=== PATIENT | female | born 1940 | race Caucasian/White ===

== ENCOUNTER 2020-04-11 12:52 | Outpatient (RCR) | payer MEDICARE, SELFPAY | END 2020-04-11 23:59 | LOC: IMMUN 12:52 | PROVIDERS: PCP Family Medicine; Visit Provider Family Medicine | DX: Z23 Encounter for immunization (principal) | CPT/HCPCS: 0011A; 0012A; 91301 ==

== ENCOUNTER 2023-08-12 18:07 | Emergency (ER) | payer MEDICARE, SELFPAY ==
[2023-08-12 18:08] VITALS: BP 128/97; PULSE 95; RESP 18; TEMP 36.1; O2SAT 94; BMI 31.5
--- NOTE | 2023-08-12 18:37 | US_ITS ---
INDICATION: rt leg pain EXAMINATION: US Venous Duplex LE Unilat / Limited TECHNIQUE: Garber scale, pulse wave, and color flow Doppler imaging was performed of the lower extremity venous system. The right greater saphenous, common femoral, femoral, and popliteal veins were interrogated. COMPARISON: None. FINDINGS: There is normal compression, augmentation, and signal throughout the visualized deep lower extremity veins. No mass or fluid collection. US/Venous Duplex Imag/Limited/Uni IMPRESSION: No sonographic evidence of deep venous thrombosis. Electronically Signed: Haroon Martins MD at 21:19 EDT ,
--- NOTE | 2023-08-12 18:42 | EDS_ITS ---
HPI <IRIS Mittal - Last Filed: 08/12/23 19:23> History of Present Illness Chief Complaint: Edema Narrative Narrative: Patient is 83-year-old female with history of osteoarthritis, who presents to the emergency department with concern for right lower leg swelling. Patient is currently receiving treatment from her PCP for shingles to her right buttock, going down her right leg. Patient she is also having worsening pain to the right knee secondary to not getting her knee injections, she states she is formed weeks overdue. She denies any history of blood clots in the legs or lungs, denies any car rides greater than 4 hours, [place] any recent surgeries. PFSH <IRIS Mittal - Last Filed: 08/12/23 19:23> [facility] Home Medications ?Medication ?Instructions ?Recorded ?Last Taken ?Type gabapentin 300 mg capsule 300 mg PO TID 08/12/23 Unknown History ketoconazole 2 % shampoo 1 applic topical .COMPLEX 08/12/23 Unknown History prednisone 10 mg tablet See Taper PO 08/12/23 Unknown History sertraline 25 mg tablet 25 mg PO DAILY 08/12/23 Unknown History valacyclovir 1 gram tablet 1,000 mg PO TID 08/12/23 Unknown History Allergy/AdvReac Type Severity Reaction Status Date / Time No Known Allergies Allergy Verified 08/12/23 18:08 Social History Smoking Status: Never smoker ROS <IRIS Mittal - Last Filed: 08/12/23 19:23> ROS ED ROS Narrative Constitutional: Negative for fever, chills, weight loss, weakness Eyes: Negative for vision loss, vision change, double vision ENT: Negative for any sore throat, ear pain, congestion Cardiovascular: Negative for any chest pain, tightness, palpitations Respiratory: Negative for any cough, sputum production, hemoptysis, dyspnea, dyspnea on exertion, orthopnea Gastrointestinal: Negative for any abdominal pain, nausea, vomiting, diarrhea, constipation, blood in stool, blood in vomit : Negative for any urinary frequency, dysuria, retention, blood in urine Muscle skeletal: Negative for any neck pain, back pain. Positive right leg pain, right leg swelling Neurological: Negative for any headache, syncope, dizziness Skin: Negative for any rashes, itching, abrasions, lacerations Psychiatric: Negative for any depression, anxiety, stress, suicidal ideation, homicidal ideation Hematologic: Negative for any excessive bruising, easy bleeding EXAM <IRIS Mittal - Last Filed: 08/12/23 19:23> Physical Exam Narrative Exam Narrative: Vital signs reviewed. HEET: Head normocephalic atraumatic, TMs clear bilaterally. Posterior pharynx is clear, moist mucous membranes. Nares clear bilaterally. Neck: Supple with no lymphadenopathy or tenderness. No signs of meningismus. Cardiac: Regular rate and rhythm no murmurs gallops or rubs, equal peripheral pulses bilaterally. Respiratory: Lungs clear to auscultation bilaterally. No chest tenderness. Abdomen: Soft, nontender, nondistended. No abdominal bruit or pulsatile masses. No hepatosplenomegaly Extremities: Patient does have some swelling to bilateral feet, bilateral ankles, this is minimal, slight more pronounced on the right. Patient does have some rash to the anterior right lower leg, this is consistent with a shingles that is up in her right buttock. +2 pedal pulse.. Active full range of motion of all extremities. Neuro: Cranial nerves II through XII intact, no focal neurological deficits. Skin: Clean dry and intact with no rash, purpura, petechiae, vesicles or pustules. Backs/flank: No CVA tenderness, no midline spinal tenderness, no deformity. Psych: Normal mood and affect. No SI, HI or acute psychosis. Const Vital Signs: 08/12/23 18:07 08/12/23 18:08 Temperature 97 F L Temperature Source Temporal Pulse Rate 95 Respiratory Rate 18 Respiratory Effort Normal Respiratory Pattern Normal Blood Pressure 128/97 H Blood Pressure Mean 107 Pulse Ox 94 Oxygen Delivery Method Room Air Positive well nourished and well developed General Appearance ED: well developed <Dr. Alin Villarreal, DO - Last Filed: 08/12/23 20:33> Physical Exam Const Vital Signs: 08/12/23 18:07 08/12/23 18:08 Temperature 97 F L Temperature Source Temporal Pulse Rate 95 Respiratory Rate 18 Respiratory Effort Normal Respiratory Pattern Normal Blood Pressure 128/97 H Blood Pressure Mean 107 Pulse Ox 94 Oxygen Delivery Method Room Air MDM <IRIS Mittal - Last Filed: 08/12/23 19:23> MDM Treatment and Re-Evaluation :: Differential diagnosis includes however is not limited to: DVT, dependent edema, cellulitis Patient appears to be in no obvious respiratory distress, patient's vital signs are stable. Patient presents to the emergency department with concerns of right lower leg swelling concerning for blood clot. She was at urgent care who was told to come here. I do not believe the patient does have a blood clot however the patient received a venous duplex. Venous duplex was negative. At this time, patient be discharged home, instructed to ice and elevate her legs. She will continue taking the valacyclovir, prednisone. All questions were answered, she instructed return for any worsening symptoms. <Dr. Alin Villarreal, DO - Last Filed: 08/12/23 20:33> [facility] Narrative Medical decision making narrative: I have personally performed a face to face assessment of the patient and have reviewed the HARSH Note. I performed a substantive portion of the visit including all aspects of the following. My salomon findings include: History: Patient presents with right lower leg pain and swelling that became worse today. Patient states she has shingles going down her right lower leg. Patient is being treated for that. Patient states that she noted some increased pain and swelling today. Patient denies any fevers or chills. Patient denies any trauma or injury. Exam: Vital signs are stable. Patient is afebrile. Patient is in no acute distress. There is tenderness and mild edema over the right lower leg. There is an erythematous patchy rash over the right L4 dermatome. There are no vesicles or pustules noted. Pedal pulses are equal bilaterally. Sensation was intact to light touch bilaterally in the lower extremities. Strength is 5/5 bilaterally in the lower extremities. There is full range of motion of the right knee and ankle. Medical Decision Making: Differential diagnosis includes DVT and varicella- zoster. Venous duplex of the right lower extremity will be obtained to assess for DVT. Venous Doppler was obtained. There is no evidence of DVT. Patient was advised of her findings. Patient was instructed to ice and elevate her right leg. Patient was instructed to continue her antiviral medication as prescribed. Patient was instructed to return if worse in any way. Patient understood and was agreeable with the plan. All questions were answered. Discharge Plan Triage Chief Complaint: Edema ED Midlevel Provider: Shayne Spangler ED Provider: Alin Villarreal Dx/Rx/DC Orders Clinical Impression: Leg edema, Shingles Instructions: ED Peripheral Edema, Bilateral, ED Shingles (Herpes Zoster) Prescriptions: No Action prednisone 10 mg tablet See Taper PO Taper: Prednisone Taper 60 mg WITH BREAKFAST for 3 Days 50 mg WITH BREAKFAST for 3 Days 40 mg WITH BREAKFAST for 3 Days 30 mg WITH BREAKFAST for 3 Days 20 mg WITH BREAKFAST for 3 Days 10 mg WITH BREAKFAST for 3 Days ketoconazole 2 % shampoo 1 applic topical .COMPLEX Rx Instructions: 1 applic topically 2-3 times a week; gabapentin 300 mg capsule 300 mg PO TID valacyclovir 1 gram tablet 1,000 mg PO TID sertraline 25 mg tablet 25 mg PO DAILY Primary Care Provider: John Godinez Referrals: John Godinez MD [Primary Care Provider] - Activity Restrictions/Additional Instructions: Please take your medications as prescribed Print Language: Bengali Disposition Disposition: Home, Self Care
[2023-08-12 20:04] VITALS: BP 121/74; PULSE 84; RESP 16; TEMP 36.1; O2SAT 99
== END 2023-08-12 20:06 | disposition home or self-care (01) ==
PROVIDERS: Emergency Provider Emergency Medicine; PCP Family Medicine; Visit Provider Emergency Medicine
DX: R60.0 Localized edema (principal); B02.9 Zoster without complications
CPT/HCPCS: 93971; 99283

== ENCOUNTER 2025-02-16 10:31 | Emergency (ER) | payer MEDICARE, SELFPAY ==
[2025-02-16 10:35] VITALS: BP 160/86; PULSE 83; RESP 18; TEMP 35.7; O2SAT 96; BMI 31.5
--- NOTE | 2025-02-16 11:03 | RAD_ITS ---
PROCEDURE: HIP, UNI W/ PELVIS 2-3 VIEWS 02/16/2025 REASON FOR EXAM: PAIN TECHNIQUE: Procedure Code: RADHP Modality: DX Procedure: HIP, UNI W/ PELVIS 2-3 VIEWS Laterality: Left COMPARISON: None FINDINGS: Bones: No acute fracture. Joints: Normal alignment. Mild degenerative changes. Soft tissues: Soft tissues are unremarkable. Other: No radiopaque foreign body. RAD/HIP, UNI W/ Pelvis 2-3 Views IMPRESSION: No acute fracture is identified. If there is high clinical concern for the lef t hip fracture, further evaluation may be obtained with CT. Reading Location: [facility]
--- OUTSIDE RECORDS SUMMARY | 2025-02-16 11:24 | XMS RPT_ITS | CCD ---
Author Organization [facility] CliniSyut Care Team Providers Care Profile Saw Operator Name Role Phone John Hicks MD Primary Care Provider John Hicks Primary Care Unavailable Alin Villarreal Attending Unavailable John Hicks MD Primary Care Provider Haagen LICENSED PHYSICAL THERAPY ASSISTANT.Shanna ROSARIO Unavailable Suppan 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, Kaitlin A Unavailable Suppan 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, Kaitlin A Unavailable SUPPAN, KAITLIN A Referring Unavailable FABIOLA, JOHN Carr Primary Care Unavailable MARLYS JERNIGAN Attending Unavailable FABIOLA, JOHN Carr Primary Care Unavailable SUPPDAVIE, KAITLIN A Referring Unavailable FABIOLA, JOHN Carr Primary Care Unavailable FABIOLA, JOHN Bruno Primary Care Unavailable SUPPAN, KAITLIN A Referring Unavailable SUPPAN, KAITLIN A Referring Unavailable FABIOLA, JOHN J Primary Care Unavailable FABIOLA, JOHN J Primary Care Unavailable SUPPDAVIE, KAITLIN A Attending Unavailable FABIOLA, JOHN J Primary Care Unavailable SHANNA MUKHERJEE Attending Unavailable VIKRAMTOSATNAM, MARLYS Referring Unavailable MARLYS JERNIGAN Attending Unavailable FABIOLA, JOHN J Primary Care Unavailable SUPPDAVIE, KAITLIN A Referring Unavailable FABIOLA, JOHN J Primary Care Unavailable CHRISTIAN STANFORD Attending Unavailable FABIOLA, JOHN J Primary Care Unavailable SUPPAN, KAITLIN A Referring Unavailable CHRISTIAN STANFORD Attending Unavailable FABIOLA, JOHN J Primary Care Unavailable SUPPAN, KAITLIN A Referring Unavailable FABIOLA, JOHN J Primary Care Unavailable SUPPAN, KAITLIN A Referring Unavailable CHRISTIAN STANFORD Attending Unavailable FABIOLA, JOHN J Primary Care Unavailable FABIOLA, JOHN J Primary Care Unavailable SUPPDAVIE, KAITLIN A Referring Unavailable FABIOLA, JOHN J Primary Care Unavailable SUPPAN, KAITLIN A Referring Unavailable FABIOLA, JOHN J Primary Care Unavailable CHRISTIAN STANFORD Attending Unavailable KAITLIN VICTOR A Referring Unavailable FABIOLAJOHN Primary Care Unavailable KAITLIN VICTOR A Referring Unavailable FABIOLA, JOHN Carr Primary Care Unavailable KAITLIN VICTOR A Attending Unavailable KAITLIN VICTOR A Referring Unavailable JOHN HICKS Primary Care Unavailable FABIOLAJOHN Primary Care Unavailable KAITLIN VICTOR A Referring Unavailable FABIOLAJOHN Primary Care Unavailable KAITLIN VICTOR A Attending Unavailable MARLYS JERNIGAN Referring Unavailable MARLYS JERNIGAN Attending Unavailable JOHN HICKS Primary Care Unavailable Unavailable Unavailable Unavailable Allergies Allergy Classification Reported Allergen(s) Allergy Type Date of Onset Reaction(s) Facility Lidocaine (5 sources) Lidocaine Drug Allergy Intolerance [facility] medroxyPROGESTERone (5 sources) medroxyPROGESTERone Drug Allergy [facility] NSAIDs (10 sources) Diclofenac Drug Allergy Other: See Comments [facility] Work Phone: Opioid Agonists (5 sources) Codeine Drug Allergy [facility] (20 sources) Codeine; Translations: [CODEINE] Drug Allergy [facility] (20 sources) Diclofenac; Translations: [DICLOFENAC] Drug Allergy Other: See Comments [facility] Work Phone: (20 sources) Etodolac; Translations: [ETODOLAC] Drug Allergy Other: See Comments [facility] (20 sources) Lidocaine; Translations: [LIDOCAINE] Drug Allergy Intolerance [facility] Work Phone: (20 sources) medroxyPROGESTERone; Translations: [MEDROXYPROGESTERONE] Drug Allergy 002 [facility] (20 sources) predisone [Other] Propensity to adverse reactions Other: See Comments [facility] Medications Current Medications Medication Drug Class(es) Dates Sig (Normalized) Sig (Original) acetaminophen 325 mg oral tablet (20 sources) take 2 tablets by mouth every six hours as needed acetaminophen (TYLENOL) 325 mg tablet Take 650 mg by mouth every 6 hours as needed. Active Comment on above: Take 650 mg by mouth every 6 hours as needed. Calcium Carbonate (20 sources) calcium carbonat e (TUMS 500 ORAL) Indications: Somatic dysfunction of spine, lumbar , Subjective change in urination Take by mouth as needed. Active calcium carbonat e (TUMS 500 ORAL) Indications: Somatic dysfunction of spine, lumbar , Subjective change in urination Take by mouth as needed. 0 Active Comment on above: Take by mouth as nee ded. Carboxymethylcellulose (20 sources) take 1 drop(s) into the eye(s) every eight hours as needed CARBOXYMETHYLCELLULOSE SODIUM (REFRESH TEARS OPHTHALMIC) Use 1 Drop in eyes three times daily as needed. Active take 1 drop(s) into the eye(s) every eight hours as needed CARBOXYMETHYLCELLULOSE SODIUM (REFRESH T EARS OPHTHALMIC) Use 1 Drop in eyes three times daily as needed. 0 Active Comment on above: Use 1 Drop in eyes t hree times daily as needed. Collagen (20 sources) COLLAGEN MISC Ac tive COLLAGEN MISC fexofenadine hydrochloride 180 mg oral tablet (20 sources) Histamine-1 Receptor Antagonist take 1 tablet by mouth once daily fexofenadine (MELBA) 180 mg tablet Take 180 mg by mouth once daily. Active Comment on above: Take 180 mg by mouth once daily. gabapentin 100 mg oral capsule (20 sources) Anti-epileptic Agent Start: 08-22-19 End: 11-20-19 24 take 1 capsule by mouth once daily at bedtime gabapentin (NEURONTIN) 100 mg capsule Take 1 capsule by mouth daily at bedtime for 90 days. (Take with the 300 mg capsule at bedtime for total bedtime dose of 400 mg). 30 capsule 2 08/22/2023 10/08/2023 Discontinued (Other) Start: 08-11-2023 End: 11-09-2023 take 1 capsule by mouth three times daily gabapentin (NEURONTIN) 300 mg capsule Indications: Herpes zoster with complication Take 1 capsule by mouth three times a day for 90 days. 90 capsule 2 08/11/2023 10/08/2023 Discontinued (Other) Glucosamine HCl, Bulk, powd (20 sources) Glucosamine HCl, Bulk, powd Active Glucosamine HCl, Bulk, powd ketoconazole 20 mg/ml medicated shampoo (20 sources) Azole Antifungal ketoconazole (N IZORAL) 2 % shampoo Apply 1 application to affected area once daily as needed. Active Comment on above: Apply 1 application to affected area once daily as needed. nirmatrelvir tablet 150 mg and ritonavir tablet 100 mg in a dose pack (PAXLOVID) (3 sources) Start: 06-22-2022 End: 06-27-2022 nirmatrelvir tablet 150 mg and ritonavir tablet 100 mg in a dose pack (PAXLOVID) Indications: Suspected COVID-19 virus infection Administer ONE pink nirmatrelvir 150 mg tablet and ONE white ritonavir 100 mg tablet for a total of two tablets twice daily. 20 tablet 0 06/22/2022 06/27/2022 Active Start: 06-22-2022 End: 06-22-2022 nirmatrelvir tablet 150 mg a nd ritonavir tablet 100 mg in a dose pack (PAXLOVID) Indications: Suspected COVID-19 virus infection Administer ONE pink nirmatrelvir 150 mg tablet and ONE white ritonavir 100 mg tablet for a total of two tablets twice daily. 20 tablet 0 06/22/2022 06/22/2022 Discontinued Comment on above: Administer ONE pink nirmatrelvir 150 mg tablet and ONE white ritonavir 100 mg tablet for a total of two tablets twice daily. permethrin 50 mg/ml topical cream (1 source) Pyrethroid Start: 2 End: 2 permethrin (ELIMITE) 5 % cream Indications: Scabies Apply 1 application to affected area one time only for 1 dose. massage into skin from neck to feet, leave on 8-12hrs, wash off; Info: repeat 2wks if live mites persist. Itching may persist after effective treatment. 120 g 0 06/29/2021 06/29/2021 Active Comment on above: Apply 1 application to affected area one time only for 1 dose. massage into skin from neck to feet, leave on 8-12hrs, wash off; Info: repeat 2wks if live mites persist. Itching may persist after effective treatment. polyethylene glycol 3350 15324 mg powder for oral solution (20 sources) Osmotic Laxative Start: 4 polyethylene glycol 3350 (MIRALAX) 17 gram/dose powder As needed for constipation 09/11/2013 Active Comment on above: As needed for consti pation sertraline 25 mg oral tablet (20 sources) Serotonin Reuptake Inhibitor Start: End: take 1 tablet by mouth once daily sertraline (ZOLOFT) 25 mg tablet Take 1 tablet by mouth once daily. 30 tablet 5 08/24/2024 Active Start: 02-04-2021 End: 07-06-2023 take 0.5 tablet by mouth once daily sertraline (ZOLOFT) 25 mg tablet Indications: Recurrent depression (HCC) Take 0.5 tablets by mouth once daily. 45 tablet 3 02/02/2022 07/06/2023 Discontinued Comment on above: Take 0.5 tablets by mouth once daily. Take 1 tablet by candace th once daily. Simethicone (20 sources) SIMETHICONE (GAS -X ORAL) Take 1 tablet by mouth as needed. Active SIMETHICONE (GAS -X ORAL) Take 1 tablet by mouth as needed. 0 Active Comment on above: Take 1 tablet by candace th as needed. triamcinolone acetonide 1 mg/ml topical cream (3 sources) Corticosteroid Start: 06-16-2021 End: 07-29-2021 triamcinolone acetonide (KENALOG) 0.1 % cream Indications: Scabies Apply to affected area twice daily. Apply a thin layer of cream to affected areas of the body twice daily for 2 weeks. Stop for one full week, then apply for flares. 60 g 1 06/29/2021 07/29/2021 Active Comment on above: Apply to affected ar ea twice daily. Apply a thin layer of cream to affected areas of the body twice daily for 2 weeks. Stop for one full week, then apply for flares. Completed/Discontinued Medications Medication Drug Class(es) Dates Sig (Normalized) Sig (Original) aspirin 81 mg delayed release oral tablet (20 sources) Platelet Aggregation Inhibitor, Nonsteroidal Anti-inflammatory Drug End: 03-03-2023 take 1 tablet by mouth once daily aspirin, enteric coated (ASPIRIN, ENTERIC COATED) 81 mg EC tablet Take 81 mg by mouth once daily. 0 03/03/2023 Discontinued Comment on above: Take 81 mg by mouth once daily. benzonatate 100 mg oral capsule (1 source) Non-narcotic Antitussive Start: 03-26-2021 End: 04-30-2021 take 1 capsule by mouth every eight hours as needed benzonatate (TESSALON PERLES) 100 mg capsule Take 1 capsule by mouth three times daily as needed for cough. 20 capsule 0 03/26/2021 04/30/2021 Discontinued (Course of therapy completed) Comment on above: Take 1 capsule by [facility] three times daily as needed for cough. betamethasone 3 mg/ml / betamethasone acetate 3 mg/ml injectable suspension (2 sources) Corticosteroid Start: 01-02-2024 End: 01-02-2024 betamethasone acetate-betamethas one sodium phosphate 6 mg injection (CELESTONE) Start: 01-02-2024 End: 01-02-2024 6 mg, Injection - FOR ORTHO USE ONLY, ONCE, 1 dose, Starting on Tue01/02/24 at 1219, Until Tue01/02/24 at 1219 30 ml bupivacaine hydrochloride 5 mg/ml injection (4 sources) Amide Local Anesthetic Start: 01-10-2023 End: 01-10-2023 BUPivacaine (PF) 0.5 % (5 mg/mL) 5 mL injection Start: 11-30-2021 End: 11-30-2021 bupivacaine (PF) 0.5 % (5 mg /mL) 5 mL injection Start: 11-30-2021 End: 11-30-2021 bupivacaine (PF) 0.5 % (5 mg /mL) 5 mL injection chlorhexidine gluconate 1.2 mg/ml mouthwash (20 sources) Start: 02-02-2021 End: 10-02-2024 Chlorhexidine Gluconate (PERIDEX) 0.12 % solution two times a day. 02/02/2021 10/02/2024 Discontinued (Course of therapy completed) Comment on above: twice daily. COMPOUNDED PRESCRIPTION (20 sources) End: 10-02-2024 COMPOUNDED PRESCRIPTION Gum Rincinol as needed 10/02/2024 Discontinued (Course of therapy completed) COMPOUNDED PRESC RIPTION Gum Rincinol as needed Active COMPOUNDED PRESC RIPTION Gum Rincinol as needed 0 Active Comment on above: Gum Rincinol as need ed dexamethasone 0.001 mg/mg / neomycin 0.0035 mg/mg / polymyxin b 10 unt/mg ophthalmic ointment (20 sources) Aminoglycoside Antibacterial, Polymyxin-class Antibacterial, Corticosteroid Start: 05-03-2022 End: 10-02-2024 NEOMYCIN 3.5 MG/G-POLYMYXIN B 10,000 UNIT/G-DEXAMETH 0.1 % EYE OINT 05/03/2022 10/02/2024 Discontinued (Course of therapy completed) Start: 05-03-2022 NEOMYCIN 3.5 M G/G-POLYMYXIN B 10,000 UNIT/G-DEXAMETH 0.1 % EYE OINT APPLY INTO RIGHT EYE TWICE DAILY 0 05/03/2022 Active Comment on above: APPLY INTO RIGHT EYE TWICE DAILY ergocalciferol, vitamin D2, (VITAMIN D2 ORAL) (20 sources) End: 10-02-2024 ergocalciferol, vitamin D2, (VITAMIN D2 ORAL) Take by mouth. 10/02/2024 Discontinued (Course of therapy completed) ergocalciferol, vitamin D2, (VITAMIN D2 ORAL) Take by mouth. Active ergocalciferol, vitamin D2, (VITAMIN D2 ORAL) Take by mouth. 0 Active Comment on above: Take by mouth. 3 ml sodium hyaluronate 20 mg/ml prefilled syringe (16 sources) Start: 10-01-2024 End: 10-01-2024 hyaluronate sodium, stabilized syrg 3 mL (DUROLANE) Start: 10-01-2024 End: 10-01-2024 3 mL, Injection - FOR ORTHO USE ONLY, ONCE, 1 dose, Starting on Tue10/01/24 at 0801, Until Tue10/01/24 at 0801 Start: 04-02-2024 End: 04-02-2024 hyaluronate sodium, stabiliz ed syrg 6 mL (DUROLANE) Start: 04-02-2024 End: 04-02-2024 6 mL, Injection - FOR ORTHO USE ONLY, ONCE, 1 dose, Starting on Tue04/02/24 at 0848, Until Tue04/02/24 at 0848 Start: 09-05-2023 End: 09-05-2023 hyaluronate sodium, stabiliz ed syrg 6 mL (DUROLANE) Start: 01-10-2023 End: 01-10-2023 hyaluronate sodium, stabiliz ed syrg 6 mL (DUROLANE) Start: 11-30-2021 End: 11-30-2021 hyaluronate sod, cross-linke d 30 mg injection (GEL-ONE) Start: 11-30-2021 End: 11-30-2021 hyaluronate sod, cross-linke d 30 mg injection (GEL-ONE) 2 ml hylan g-f 20 8 mg/ml prefilled syringe (2 sources) Start: 11-30-2021 End: 11-30-2021 hylan G-F 20 2 mL injection (SYNVISC) Start: 11-30-2021 End: 11-30-2021 hylan G-F 20 2 mL injection (SYNVISC) 10 ml lidocaine hydrochloride 10 mg/ml injection (2 sources) Antiarrhythmic, Amide Local Anesthetic Start: 01-02-2024 End: 01-02-2024 lidocaine (PF) 10 mg/mL (1 %) 5 mL injection (XYLOCAINE) Start: 01-02-2024 End: 01-02-2024 5 mL, Injection - FOR ORTHO USE ONLY, ONCE, 1 dose, Starting on Tue01/02/24 at 1219, Until Tue01/02/24 at 1219 loratadine 10 mg oral tablet (20 sources) Start: 09-11-2014 End: 03-02-2023 take 1 tablet by mouth once daily as needed loratadine (ALLERGY RELIEF, LORATADINE,) 10 mg tablet Take 1 tablet by mouth once daily as needed (hives). 0 09/11/2014 03/02/2023 Discontinued Comment on above: Take 1 tablet by candace th once daily as needed (hives). predniSONE 10 mg oral tablet (6 sources) Start: 08-09-2023 End: 08-18-2023 predniSONE (DELTASONE) 10 mg tablet Indications: Chronic pain of right knee Take 4 tabs daily for 3 days, then 2 tabs daily for 3 days, then 1 tab daily for 3 days with food. 21 tablet 0 08/09/2023 08/18/2023 valACYclovir 1000 mg oral tablet (4 sources) Herpesvirus Nucleoside Analog DNA Polymerase Inhibitor, Herpes Simplex Virus Nucleoside Analog DNA Polymerase Inhibitor, Herpes Zoster Virus Nucleoside Analog DNA Polymerase Inhibitor Start: 08-11-2023 End: 08-18-2023 take 1 tablet by mouth three times daily valACYclovir (VALTREX) 1 gram tablet Indications: Herpes zoster with complication Take 1 tablet by mouth three times a day for 7 days. 21 tablet 0 08/11/2023 08/18/2023 vit C/E/Zn/coppr/lutein /zeaxan (PRESERVISION AREDS-2 ORAL) (20 sources) End: 10-02-2024 vit C/E/Zn/coppr/lutei n/zeaxan (PRESERVISION AREDS-2 ORAL) Take by mouth. 10/02/2024 Discontinued (Course of therapy completed) vit C/E/Zn/coppr /lutein/zeaxan (PRESERVISION AREDS-2 ORAL) Take by mouth. Active vit C/E/Zn/coppr /lutein/zeaxan (PRESERVISION AREDS-2 ORAL) Take by mouth. 0 Active Comment on above: Take by mouth. Problems Active Problems Problem Classification Problem Date Documented Da te Episodic/Chronic Adjustment disorders (2 sources) Grief finding; Translations: [Adjustment disorder with depressed mood] Onset: 10-02-2024 10-02-2024 Chronic Allergic reactions (20 sources) Urticaria; Translations: [Urticaria, unspecified] Onset: 04-28-2011 Resolved: 10-26-2016 09-11-2014 Episodic Anxiety disorders (20 sources) Generalized anxiety disorder; Translations: [Generalized anxiety disorder] Onset: 04-26-2017 04-26-2017 Chronic Chronic kidney disease (20 sources) Chronic kidney disease stage 3; Translations: [CKD (chronic kidney disease) stage 3, GFR 30-59 ml/min] Onset: 12-06-2017 12-06-2017 Chronic Conduction disorders (2 sources) Left bundle branch block; Translations: [Left bundle-branch block, unspecified] Onset: 10-02-2024 10-02-2024 Chronic Coronary atherosclerosis and other heart disease (1 source) Unstable angina; Translations: [Unstable angina pectoris (HCC)] Onset: 12-10-2024 Chronic Immunizations and screening for infectious disease (1 source) Suspected disease caused by 2019-nCoV; Translations: [Suspected COVID-19 virus infection] Episodic Menopausal disorders (20 sources) Menopausal symptom; Translations: [Menopausal and female climacteric states] Onset: 11-04-2001 07-15-2003 Chronic Mood disorders (20 sources) Recurrent depression; Translations: [Major depressive disorder, recurrent, unspecified] Onset: 11-04-2001 Resolved: 12-07-2018 04-26-2017 Chronic Open wounds of extremities (1 source) Laceration of right lower leg; Translations: [Laceration without foreign body, right lower leg, initial encounter] 10-18-2023 Episodic Osteoarthritis (20 sources) Degenerative joint disease involving multiple joints; Translations: [Polyosteoarthritis, unspecified] Onset: 11-04-2001 07-15-2003 Chronic Other connective tissue disease (1 source) Pain in lower limb; Translations: [Pain in right leg] 08-12-2023 Episodic Other diseases of kidney and ureters (1 source) Renal impairment; Translations: [Disorder of kidney and ureter, unspecified] Episodic Other ear and sense organ disorders (1 source) Impacted cerumen in left ear; Translations: [Impacted cerumen, left ear] 07-06-2023 Episodic Other infections; including parasitic (2 sources) Infestation by Sarcoptes scabiei rohan hominis; Translations: [Scabies] Episodic Other nervous system disorders (1 source) Other chronic pain; Translations: [Chronic bilateral low back pain without sciatica] Onset: 08-28-2024 Chronic Other upper respiratory infections (1 source) Sore throat symptom; Translations: [Acute pharyngitis, unspecified] 01-10-2024 Episodic Residual codes; unclassified (2 sources) Postmenopausal state; Translations: [Asymptomatic menopausal state] 03-03-2023 Episodic Residual codes; unclassified (3 sources) Edema of lower extremity; Translations: [Localized edema] 09-03-2023 Episodic Residual codes; unclassified (1 source) Procedure not done; Translations: [Procedure and treatment not carried out, unspecified reason] 11-08-2023 Episodic Superficial injury; contusion (3 sources) Contusion of wrist; Translations: [Contusion of right wrist, initial encounter] Episodic Unclassified (1 source) Chronic bilateral low back pain without sciatica; Translations: [Chronic bilateral low back pain without sciatica] Onset: 08-28-2024 Viral infection (5 sources) Herpes zoster; Translations: [Zoster with other complications] 08-11-2023 Episodic Past or Other Problems Problem Classification Problem Date Documented Da te Episodic/Chronic Inflammation; infection of eye (except that caused by tuberculosis or sexually transmitteddisease) (20 sources) Fuchs' heterochromic cyclitis, right eye; Translations: [Fuchs' heterochromic cyclitis] Onset: 08-14-2021 Episodic Neoplasms of unspecified nature or uncertain behavior (20 sources) Neoplasm of uncertain behavior of skin; Translations: [Neoplasm of uncertain behavior of skin] Onset: 04-28-2011 Resolved: 09-13-2011 09-13-2011 Episodic Nonspecific chest pain (3 sources) Chest discomfort; Translations: [Other chest pain] Onset: 02-21-2024 02-08-2024 Episodic Other and unspecified benign neoplasm (20 sources) History of polyp of colon; Translations: [Personal history of colonic polyps] Onset: 11-04-2001 07-15-2003 Episodic Other bone disease and musculoskeletal deformities (20 sources) Osteopenia; Translations: [Other specified disorders of bone density and structure, unspecified site] Onset: 11-04-2001 10-23-2015 Episodic Other circulatory disease (20 sources) Telangiectasia disorder; Translations: [Nevus, non-neoplastic] Onset: 04-28-2011 Resolved: 10-26-2016 10-26-2016 Episodic Other nervous system disorders (2 sources) Other symptoms and signs involving cognitive functions and awareness; Translations: [Other signs and symptoms involving cognition] Onset: 02-21-2024 02-21-2024 Episodic Other non-epithelial cancer of skin (20 sources) History of malignant neoplasm of skin; Translations: [Personal history of other malignant neoplasm of skin] Onset: 04-28-2011 03-16-2021 Episodic Other non-traumatic joint disorders (20 sources) Shoulder pain; Translations: [Pain in right shoulder] Onset: 05-19-2012 05-19-2012 Episodic Other non-traumatic joint disorders (20 sources) Pain in right shoulder; Translations: [Pain in joint, shoulder region] Onset: 05-19-2012 05-19-2012 Episodic Other non-traumatic joint disorders (20 sources) Pain in right knee; Translations: [Pain in joint, lower leg] Onset: 07-16-2014 Resolved: 10-26-2016 10-26-2016 Episodic Other screening for suspected conditions (not mental disorders or infectious disease) (20 sources) Patient encounter status; Translations: [Encounter for screening for lipoid disorders] Onset: 07-05-2011 Resolved: 10-23-2015 Episodic Other skin disorders (20 sources) Keloid scar; Translations: [Hypertrophic scar] Onset: 04-28-2011 09-13-2011 Episodic Other skin disorders (20 sources) Solar lentigo; Translations: [Other melanin hyperpigmentation] Onset: 04-28-2011 Resolved: 10-26-2016 10-26-2016 Episodic Otitis media and related conditions (2 sources) Finding of fluid behind tympanic membrane; Translations: [Unspecified nonsuppurative otitis media, bilateral] Onset: 02-08-2024 02-08-2024 Episodic Residual codes; unclassified (2 sources) Localized edema; Translations: [Localized edema] Onset: 08-19-2023 Episodic Spondylosis; intervertebral disc disorders; other back problems (20 sources) Chronic low back pain; Translations: [Chronic bilateral low back pain without sciatica] Onset: 08-28-2024 08-28-2024 Episodic Results Test Name Value Interpretation Reference Range Facility [id number] 12-13-2024 [id number] HNO ID: [id number] Author: CHRISTIAN STANFORD PT Service: ? Author Type: Physical Therapist Type: [id number] Filed: 12/13/2024 10:05 Note Text: [facility] Physical Therapy Plan of Care Certification Patient Name: Arianne Aleman : 1940 [facility] #: [id number] Date: 12/11/2024 To: Kaitlin Victor A* From Therapist: Christian Stanford PT RE: Patient Certification/ Recertification Your review, approval and electronic signature are required in order to comply with Payor: [facility] [employer] Calendar / Plan: [facility] MEDICARE ADVANTAGE HMO / Product Type: HMO / regulations. The identified Physical Therapy PLAN OF CARE for the patient is as follows: M54.50, G89.29 Chronic bilateral low back pain without sciatica (primary encounter diagnosis) PLAN OF CARE UPDATE: Assessment: Arianne Aleman demonstrates moderate improvement in rising from a chair, standing, and walking. The patient has progressed toward goals. Patient continues to present with impairments in ADL's, overall function, and strength that interfere with rising from a chair, standing, walking . Current prognosis is Good due to: current objective clinical presentation, good overall health status, positive past response to therapy, within-session changes, good support system/ coping skills . The patient will benefit from continued skilled therapy services to meet the updated goals for this plan of care as noted below. Goals updated on 12/11/2024. Goals for Episode of Care: established 08/28/24 Independent in home exercises. Met Patient will decrease pain rating by 2 points to meet minimal clinical important difference for numeric pain rating scale. Partially met Restore pain-free lumbar ROM to WNL to allow for improved tolerance for standing and walking. Improved Stand / Walk for ADLs and self care without pain/symptoms. Improved Maintain proper sitting posture throughout session. Improved Patient will increase strength of trunk and BLE to 4 to 4+/5 to allow for improve gait mechanics/gait pattern and improve ability to complete ADLs. Improved Time Frame for Goals and Treatment : 02/12/25 Planned Interventions, Frequency, and Duration: 1x/week, 8 weeks Total Number of Visits Planned: 8 Patient to be seen for Manual therapy (51386), Therapeutic exercise (10778), Neuromuscular re-education (84039), Therapeutic activities (58625), Self-group home management (21337), Gait Training (62964), Patient/Family/Caregiver Education, Body Mechanics Training PLAN FOR NEXT VISIT: Continue with BLE and core strengthening per tolerance For further details regarding this patient refer to the Physical Therapy electronically documented visit dated 12/11/2024. Provider Attestation I have reviewed the treatment plan for Arianne Aleman CCArmida# [id number] for the period of 12/11/24 -- 02/10/25, established on 12/11/2024. Signature certifies the need for therapy services. Normal [facility] CNTHERAPYon 12-11-2024 CNTHERAPY OT/PT/Speech Visit ( PTWS) -- ARIANNE ALEMAN ([id number]) 1940 F TXT Date Time Provider Department 12/11/24 5:15 PM CHRISTIAN STANFORD PTWS Date Time Provider Department Center 12/11/2024 5:15 PM [id number], SEAN PTWS Ovi Ortega Reason for Visit: PT Progress Note [1596] Primary Visit Diagnosis:Chronic bilateral low back pain without sciatica [M54.50, G89.29] Allergies As of Date: 12/11/2024 Noted Allergy Reaction LIDOCAINE 11/03/2015 5 - Intolerance Comments: Severe itching, burning. Pt. has had Marcaine without problem for oral surgery per Dr. Rodriguez's office. (Unsure true Lidocaine allergy) CODEINE 11/09/2001 DICLOFENAC 02/06/2013 14 - Other: See Comments Comments: mouth ulcerations ETODOLAC 07/09/2014 14 - Other: See Comments Comments: Mouth ulcers MEDROXYPROGESTERONE 11/09/2001 Date Reviewed: 12/10/2024 Reviewed by: Nivia Geller, RT(R) - Partially Assessed Prescriptions as of 12/13/2024 - sertraline (ZOLOFT) 25 mg tablet Take 1 tablet by mouth once daily. - Glucosamine HCl, Bulk, powd - fexofenadine (MELBA) 180 mg tablet Take 180 mg by mouth once daily. - calcium carbonate (TUMS 500 ORAL) Take by mouth as needed. - COLLAGEN MISC - acetaminophen (TYLENOL) 325 mg tablet Take 650 mg by mouth every 6 hours as needed. - SIMETHICONE (GAS-X ORAL) Take 1 tablet by mouth as needed. - CARBOXYMETHYLCELLULOSE SODIUM (REFRESH TEARS OPHTHALMIC) Use 1 Drop in eyes three times daily as needed. - ketoconazole (NIZORAL) 2 % shampoo Apply 1 application to affected area once daily as needed. - polyethylene glycol 3350 (MIRALAX) 17 gram/dose powder As needed for constipation Meds Comments as of 03/18/2014: Lehr Tender: Therapy (PT/OT/Speech/Resp) ID: [id number] 12/11/2024 5:44 PM Author: CHRISTIAN STANFORD Signed by CHRISTIAN STANFORD PT on 12/11/2024 at 5:44 PM Document text: Program_ID:[id number] Access Code: [email or web address] URL: [email or web address] Date: 12-11-2024 Prepared By: Christian Stanford Program Notes Exercises - Supine Lower Trunk Rotation - 1 x daily - 7 x weekly - 3 sets - 10 reps - Hooklying Single Knee to Chest - 1 x daily - 7 x weekly - 3 sets - 3 reps - Hooklying Single Knee to Chest - 1 x daily - 7 x weekly - 3 sets - 3 reps - Supine Straight Leg Raises - 1 x daily - 7 x weekly - 3 sets - 10 reps - Supine Straight Leg Raises - 1 x daily - 7 x weekly - 3 sets - 10 reps - Clamshell - 1 x daily - 7 x weekly - 3 sets - 10 reps - Clamshell - 1 x daily - 7 x weekly - 3 sets - 10 reps - Sidelying Hip Abduction - 1 x daily - 7 x weekly - 3 sets - 10 reps - Sidelying Hip Abduction - 1 x daily - 7 x weekly - 3 sets - 10 reps - Seated Long Arc Quad - 1 x daily - 7 x weekly - 2 sets - 10 reps - Seated Transversus Abdominis Bracing - 2-3 x daily - 7 x weekly - 2 sets - 10 reps - Seated March - 1 x daily - 7 x weekly - 2 sets - 10 reps Normal [facility] THERAPY NTon 12-11-2024 THERAPY NT HNO ID: [id number] Author: CHRISTIAN STANFORD PT Service: ? Author Type: Physical Therapist Type: Therapy (PT/OT/Speech/Resp) Filed: 12/11/2024 17:44 Note Text: Program_ID:[id number] Access Code: [email or web address] URL: [email or web address] Date: 12-11-2024 Prepared By: Christian Stanford Program Notes Exercises - Supine Lower Trunk Rotation - 1 x daily - 7 x weekly - 3 sets - 10 reps - Hooklying Single Knee to Chest - 1 x daily - 7 x weekly - 3 sets - 3 reps - Hooklying Single Knee to Chest - 1 x daily - 7 x weekly - 3 sets - 3 reps - Supine Straight Leg Raises - 1 x daily - 7 x weekly - 3 sets - 10 reps - Supine Straight Leg Raises - 1 x daily - 7 x weekly - 3 sets - 10 reps - Clamshell - 1 x daily - 7 x weekly - 3 sets - 10 reps - Clamshell - 1 x daily - 7 x weekly - 3 sets - 10 reps - Sidelying Hip Abduction - 1 x daily - 7 x weekly - 3 sets - 10 reps - Sidelying Hip Abduction - 1 x daily - 7 x weekly - 3 sets - 10 reps - Seated Long Arc Quad - 1 x daily - 7 x weekly - 2 sets - 10 reps - Seated Transversus Abdominis Bracing - 2-3 x daily - 7 x weekly - 2 sets - 10 reps - Seated March - 1 x daily - 7 x weekly - 2 sets - 10 reps [facility]ARDWS[facility] -- ARIANNE ALEMAN ([id number]) 1940 F TXT Date Time Provider Department 12/10/24 9:15 AM NURSE CARD WSTR CARDWS During your visit today, we recorded the following information about you: Referring Provider: KAITLIN VICTOR [[id number]] Allergies As of Date: 12/10/2024 Noted Allergy Reaction LIDOCAINE 11/03/2015 5 - Intolerance Comments: Severe itching, burning. Pt. has had Marcaine without problem for oral surgery per Dr. Rodriguez's office. (Unsure true Lidocaine allergy) CODEINE 11/09/2001 DICLOFENAC 02/06/2013 14 - Other: See Comments Comments: mouth ulcerations ETODOLAC 07/09/2014 14 - Other: See Comments Comments: Mouth ulcers MEDROXYPROGESTERONE 11/09/2001 Date Reviewed: 10/02/2024 Reviewed by: Kaelyn Villatoro MA - Fully Assessed Visit Diagnosis: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] Order(s):[] regadenoson 0.4 mg injection (LEXISCAN)Disp: Rfl: Prescriptions as of 12/10/2024 - sertraline (ZOLOFT) 25 mg tablet Take 1 tablet by mouth once daily. - Glucosamine HCl, Bulk, powd - fexofenadine (MELBA) 180 mg tablet Take 180 mg by mouth once daily. - calcium carbonate (TUMS 500 ORAL) Take by mouth as needed. - COLLAGEN MISC - acetaminophen (TYLENOL) 325 mg tablet Take 650 mg by mouth every 6 hours as needed. - SIMETHICONE (GAS-X ORAL) Take 1 tablet by mouth as needed. - CARBOXYMETHYLCELLULOSE SODIUM (REFRESH TEARS OPHTHALMIC) Use 1 Drop in eyes three times daily as needed. - ketoconazole (NIZORAL) 2 % shampoo Apply 1 application to affected area once daily as needed. - polyethylene glycol 3350 (MIRALAX) 17 gram/dose powder As needed for constipation Meds Comments as of 03/18/2014: Problem List As Of Date 12/10/2024 Noted Resolved Chronic depression [F32.A] 11/04/2001 12/07/2018 Symptomatic menopausal or female climacteric st*11/04/2001 GENERAL OSTEOARTHROSIS [M15.9] 11/04/2001 Personal history of colonic polyps [Z86.0100] 11/04/2001 Osteopenia [M85.80] 11/04/2001 Neoplasm of Uncertain Behavior (NUB) of skin: L*04/28/2011 09/13/2011 Personal history of other malignant neoplasm of*04/28/2011 Actinic skin damage [L57.8] 04/28/2011 10/26/2016 Hypertrophic//Keloid scar: L upper lip [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] 04/28/2011 Telangiectasia [I78.1] 04/28/2011 10/26/2016 Solar Lentigines [L81.4] 04/28/2011 10/26/2016 Special screening for malignant neoplasms, colo*07/05/2011 10/23/2015 Bilateral shoulder pain [M25.511, M25.512] 05/19/2012 Arthritis of knee, degenerative [M17.9] 03/18/2014 Right knee pain [M25.561] 07/16/2014 10/26/2016 Hives [L50.9] Recurrent depression (HCC) [F33.9] 04/26/2017 JOSE ELIAS (generalized anxiety disorder) [F41.1] 04/26/2017 CKD (chronic kidney disease) stage 3, GFR 30-59*12/06/2017 Fuchs' heterochromic iridocyclitis, 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 Basal cell carcinoma (BCC) of skin of right upp*02/02/2022 Chronic bilateral low back pain without sciatic*08/28/2024 Prescriptions ordered this encounter Disp Refills Start End REGADENOSON 0.4 MG/5 ML INTRAVENOUS * 12/10/2024 12/10/2024 Route: IV Encounter Status:Closed by TITA CASTELLANO on 12/10/24 Normal [facility] CARDIAC PERF STRESS/PHARM on 12-10-2024 HI CARDIAC PERF STRESS/PHARM * * *Final Report* * * DATE OF EXAM: Dec 10 2024 11:10AM [address] CARDIAC PERF STRESS/PHARM / PROCEDURE REASON: Unstable angina pectoris (HCC) * * * * Physician Interpretation * * * * PATIENT: Name: MRS. ARIANNE ALEMAN Age: 84 years Gender: F CONCLUSIONS: 1. SPECT Perfusion Study: Normal. 2. There is no scintigraphic evidence for inducible ischemia. 3. No evidence of scarred myocardium. 4. Left ventricle is normal in size. The left ventricle systolic function is hyperdynamic. 5. This is a low risk scan. Gated Stress FBP LVEF % 75 Prior Study Comparison No prior nuclear cardiology exam available for comparison. Nuclear Med Report:1-Day Gated SPECT Myocardial Perfusion with Regadenoson Stress: Myocardial perfusion imaging was performed at rest 30 minutes following the IV injection of the radiotracer. The patient received 0.4 mg of regadenoson, via rapid IV push, immediately followed by radiotracer IV. Gated post stress tomographic imaging was performed 30 to 60 minutes later. See administered radiotracer and doses below. [facility] Date of service: 12/10/2024 8:24:49 AM Ordering Physician: KAITLIN VICTOR. Requesting Physician: KAITLIN VICTOR Indication: CP - ECG uninterpretable OR unable to exercise Interpreting physician: Katherine Weston MD Height: 162.56 cm BSA: 1.93 m? Weight: 82.56 kg BMI: 31.2 kg/m? Exam Type: Rest Stress Radiopharm: Tc-99m Tetrofosmin Tc-99m Tetrofosmin Dosage(mCi): 13.7 35.3 Stress Agent: Regadenoson 0.4mg Supply provided from [facility] Resting Blood Press: 122/68 mmHg Image Quality The overall study imaging quality was deemed to be good. FINDINGS: Left Ventricle Wall Motion: Stress IR:3D - All segments are normal. Rest IR:3D - Gated Stress FBP - Reversibility - Stress IR:3D Stress IR:3D Gated Stress FBP LVEF: 75 % ED Volume: 107 ml ES Volume: 27 ml TID: 0.83 Perfusion Findings Stress IR:3D - Summed Score=0 All segments demonstrate normal perfusion. Rest IR:3D - Summed Score=0 All segments demonstrate normal perfusion. Stress IR:3D Rest IR:3D Summed Score=0 Summed Score=0 LEFT VENTRICLE The left ventricle is normal in size. Left ventricular systolic function is hyperdynamic. Right Ventricle The right ventricle is unseen or not interrogated. Stress Test Findings: There is no scintigraphic evidence for inducible ischemia. There is no evidence of scarring. * * * Final * * * Stress ECG Report: [facility] Date of service: 12/10/2024 8:24:49 AM Ordering physician: KAITLIN VICTOR bioinformatics specialist: Tita Castellano RN Interpreting physician: Gianfranco Garcia MD Patient name: MRS. ARIANNE ALEMAN Age: 84 years Gender: F Height: 162.56 cm BSA: 1.93 m? Weight: 82.56 kg BMI: 31.2 kg/m? Indication: Chest pressure / Chest tightness and Encounter for screening for cardiovascular disorders Stress ECG Conclusion: Conclusion: Nondiagnostic due to LBBB Prior exam comparison: Nondiagnostic at present Stress ECG Summary: The patient's resting heart rate was 62 bpm and blood pressure was 122/68 mmHg. The test was terminated due to end of protocol. The maximum heart rate was 75 bpm, which is 56% of the predicted heart rate for age. Peak blood pressure was 148/76 mmHg. The double product achieved was 26744. Resting ECG: Normal Sinus Rhythm and Complete LBBB Symptoms at rest: No symptoms Pharamcologic Protocol: Regadenoson Stress Exercise Table: +-----+--+---+---+ Stage HR SYS ARMAAN +-----+--+---+---+ 1 75 +-----+--+---+---+ 2 81 138 80 +-----+--+---+---+ 3 79 +-----+--+---+---+ 4 75 148 76 +-----+--+---+---+ +-----+--+---+---+ HR SYS ARMAAN +-----+--+---+---+ Final 75 148 76 +-----+--+---+---+ +------+ + Stage Arrhythmias +------+ + 1 Regadenoson Injection and Isotope Injection +------+ + Recovery Table: +------+--+---+---+ Stage HR SYS ARMAAN +------+--+---+---+ 1 74 +------+--+---+---+ 2 75 138 72 +------+--+---+---+ 3 70 +------+--+---+---+ 4 70 134 68 +------+--+---+---+ Stress Observations: Resting HR: 62 bpm Peak HR: 75 bpm (56% MPHR) Resting BP: 122 / 68 mmHg Peak BP: 148 / 76 mmHg Rate Pressure Product (RPP): 85449 Stress Exercise Observations: Reason for test termination: end of protocol ST segment and T wave changes: Nondiagnostic due to LBBB Arrhythmias: No arrhythmias Metabolic Exercise Data Variable: Observed value [Expected Range] HGI: 0.5 [>1.06 bpm/mmHg] E (more content not included)... Normal [facility] 12-03-2024 CNPN Telephone (4CQ) -- ARIANNE ALEMAN ([id number]) 1940 F TXT Date Time Provider Department 12/03/24 JOHN HICKS 4CQ During your visit today, we recorded the following information about you: Flory Porras 12/03/2024 12:26 PM Signed Patient stopped in and wanted Shelby Victor to know that her last periodontal check is today for the upper work that was done. Things are going well and she is feeling fine. She had never had any issues with her heart until she had this periodontal work done. She wants to know if she should make an appt to see Shelby Victor about this or if she should go ahead with the scheduled stress test? She seemed very anxious about this upcoming procedure. Please call [phone] if you need to reach out to her. Thank you! Kaitlin Victor APRN.MULTIPLE KNIFE EDGE TRIMMER OPERATOR 12/03/2024 4:16 PM Signed Please schedule the stress test. Jonathan Mcleod LPN 12/05/2024 9:13 AM Signed The stress test is scheduled. Patient was notified to go ahead with test. Allergies As of Date: 12/03/2024 Noted Allergy Reaction LIDOCAINE 11/03/2015 5 - Intolerance Comments: Severe itching, burning. Pt. has had Marcaine without problem for oral surgery per Dr. Rodriguez's office. (Unsure true Lidocaine allergy) CODEINE 11/09/2001 DICLOFENAC 02/06/2013 14 - Other: See Comments Comments: mouth ulcerations ETODOLAC 07/09/2014 14 - Other: See Comments Comments: Mouth ulcers MEDROXYPROGESTERONE 11/09/2001 Date Reviewed: 10/02/2024 Reviewed by: Kaelyn Villatoro MA - Fully Assessed Reason for Visit: Patient Update [1234] Patient Question [3507] Prescriptions as of 12/05/2024 - sertraline (ZOLOFT) 25 mg tablet Take 1 tablet by mouth once daily. - Glucosamine HCl, Bulk, powd - fexofenadine (MELBA) 180 mg tablet Take 180 mg by mouth once daily. - calcium carbonate (TUMS 500 ORAL) Take by mouth as needed. - COLLAGEN MISC - acetaminophen (TYLENOL) 325 mg tablet Take 650 mg by mouth every 6 hours as needed. - SIMETHICONE (GAS-X ORAL) Take 1 tablet by mouth as needed. - CARBOXYMETHYLCELLULOSE SODIUM (REFRESH TEARS OPHTHALMIC) Use 1 Drop in eyes three times daily as needed. - ketoconazole (NIZORAL) 2 % shampoo Apply 1 application to affected area once daily as needed. - polyethylene glycol 3350 (MIRALAX) 17 gram/dose powder As needed for constipation Meds Comments as of 03/18/2014: Problem List As Of Date 12/03/2024 Noted Resolved Chronic depression [F32.A] 11/04/2001 12/07/2018 Symptomatic menopausal or female climacteric st*11/04/2001 GENERAL OSTEOARTHROSIS [M15.9] 11/04/2001 Personal history of colonic polyps [Z86.0100] 11/04/2001 Osteopenia [M85.80] 11/04/2001 Neoplasm of Uncertain Behavior (NUB) of skin: L*04/28/2011 09/13/2011 Personal history of other malignant neoplasm of*04/28/2011 Actinic skin damage [L57.8] 04/28/2011 10/26/2016 Hypertrophic//Keloid scar: L upper lip [L91.0] 04/28/2011 Telangiectasia [I78.1] 04/28/2011 10/26/2016 Solar Lentigines [L81.4] 04/28/2011 10/26/2016 Special screening for malignant neoplasms, colo*07/05/2011 10/23/2015 Bilateral shoulder pain [M25.511, M25.512] 05/19/2012 Arthritis of knee, degenerative [M17.9] 03/18/2014 Right knee pain [M25.561] 07/16/2014 10/26/2016 Hives [L50.9] Recurrent depression (HCC) [F33.9] 04/26/2017 JOSEE LIAS (generalized anxiety disorder) [F41.1] 04/26/2017 CKD (chronic kidney disease) stage 3, GFR 30-59*12/06/2017 Fuchs' heterochromic iridocyclitis, 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 Basal cell carcinoma (BCC) of skin of right upp*02/02/2022 Chronic bilateral low back pain without sciatic*08/28/2024 Encounter Status:Closed by JONATHAN MCLEOD on 12/05/24 [facility] ARIANNE ALEMAN ([id number]) 1940 F TXT Date Time Provider Department 10/31/24 KAITLIN VICTOR [facility] During your visit today, we recorded the following information about you: Gemma Fontanez LPN 10/31/2024 9:41 AM Signed Patient calling she had Hat Liner appt with Dr Trav Hoyos yesterday, laser surgery on upper gums. He is not doing her lower mouth until June 2025. He told her the procedure could put a strain on her heart. She said she had no problems with the procedure yesterday. Allergies As of Date: 10/31/2024 Noted Allergy Reaction LIDOCAINE 11/03/2015 5 - Intolerance Comments: Severe itching, burning. Pt. has had Marcaine without problem for oral surgery per Dr. Rodriguez's office. (Unsure true Lidocaine allergy) CODEINE 11/09/2001 DICLOFENAC 02/06/2013 14 - Other: See Comments Comments: mouth ulcerations ETODOLAC 07/09/2014 14 - Other: See Comments Comments: Mouth ulcers MEDROXYPROGESTERONE 11/09/2001 Date Reviewed: 10/02/2024 Reviewed by: Kaelyn Villatoro MA - Fully Assessed Reason for Visit: Patient Update [1234] Prescriptions as of 11/30/2024 - sertraline (ZOLOFT) 25 mg tablet Take 1 tablet by mouth once daily. - Glucosamine HCl, Bulk, powd - fexofenadine (MELBA) 180 mg tablet Take 180 mg by mouth once daily. - calcium carbonate (TUMS 500 ORAL) Take by mouth as needed. - COLLAGEN MISC - acetaminophen (TYLENOL) 325 mg tablet Take 650 mg by mouth every 6 hours as needed. - SIMETHICONE (GAS-X ORAL) Take 1 tablet by mouth as needed. - CARBOXYMETHYLCELLULOSE SODIUM (REFRESH TEARS OPHTHALMIC) Use 1 Drop in eyes three times daily as needed. - ketoconazole (NIZORAL) 2 % shampoo Apply 1 application to affected area once daily as needed. - polyethylene glycol 3350 (MIRALAX) 17 gram/dose powder As needed for constipation Meds Comments as of 03/18/2014: Problem List As Of Date 10/31/2024 Noted Resolved Chronic depression [F32.A] 11/04/2001 12/07/2018 Symptomatic menopausal or female climacteric st*11/04/2001 GENERAL OSTEOARTHROSIS [M15.9] 11/04/2001 Personal history of colonic polyps [Z86.0100] 11/04/2001 Osteopenia [M85.80] 11/04/2001 Neoplasm of Uncertain Behavior (NUB) of skin: L*04/28/2011 09/13/2011 Personal history of other malignant neoplasm of*04/28/2011 Actinic skin damage [L57.8] 04/28/2011 10/26/2016 Hypertrophic//Keloid scar: L upper lip [L91.0] 04/28/2011 Telangiectasia [I78.1] 04/28/2011 10/26/2016 Solar Lentigines [L81.4] 04/28/2011 10/26/2016 Special screening for malignant neoplasms, colo*07/05/2011 10/23/2015 Bilateral shoulder pain [M25.511, M25.512] 05/19/2012 Arthritis of knee, degenerative [M17.9] 03/18/2014 Right knee pain [M25.561] 07/16/2014 10/26/2016 Hives [L50.9] Recurrent depression (HCC) [F33.9] 04/26/2017 JOSE ELIAS (generalized anxiety disorder) [F41.1] 04/26/2017 CKD (chronic kidney disease) stage 3, GFR 30-59*12/06/2017 Fuchs' heterochromic iridocyclitis, 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 Basal cell carcinoma (BCC) of skin of right upp*02/02/2022 Chronic bilateral low back pain without sciatic*08/28/2024 Encounter Status:Closed by GEMMA FONTANEZ on 11/30/24 [facility] CNTHERAPYon 10-23-2024 CNTHERAPY OT/PT/Speech Visit ( PTWS) -- ARIANNE ALEMAN ([id number]) 1940 F TXT Date Time Provider Department 10/23/24 8:00 AM SANAZ CASTANON Date Time Provider Department Center 10/23/2024 8:00 AM [id number] CASTANON Reason for Visit: Physical Therapy [503] Primary Visit Diagnosis:Chronic bilateral low back pain without sciatica [M54.50, G89.29] Allergies As of Date: 10/23/2024 Noted Allergy Reaction LIDOCAINE 11/03/2015 5 - Intolerance Comments: Severe itching, burning. Pt. has had Marcaine without problem for oral surgery per Dr. Rodriguez's office. (Unsure true Lidocaine allergy) CODEINE 11/09/2001 DICLOFENAC 02/06/2013 14 - Other: See Comments Comments: mouth ulcerations ETODOLAC 07/09/2014 14 - Other: See Comments Comments: Mouth ulcers MEDROXYPROGESTERONE 11/09/2001 Date Reviewed: 10/02/2024 Reviewed by: Kaelyn Villatoro MA - Fully Assessed Prescriptions as of 10/23/2024 - sertraline (ZOLOFT) 25 mg tablet Take 1 tablet by mouth once daily. - Glucosamine HCl, Bulk, powd - fexofenadine (MELBA) 180 mg tablet Take 180 mg by mouth once daily. - calcium carbonate (TUMS 500 ORAL) Take by mouth as needed. - COLLAGEN MISC - acetaminophen (TYLENOL) 325 mg tablet Take 650 mg by mouth every 6 hours as needed. - SIMETHICONE (GAS-X ORAL) Take 1 tablet by mouth as needed. - CARBOXYMETHYLCELLULOSE SODIUM (REFRESH TEARS OPHTHALMIC) Use 1 Drop in eyes three times daily as needed. - ketoconazole (NIZORAL) 2 % shampoo Apply 1 application to affected area once daily as needed. - polyethylene glycol 3350 (MIRALAX) 17 gram/dose powder As needed for constipation Meds Comments as of 03/18/2014: Normal [facility] CNTHERAPYon 10-16-2024 CNTHERAPY OT/PT/Speech Visit ( PTWS) -- ARIANNE ALEMAN ([id number]) 1940 F TXT Date Time Provider Department 10/16/24 8:45 AM SANAZ CASTANON PTWS Date Time Provider Department Center 10/16/2024 8:45 AM [id number], MARIAH PTWS Ovi Uzma Reason for Visit: Physical Therapy [503] Primary Visit Diagnosis:Chronic bilateral low back pain without sciatica [M54.50, G89.29] Allergies As of Date: 10/16/2024 Noted Allergy Reaction LIDOCAINE 11/03/2015 5 - Intolerance Comments: Severe itching, burning. Pt. has had Marcaine without problem for oral surgery per Dr. Rodriguez's office. (Unsure true Lidocaine allergy) CODEINE 11/09/2001 DICLOFENAC 02/06/2013 14 - Other: See Comments Comments: mouth ulcerations ETODOLAC 07/09/2014 14 - Other: See Comments Comments: Mouth ulcers MEDROXYPROGESTERONE 11/09/2001 Date Reviewed: 10/02/2024 Reviewed by: Kaelyn Villatoro MA - Fully Assessed Prescriptions as of 10/16/2024 - sertraline (ZOLOFT) 25 mg tablet Take 1 tablet by mouth once daily. - Glucosamine HCl, Bulk, powd - fexofenadine (MELBA) 180 mg tablet Take 180 mg by mouth once daily. - calcium carbonate (TUMS 500 ORAL) Take by mouth as needed. - COLLAGEN MISC - acetaminophen (TYLENOL) 325 mg tablet Take 650 mg by mouth every 6 hours as needed. - SIMETHICONE (GAS-X ORAL) Take 1 tablet by mouth as needed. - CARBOXYMETHYLCELLULOSE SODIUM (REFRESH TEARS OPHTHALMIC) Use 1 Drop in eyes three times daily as needed. - ketoconazole (NIZORAL) 2 % shampoo Apply 1 application to affected area once daily as needed. - polyethylene glycol 3350 (MIRALAX) 17 gram/dose powder As needed for constipation Meds Comments as of 03/18/2014: Normal [facility] CNTHERAPYon 10-09-2024 CNTHERAPY OT/PT/Speech Visit ( PTWS) -- ARIANNE ALEMAN ([id number]) 1940 F TXT Date Time Provider Department 10/09/24 8:00 AM SANAZ CASTANON PTWS Date Time Provider Department Center 10/09/2024 8:00 AM [id number], MARIAH PTWS [place] Reason for Visit: Physical Therapy [503] Primary Visit Diagnosis:Chronic bilateral low back pain without sciatica [M54.50, G89.29] Allergies As of Date: 10/09/2024 Noted Allergy Reaction LIDOCAINE 11/03/2015 5 - Intolerance Comments: Severe itching, burning. Pt. has had Marcaine without problem for oral surgery per Dr. Rodriguez's office. (Unsure true Lidocaine allergy) CODEINE 11/09/2001 DICLOFENAC 02/06/2013 14 - Other: See Comments Comments: mouth ulcerations ETODOLAC 07/09/2014 14 - Other: See Comments Comments: Mouth ulcers MEDROXYPROGESTERONE 11/09/2001 Date Reviewed: 10/02/2024 Reviewed by: Kaelyn Villatoro MA - Fully Assessed Prescriptions as of 10/09/2024 - sertraline (ZOLOFT) 25 mg tablet Take 1 tablet by mouth once daily. - Glucosamine HCl, Bulk, powd - fexofenadine (MELBA) 180 mg tablet Take 180 mg by mouth once daily. - calcium carbonate (TUMS 500 ORAL) Take by mouth as needed. - COLLAGEN MISC - acetaminophen (TYLENOL) 325 mg tablet Take 650 mg by mouth every 6 hours as needed. - SIMETHICONE (GAS-X ORAL) Take 1 tablet by mouth as needed. - CARBOXYMETHYLCELLULOSE SODIUM (REFRESH TEARS OPHTHALMIC) Use 1 Drop in eyes three times daily as needed. - ketoconazole (NIZORAL) 2 % shampoo Apply 1 application to affected area once daily as needed. - polyethylene glycol 3350 (MIRALAX) 17 gram/dose powder As needed for constipation Meds Comments as of 03/18/2014: Lehr Tender: Therapy (PT/OT/Speech/Resp) ID: [id number] 10/09/2024 8:27 AM Author: SANAZ CASTANON Signed by SANAZ CASTANON PIZZA HUT TEAM MEMBER on 10/09/2024 at 8:27 AM Document text: Program_ID:[id number] Access Code: [email or web address] URL: [email or web address]/ Date: 10-09-2024 Prepared By: Christian Stanford Program Notes Exercises - Supine Lower Trunk Rotation - 1 x daily - 7 x weekly - 3 sets - 10 reps - Standing Hip Abduction with Counter Support - 1 x daily - 7 x weekly - 3 sets - 10 reps - Standing Hip Abduction with Counter Support - 1 x daily - 7 x weekly - 3 sets - 10 reps - Standing Hip Extension with Counter Support - 1 x daily - 7 x weekly - 3 sets - 10 reps - Hooklying Single Knee to Chest - 1 x daily - 7 x weekly - 3 sets - 3 reps - Hooklying Single Knee to Chest - 1 x daily - 7 x weekly - 3 sets - 3 reps - Supine Straight Leg Raises - 1 x daily - 7 x weekly - 3 sets - 10 reps - Supine Straight Leg Raises - 1 x daily - 7 x weekly - 3 sets - 10 reps - Clamshell - 1 x daily - 7 x weekly - 3 sets - 10 reps - Clamshell - 1 x daily - 7 x weekly - 3 sets - 10 reps - Sidelying Hip Abduction - 1 x daily - 7 x weekly - 3 sets - 10 reps - Sidelying Hip Abduction - 1 x daily - 7 x weekly - 3 sets - 10 reps - Supine Transversus Abdominis Bracing - Hands on Ground - 2 x daily - 7 x weekly - 2 sets - 10 reps - Supine March - 1 x daily - 7 x weekly - 3 sets - 10 reps - Seated Long Arc Quad - 1 x daily - 7 x weekly - 2 sets - 10 reps - Seated Transversus Abdominis Bracing - 2-3 x daily - 7 x weekly - 2 sets - 10 reps - Seated March - 1 x daily - 7 x weekly - 2 sets - 10 reps Normal [facility] THERAPY NTon 10-09-2024 THERAPY NT HNO ID: [id number] Author: SANAZ CASTANON PTA Service: ? Author Type: Bridge Welder Type: Therapy (PT/OT/Speech/Resp) Filed: 10/09/2024 08:27 Note Text: Program_ID:[id number] Access Code: [email or web address] URL: [email or web address] [email or web address]/ Date: 10-09-2024 Prepared By: Christian Stanford Program Notes Exercises - Supine Lower Trunk Rotation - 1 x daily - 7 x weekly - 3 sets - 10 reps - Standing Hip Abduction with Counter Support - 1 x daily - 7 x weekly - 3 sets - 10 reps - Standing Hip Abduction with Counter Support - 1 x daily - 7 x weekly - 3 sets - 10 reps - Standing Hip Extension with Counter Support - 1 x daily - 7 x weekly - 3 sets - 10 reps - Hooklying Single Knee to Chest - 1 x daily - 7 x weekly - 3 sets - 3 reps - Hooklying Single Knee to Chest - 1 x daily - 7 x weekly - 3 sets - 3 reps - Supine Straight Leg Raises - 1 x daily - 7 x weekly - 3 sets - 10 reps - Supine Straight Leg Raises - 1 x daily - 7 x weekly - 3 sets - 10 reps - Clamshell - 1 x daily - 7 x weekly - 3 sets - 10 reps - Clamshell - 1 x daily - 7 x weekly - 3 sets - 10 reps - Sidelying Hip Abduction - 1 x daily - 7 x weekly - 3 sets - 10 reps - Sidelying Hip Abduction - 1 x daily - 7 x weekly - 3 sets - 10 reps - Supine Transversus Abdominis Bracing - Hands on Ground - 2 x daily - 7 x weekly - 2 sets - 10 reps - Supine March - 1 x daily - 7 x weekly - 3 sets - 10 reps - Seated Long Arc Quad - 1 x daily - 7 x weekly - 2 sets - 10 reps - Seated Transversus Abdominis Bracing - 2-3 x daily - 7 x weekly - 2 sets - 10 reps - Seated March - 1 x daily - 7 x weekly - 2 sets - 10 reps Normal [facility] CNOVon 10-02-2024 CNOV Office Visit (FAMPWS ) -- ARIANNE ALEMAN ([id number]) 1940 F TXT Date Time Provider Department 10/02/24 4:20 PM [facility] During your visit today, we recorded the following information about you: Pulse Blood pressure Weight 88/minute 138/76 82.6 kg Kaitlin Victor, 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 HISTORY OF PRESENT ILLNESS: Arianne Aleman is a 84 year old female. Patient presents with: Foot Pain (Midfoot): Concerns about right foot giving out. Having peridontals surgery X 4- done just with numbing injections. Orthopedics did octavio. Knee injections. Having stress test. Wondering if she should try to do an exercise stress test. 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 Physical therapy is helping her back and right hip so much. Stress level much improved. Sleeping great. Cleaned and reorganized entire house. Working through grief very well. 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, most often secondary to a remote infection with rubella History of skin cancer SCC R arm; basal cell face, scalp Hives OSTEOPENIA Personal history of colonic polyps lymphoid aggregate removed Piezogenic pedal papule fatty papules around heel: no clinical significance Seasonal allergies Skin cancer melanoma,basal and squamous cell Symptomatic menopausal or female climacteric states was on HRT then off, last DXA 1998 PAST SURGICAL HISTORY Procedure Laterality Date CATARACT SURGERY, COMPLEX and Hx Fuch's dystrophy COLONOSCOPY FLX DX W/COLLJ SPEC WHEN PFRMD 12/1999 Colonoscopy- DIVERTICULOSIS DILATION AND CURETTAGE DXAND/THER NONOBSTETRIC 1989 Dilation AND curettage DILATION AND CURETTAGE DXAND/THER NONOBSTETRIC Dilation AND curettage TAB Down's GI COLON STEPHANIE INTUSSUSCEPTION 1939 LIG/TRNSXJ FLP TUBE ABDL/VAG APPR UNI/BI 1981 PAST SURGICAL HISTORY OF 1958 'polyp' removal PAST SURGICAL HISTORY OF 06/04/11 basal cell carcinoma removed from face PAST SURGICAL HISTORY OF 02/16/11 squamous cell skin CA PAST SURGICAL HISTORY OF 09/2011 basal cell carcinoma removed behind left ear, left buttock, left forearm, PAST SURGICAL HISTORY OF Skin cancer biopsies TONSILLECTOMY AND ADENOIDECTOMY Tonsil/adenoidectomy ALLERGIES Lidocaine, Codeine, Diclofenac, Etodolac, and Medroxyprogesterone MEDICATIONS Current Outpatient Medications Medication Sig sertraline (ZOLOFT) 25 mg tablet Take 1 tablet by mouth once daily. Glucosamine HCl, Bulk, powd fexofenadine (MELBA) 180 mg tablet Take 180 mg by mouth once daily. calcium carbonate (TUMS 500 ORAL) Take by mouth as needed. COLLAGEN MISC acetaminophen (TYLENOL) 325 mg tablet Take 650 mg by mouth every 6 hours as needed. SIMETHICONE (GAS-X ORAL) Take 1 tablet by mouth as needed. CARBOXYMETHYLCELLULOSE SODIUM (REFRESH TEARS OPHTHALMIC) Use 1 Drop in eyes three times daily as needed. ketoconazole (NIZORAL) 2 % shampoo Apply 1 application to affected area once daily as needed. polyethylene glycol 3350 (MIRALAX) 17 gram/dose powder As needed for constipation NEOMYCIN 3.5 MG/G-POLYMYXIN B 10,000 UNIT/G-DEXAMETH 0.1 % EYE OINT Chlorhexidine Gluconate (PERIDEX) 0.12 % solution two times a day. ergocalciferol, vitamin D2, (VITAMIN D2 ORAL) Take by mouth. vit C/E/Zn/coppr/lutein/zeaxan (PRESERVISION AREDS-2 ORAL) Take by mouth. COMPOUNDED PRESCRIPTION Gum Rincinol as needed No current facility-administered medications for this visit. FAMILY HISTORY Problem Relation Age of Onset Hypertension Mother Heart Father Skin Cancer Father melanoma other (alcoholism) Father brother other (depression) Brother Heart Brother stent placement Heart Sister replaced heart valve Skin Cancer Sister melanoma Social History Tobacco Use Smoking status: Never Smokeless tobacco: Never Vaping Use Vaping status: Never Used Substance Use Topics Alcohol use: No Comment: has drank in the past Drug use: No EXAM: BP 138/76 Pulse 88 Wt 82.6 kg (182 lb) SpO2 97% BMI 31.24 kg/m? PHYSICAL EXAM: Physical Exam Vitals reviewed. Constitutional: Appearance: Normal appearance. HENT: Head: Normocephalic. Cardiovascular: Rate and Rhythm: Normal rate and regular rhythm. Pulses: Normal pulses. Heart sounds: Normal heart sounds. Pulmonary: Effort: Pulmonary effort is normal. Breath sounds: Normal breath sounds. Musculoskeletal: General: Normal range of motion. Comments: Just had both knees injected for OA Right forefoot with extensive OA also Skin: General: Skin is warm and dry. (more content not included)... Normal [facility] CNOVon 10-01-2024 CNOV Office Visit (ORTHWS ) -- ARIANNE ALEMAN ([id number]) 1940 F TXT Date Time Provider Department 10/01/24 7:30 AM MARLYS JERNIGAN During your visit today, we recorded the following information about you: Kajal Gonzalez MA 10/01/2024 8:02 AM Signed Patient presents with: Left Knee - Established Patient, Injections Right Knee - Established Patient, Injections: Durolane injections bilateral knees AMB ROOMING INTAKE FLOWSHEET DATA Pain Pain Level: 6 Pain Location: (Bilateral knees) Description: Dull Duration Amount of Time: (Ongoing) Frequency: Continuous Intervention/Comfort measure: Medication Taking Tylenol 1 tablet a day for the pain. Here for Durolane injections bilateral knees. LOT # [id number] EXP 12/18/2026 RUTH Marie Sondra, PA-C 10/01/2024 8:02 AM Signed Large Joint Arthro/Inj: bilateral knee joints 10/01/2024 8:01 AM The procedure site was prepped in the usual sterile fashion. Site: bilateral knee joints Medications (Right): 3 mL hyaluronate sodium, stabilized 60 mg/3 mL Medications (Left): 3 mL hyaluronate sodium, stabilized 60 mg/3 mL Outcome: Tolerated well, no immediate complications Post-injection instructions were reviewed with the patient and the patient voiced understanding of these instructions. Informed Consent Consent Obtained: Verbal [place] Protocol A moment to CARE was completed. SIGN IN Sign in communication not applicable due to emergent procedure. Personnel directly involved with the procedure wore the appropriate PPE. Special Equipment: N/A Patient/Surrogate Stated/Verified: Patient name, Date of , Relevant allergies and Intended procedure TIME OUT Relevant labs, photos, and/or imaging studies have been reviewed. Consent documented and matches the intended procedure. Correct side/site marked and visible. Medications required for procedure verified. No fire risk assessment and interventions applicable. No implant(s) inserted. SIGN OUT No specimen collected. All instruments, equipment, possible retained foreign bodies accounted for. No post-procedure POC communication to the patient's multidisciplinary team (including the bedside nurse for hospitalized patients) applicable. Referring Provider: MARLYS JERNIGAN [[id number]] Allergies As of Date: 10/01/2024 Noted Allergy Reaction LIDOCAINE 11/03/2015 5 - Intolerance Comments: Severe itching, burning. Pt. has had Marcaine without problem for oral surgery per Dr. Rodriguez's office. (Unsure true Lidocaine allergy) CODEINE 11/09/2001 DICLOFENAC 02/06/2013 14 - Other: See Comments Comments: mouth ulcerations ETODOLAC 07/09/2014 14 - Other: See Comments Comments: Mouth ulcers MEDROXYPROGESTERONE 11/09/2001 Date Reviewed: 10/01/2024 Reviewed by: Kajal Gonzalez MA - Fully Assessed Reason for Visit: Established Patient [175] Injections [199] Established Patient [175] Cmt: Durolane injections bilateral knees Injections [199] Cmt: Durolane injections bilateral knees Primary Visit Diagnosis:Primary osteoarthritis of both knees [M17.0] Order(s):Large Joint Arthro/Inj: bilateral knee joints [OLM090] Order #: [id number] [] hyaluronate sodium, stabilized syrg 3 mL (DUROLANE)Disp: Rfl: [] hyaluronate sodium, stabilized syrg 3 mL (DUROLANE)Disp: Rfl: Prescriptions as of 10/01/2024 - sertraline (ZOLOFT) 25 mg tablet Take 1 tablet by mouth once daily. - Glucosamine HCl, Bulk, powd - NEOMYCIN 3.5 MG/G-POLYMYXIN B 10,000 UNIT/G-DEXAMETH 0.1 % EYE OINT - fexofenadine (MELBA) 180 mg tablet Take 180 mg by mouth once daily. - Chlorhexidine Gluconate (PERIDEX) 0.12 % solution two times a day. - calcium carbonate (TUMS 500 ORAL) Take by mouth as needed. - ergocalciferol, vitamin D2, (VITAMIN D2 ORAL) Take by mouth. - COLLAGEN MISC - vit C/E/Zn/coppr/lutein/zeaxan (PRESERVISION AREDS-2 ORAL) Take by mouth. - acetaminophen (TYLENOL) 325 mg tablet Take 650 mg by mouth every 6 hours as needed. - SIMETHICONE (GAS-X ORAL) Take 1 tablet by mouth as needed. - CARBOXYMETHYLCELLULOSE SODIUM (REFRESH TEARS OPHTHALMIC) Use 1 Drop in eyes three times daily as needed. - COMPOUNDED PRESCRIPTION Gum Rincinol as needed - ketoconazole (NIZORAL) 2 % shampoo Apply 1 application to affected area once daily as needed. - polyethylene glycol 3350 (MIRALAX) 17 gram/dose powder As needed for constipation Meds Comments as of 03/18/2014: Problem List As Of Date 10/01/2024 Noted Resolved Chronic depression [F32.A] 11/04/2001 12/07/2018 Symptomatic menopausal or female climacteric st*11/04/2001 GENERAL OSTEOARTHROSIS [M15.9] 11/04/2001 Personal history of colonic polyps [Z86.0100] 11/04/2001 Osteopenia [M85.80] 11/04/2001 Neoplasm of Uncertain Behavior (NUB) of skin: L*04/28/2011 09/13/2011 Personal history of other malignant neoplasm of*04/28/2011 A (more content not included)... Normal [facility] Large Joint Arthro/Inj: bila teral knee jointson 10-01-2024 Marlys Jernigan PA -C 10/01/2024 8:02 AM Large Joint Arthro/Inj: bilateral knee joints 10/01/2024 8:01 AM The procedure site was prepped in the usual sterile fashion. Site: bilateral knee joints Medications (Right): 3 mL hyaluronate sodium, stabilized 60 mg/3 mL Medications (Left): 3 mL hyaluronate sodium, stabilized 60 mg/3 mL Outcome: Tolerated well, no immediate complications Post-injection instructions were reviewed with the patient and the patient voiced understanding of these instructions. Informed Consent Consent Obtained: Verbal [place] Protocol A moment to CARE was completed. SIGN IN Sign in communication not applicable due to emergent procedure. Personnel directly involved with the procedure wore the appropriate PPE. Special Equipment: N/A Patient/Surrogate Stated/Verified: Patient name, Date of , Relevant allergies and Intended procedure TIME OUT Relevant labs, photos, and/or imaging studies have been reviewed. Consent documented and matches the intended procedure. Correct side/site marked and visible. Medications required for procedure verified. No fire risk assessment and interventions applicable. No implant(s) inserted. SIGN OUT No specimen collected. All instruments, equipment, possible retained foreign bodies accounted for. No post-procedure POC communication to the patient's multidisciplinary team (including the bedside nurse for hospitalized patients) applicable. [facility] CNTHERAPYon 09-25-2024 CNTHERAPY OT/PT/Speech Visit ( PTWS) -- ARIANNE ALEMAN ([id number]) 1940 F TXT Date Time Provider Department 09/25/24 9:15 AM CHRISTIAN STANFORD PTBEATRIZ Date Time Provider Department [place] 09/25/2024 9:15 AM [id number], SEAN PTBEATRIZ Ortega Reason for Visit: PT Progress Note [4716] Primary Visit Diagnosis:Chronic bilateral low back pain without sciatica [M54.50, G89.29] Allergies As of Date: 09/25/2024 Noted Allergy Reaction LIDOCAINE 11/03/2015 5 - Intolerance Comments: Severe itching, burning. Pt. has had Marcaine without problem for oral surgery per Dr. Rodriguez's office. (Unsure true Lidocaine allergy) CODEINE 11/09/2001 DICLOFENAC 02/06/2013 14 - Other: See Comments Comments: mouth ulcerations ETODOLAC 07/09/2014 14 - Other: See Comments Comments: Mouth ulcers MEDROXYPROGESTERONE 11/09/2001 Date Reviewed: 08/09/2024 Reviewed by: Kaelyn Villatoro MA - Fully Assessed Prescriptions as of 09/26/2024 - sertraline (ZOLOFT) 25 mg tablet Take 1 tablet by mouth once daily. - Glucosamine HCl, Bulk, powd - NEOMYCIN 3.5 MG/G-POLYMYXIN B 10,000 UNIT/G-DEXAMETH 0.1 % EYE OINT - fexofenadine (MELBA) 180 mg tablet Take 180 mg by mouth once daily. - Chlorhexidine Gluconate (PERIDEX) 0.12 % solution two times a day. - calcium carbonate (TUMS 500 ORAL) Take by mouth as needed. - ergocalciferol, vitamin D2, (VITAMIN D2 ORAL) Take by mouth. - COLLAGEN MISC - vit C/E/Zn/coppr/lutein/zeaxan (PRESERVISION AREDS-2 ORAL) Take by mouth. - acetaminophen (TYLENOL) 325 mg tablet Take 650 mg by mouth every 6 hours as needed. - SIMETHICONE (GAS-X ORAL) Take 1 tablet by mouth as needed. - CARBOXYMETHYLCELLULOSE SODIUM (REFRESH TEARS OPHTHALMIC) Use 1 Drop in eyes three times daily as needed. - COMPOUNDED PRESCRIPTION Gum Rincinol as needed - ketoconazole (NIZORAL) 2 % shampoo Apply 1 application to affected area once daily as needed. - polyethylene glycol 3350 (MIRALAX) 17 gram/dose powder As needed for constipation Meds Comments as of 03/18/2014: Lehr Tender: Therapy (PT/OT/Speech/Resp) ID: [id number] 09/25/2024 9:45 AM Author: CHRISTIAN STANFORD Signed by CHRISTIAN STANFORD PT on 09/25/2024 at 9:45 AM Document text: Program_ID:[id number] Access Code: [email or web address] URL: [email or web address]/ Date: 09-25-2024 Prepared By: Christian Stanford Program Notes Exercises - Supine Lower Trunk Rotation - 1 x daily - 7 x weekly - 3 sets - 10 reps - Standing Hip Abduction with Counter Support - 1 x daily - 7 x weekly - 3 sets - 10 reps - Standing Hip Abduction with Counter Support - 1 x daily - 7 x weekly - 3 sets - 10 reps - Standing Hip Extension with Counter Support - 1 x daily - 7 x weekly - 3 sets - 10 reps - Hooklying Single Knee to Chest - 1 x daily - 7 x weekly - 3 sets - 3 reps - Hooklying Single Knee to Chest - 1 x daily - 7 x weekly - 3 sets - 3 reps - Supine Straight Leg Raises - 1 x daily - 7 x weekly - 3 sets - 10 reps - Supine Straight Leg Raises - 1 x daily - 7 x weekly - 3 sets - 10 reps - Clamshell - 1 x daily - 7 x weekly - 3 sets - 10 reps - Clamshell - 1 x daily - 7 x weekly - 3 sets - 10 reps - Sidelying Hip Abduction - 1 x daily - 7 x weekly - 3 sets - 10 reps - Sidelying Hip Abduction - 1 x daily - 7 x weekly - 3 sets - 10 reps - Supine Transversus Abdominis Bracing - Hands on Ground - 2 x daily - 7 x weekly - 2 sets - 10 reps - Supine March - 1 x daily - 7 x weekly - 3 sets - 10 reps Normal [facility] THERAPY NTon 09-25-2024 THERAPY NT HNO ID: [id number] Author: CHRISTIAN STANFORD PT Service: ? Author Type: Physical Therapist Type: Therapy (PT/OT/Speech/Resp) Filed: 09/25/2024 09:45 Note Text: Program_ID:[id number] Access Code: [email or web address] URL: [email or web address]/ Date: 09-25-2024 Prepared By: Christian Stanford Program Notes Exercises - Supine Lower Trunk Rotation - 1 x daily - 7 x weekly - 3 sets - 10 reps - Standing Hip Abduction with Counter Support - 1 x daily - 7 x weekly - 3 sets - 10 reps - Standing Hip Abduction with Counter Support - 1 x daily - 7 x weekly - 3 sets - 10 reps - Standing Hip Extension with Counter Support - 1 x daily - 7 x weekly - 3 sets - 10 reps - Hooklying Single Knee to Chest - 1 x daily - 7 x weekly - 3 sets - 3 reps - Hooklying Single Knee to Chest - 1 x daily - 7 x weekly - 3 sets - 3 reps - Supine Straight Leg Raises - 1 x daily - 7 x weekly - 3 sets - 10 reps - Supine Straight Leg Raises - 1 x daily - 7 x weekly - 3 sets - 10 reps - Clamshell - 1 x daily - 7 x weekly - 3 sets - 10 reps - Clamshell - 1 x daily - 7 x weekly - 3 sets - 10 reps - Sidelying Hip Abduction - 1 x daily - 7 x weekly - 3 sets - 10 reps - Sidelying Hip Abduction - 1 x daily - 7 x weekly - 3 sets - 10 reps - Supine Transversus Abdominis Bracing - Hands on Ground - 2 x daily - 7 x weekly - 2 sets - 10 reps - Supine March - 1 x daily - 7 x weekly - 3 sets - 10 reps Normal [facility] CNTHERAPYon 09-18-2024 CNTHERAPY OT/PT/Speech Visit ( PTWS) -- ARIANNE ALEMAN ([id number]) 1940 F TXT Date Time Provider Department 09/18/24 11:45 AM SANAZ CASTANON Date Time Provider Department [place] 09/18/2024 11:45 AM [id number], MARIAH PTBEATRIZ Ortega Reason for Visit: Physical Therapy [503] Primary Visit Diagnosis:Chronic bilateral low back pain without sciatica [M54.50, G89.29] Allergies As of Date: 09/18/2024 Noted Allergy Reaction LIDOCAINE 11/03/2015 5 - Intolerance Comments: Severe itching, burning. Pt. has had Marcaine without problem for oral surgery per Dr. Rodriguez's office. (Unsure true Lidocaine allergy) CODEINE 11/09/2001 DICLOFENAC 02/06/2013 14 - Other: See Comments Comments: mouth ulcerations ETODOLAC 07/09/2014 14 - Other: See Comments Comments: Mouth ulcers MEDROXYPROGESTERONE 11/09/2001 Date Reviewed: 08/09/2024 Reviewed by: Kaelyn Villatoro MA - Fully Assessed Prescriptions as of 09/18/2024 - sertraline (ZOLOFT) 25 mg tablet Take 1 tablet by mouth once daily. - Glucosamine HCl, Bulk, powd - NEOMYCIN 3.5 MG/G-POLYMYXIN B 10,000 UNIT/G-DEXAMETH 0.1 % EYE OINT - fexofenadine (MELBA) 180 mg tablet Take 180 mg by mouth once daily. - Chlorhexidine Gluconate (PERIDEX) 0.12 % solution two times a day. - calcium carbonate (TUMS 500 ORAL) Take by mouth as needed. - ergocalciferol, vitamin D2, (VITAMIN D2 ORAL) Take by mouth. - COLLAGEN MISC - vit C/E/Zn/coppr/lutein/zeaxan (PRESERVISION AREDS-2 ORAL) Take by mouth. - acetaminophen (TYLENOL) 325 mg tablet Take 650 mg by mouth every 6 hours as needed. - SIMETHICONE (GAS-X ORAL) Take 1 tablet by mouth as needed. - CARBOXYMETHYLCELLULOSE SODIUM (REFRESH TEARS OPHTHALMIC) Use 1 Drop in eyes three times daily as needed. - COMPOUNDED PRESCRIPTION Gum Rincinol as needed - ketoconazole (NIZORAL) 2 % shampoo Apply 1 application to affected area once daily as needed. - polyethylene glycol 3350 (MIRALAX) 17 gram/dose powder As needed for constipation Meds Comments as of 03/18/2014: Lehr Tender: Therapy (PT/OT/Speech/Resp) ID: [id number] 09/18/2024 12:22 PM Author: SANAZ CASTANON Signed by SANAZ CASTANON PTA on 09/18/2024 at 12:22 PM Document text: Program_ID:[id number] Access Code: [email or web address] URL: [email or web address]/ Date: 09-18-2024 Prepared By: Christian Stanford Program Notes Exercises - Supine Lower Trunk Rotation - 1 x daily - 7 x weekly - 3 sets - 10 reps - Standing Hip Abduction with Counter Support - 1 x daily - 7 x weekly - 3 sets - 10 reps - Standing Hip Abduction with Counter Support - 1 x daily - 7 x weekly - 3 sets - 10 reps - Standing Hip Extension with Counter Support - 1 x daily - 7 x weekly - 3 sets - 10 reps - Hooklying Single Knee to Chest - 1 x daily - 7 x weekly - 3 sets - 3 reps - Hooklying Single Knee to Chest - 1 x daily - 7 x weekly - 3 sets - 3 reps - Supine Straight Leg Raises - 1 x daily - 7 x weekly - 3 sets - 10 reps - Supine Straight Leg Raises - 1 x daily - 7 x weekly - 3 sets - 10 reps - Clamshell - 1 x daily - 7 x weekly - 3 sets - 10 reps - Clamshell - 1 x daily - 7 x weekly - 3 sets - 10 reps - Sidelying Hip Abduction - 1 x daily - 7 x weekly - 3 sets - 10 reps - Sidelying Hip Abduction - 1 x daily - 7 x weekly - 3 sets - 10 reps - Supine Transversus Abdominis Bracing - Hands on Ground - 2 x daily - 7 x weekly - 2 sets - 10 reps Normal [facility] THERAPY NTon 09-18-2024 THERAPY NT HNO ID: [id number] Author: SANAZ CASTANON PTA Service: ? Author Type: Bridge Welder Type: Therapy (PT/OT/Speech/Resp) Filed: 09/18/2024 12:22 Note Text: Program_ID:[id number] Access Code: [email or web address] URL: [email or web address]/ Date: 09-18-2024 Prepared By: Christian Stanford Program Notes Exercises - Supine Lower Trunk Rotation - 1 x daily - 7 x weekly - 3 sets - 10 reps - Standing Hip Abduction with Counter Support - 1 x daily - 7 x weekly - 3 sets - 10 reps - Standing Hip Abduction with Counter Support - 1 x daily - 7 x weekly - 3 sets - 10 reps - Standing Hip Extension with Counter Support - 1 x daily - 7 x weekly - 3 sets - 10 reps - Hooklying Single Knee to Chest - 1 x daily - 7 x weekly - 3 sets - 3 reps - Hooklying Single Knee to Chest - 1 x daily - 7 x weekly - 3 sets - 3 reps - Supine Straight Leg Raises - 1 x daily - 7 x weekly - 3 sets - 10 reps - Supine Straight Leg Raises - 1 x daily - 7 x weekly - 3 sets - 10 reps - Clamshell - 1 x daily - 7 x weekly - 3 sets - 10 reps - Clamshell - 1 x daily - 7 x weekly - 3 sets - 10 reps - Sidelying Hip Abduction - 1 x daily - 7 x weekly - 3 sets - 10 reps - Sidelying Hip Abduction - 1 x daily - 7 x weekly - 3 sets - 10 reps - Supine Transversus Abdominis Bracing - Hands on Ground - 2 x daily - 7 x weekly - 2 sets - 10 reps Normal [facility] CNTHERAPYon 09-12-2024 CNTHERAPY OT/PT/Speech Visit ( PTWS) -- ARIANNE ALEMAN ([id number]) 1940 F TXT Date Time Provider Department 09/12/24 2:30 PM CHRISTIAN STANFORD PTWS Date Time Provider Department Center 09/12/2024 2:30 PM [id number], SEAN PTWS Ovi Ortega Reason for Visit: Physical Therapy [503] Primary Visit Diagnosis:Chronic bilateral low back pain without sciatica [M54.50, G89.29] Allergies As of Date: 09/12/2024 Noted Allergy Reaction LIDOCAINE 11/03/2015 5 - Intolerance Comments: Severe itching, burning. Pt. has had Marcaine without problem for oral surgery per Dr. Rodriguez's office. (Unsure true Lidocaine allergy) CODEINE 11/09/2001 DICLOFENAC 02/06/2013 14 - Other: See Comments Comments: mouth ulcerations ETODOLAC 07/09/2014 14 - Other: See Comments Comments: Mouth ulcers MEDROXYPROGESTERONE 11/09/2001 Date Reviewed: 08/09/2024 Reviewed by: Kaelyn Villatoro MA - Fully Assessed Prescriptions as of 09/12/2024 - sertraline (ZOLOFT) 25 mg tablet Take 1 tablet by mouth once daily. - Glucosamine HCl, Bulk, powd - NEOMYCIN 3.5 MG/G-POLYMYXIN B 10,000 UNIT/G-DEXAMETH 0.1 % EYE OINT - fexofenadine (MELBA) 180 mg tablet Take 180 mg by mouth once daily. - Chlorhexidine Gluconate (PERIDEX) 0.12 % solution two times a day. - calcium carbonate (TUMS 500 ORAL) Take by mouth as needed. - ergocalciferol, vitamin D2, (VITAMIN D2 ORAL) Take by mouth. - COLLAGEN MISC - vit C/E/Zn/coppr/lutein/zeaxan (PRESERVISION AREDS-2 ORAL) Take by mouth. - acetaminophen (TYLENOL) 325 mg tablet Take 650 mg by mouth every 6 hours as needed. - SIMETHICONE (GAS-X ORAL) Take 1 tablet by mouth as needed. - CARBOXYMETHYLCELLULOSE SODIUM (REFRESH TEARS OPHTHALMIC) Use 1 Drop in eyes three times daily as needed. - COMPOUNDED PRESCRIPTION Gum Rincinol as needed - ketoconazole (NIZORAL) 2 % shampoo Apply 1 application to affected area once daily as needed. - polyethylene glycol 3350 (MIRALAX) 17 gram/dose powder As needed for constipation Meds Comments as of 03/18/2014: Lehr Tender: Addendum Therapy (PT/OT/Speech/Resp) ID: [id number] 09/12/2024 3:10 PM Author: CHRISTIAN STANFORD Signed by CHRISTIAN STANFORD PT on 09/12/2024 at 3:10 PM * * * This document replaces document [id number] * * * Document text: Program_ID:[id number] Access Code: [email or web address] URL: [email or web address]/ Date: 09-12-2024 Prepared By: Christian Stanford Program Notes Exercises - Supine Lower Trunk Rotation - 1 x daily - 7 x weekly - 3 sets - 10 reps - Standing Hip Abduction with Counter Support - 1 x daily - 7 x weekly - 3 sets - 10 reps - Standing Hip Abduction with Counter Support - 1 x daily - 7 x weekly - 3 sets - 10 reps - Standing Hip Extension with Counter Support - 1 x daily - 7 x weekly - 3 sets - 10 reps - Hooklying Single Knee to Chest - 1 x daily - 7 x weekly - 3 sets - 3 reps - Hooklying Single Knee to Chest - 1 x daily - 7 x weekly - 3 sets - 3 reps - Supine Straight Leg Raises - 1 x daily - 7 x weekly - 3 sets - 10 reps - Supine Straight Leg Raises - 1 x daily - 7 x weekly - 3 sets - 10 reps - Clamshell - 1 x daily - 7 x weekly - 3 sets - 10 reps - Clamshell - 1 x daily - 7 x weekly - 3 sets - 10 reps - Sidelying Hip Abduction - 1 x daily - 7 x weekly - 3 sets - 10 reps - Sidelying Hip Abduction - 1 x daily - 7 x weekly - 3 sets - 10 reps Normal [facility] THERAPY NTon 09-12-2024 THERAPY NT HNO ID: [id number] Author: CHRISTIAN STANFORD PT Service: ? Author Type: Physical Therapist Type: Therapy (PT/OT/Speech/Resp) Filed: 09/12/2024 15:10 Note Text: Program_ID:[id number] Access Code: [email or web address] URL: [email or web address]/ Date: 09-12-2024 Prepared By: Christian Stanford Program Notes Exercises - Supine Lower Trunk Rotation - 1 x daily - 7 x weekly - 3 sets - 10 reps - Standing Hip Abduction with Counter Support - 1 x daily - 7 x weekly - 3 sets - 10 reps - Standing Hip Abduction with Counter Support - 1 x daily - 7 x weekly - 3 sets - 10 reps - Standing Hip Extension with Counter Support - 1 x daily - 7 x weekly - 3 sets - 10 reps - Hooklying Single Knee to Chest - 1 x daily - 7 x weekly - 3 sets - 3 reps - Hooklying Single Knee to Chest - 1 x daily - 7 x weekly - 3 sets - 3 reps - Supine Straight Leg Raises - 1 x daily - 7 x weekly - 3 sets - 10 reps - Supine Straight Leg Raises - 1 x daily - 7 x weekly - 3 sets - 10 reps - Clamshell - 1 x daily - 7 x weekly - 3 sets - 10 reps - Clamshell - 1 x daily - 7 x weekly - 3 sets - 10 reps - Sidelying Hip Abduction - 1 x daily - 7 x weekly - 3 sets - 10 reps - Sidelying Hip Abduction - 1 x daily - 7 x weekly - 3 sets - 10 reps Normal [facility] CNTHERAPYon 09-04-2024 CNTHERAPY OT/PT/Speech Visit ( PTWS) -- ARIANNE ALEMAN ([id number]) 1940 F TXT Date Time Provider Department 09/04/24 9:30 AM SANAZ CASTANON PTWS Date Time Provider Department Center 09/04/2024 9:30 AM [id number], MARIAH PTWS Ovi Uzma Reason for Visit: Physical Therapy [503] Primary Visit Diagnosis:Chronic bilateral low back pain without sciatica [M54.50, G89.29] Allergies As of Date: 09/04/2024 Noted Allergy Reaction LIDOCAINE 11/03/2015 5 - Intolerance Comments: Severe itching, burning. Pt. has had Marcaine without problem for oral surgery per Dr. Rodriguez's office. (Unsure true Lidocaine allergy) CODEINE 11/09/2001 DICLOFENAC 02/06/2013 14 - Other: See Comments Comments: mouth ulcerations ETODOLAC 07/09/2014 14 - Other: See Comments Comments: Mouth ulcers MEDROXYPROGESTERONE 11/09/2001 Date Reviewed: 08/09/2024 Reviewed by: Kaelyn Villatoro MA - Fully Assessed Prescriptions as of 09/04/2024 - sertraline (ZOLOFT) 25 mg tablet Take 1 tablet by mouth once daily. - Glucosamine HCl, Bulk, powd - NEOMYCIN 3.5 MG/G-POLYMYXIN B 10,000 UNIT/G-DEXAMETH 0.1 % EYE OINT - fexofenadine (MELBA) 180 mg tablet Take 180 mg by mouth once daily. - Chlorhexidine Gluconate (PERIDEX) 0.12 % solution two times a day. - calcium carbonate (TUMS 500 ORAL) Take by mouth as needed. - ergocalciferol, vitamin D2, (VITAMIN D2 ORAL) Take by mouth. - COLLAGEN MISC - vit C/E/Zn/coppr/lutein/zeaxan (PRESERVISION AREDS-2 ORAL) Take by mouth. - acetaminophen (TYLENOL) 325 mg tablet Take 650 mg by mouth every 6 hours as needed. - SIMETHICONE (GAS-X ORAL) Take 1 tablet by mouth as needed. - CARBOXYMETHYLCELLULOSE SODIUM (REFRESH TEARS OPHTHALMIC) Use 1 Drop in eyes three times daily as needed. - COMPOUNDED PRESCRIPTION Gum Rincinol as needed - ketoconazole (NIZORAL) 2 % shampoo Apply 1 application to affected area once daily as needed. - polyethylene glycol 3350 (MIRALAX) 17 gram/dose powder As needed for constipation Meds Comments as of 03/18/2014: Normal [facility] [id number] 08-28-2024 [id number] O ID: [id number] Author: CHRISTIAN STANFORD PT Service: ? Author Type: Physical Therapist Type: [id number] Filed: 08/28/2024 14:45 Note Text: [facility] Physical Therapy Plan of Care Certification Patient Name: Arianne Aleman : 1940 [facility] #: [id number] Date: 08/28/2024 To: Kaitlin Victor A* From Therapist: Christian Stanford PT RE: Patient Certification/ Recertification Your review, approval and electronic signature are required in order to comply with Payor: [employer] / Plan: [employer] HMO / Product Type: HMO / regulations. The identified Physical Therapy PLAN OF CARE for the patient is as follows: M54.50, G89.29 Chronic bilateral low back pain without sciatica (primary encounter diagnosis) PLAN OF CARE: Assessment: Arianne Aleman presents with chief complaint of R sided LBP that interferes with rising from a chair, standing, walking . The patient presents with impairments in ADL's, overall function, range of motion, strength, symptom management, and tissue tenderness. Patient did not complete the PROMIS? (Patient Reported Outcome Measures Information System). Prognosis for therapy is Good due to: current objective clinical presentation, good overall health status, good support system/ coping skills . The patient will benefit from skilled therapy services to meet the goals established for this plan of care as noted below. Classification Pain Mechanism Classification: Nociceptive Low Back Pain Classification: Movement Control Goals for Episode of Care: established 08/28/24 Independent in home exercises. Patient will decrease pain rating by 2 points to meet minimal clinical important difference for numeric pain rating scale. Restore pain-free lumbar ROM to WNL to allow for improved tolerance for standing and walking Stand / Walk for ADLs and self care without pain/symptoms. Maintain proper sitting posture throughout session Patient will increase strength of trunk and BLE to 4 to 4+/5 to allow for improve gait mechanics/gait pattern and improve ability to complete ADLs. Time Frame for Goals and Treatment : 10/28/24 Planned Interventions, Frequency, and Duration: Current Frequency: 1x/week Duration: 8 weeks Total Number of Visits Planned: 8 Planned Treatment Interventions: Therapeutic exercise (37278), Neuromuscular re-education (43432), Manual therapy (29339), Therapeutic activities (57702), Self-group home management (02518), Patient/Family/Caregiver Education, Body Mechanics Training PLAN FOR NEXT VISIT: Assess carry over of HEP. BLE strengthening, neutral spien strengthening Patient demonstrates good understanding of plan of care and treatment. The above goals and plan of care were discussed and agreed upon by patient/family. For further details regarding this patient refer to the Physical Therapy electronically documented visit dated 08/28/2024. Provider Attestation I have reviewed the treatment plan for Arianne Aleman, [facility]# [id number] for the period of 08/28/24 -- 10/28/24, established on 08/28/2024. Signature certifies the need for therapy services. Normal [facility] CNTHERAPYon 08-28-2024 CNTHERAPY OT/PT/Speech Visit ( PTWS) -- LOVEARIANNE Trav ([id number]) 1940 F TXT Date Time Provider Department 08/28/24 11:30 AM CHRISTIAN STANFORD PTBEATRIZ Date Time Provider Department Center 08/28/2024 11:30 AM [id number], [facility] Reason for Visit: PT Eval [747] Primary Visit Diagnosis:Chronic bilateral low back pain without sciatica [M54.50, G89.29] Allergies As of Date: 08/28/2024 Noted Allergy Reaction LIDOCAINE 11/03/2015 5 - Intolerance Comments: Severe itching, burning. Pt. has had Marcaine without problem for oral surgery per Dr. Rodriguez's office. (Unsure true Lidocaine allergy) CODEINE 11/09/2001 DICLOFENAC 02/06/2013 14 - Other: See Comments Comments: mouth ulcerations ETODOLAC 07/09/2014 14 - Other: See Comments Comments: Mouth ulcers MEDROXYPROGESTERONE 11/09/2001 Date Reviewed: 08/09/2024 Reviewed by: Kaelyn Villatoro MA - Fully Assessed Prescriptions as of 08/28/2024 - sertraline (ZOLOFT) 25 mg tablet Take 1 tablet by mouth once daily. - Glucosamine HCl, Bulk, powd - NEOMYCIN 3.5 MG/G-POLYMYXIN B 10,000 UNIT/G-DEXAMETH 0.1 % EYE OINT - fexofenadine (MELBA) 180 mg tablet Take 180 mg by mouth once daily. - Chlorhexidine Gluconate (PERIDEX) 0.12 % solution two times a day. - calcium carbonate (TUMS 500 ORAL) Take by mouth as needed. - ergocalciferol, vitamin D2, (VITAMIN D2 ORAL) Take by mouth. - COLLAGEN MISC - vit C/E/Zn/coppr/lutein/zeaxan (PRESERVISION AREDS-2 ORAL) Take by mouth. - acetaminophen (TYLENOL) 325 mg tablet Take 650 mg by mouth every 6 hours as needed. - SIMETHICONE (GAS-X ORAL) Take 1 tablet by mouth as needed. - CARBOXYMETHYLCELLULOSE SODIUM (REFRESH TEARS OPHTHALMIC) Use 1 Drop in eyes three times daily as needed. - COMPOUNDED PRESCRIPTION Gum Rincinol as needed - ketoconazole (NIZORAL) 2 % shampoo Apply 1 application to affected area once daily as needed. - polyethylene glycol 3350 (MIRALAX) 17 gram/dose powder As needed for constipation Meds Comments as of 03/18/2014: Lehr Tender: Addendum Therapy (PT/OT/Speech/Resp) ID: [id number] 08/28/2024 11:58 AM Author: CHRISTIAN STANFORD Signed by CHRISTIAN STANFORD PT on 08/28/2024 at 11:58 AM * * * This document replaces document [id number] * * * Document text: Program_ID:[id number] Access Code: [email or web address] URL: [email or web address] Date: 08-28-2024 Prepared By: Christian Stanford Program Notes Exercises - Supine Lower Trunk Rotation - 1 x daily - 7 x weekly - 3 sets - 10 reps - Standing Hip Abduction with Counter Support - 1 x daily - 7 x weekly - 3 sets - 10 reps - Standing Hip Abduction with Counter Support - 1 x daily - 7 x weekly - 3 sets - 10 reps - Standing Hip Extension with Counter Support - 1 x daily - 7 x weekly - 3 sets - 10 reps - Hooklying Single Knee to Chest - 1 x daily - 7 x weekly - 3 sets - 3 reps - Hooklying Single Knee to Chest - 1 x daily - 7 x weekly - 3 sets - 3 reps Normal [facility] THERAPY NTon 08-28-2024 THERAPY NT HNO ID: [id number] Author: CHRISTIAN STANFORD PT Service: ? Author Type: Physical Therapist Type: Therapy (PT/OT/Speech/Resp) Filed: 08/28/2024 11:58 Note Text: Program_ID:[id number] Access Code: [email or web address] URL: [email or web address]/ Date: 08-28-2024 Prepared By: Christian Stanford Program Notes Exercises - Supine Lower Trunk Rotation - 1 x daily - 7 x weekly - 3 sets - 10 reps - Standing Hip Abduction with Counter Support - 1 x daily - 7 x weekly - 3 sets - 10 reps - Standing Hip Abduction with Counter Support - 1 x daily - 7 x weekly - 3 sets - 10 reps - Standing Hip Extension with Counter Support - 1 x daily - 7 x weekly - 3 sets - 10 reps - Hooklying Single Knee to Chest - 1 x daily - 7 x weekly - 3 sets - 3 reps - Hooklying Single Knee to Chest - 1 x daily - 7 x weekly - 3 sets - 3 reps Normal [facility] CNPNinoska 08-10-2024 CNPN Telephone (FAMPWS) -- ARIANNE ALEMAN ([id number]) 1940 F TXT Date Time Provider Department 08/10/24 JOHN HICKS During your visit today, we recorded the following information about you: Trav Cottrell, RN 08/10/2024 2:48 PM Signed Pt reports with the LBBB seen on ECG, and the tightness she feels in her ribs that goes away, since the stress test is not until September, is it ok for her to do: 1) start PT August 28 2) have L eye cataract surgery on September 06 3) have knee injection first week of August 4) peridontal treatment ongoing every other week. Please advise and phone pt with reply: [phone] Kaitlin Victor APRN.MULTIPLE KNIFE EDGE TRIMMER OPERATOR 08/10/2024 4:32 PM Signed She may do all of those things. None of them require a general anesthetic.I think likely the octavio rib pain is coming from the hiatal hernia. We will check out heart though. Please continue on with all of these plans. Martha Interiano, NEIL 08/10/2024 4:56 PM Signed Pt called and is notified of providers message and instructions. Pt voices understanding. Martha Interiano RN Allergies As of Date: 08/10/2024 Noted Allergy Reaction LIDOCAINE 11/03/2015 5 - Intolerance Comments: Severe itching, burning. Pt. has had Marcaine without problem for oral surgery per Dr. Rodriguez's office. (Unsure true Lidocaine allergy) CODEINE 11/09/2001 DICLOFENAC 02/06/2013 14 - Other: See Comments Comments: mouth ulcerations ETODOLAC 07/09/2014 14 - Other: See Comments Comments: Mouth ulcers MEDROXYPROGESTERONE 11/09/2001 Date Reviewed: 08/09/2024 Reviewed by: Kaelyn Villatoro MA - Fully Assessed Reason for Visit: Patient Question [7487] Prescriptions as of 08/10/2024 - sertraline (ZOLOFT) 25 mg tablet Take 1 tablet by mouth once daily. - Glucosamine HCl, Bulk, powd - NEOMYCIN 3.5 MG/G-POLYMYXIN B 10,000 UNIT/G-DEXAMETH 0.1 % EYE OINT - fexofenadine (MELBA) 180 mg tablet Take 180 mg by mouth once daily. - Chlorhexidine Gluconate (PERIDEX) 0.12 % solution two times a day. - calcium carbonate (TUMS 500 ORAL) Take by mouth as needed. - ergocalciferol, vitamin D2, (VITAMIN D2 ORAL) Take by mouth. - COLLAGEN MISC - vit C/E/Zn/coppr/lutein/zeaxan (PRESERVISION AREDS-2 ORAL) Take by mouth. - acetaminophen (TYLENOL) 325 mg tablet Take 650 mg by mouth every 6 hours as needed. - SIMETHICONE (GAS-X ORAL) Take 1 tablet by mouth as needed. - CARBOXYMETHYLCELLULOSE SODIUM (REFRESH TEARS OPHTHALMIC) Use 1 Drop in eyes three times daily as needed. - COMPOUNDED PRESCRIPTION Gum Rincinol as needed - ketoconazole (NIZORAL) 2 % shampoo Apply 1 application to affected area once daily as needed. - polyethylene glycol 3350 (MIRALAX) 17 gram/dose powder As needed for constipation Meds Comments as of 03/18/2014: Problem List As Of Date 08/10/2024 Noted Resolved Chronic depression [F32.A] 11/04/2001 12/07/2018 Symptomatic menopausal or female climacteric st*11/04/2001 GENERAL OSTEOARTHROSIS [M15.9] 11/04/2001 Personal history of colonic polyps [Z86.0100] 11/04/2001 Osteopenia [M85.80] 11/04/2001 Neoplasm of Uncertain Behavior (NUB) of skin: L*04/28/2011 09/13/2011 Personal history of other malignant neoplasm of*04/28/2011 Actinic skin damage [L57.8] 04/28/2011 10/26/2016 Hypertrophic//Keloid scar: L upper lip [L91.0] 04/28/2011 Telangiectasia [I78.1] 04/28/2011 10/26/2016 Solar Lentigines [L81.4] 04/28/2011 10/26/2016 Special screening for malignant neoplasms, colo*07/05/2011 10/23/2015 Bilateral shoulder pain [M25.511, M25.512] 05/19/2012 Arthritis of knee, degenerative [M17.9] 03/18/2014 Right knee pain [M25.561] 07/16/2014 10/26/2016 Hives [L50.9] Recurrent depression (HCC) [F33.9] 04/26/2017 JOSE ELIAS (generalized anxiety disorder) [F41.1] 04/26/2017 CKD (chronic kidney disease) stage 3, GFR 30-59*12/06/2017 Fuchs' heterochromic iridocyclitis, 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 LABCLIA [id number] [place] [address] [place] Basophils/100 WBC (Bld) 1.4 % Normal [facility] Comment on above: Order Comment: Speci men Type: BLOOD SPECIMENOrdering Facility: [facility] Address: [address] [place] [address] Performed By: #### 5 7021-8 ####[facility] LABCLIA [id number] [place] [address] [place] Differential cell count method Nom (Bld) Auto Normal [facility] Comment on above: Order Comment: Speci men Type: BLOOD SPECIMENOrdering Facility: [facility] Address: [address] [place] [address] Performed By: #### 5 7021-8 ####[facility] LABCLIA [id number] [place] [address] [place] Eosinophils (Bld) [#/Vol] 0.24 10*3/uL Normal <0.46 [facility] Comment on above: Order Comment: Speci men Type: BLOOD SPECIMENOrdering Facility: [facility] Address: [address] [place] [address] Performed By: #### 5 7021-8 ####[facility] LABCLIA [id number] [facility] [place] [address] [place] Eosinophils/100 WBC (Bld) 2.9 % Normal [facility] Comment on above: Order Comment: Speci men Type: BLOOD SPECIMENOrdering Facility: [facility] Address: [address] [place] [address] Performed By: #### 5 7021-8 ####[facility] LABIA [id number] [address], [place] [address] [place] Erythrocyte distribution width (RBC) [Ratio] 13.2 % Normal 11.5-15.0 [facility] Comment on above: Order Comment: Speci men Type: BLOOD SPECIMENOrdering Facility: [facility] Address: [address] [place] [address] Performed By: #### 5 7021-8 ####[facility] LABIA [id number] [place] [address] [place] Hematocrit (Bld) [Volume fraction] 44.7 % Normal 36.0-46.0 [facility] Comment on above: Order Comment: Speci men Type: BLOOD SPECIMENOrdering Facility: [facility] Address: [address] [place] [address] Performed By: #### 5 7021-8 ####[facility] LABIA [id number] [place] [id number] [place] Hemoglobin (Bld) [Mass/Vol] 14.4 g/dL Normal 11.5-15.5 [facility] Comment on above: Order Comment: Speci men Type: BLOOD SPECIMENOrdering Facility: [facility] Address: [address] [place] [address] Performed By: #### 5 7021-8 ####[facility] LABCLIA [id number] [address], [place] [address] [place] Immature granulocytes (Bld) [#/Vol] 0.03 10*3/uL Normal <0.10 [facility] Comment on above: Order Comment: Speci men Type: BLOOD SPECIMENOrdering Facility: [facility] Address: [address] [place] [address] Performed By: #### 5 7021-8 ####[facility] LABCLIA [id number] [address], [address] [place] Immature granulocytes/100 WBC (Bld) 0.4 % Normal [facility] Comment on above: Order Comment: Speci men Type: BLOOD SPECIMENOrdering Facility: [facility] Address: [address] [place] [address] Performed By: #### 5 7021-8 ####[facility] LABCLIA [id number] [place] [address] [place] Lymphocytes (Bld) [#/Vol] 1.41 10*3/uL Normal 1.00-4.00 [facility] Comment on above: Order Comment: Speci men Type: BLOOD SPECIMENOrdering Facility: [facility] Address: [address] [place] [address] Performed By: #### 5 7021-8 ####[facility] LABCLIA [id number] [place] [id number] [place] Lymphocytes/100 WBC (Bld) 16.8 % Normal [facility] Comment on above: Order Comment: Speci men Type: BLOOD SPECIMENOrdering Facility: [facility] Address: [address] [place] [address] Performed By: #### 5 7021-8 ####[facility] LABCLIA [id number] [address] [place] [address] [place] MCH (RBC) [Entitic mass] 29.4 pg Normal 26.0-34.0 [facility] Comment on above: Order Comment: Speci men Type: BLOOD SPECIMENOrdering Facility: [facility] Address: [address] [place] [address] Performed By: #### 5 7021-8 ####[facility] LABCLIA [id number] [place] [address] [place] MCHC (RBC) [Mass/Vol] 32.2 g/dL Normal 30.5-36.0 [facility] Comment on above: Order Comment: Speci men Type: BLOOD SPECIMENOrdering Facility: [facility] Address: [address] [place] [address] Performed By: #### 5 7021-8 ####[facility] LABIA [id number] [place] [address] [place] MCV (RBC) [Entitic vol] 91.2 fL Normal 80.0-100.0 [facility] Comment on above: Order Comment: Speci men Type: BLOOD SPECIMENOrdering Facility: [facility] Address: [address] [place] [address] Performed By: #### 5 7021-8 ####[facility] LABIA [id number] [place] [address] [place] Monocytes (Bld) [#/Vol] 0.87 10*3/uL High <0.87 [facility] Comment on above: Order Comment: Speci men Type: BLOOD SPECIMENOrdering Facility: [facility] Address: [address] [place] [address] Performed By: #### 5 7021-8 ####[facility] LABIA [id number] [address] [place] Monocytes/100 WBC (Bld) 10.4 % Normal [facility] Comment on above: Order Comment: Speci men Type: BLOOD SPECIMENOrdering Facility: [facility] Address: [address] [place] [address] Performed By: #### 5 7021-8 ####[facility] LABCLIA [id number] [place] [address] [place] Neutrophils (Bld) [#/Vol] 5.73 10*3/uL Normal 1.45-7.50 [facility] Comment on above: Order Comment: Speci men Type: BLOOD SPECIMENOrdering Facility: [facility] Address: [address] [place] [address] Performed By: #### 5 7021-8 ####[facility] LABCLIA [id number] [place] [address] [place] Neutrophils/100 WBC (Bld) 68.1 % Normal [facility] Comment on above: Order Comment: Speci men Type: BLOOD SPECIMENOrdering Facility: [facility] Address: [address] [place] [address] Performed By: #### 5 7021-8 ####[facility] LABCLIA [id number] [place] [address] [place] Nucleated RBC (Bld) [#/Vol] 10*3/uL Normal <0.01 [facility] Comment on above: Order Comment: Speci men Type: BLOOD SPECIMENOrdering Facility: [facility] Address: [address] [place] [address] Performed By: #### 5 7021-8 ####[facility] LABCLIA [id number] [facility] [address], [facility] [place] Nucleated RBC/100 WBC (Bld) [Ratio] 0.0 /100 WBC Normal [facility] Comment on above: Order Comment: Speci men Type: BLOOD SPECIMENOrdering Facility: [facility] Address: [address] [place] [address] Performed By: #### 5 7021-8 ####[facility] LABCLIA [id number] [place] [address] [place] Platelet mean volume (Bld) [Entitic vol] 10.4 fL Normal 9.0-12.7 [facility] Comment on above: Order Comment: Speci men Type: BLOOD SPECIMENOrdering Facility: [facility] Address: [address] [place] [address] Performed By: #### 5 7021-8 ####[facility] LABIA [id number] [place] [address] [place] Platelets (Bld) [#/Vol] 358 10*3/uL Normal 150-400 [facility] Comment on above: Order Comment: Speci men Type: BLOOD SPECIMENOrdering Facility: [facility] Address: [address] [place] [address] Performed By: #### 5 7021-8 ####[facility] LABIA [id number] [place] [address] [place] RBC (Bld) [#/Vol] 4.90 10*6/uL Normal 3.90-5.20 [facility] Comment on above: Order Comment: Speci men Type: BLOOD SPECIMENOrdering Facility: [facility] Address: [address] [place] [address] Performed By: #### 5 7021-8 ####[facility] LABIA [id number] [place] [address] [place] WBC (Bld) [#/Vol] 8.40 10*3/uL Normal 3.70-11.00 [facility] Comment on above: Order Comment: Speci men Type: BLOOD SPECIMENOrdering Facility: [facility] Address: [address] [place] [address] Performed By: #### 5 7021-8 ####[facility] LABIA [id number] [place] [address] [place] CNOVon 08-09-2024 [facility] ARIANNE ALEMAN ([id number]) 1940 F TXT Date Time Provider Department 08/09/24 9:20 AM KAITLIN VICTOR During your visit today, we recorded the following information about you: Pulse Blood pressure Weight 84/minute 136/78 82.6 kg Kaitlin Victor, LICENSED PHYSICAL THERAPY ASSISTANT.[facility] 08/09/2024 11:04 AM Addendum This is a 84 year old female who presents today with: Patient presents with: Back Pain HISTORY OF PRESENT ILLNESS: Arianne Aleman is a 84 year old female. Patient presents with: Back Pain rAianne is an 84-year-old female with a history of GERD, presenting for evaluation of bilateral rib tightness, knee and back pain, and requesting physical therapy. Bilateral Rib Tightness: - Intermittent tightness in bilateral lower ribs, x years. - Episodes occur at rest, including while sitting in a car or lying in bed. - Describes episodes as brief, resolving quickly. - Denies associated dyspnea, dizziness, diaphoresis, nausea, or pain in the arms, jaw, or between the shoulder blades. - PMHx of GERD and hyperventilation; takes Tums occasionally (3 times in the past year) with some relief. - Family history of crescendo angina in grandmother and brother; brother required a stent. - Has not seen a support team member; unable to perform treadmill test due to knee and back pain. Knee and Back Pain: - Chronic knee and back pain, exacerbated by walking beside her who used a walker. - Scheduled for knee injections in 2 weeks. - Recently purchased new shoes for better support. - Considering physical therapy to alleviate discomfort. GERD: - Diagnosed at [facility]. - Takes Tums occasionally (3 times in the past year) with some relief. Periodontal Treatments: - Scheduled for 4 periodontal treatments, 2-3 weeks apart. - No bleeding or infection reported; maintains good oral hygiene due to a history of a childhood accident affecting the mouth. Cataract Surgery: - Scheduled for left eye cataract surgery on September 06. Family and Social Support: - Recently ; on July 18. - Has been managing legal and financial matters since his passing. - Receives support from children and neighbors. - Daughter Kimberly provides financial support and assistance. - Son Lenard is helping at home and working through his grief. 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, most often secondary to a remote infection with rubella History of skin cancer SCC R arm; basal cell face, scalp Hives OSTEOPENIA Personal history of colonic polyps lymphoid aggregate removed Piezogenic pedal papule fatty papules around heel: no clinical significance Seasonal allergies Skin cancer melanoma,basal and squamous cell Symptomatic menopausal or female climacteric states was on HRT then off, last DXA 1998 PAST SURGICAL HISTORY Procedure Laterality Date CATARACT SURGERY, COMPLEX and Hx Fuch's dystrophy COLONOSCOPY FLX DX W/COLLJ SPEC WHEN PFRMD 12/1999 Colonoscopy- DIVERTICULOSIS DILATION AND CURETTAGE DXAND/THER NONOBSTETRIC 1989 Dilation AND curettage DILATION AND CURETTAGE DXAND/THER NONOBSTETRIC Dilation AND curettage TAB Down's GI COLON STEPHANIE INTUSSUSCEPTION 1939 LIG/TRNSXJ FLP TUBE ABDL/VAG APPR UNI/BI 1981 PAST SURGICAL HISTORY OF 1958 'polyp' removal PAST SURGICAL HISTORY OF 06/04/11 basal cell carcinoma removed from face PAST SURGICAL HISTORY OF 02/16/11 squamous cell skin CA PAST SURGICAL HISTORY OF 09/2011 basal cell carcinoma removed behind left ear, left buttock, left forearm, PAST SURGICAL HISTORY OF Skin cancer biopsies TONSILLECTOMY AND ADENOIDECTOMY Tonsil/adenoidectomy ALLERGIES Lidocaine, Codeine, Diclofenac, Etodolac, and Medroxyprogesterone MEDICATIONS Current Outpatient Medications Medication Sig sertraline (ZOLOFT) 25 mg tablet Take 1 tablet by mouth once daily. Glucosamine HCl, Bulk, powd NEOMYCIN 3.5 MG/G-POLYMYXIN B 10,000 UNIT/G-DEXAMETH 0.1 % EYE OINT fexofenadine (MELBA) 180 mg tablet Take 180 mg by mouth once daily. Chlorhexidine Gluconate (PERIDEX) 0.12 % solution two times a day. calcium carbonate (TUMS 500 ORAL) Take by mouth as needed. ergocalciferol, vitamin D2, (VITAMIN D2 ORAL) Take by mouth. COLLAGEN MISC vit C/E/Zn/coppr/lutein/zeaxan (PRESERVISION AREDS-2 ORAL) Take by mouth. acetaminophen (TYLENOL) 325 mg tablet Take 650 mg by mouth every 6 hours as needed. SIMETHICONE (GAS-X ORAL) Take 1 tablet by mouth as needed. CARBOXYMETHYLCELLULOSE SODIUM (REFRESH TEARS OPHTHALMIC) Use 1 Drop in eyes three times daily as needed. COMPOUNDED PRESCRIPTION Gum Rincinol as needed ketoconazole (NIZORAL) 2 % shampoo Apply 1 appli (more content not included)... Normal [facility] Comprehensive metabolic 2000 panelon 08-09-2024 Albumin [Mass/Vol] 4.3 g/dL Normal 3.9-4.9 [facility] Comment on above: Order Comment: Speci men Type: BLOOD SPECIMENOrdering Facility: [facility] Address: [address] [place] [address] Performed By: #### 2 4323-8, LIPNF, 71609-2, 3016-3 ####[facility] [id number] [place] [address] [place] ALP [Catalytic activity/Vol] 92 U/L Normal 34-123 [facility] Comment on above: Order Comment: Speci men Type: BLOOD SPECIMENOrdering Facility: [facility] Address: [address] [place] [address] Performed By: #### 2 4323-8, LIPNF, 94177-2, 6-3 ####[facility] [id number] [address] [address] [place] ALT [Catalytic activity/Vol] 8 U/L Normal 7-38 [facility] Comment on above: Order Comment: Speci men Type: BLOOD SPECIMENOrdering Facility: [facility] Address: [address] [place] [address] Performed By: #### 2 4323-8, LIPNF, , 3016-3 ####[facility] LABCLIA [id number] [address] [place] [address] [place] Anion gap [Moles/Vol] 14 mmol/L Normal 8-15 [facility] Comment on above: Order Comment: Speci men Type: BLOOD SPECIMENOrdering Facility: [facility] Address: [address] [place], [place] [address] Performed By: #### 2 4323-8, LIPNF, , 3015-3 ####[facility] LABCLIA [id number] [address] [address] [place] AST [Catalytic activity/Vol] 16 U/L Normal 13-35 [facility] Comment on above: Order Comment: Speci men Type: BLOOD SPECIMENOrdering Facility: [facility] Address: [address] [place], [place] [address] Performed By: #### 2 4323-8, LIPNF, , 3015-3 ####[facility] LABIA [id number] [address] [address] [place] Bilirubin [Mass/Vol] 0.4 mg/dL Normal 0.2-1.3 [facility] Comment on above: Order Comment: Speci men Type: BLOOD SPECIMENOrdering Facility: [facility] Address: [address] [place] [address] Performed By: #### 2 4323-8, LIPNF, , 3015-3 ####[facility] LABIA [id number] [address] [place] [address] [place] Calcium [Mass/Vol] 10.1 mg/dL Normal 8.5-10.2 [facility] Comment on above: Order Comment: Speci men Type: BLOOD SPECIMENOrdering Facility: [facility] Address: [address] [place] [address] Performed By: #### 2 4323-8, LIPNF, , 3015-3 ####[facility] LABIA [id number] [address] [address] [place] Chloride [Moles/Vol] 102 mmol/L Normal 98-107 [facility] Comment on above: Order Comment: Speci men Type: BLOOD SPECIMENOrdering Facility: [facility] Address: [address] [place] [address] Performed By: #### 2 4323-8, LIPNF, 37237-9, 6-3 ####[facility] LABIA [id number] [address] [address] [place] CO2 [Moles/Vol] 23 mmol/L Normal 22-30 [facility] Comment on above: Order Comment: Speci men Type: BLOOD SPECIMENOrdering Facility: [facility] Address: [address] [place] [address] Performed By: #### 2 4323-8, LIPNF, 20107-0, 6-3 ####[facility] LABIA [id number] [address] [address] [place] Creatinine [Mass/Vol] 0.89 mg/dL Normal 0.58-0.96 [facility] Comment on above: Order Comment: Speci men Type: BLOOD SPECIMENOrdering Facility: [facility] Address: [address] [place] [address] Performed By: #### 2 4323-8, LIPNF, , 3015-3 ####[facility] LABIA [id number] [address] [address] [place] Creatinine and Glomerular filtration rate.predicted panel (S/P/Bld) 63 mL/min/1.73m??? Normal >=60 [facility] Comment on above: Order Comment: Speci men Type: BLOOD SPECIMENOrdering Facility: [facility] Address: [address] [place] [address] Result Comment: [place] mated Glomerular Filtration Rate (eGFR) is calculated using the 2020 CKD-EPI creatinine equation. This equation utilizes serum creatinine, sex, and age as parameters. The creatinine assay has traceable calibration to isotope dilution-mass spectrometry. Refer to KDIGO guidelines for clinical interpretation. In patients with unstable renal function, e.g. those with acute kidney injury, the eGFR may not accurately reflect actual GFR. Performed By: #### 2 4323-8, LIPNF, , 3015-3 ####[facility] LABCLIA [id number] [address] [address] [place] Glucose [Mass/Vol] 90 mg/dL Normal 74-99 [facility] Comment on above: Order Comment: Speci men Type: BLOOD SPECIMENOrdering Facility: [facility] Address: [address] [place] [address] Result Comment: The [place] Diabetes Association (ADA) provides guidance for cutoff values for fasting glucose and random glucose. The ADA defines fasting as no caloric intake for at least 8 hours. Fasting plasma glucose results between 100 to 125 mg/dL indicate increased risk for diabetes (prediabetes). Fasting plasma glucose results greater than or equal to 126 mg/dL meet the criteria for diagnosis of diabetes. In the absence of unequivocal hyperglycemia, results should be confirmed by repeat testing. In a patient with classic symptoms of hyperglycemia or hyperglycemic crisis, random plasma glucose results greater than or equal to 200 mg/dL meet the criteria for diagnosis of diabetes. Reference: Standards of Medical Care in Diabetes 2016, Swiss Diabetes Association. Diabetes Care. 2016.39(Suppl 1). Performed By: #### 2 4323-8, LIPNF, , 3015-3 ####[facility] LABCLIA [id number] [address] [address] [place] Potassium [Moles/Vol] 4.6 mmol/L Normal 3.7-5.1 [facility] Comment on above: Order Comment: Speci men Type: BLOOD SPECIMENOrdering Facility: [facility] Address: [address] [place] [address] Performed By: #### 2 4323-8, LIPNF, , 3015-3 ####[facility] LABCLIA [id number] [place] [address] [place] Protein [Mass/Vol] 7.1 g/dL Normal 6.3-8.0 [facility] Comment on above: Order Comment: Speci men Type: BLOOD SPECIMENOrdering Facility: [facility] Address: [address] [place] [address] Performed By: #### 2 4323-8, LIPNF, 26675-6, 6-3 ####[facility] LABIA [id number] [place] [address] [place] Sodium [Moles/Vol] 139 mmol/L Normal 136-144 [facility] Comment on above: Order Comment: Speci men Type: BLOOD SPECIMENOrdering Facility: [facility] Address: [address] [place] [address] Performed By: #### 2 4323-8, LIPNF, , 3015-3 ####[facility] [id number] [place] [address] [place] Urea nitrogen [Mass/Vol] 16 mg/dL Normal 7-21 [facility] Comment on above: Order Comment: Speci men Type: BLOOD SPECIMENOrdering Facility: [facility] Address: [address] [place] [address] Performed By: #### 2 4323-8, LIPNF, , 3015-3 ####[facility] [id number] [place] [id number] [place] ECG COMPLETEon 08-09-2024 ECG COMPLETE Ventricular Rate : 6 9 BPM Atrial Rate : 69 BPM P-R Interval : 186 ms QRS Duration : 152 ms Q-T Interval : 436 ms QTC Calculation(Bazett) : 467 ms Calculated P [place] : 23 degrees Calculated R [place] : -49 degrees Calculated T [place] : 101 degrees NORMAL SINUS RHYTHM COMPLETE LEFT BUNDLE BRAN[place] BLOCK ABNORMAL ECG Confirmed by MD HERLINDA, QAB ([id number]) on 08/11/2024 11:37:17 AM NAME : ARIANNE ALEMAN PID : [id number] : 1940 Gender : Female Race : ORD : [id number] Procedure Date : Aug 09 2024 10:19:09 Edit Date : Aug 11 2024 11:37:18 Diagnosis: NORMAL SINUS RHYTHM COMPLETE LEFT BUNDLE [place]AN[place] BLOCK ABNORMAL ECG Confirmed by MD PATE QARAB ([id number]) on 08/11/2024 11:37:17 AM Test Reason : I20.0 Unstable angina pectoris (HCC) Location : 185 : [facility] Overread By : MD PATE QARAB Edited By : MD PATE QARAB Referred By : , Acquired by : [id number], Normal [facility] HbA1c (Bld)on 08-09-2024 Average glucose Estimated from glycated hemoglobin (Bld) [Mass/Vol] 105 mg/dL Normal [facility] Comment on above: Order Comment: Lamin palma Type: BLOOD SPECIMENOrdering Facility: [facility] Address: [address] [place] [address] Result Comment: eAG: (Estimated average glucose) is a calculated value from HgbA1c and is goodwill representative of the average blood glucose level in the last 2-3 month period. Performed By: #### 5 5454-3 ####[facility] LABCLIA [id number] [place] [address] [place] HbA1c (Bld) [Mass fraction] 5.3 % Normal 4.3-5.6 [facility] Comment on above: Order Comment: Lamin palma Type: BLOOD SPECIMENOrdering Facility: [facility] Address: [address] [place] [address] Result Comment: [place] Diabetes Association guidelines indicate that patients with HgbA1c in the range 5.7-6.4% are at increased risk for development of diabetes, and intervention by lifestyle modification may be beneficial. HgbA1c greater or equal to 6.5% is considered diagnostic of diabetes. Performed By: #### 5 5454-3 ####[facility] LABCLIA [id number] [place] [id number] [place] LIPID PANEL, NONFASTINGon Cholesterol [Mass/Vol] 165 mg/dL Normal <200 [facility] Comment on above: Order Comment: Speci men Type: BLOOD SPECIMENOrdering Facility: [facility] Address: [address] [place] [address] Result Comment: <200 mg/dL, Desirable 200-239 mg/dL, Borderline high >239 mg/dL, High Performed By: #### 2 4323-8, LIPNF, 16193-2, 3015-3 ####[facility] LABCLIA [id number] [facility] [id number] [address] [place] HDL CHOLESTEROL, NF 75 mg/dL Normal >39 [facility] Comment on above: Order Comment: Speci men Type: BLOOD SPECIMENOrdering Facility: [facility] Address: [address] [place] [address] Result Comment: 40-5 9 mg/dL, Acceptable >59 mg/dL, High: Negative risk factor for coronary heart disease <40 mg/dL, Low: Positive risk factor for coronary heart disease Performed By: #### 2 4323-8, LIPNF, , 3015-3 ####[facility] LABCLIA [id number] [address], [facility] [place] LDL CHOLESTEROL CALCULATED, NF 77 mg/dL Normal <100 [facility] Comment on above: Order Comment: Speci men Type: BLOOD SPECIMENOrdering Facility: [facility] Address: [address] [place] [address] Result Comment: <100 mg/dL, Optimal 100-129 mg/dL, Near optimal/above optimal 130-159 mg/dL, Borderline high 160-189 mg/dL, High >189 mg/dL, Very high Secondary prevention optimal LDL Cholesterol levels are recommended to be <70 mg/dL LDL cholesterol is calculated using the Mcclain-NIH equation. Performed By: #### 2 4323-8, LIPNF, , 3015-3 ####[facility] LABCLIA [id number] [facility] [id number] [address] [place] LDL/HDL RATIO, NF 1.03 mg/dL Normal <2.54 [facility] Comment on above: Order Comment: Jovanaelie palma Type: BLOOD SPECIMENOrdering Facility: [facility] Address: [address] [place] [address] Result Comment: Reji prasad: 1. National Cholesterol Education Program ATP III Guideline At-A-Glance Quick Desk Reference: National Heart, Lung, and Blood [place]. National Institutes of Health. 2001: NIH Publication No. 01-3305. 2. An International Atherosclerosis Society position paper: global recommendations for the management of dyslipidemia: executive summary, Atherosclerosis. 2014: 232(2):410-413. Performed By: #### 2 4323-8, LIPNF, 88680-9, 6-3 ####[facility] LABCLIA [id number] [address] [place] NON HDL CHOL, NF 90 mg/dL Normal <130 [facility] Comment on above: Order Comment: Lamin minerva Type: BLOOD SPECIMENOrdering Facility: [facility] Address: [address] [place] [address] Result Comment: <130 mg/dL, Optimal 130-159 mg/dL, Near optimal/above optimal 160-189 mg/dL, Borderline high 190-219 mg/dL, High >219 mg/dL, Very high Secondary prevention optimal non HDL Cholesterol levels are recommended to be <100 mg/dL Performed By: #### 2 4323-8, LIPNF, 60695-5, 6-3 ####[facility] LABCLIA [id number] [place] [id number] [place] T CHOL/HDL RATIO NF 2.20 mg/dL Normal <5.10 [facility] Comment on above: Order Comment: Lamin palma Type: BLOOD SPECIMENOrdering Facility: [facility] Address: [address] [place] [address] Performed By: #### 2 4323-8, LIPNF, 54636-5, 6-3 ####[facility] LABCLIA [id number] [address] [address] [place] TRIGLYCERIDES, NF 68 mg/dL Normal <150 [facility] Comment on above: Order Comment: Speci men Type: BLOOD SPECIMENOrdering Facility: [facility] Address: [address] [place] [address] Result Comment: <150 mg/dL, Normal 150-199 mg/dL, Borderline high 200-499 mg/dL, High >499 mg/dL, Very high Performed By: #### 2 4323-8, LIPNF, , 6-3 ####[facility] LABIA [id number] [place] [address] [place] VLDL CHOLESTEROL, NF 10 mg/dL Normal <30 [facility] Comment on above: Order Comment: Speci men Type: BLOOD SPECIMENOrdering Facility: [facility] Address: [address] [place] [address] Performed By: #### 2 4323-8, LIPNF, , 3015-3 ####[facility] LABIA [id number] [place] [id number] [place] Magnesium SerPl-mCncon 08-09 Magnesium [Mass/Vol] 2.1 mg/dL Normal 1.7-2.3 [facility] Comment on above: Order Comment: Speci men Type: BLOOD SPECIMENOrdering Facility: [facility] Address: [address] [place] [address] Performed By: #### 2 4323-8, LIPNF, , 6-3 ####[facility] LABIA [id number] [place] [id number] [place] TSH SerPl-aCncon 08-09-2024 TSH Qn 1.150 m[IU]/L Normal 0.270-4.200 [facility] [facility] Comment on above: Order Comment: Speci men Type: BLOOD SPECIMENOrdering Facility: [facility] Address: [address] [place] [address] Performed By: #### 2 4323-8, LIPNF, 72076-5, 3016-3 ####[facility] LABCLIA [id number] [place] [address] [place] Vit B12 SerPl-mCncon 025 Cobalamin (Vitamin B12) [Mass/Vol] 582 pg/mL Normal 232-1245 [facility] Comment on above: Order Comment: Speci men Type: BLOOD SPECIMENOrdering Facility: [facility] Address: [address] [place] [address] Performed By: #### 2 132-9 ####[facility] LABCLIA [id number] [place] [address] [place] XR CHEST 2V FRONTAL/LATon XR CHEST 2V FRONTAL/LAT * * *Final Report* * * DATE OF EXAM: Aug 09 2024 11:10AM WOX [id number] - XR CHEST 2V FRONTAL/LAT / PROCEDURE REASON: Chest discomfort * * * * Physician Interpretation * * * * EXAMINATION: CHEST RADIOGRAPH (2 VIEW FRONTAL and LATERAL) CLINICAL HISTORY: Chest discomfort MQ: [id number] EXAM DATE/TIME: 08/09/2024 11:10 AM COMPARISON: 04/18/2017 RESULT: Lines, tubes, and devices: None. Lungs and pleura: No consolidation. No lung mass. No pleural effusion. No pneumothorax. A retrocardiac density and collection of gas is identified, likely representing a hiatal hernia. Cardiomediastinal silhouette: Normal cardiomediastinal silhouette. Bones and soft tissues: Unremarkable. IMPRESSION: Probable hiatal hernia. No active cardiopulmonary disease Sap Pp Consultant: CHAPIN Transcribe Date/Time: Aug 10 2024 12:40P Dictated by : MEG RUSSELL MD This examination was interpreted and the report reviewed and electronically signed by: MEG RUSSELL MD on Aug 10 2024 12:46PM EST [id number] Normal [facility] CNPNinoska 07-11-2024 CNPN Telephone (Comprehend SystemsWS) -- ARIANNE ALEMAN ([id number]) 1940 F TXT Date Time Provider Department 07/11/24 MARLYS JERNIGAN During your visit today, we recorded the following information about you: Tita Castellano RN 07/11/2024 11:19 AM Signed Patient calling and asking if the process can be started to get Durolane injections approved so that she can have them done in August. Last received them on 04/02/24. NEIL Lares Sondra, PA-C 07/12/2024 8:19 AM Signed Please accept this as a request for approval for Durolane (or equivalent insurance approved brand) injections for Osteoarthritis for patient's bilateral knees. Please put a note in EPIC once approved and notify patient upon approval so they can schedule appointment. Thank you, KIRILL Berry Linda, MA 07/12/2024 4:15 PM Signed Referral done in computer. Cecilia Gutierrez MA 07/31/2024 9:38 AM Signed === PHARMACY TEAM ==== === PHARMACY TEAM ==== [facility] ORDER REVIEW Review Reason: Too Soon To Submit DOS/Next Tx Plan Date: Deferred Unitl: 08.31.24 GIVEN 04.02.24 Rochelle Augustine LPN 09/07/2024 11:40 AM Signed Patient called into office requesting status on injection authorization. Informed patient per referral in chart that was sent to her insurance we are still pending authorization. Patient requests this nurse check further. Informed patient referral in chart is sent directly to her insurance and is update once determination has been made and at this time there has not been a determination made at this time. Patient states she is in a lot of pain. Informed patient that unfortunately we are unable to schedule as injection has not been authorized. Patient verbalized understanding. ANA Carroll Amy M, MA 09/12/2024 9:47 AM Signed Message sent to pharmacy team to look into authorization. Cecilia Gutierrez MA 09/17/2024 8:26 AM Signed Patient has been authorized for Durolane injections into bilateral knees. Patient was contacted and has been scheduled. Allergies As of Date: 07/11/2024 Noted Allergy Reaction LIDOCAINE 11/03/2015 5 - Intolerance Comments: Severe itching, burning. Pt. has had Marcaine without problem for oral surgery per Dr. Rodriguez's office. (Unsure true Lidocaine allergy) CODEINE 11/09/2001 DICLOFENAC 02/06/2013 14 - Other: See Comments Comments: mouth ulcerations ETODOLAC 07/09/2014 14 - Other: See Comments Comments: Mouth ulcers MEDROXYPROGESTERONE 11/09/2001 Date Reviewed: 04/02/2024 Reviewed by: Kajal Gonzalez MA - Fully Assessed Reason for Visit: Patient Question [1477] Prescriptions as of 09/17/2024 - sertraline (ZOLOFT) 25 mg tablet Take 1 tablet by mouth once daily. - Glucosamine HCl, Bulk, powd - NEOMYCIN 3.5 MG/G-POLYMYXIN B 10,000 UNIT/G-DEXAMETH 0.1 % EYE OINT - fexofenadine (MELBA) 180 mg tablet Take 180 mg by mouth once daily. - Chlorhexidine Gluconate (PERIDEX) 0.12 % solution two times a day. - calcium carbonate (TUMS 500 ORAL) Take by mouth as needed. - ergocalciferol, vitamin D2, (VITAMIN D2 ORAL) Take by mouth. - COLLAGEN MISC - vit C/E/Zn/coppr/lutein/zeaxan (PRESERVISION AREDS-2 ORAL) Take by mouth. - acetaminophen (TYLENOL) 325 mg tablet Take 650 mg by mouth every 6 hours as needed. - SIMETHICONE (GAS-X ORAL) Take 1 tablet by mouth as needed. - CARBOXYMETHYLCELLULOSE SODIUM (REFRESH TEARS OPHTHALMIC) Use 1 Drop in eyes three times daily as needed. - COMPOUNDED PRESCRIPTION Gum Rincinol as needed - ketoconazole (NIZORAL) 2 % shampoo Apply 1 application to affected area once daily as needed. - polyethylene glycol 3350 (MIRALAX) 17 gram/dose powder As needed for constipation Meds Comments as of 03/18/2014: Problem List As Of Date 07/11/2024 Noted Resolved Chronic depression [F32.A] 11/04/2001 12/07/2018 Symptomatic menopausal or female climacteric st*11/04/2001 GENERAL OSTEOARTHROSIS [M15.9] 11/04/2001 Personal history of colonic polyps [Z86.0100] 11/04/2001 Osteopenia [M85.80] 11/04/2001 Neoplasm of Uncertain Behavior (NUB) of skin: L*04/28/2011 09/13/2011 Personal history of other malignant neoplasm of*04/28/2011 Actinic skin damage [L57.8] 04/28/2011 10/26/2016 Hypertrophic//Keloid scar: L upper lip [L91.0] 04/28/2011 Telangiectasia [I78.1] 04/28/2011 10/26/2016 Solar Lentigines [L81.4] 04/28/2011 10/26/2016 Special screening for malignant neoplasms, colo*07/05/2011 10/23/2015 Bilateral shoulder pain [M25.511, M25.512] 05/19/2012 Arthritis of knee, degenerative [M17.9] 03/18/2014 Right knee pain [M25.561] 07/16/2014 10/26/2016 Hives [L50.9] Recurrent depression (HCC) [F33.9] 04/26/2017 JOSE ELIAS (generalized anxiety disorder) [F41.1] 04/26/2017 CKD (chronic kidney disease) stage 3, GFR 30-59*12/06/2017 Fuchs' heterochromic iridocyclitis, 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 Normal [facility] CNOVon 04-02-2024 CNOV Office Visit (ORTHWS ) -- ARIANNE ALEMAN ([id number]) 1940 F TXT Date Time Provider Department 04/02/24 8:00 AM MARLYS JERNIGAN During your visit today, we recorded the following information about you: Kajal Gonzalez MA 04/02/2024 8:48 AM Signed Patient presents with: Left Knee - Injections, Established Patient Right Knee - Injections, Established Patient Durolane injections bilateral knees AMB ROOMING INTAKE FLOWSHEET DATA Pain Pain Level: 6 Pain Location: (Bilateral knees) Description: Aching (steady) Duration Amount of Time: (Ongoing) Frequency: Continuous Intervention/Comfort measure: Medication Taking Tylenol for the pain. Here for Durolane injections bilateral knees. LOT # [id number] EXP 06/18/2026 Kajal RUTH Gonzalez Sondra, PA-C 04/02/2024 8:48 AM Signed Large Joint Arthro/Inj: bilateral knee joints Informed Consent Consent Obtained: Verbal [place] Protocol A moment to CARE was completed. SIGN IN Sign in communication not applicable due to emergent procedure. Personnel directly involved with the procedure wore the appropriate PPE. Special Equipment: N/A Patient/Surrogate Stated/Verified: Patient name, Date of , Relevant allergies and Intended procedure TIME OUT Relevant labs, photos, and/or imaging studies have been reviewed. Intended patient and procedure match the source document(s). Consent documented and matches the intended procedure. Correct side/site marked and visible. Medications required for procedure verified. No fire risk assessment and interventions applicable. No implant(s) inserted.04/02/2024 8:48 AM The procedure site was prepped in the usual sterile fashion. Site: bilateral knee joints Medications (Right): 6 mL hyaluronate sodium, stabilized 60 mg/3 mL Medications (Left): 6 mL hyaluronate sodium, stabilized 60 mg/3 mL Outcome: Tolerated well, no immediate complications Post-injection instructions were reviewed with the patient and the patient voiced understanding of these instructions. SIGN OUT No specimen collected. All instruments, equipment, possible retained foreign bodies accounted for. Post-procedure follow-up management communicated and Plan of Care Visit completed when applicable Referring Provider: MARLYS JERNIGAN [[id number]] Allergies As of Date: 04/02/2024 Noted Allergy Reaction LIDOCAINE 11/03/2015 5 - Intolerance Comments: Severe itching, burning. Pt. has had Marcaine without problem for oral surgery per Dr. Rodriguez's office. (Unsure true Lidocaine allergy) CODEINE 11/09/2001 DICLOFENAC 02/06/2013 14 - Other: See Comments Comments: mouth ulcerations ETODOLAC 07/09/2014 14 - Other: See Comments Comments: Mouth ulcers MEDROXYPROGESTERONE 11/09/2001 Date Reviewed: 04/02/2024 Reviewed by: Kajal Gonzalez MA - Fully Assessed Reason for Visit: Injections [199] Established Patient [175] Injections [199] Established Patient [175] Durolane injections bilateral knees [Other] Primary Visit Diagnosis:Primary osteoarthritis of both knees [M17.0] Order(s):Large Joint Arthro/Inj: bilateral knee joints [MAH025] Order #: [id number] [] hyaluronate sodium, stabilized syrg 6 mL (DUROLANE)Disp: Rfl: [] hyaluronate sodium, stabilized syrg 6 mL (DUROLANE)Disp: Rfl: Prescriptions as of 04/02/2024 - sertraline (ZOLOFT) 25 mg tablet Take 1 tablet by mouth once daily. - Glucosamine HCl, Bulk, powd - NEOMYCIN 3.5 MG/G-POLYMYXIN B 10,000 UNIT/G-DEXAMETH 0.1 % EYE OINT - fexofenadine (MELBA) 180 mg tablet Take 180 mg by mouth once daily. - Chlorhexidine Gluconate (PERIDEX) 0.12 % solution two times a day. - calcium carbonate (TUMS 500 ORAL) Take by mouth as needed. - ergocalciferol, vitamin D2, (VITAMIN D2 ORAL) Take by mouth. - COLLAGEN MISC - vit C/E/Zn/coppr/lutein/zeaxan (PRESERVISION AREDS-2 ORAL) Take by mouth. - acetaminophen (TYLENOL) 325 mg tablet Take 650 mg by mouth every 6 hours as needed. - SIMETHICONE (GAS-X ORAL) Take 1 tablet by mouth as needed. - CARBOXYMETHYLCELLULOSE SODIUM (REFRESH TEARS OPHTHALMIC) Use 1 Drop in eyes three times daily as needed. - COMPOUNDED PRESCRIPTION Gum Rincinol as needed - ketoconazole (NIZORAL) 2 % shampoo Apply 1 application to affected area once daily as needed. - polyethylene glycol 3350 (MIRALAX) 17 gram/dose powder As needed for constipation Meds Comments as of 03/18/2014: Problem List As Of Date 04/02/2024 Noted Resolved Chronic depression [F32.A] 11/04/2001 12/07/2018 Symptomatic menopausal or female climacteric st*11/04/2001 GENERAL OSTEOARTHROSIS [M15.9] 11/04/2001 Personal history of colonic polyps [Z86.0100] 11/04/2001 Osteopenia [M85.80] 11/04/2001 Neoplasm of Uncertain Behavior (NUB) of skin: L*04/28/2011 09/13/2011 Personal history of other malignant neoplasm of*04/28/2011 Actinic skin damage [L57.8] 02 (more content not included)... Normal [facility] Large Joint Arthro/Inj: bila teral knee jointson 04-02-2024 Marlys Jernigan PA -C 04/02/2024 8:48 AM Large Joint Arthro/Inj: bilateral knee joints Informed Consent Consent Obtained: Verbal [place] Protocol A moment to CARE was completed. SIGN IN Sign in communication not applicable due to emergent procedure. Personnel directly involved with the procedure wore the appropriate PPE. Special Equipment: N/A Patient/Surrogate Stated/Verified: Patient name, Date of , Relevant allergies and Intended procedure TIME OUT Relevant labs, photos, and/or imaging studies have been reviewed. Intended patient and procedure match the source document(s). Consent documented and matches the intended procedure. Correct side/site marked and visible. Medications required for procedure verified. No fire risk assessment and interventions applicable. No implant(s) inserted.04/02/2024 8:48 AM The procedure site was prepped in the usual sterile fashion. Site: bilateral knee joints Medications (Right): 6 mL hyaluronate sodium, stabilized 60 mg/3 mL Medications (Left): 6 mL hyaluronate sodium, stabilized 60 mg/3 mL Outcome: Tolerated well, no immediate complications Post-injection instructions were reviewed with the patient and the patient voiced understanding of these instructions. SIGN OUT No specimen collected. All instruments, equipment, possible retained foreign bodies accounted for. Post-procedure follow-up management communicated and Plan of Care Visit completed when applicable [facility] Sultana 03-01-2024 ZANE Telephone (ORTHWS) -- ARIANNE ALEMAN ([id number]) 1940 F TXT Date Time Provider Department 03/01/24 MARLYS JERNIGAN During your visit today, we recorded the following information about you: Lissett Zafar MA 03/01/2024 1:39 PM Signed [facility] calling for clinical information in order to prior authorize the requested Durolane injections. Clinical questions answered. Rep indicated that the request is being forwarded for clinical review and turn around time is approx 72 hours for response. Case # [id number]. Lissett Zafar MA Allergies As of Date: 03/01/2024 Noted Allergy Reaction LIDOCAINE 11/03/2015 5 - Intolerance Comments: Severe itching, burning. Pt. has had Marcaine without problem for oral surgery per Dr. Rodriguez's office. (Unsure true Lidocaine allergy) CODEINE 11/09/2001 DICLOFENAC 02/06/2013 14 - Other: See Comments Comments: mouth ulcerations ETODOLAC 07/09/2014 14 - Other: See Comments Comments: Mouth ulcers MEDROXYPROGESTERONE 11/09/2001 Date Reviewed: 02/21/2024 Reviewed by: Kaitlin Victor APRN.MULTIPLE KNIFE EDGE TRIMMER OPERATOR - Fully Assessed Reason for Visit: prior auth info [Other] Prescriptions as of 03/08/2024 - sertraline (ZOLOFT) 25 mg tablet Take 1 tablet by mouth once daily. - Glucosamine HCl, Bulk, powd - NEOMYCIN 3.5 MG/G-POLYMYXIN B 10,000 UNIT/G-DEXAMETH 0.1 % EYE OINT - fexofenadine (MELBA) 180 mg tablet Take 180 mg by mouth once daily. - Chlorhexidine Gluconate (PERIDEX) 0.12 % solution two times a day. - calcium carbonate (TUMS 500 ORAL) Take by mouth as needed. - ergocalciferol, vitamin D2, (VITAMIN D2 ORAL) Take by mouth. - COLLAGEN MISC - vit C/E/Zn/coppr/lutein/zeaxan (PRESERVISION AREDS-2 ORAL) Take by mouth. - acetaminophen (TYLENOL) 325 mg tablet Take 650 mg by mouth every 6 hours as needed. - SIMETHICONE (GAS-X ORAL) Take 1 tablet by mouth as needed. - CARBOXYMETHYLCELLULOSE SODIUM (REFRESH TEARS OPHTHALMIC) Use 1 Drop in eyes three times daily as needed. - COMPOUNDED PRESCRIPTION Gum Rincinol as needed - ketoconazole (NIZORAL) 2 % shampoo Apply 1 application to affected area once daily as needed. - polyethylene glycol 3350 (MIRALAX) 17 gram/dose powder As needed for constipation Meds Comments as of 03/18/2014: Problem List As Of Date 03/01/2024 Noted Resolved Chronic depression [F32.A] 11/04/2001 12/07/2018 Symptomatic menopausal or female climacteric st*11/04/2001 GENERAL OSTEOARTHROSIS [M15.9] 11/04/2001 Personal history of colonic polyps [Z86.0100] 11/04/2001 Osteopenia [M85.80] 11/04/2001 Neoplasm of Uncertain Behavior (NUB) of skin: L*04/28/2011 09/13/2011 Personal history of other malignant neoplasm of*04/28/2011 Actinic skin damage [L57.8] 04/28/2011 10/26/2016 Hypertrophic//Keloid scar: L upper lip [L91.0] 04/28/2011 Telangiectasia [I78.1] 04/28/2011 10/26/2016 Solar Lentigines [L81.4] 04/28/2011 10/26/2016 Special screening for malignant neoplasms, colo*07/05/2011 10/23/2015 Bilateral shoulder pain [M25.511, M25.512] 05/19/2012 Arthritis of knee, degenerative [M17.9] 03/18/2014 Right knee pain [M25.561] 07/16/2014 10/26/2016 Hives [L50.9] Recurrent depression (HCC) [F33.9] 04/26/2017 JOSE ELIAS (generalized anxiety disorder) [F41.1] 04/26/2017 CKD (chronic kidney disease) stage 3, GFR 30-59*12/06/2017 Fuchs' heterochromic iridocyclitis, 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 Basal cell carcinoma (BCC) of skin of right upp*02/02/2022 Encounter Status:Closed by CECILIA GUTIERREZ on 03/08/24 [facility] CNOVon 02-21-2024 CNOV Office Visit (FAMPWS ) -- ARIANNE ALEMAN ([id number]) 1940 F TXT Date Time Provider Department 02/21/24 2:00 PM [facility] During your visit today, we recorded the following information about you: Pulse Respiration Blood pressure Weight 80/minute 16/minute 122/68 80.5 kg Kaitlin Victor, BRAVO.MULTIPLE KNIFE EDGE TRIMMER OPERATOR 02/21/2024 2:36 PM Signed Chief Reason For Appointment No chief complaint on file. Arianne Aleman is a 84 year old female who presents for annual exam. 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 (D priority) Comment: SCC Left forearm 2010, BCC left nasolabial fold 2011, BCC left scalp 2011 Hypertrophic//Keloid scar: L upper lip - 04/28/2011 (D priority) Basal Cell Carcinoma (Bcc) of Skin of Right Upper Eyelid Including [place] - 02/02/2022 Fuchs' Heterochromic Iridocyclitis, 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 Ckd (Chronic Kidney Disease) Stage 3, Gfr 30-59 Ml/Min ([facility]) - 12/06/2017 Recurrent Depression (Hcc) - 04/26/2017 Jose Elias (Generalized Anxiety Disorder) - 04/26/2017 Hives Arthritis of Knee, Degenerative - 03/18/2014 Bilateral Shoulder Pain - 05/19/2012 Symptomatic Menopausal Or Female Climacteric States - 11/04/2001 Generalized Osteoarthrosis, Unspecified Site - 11/04/2001 Personal History of Colonic Polyps - 11/04/2001 Osteopenia - 11/04/2001 ROS: REVIEW OF SYSTEMS Able to sleep again with 's relief from bladder pain GENERAL: No weight loss, + malaise for cause, no fevers/chills HEENT: Negative for frequent or significant headaches, No changes in hearing, Left eye cataract affecting vision. NECK: Negative for lumps, goiter, pain and significant neck swelling RESPIRATORY: Negative for cough, hemoptysis, wheezing, dyspnea or shortness of breath CARDIOVASCULAR: Negative for chest pain, some leg swelling, orthopnea, or palpitations GI: No nausea, vomiting, or diarrhea/constipation. No hematochezia/melena. Occ heartburn or reflux symptoms. : No history of dysuria, frequency or incontinence MUSCULOSKELETAL: Knees are terrible, right ankle joint pain or swelling. SKIN: Negative for lesions, rash, and itching ENDOCRINE: Negative for cold or heat intolerance, polyuria, polydipsia and goiter NEURO: No history of headaches, syncope, paralysis, seizures or tremors MOOD: Negative for depression, anxiety, or suicidal ideation. 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, most often secondary to a remote infection with rubella History of skin cancer SCC R arm; basal cell face, scalp Hives OSTEOPENIA Personal history of colonic polyps lymphoid aggregate removed Piezogenic pedal papule fatty papules around heel: no clinical significance Seasonal allergies Skin cancer melanoma,basal and squamous cell Symptomatic menopausal or female climacteric states was on HRT then off, last DXA 1998 PAST SURGICAL HISTORY Procedure Laterality Date CATARACT SURGERY, COMPLEX and Hx Fuch's dystrophy COLONOSCOPY FLX DX W/COLLJ SPEC WHEN PFRMD 12/1999 Colonoscopy- DIVERTICULOSIS DILATION AND CURETTAGE DXAND/THER NONOBSTETRIC 1990 Dilation AND curettage DILATION AND CURETTAGE DXAND/THER NONOBSTETRIC Dilation AND curettage TAB Down's GI COLON STEPHANIE INTUSSUSCEPTION 194 LIG/TRNSXJ FLP TUBE ABDL/VAG APPR UNI/BI 1982 PAST SURGICAL HISTORY OF 1958 'polyp' removal PAST SURGICAL HISTORY OF 06/04/11 basal cell carcinoma removed from face PAST SURGICAL HISTORY OF 02/16/11 squamous cell skin CA PAST SURGICAL HISTORY OF 09/2011 basal cell carcinoma removed behind left ear, left buttock, left forearm, PAST SURGICAL HISTORY OF Skin cancer biopsies TONSILLECTOMY AND ADENOIDECTOMY Tonsil/adenoidectomy Medication List Current Outpatient Medications Medication Sig Dispense Refill sertraline (ZOLOFT) 25 mg tablet Take 1 tablet by mouth once daily. 30 tablet 5 Glucosamine HCl, Bulk, powd NEOMYCIN 3.5 MG/G-POLYMYXIN B 10,000 UNIT/G-DEXAMETH 0.1 % EYE OINT fexofenadine (MELBA) 180 mg tablet Take 180 mg by mouth once daily. Chlorhexidine Gluconate (PERIDEX) 0.12 % solution two times a day. calcium carbonate (TUMS 500 ORAL) Ta (more content not included)... Normal [facility]20-2024 [facility] -- ARIANNE ALEMAN ([id number]) 1940 F TXT Date Time Provider Department 02/20/24 MARLYS JERNIGAN During your visit today, we recorded the following information about you: Pily Zavala LPN 02/20/2024 3:13 PM Signed Patient called in and was wondering if the process can be started to get the Durolane injections scheduled and approved. Looks like her last ones were 09/05/2023. ANA Espinoza Sondra, PA-C 02/21/2024 11:38 AM Signed Please accept this as a request for approval for Durolane (or equivalent insurance approved brand) injections for Osteoarthritis for patient's bilateral knee. Please put a note in EPIC once approved and notify patient upon approval so they can schedule appointment. Thank you, KIRILL Berry Colleen, RN 02/27/2024 2:03 PM Addendum Per Marlys- referral #[id number] placed for Durolane injections- bilateral knees. Once we get approval please call pt to schedule for appointment. Cecilia Gutierrez MA 03/08/2024 1:27 PM Signed Referral still pending. Cecilia Gutierrez MA 03/20/2024 10:19 AM Signed Durolane injection has been authorized until 09/05/2024. Patient has been contacted and scheduled on 04/02/2024. Allergies As of Date: 02/20/2024 Noted Allergy Reaction LIDOCAINE 11/03/2015 5 - Intolerance Comments: Severe itching, burning. Pt. has had Marcaine without problem for oral surgery per Dr. Rodriguez's office. (Unsure true Lidocaine allergy) CODEINE 11/09/2001 DICLOFENAC 02/06/2013 14 - Other: See Comments Comments: mouth ulcerations ETODOLAC 07/09/2014 14 - Other: See Comments Comments: Mouth ulcers MEDROXYPROGESTERONE 11/09/2001 Date Reviewed: 02/08/2024 Reviewed by: Alex Matthew LPN - Fully Assessed Reason for Visit: Durolane injections bilateral knees [Other] Injections [199] Prescriptions as of 03/20/2024 - sertraline (ZOLOFT) 25 mg tablet Take 1 tablet by mouth once daily. - Glucosamine HCl, Bulk, powd - NEOMYCIN 3.5 MG/G-POLYMYXIN B 10,000 UNIT/G-DEXAMETH 0.1 % EYE OINT - fexofenadine (MELBA) 180 mg tablet Take 180 mg by mouth once daily. - Chlorhexidine Gluconate (PERIDEX) 0.12 % solution two times a day. - calcium carbonate (TUMS 500 ORAL) Take by mouth as needed. - ergocalciferol, vitamin D2, (VITAMIN D2 ORAL) Take by mouth. - COLLAGEN MISC - vit C/E/Zn/coppr/lutein/zeaxan (PRESERVISION AREDS-2 ORAL) Take by mouth. - acetaminophen (TYLENOL) 325 mg tablet Take 650 mg by mouth every 6 hours as needed. - SIMETHICONE (GAS-X ORAL) Take 1 tablet by mouth as needed. - CARBOXYMETHYLCELLULOSE SODIUM (REFRESH TEARS OPHTHALMIC) Use 1 Drop in eyes three times daily as needed. - COMPOUNDED PRESCRIPTION Gum Rincinol as needed - ketoconazole (NIZORAL) 2 % shampoo Apply 1 application to affected area once daily as needed. - polyethylene glycol 3350 (MIRALAX) 17 gram/dose powder As needed for constipation Meds Comments as of 03/18/2014: Problem List As Of Date 02/20/2024 Noted Resolved Chronic depression [F32.A] 11/04/2001 12/07/2018 Symptomatic menopausal or female climacteric st*11/04/2001 GENERAL OSTEOARTHROSIS [M15.9] 11/04/2001 Personal history of colonic polyps [Z86.0100] 11/04/2001 Osteopenia [M85.80] 11/04/2001 Neoplasm of Uncertain Behavior (NUB) of skin: L*04/28/2011 09/13/2011 Personal history of other malignant neoplasm of*04/28/2011 Actinic skin damage [L57.8] 04/28/2011 10/26/2016 Hypertrophic//Keloid scar: L upper lip [L91.0] 04/28/2011 Telangiectasia [I78.1] 04/28/2011 10/26/2016 Solar Lentigines [L81.4] 04/28/2011 10/26/2016 Special screening for malignant neoplasms, colo*07/05/2011 10/23/2015 Bilateral shoulder pain [M25.511, M25.512] 05/19/2012 Arthritis of knee, degenerative [M17.9] 03/18/2014 Right knee pain [M25.561] 07/16/2014 10/26/2016 Hives [L50.9] Recurrent depression (HCC) [F33.9] 04/26/2017 JOSE ELIAS (generalized anxiety disorder) [F41.1] 04/26/2017 CKD (chronic kidney disease) stage 3, GFR 30-59*12/06/2017 Fuchs' heterochromic iridocyclitis, 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 Basal cell carcinoma (BCC) of skin of right upp*02/02/2022 Encounter Status:Closed by PILY ZAVALA on 02/20/24 Normal [facility] CNOVon 02-08-2024 CNOV Office Visit (FAMPWS ) -- ARIANNE ALEMAN ([id number]) 1940 F TXT Date Time Provider Department 02/08/24 2:20 PM SHANNA MUKHERJEE During your visit today, we recorded the following information about you: Pulse Respiration Blood pressure 78/minute 16/minute 112/72 Shanna Mukherjee APRN.MULTIPLE KNIFE EDGE TRIMMER OPERATOR 02/08/2024 3:30 PM Signed This is a 83 year old female who presents today with: Patient presents with: Acute Visit: L ear pressure x2-3 weeks HISTORY OF PRESENT ILLNESS: Arianne Aleman is a 83 year old female. Patient presents with: Acute Visit: L ear pressure x2-3 weeks Pt presents today with complaint of ear problems. Refers that she started with uri symptoms/cough a few weeks ago. Left with the problems with the ears -- L>R. Has hx of cerumen impaction. She report that she has been having some episodes of chest pain. Happens generally with periods of stress. Will last approximately 15 minutes. Maybe some SOB. No palpitations. 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, most often secondary to a remote infection with rubella History of skin cancer SCC R arm; basal cell face, scalp Hives OSTEOPENIA Personal history of colonic polyps lymphoid aggregate removed Piezogenic pedal papule fatty papules around heel: no clinical significance Seasonal allergies Skin cancer melanoma,basal and squamous cell Symptomatic menopausal or female climacteric states was on HRT then off, last DXA 1998 PAST SURGICAL HISTORY Procedure Laterality Date CATARACT SURGERY, COMPLEX and Hx Fuch's dystrophy COLONOSCOPY FLX DX W/COLLJ SPEC WHEN PFRMD 12/1999 Colonoscopy- DIVERTICULOSIS DILATION AND CURETTAGE DXAND/THER NONOBSTETRIC 1989 Dilation AND curettage DILATION AND CURETTAGE DXAND/THER NONOBSTETRIC Dilation AND curettage TAB Down's GI COLON STEPHANIE INTUSSUSCEPTION 1939 LIG/TRNSXJ FLP TUBE ABDL/VAG APPR UNI/BI 1981 PAST SURGICAL HISTORY OF 1958 'polyp' removal PAST SURGICAL HISTORY OF 06/04/11 basal cell carcinoma removed from face PAST SURGICAL HISTORY OF 02/16/11 squamous cell skin CA PAST SURGICAL HISTORY OF 09/2011 basal cell carcinoma removed behind left ear, left buttock, left forearm, PAST SURGICAL HISTORY OF Skin cancer biopsies TONSILLECTOMY AND ADENOIDECTOMY Tonsil/adenoidectomy ALLERGIES Lidocaine, Codeine, Diclofenac, Etodolac, and Medroxyprogesterone MEDICATIONS Current Outpatient Medications Medication Sig sertraline (ZOLOFT) 25 mg tablet Take 1 tablet by mouth once daily. Glucosamine HCl, Bulk, powd NEOMYCIN 3.5 MG/G-POLYMYXIN B 10,000 UNIT/G-DEXAMETH 0.1 % EYE OINT fexofenadine (MELBA) 180 mg tablet Take 180 mg by mouth once daily. Chlorhexidine Gluconate (PERIDEX) 0.12 % solution two times a day. calcium carbonate (TUMS 500 ORAL) Take by mouth as needed. ergocalciferol, vitamin D2, (VITAMIN D2 ORAL) Take by mouth. COLLAGEN MISC vit C/E/Zn/coppr/lutein/zeaxan (PRESERVISION AREDS-2 ORAL) Take by mouth. acetaminophen (TYLENOL) 325 mg tablet Take 650 mg by mouth every 6 hours as needed. SIMETHICONE (GAS-X ORAL) Take 1 tablet by mouth as needed. CARBOXYMETHYLCELLULOSE SODIUM (REFRESH TEARS OPHTHALMIC) Use 1 Drop in eyes three times daily as needed. COMPOUNDED PRESCRIPTION Gum Rincinol as needed ketoconazole (NIZORAL) 2 % shampoo Apply 1 application to affected area once daily as needed. polyethylene glycol 3350 (MIRALAX) 17 gram/dose powder As needed for constipation No current facility-administered medications for this visit. FAMILY HISTORY Problem Relation Age of Onset Hypertension Mother Heart Father Skin Cancer Father melanoma other (alcoholism) Father brother other (depression) Brother Heart Brother stent placement Heart Sister replaced heart valve Skin Cancer Sister melanoma Social History Tobacco Use Smoking status: Never Smokeless tobacco: Never Vaping Use Vaping status: Never Used Substance Use Topics Alcohol use: No Comment: has drank in the past Drug use: No EXAM: BP 112/72 Pulse 78 Resp 16 SpO2 94% PHYSICAL EXAM: General Appearance: Well appearing, alert, in no acute distress, well-hydrated, well nourished.. Skin: Skin color, texture, turgor normal, no suspicious rashes or lesions. Head: Normocephalic, no masses, lesions, tenderness or abnormalities. Eyes: Anicteric sclera. Extraocular movements are intact. . Ears: External ears normal, canals clear, Positive findings: R TM: air/fluid interface visualized, L TM: air/fluid interface visualized. Lungs: Lungs clear to auscultation. No wheezing, rhonchi, rales.. Heart: RRR without murmur, gallop, or rubs. No ectopy. Extremities: No deformities, edema, skin (more content not included)... Normal [facility]24[facility]20[facility] ARIANNE ALEMAN ([id number]) 1940 F TXT Date Time Provider Department 01/24/24 JOHN HICKS [facility] During your visit today, we recorded the following information about you: Emy Santoyo RN 01/24/2024 12:57 PM Signed Patient calls and states that she saw Dr. Trejo today. Patient reports that Dr. Trejo is recommending compression socks to help control leg swelling. Patient reports that Dr. Trejo told her that providers are treating patient's deep tissue injury correctly. Emy Santoyo RN Allergies As of Date: 01/24/2024 Noted Allergy Reaction LIDOCAINE 11/03/2015 5 - Intolerance Comments: Severe itching, burning. Pt. has had Marcaine without problem for oral surgery per Dr. Rodriguez's office. (Unsure true Lidocaine allergy) CODEINE 11/09/2001 DICLOFENAC 02/06/2013 14 - Other: See Comments Comments: mouth ulcerations ETODOLAC 07/09/2014 14 - Other: See Comments Comments: Mouth ulcers MEDROXYPROGESTERONE 11/09/2001 Date Reviewed: 01/10/2024 Reviewed by: Ruma Rios LPN - Fully Assessed Reason for Visit: Patient Update [1234] Prescriptions as of 01/24/2024 - sertraline (ZOLOFT) 25 mg tablet Take 1 tablet by mouth once daily. - Glucosamine HCl, Bulk, powd - NEOMYCIN 3.5 MG/G-POLYMYXIN B 10,000 UNIT/G-DEXAMETH 0.1 % EYE OINT - fexofenadine (MELBA) 180 mg tablet Take 180 mg by mouth once daily. - Chlorhexidine Gluconate (PERIDEX) 0.12 % solution two times a day. - calcium carbonate (TUMS 500 ORAL) Take by mouth as needed. - ergocalciferol, vitamin D2, (VITAMIN D2 ORAL) Take by mouth. - COLLAGEN MISC - vit C/E/Zn/coppr/lutein/zeaxan (PRESERVISION AREDS-2 ORAL) Take by mouth. - acetaminophen (TYLENOL) 325 mg tablet Take 650 mg by mouth every 6 hours as needed. - SIMETHICONE (GAS-X ORAL) Take 1 tablet by mouth as needed. - CARBOXYMETHYLCELLULOSE SODIUM (REFRESH TEARS OPHTHALMIC) Use 1 Drop in eyes three times daily as needed. - COMPOUNDED PRESCRIPTION Gum Rincinol as needed - ketoconazole (NIZORAL) 2 % shampoo Apply 1 application to affected area once daily as needed. - polyethylene glycol 3350 (MIRALAX) 17 gram/dose powder As needed for constipation Meds Comments as of 03/18/2014: Problem List As Of Date 01/24/2024 Noted Resolved Chronic depression [F32.A] 11/04/2001 12/07/2018 Symptomatic menopausal or female climacteric st*11/04/2001 GENERAL OSTEOARTHROSIS [M15.9] 11/04/2001 Personal history of colonic polyps [Z86.0100] 11/04/2001 Osteopenia [M85.80] 11/04/2001 Neoplasm of Uncertain Behavior (NUB) of skin: L*04/28/2011 09/13/2011 Personal history of other malignant neoplasm of*04/28/2011 Actinic skin damage [L57.8] 04/28/2011 10/26/2016 Hypertrophic//Keloid scar: L upper lip [L91.0] 04/28/2011 Telangiectasia [I78.1] 04/28/2011 10/26/2016 Solar Lentigines [L81.4] 04/28/2011 10/26/2016 Special screening for malignant neoplasms, colo*07/05/2011 10/23/2015 Bilateral shoulder pain [M25.511, M25.512] 05/19/2012 Arthritis of knee, degenerative [M17.9] 03/18/2014 Right knee pain [M25.561] 07/16/2014 10/26/2016 Hives [L50.9] Recurrent depression (HCC) [F33.9] 04/26/2017 JOSE ELIAS (generalized anxiety disorder) [F41.1] 04/26/2017 CKD (chronic kidney disease) stage 3, GFR 30-59*12/06/2017 Fuchs' heterochromic iridocyclitis, 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 Basal cell carcinoma (BCC) of skin of right upp*02/02/2022 Encounter Status:Closed by EMY SANTOYO on 01/24/24 [facility] [place] 01-10-2024 CNOV Office Visit (UCWSTR ) -- ARIANNE ALEMAN ([id number]) 1940 F TXT Date Time Provider Department 01/10/24 7:15 AM DIANA ARAIZA [facility] During your visit today, we recorded the following information about you: Temperature Pulse Respiration Blood pressure 97.7 degrees 75/minute 18/minute 122/78 Weight 82 kg Diana Araiza APRN.CNP 01/10/2024 7:42 AM Signed CC: Patient presents with: Cough: Cough, fever, ST and chest congestion x 1 week HPI: Arianne Aleman is a 83 year old female who presents to the office with complaint of head congestion, cough, nonproductive, sore throat, and fever for a week. Symptoms are staying the same. Associated symptoms includes sore throat. Denies headache, body aches, dyspnea, nausea, vomiting , diarrhea, and pruritic pain. Treatments tried include nothing so far. with no relief of symptoms. Sick contacts: unknown. History of asthma, frequent episodes of bronchitis, chronic bronchitis, bronchiectasis or COPD: No Smoker: No Seasonal/environmental allergies: No The ROS is otherwise negative. The patient's pmh, medications, allergies, and past visits are reviewed. PHYSICAL EXAM: BP 122/78 Pulse 75 Temp 36.5 ?C (97.7 ?F) (Tympanic) Resp 18 Wt 82 kg (180 lb 12.4 oz) SpO2 97% BMI 31.03 kg/m? General appearance: alert, cooperative, pleasant, in no acute distress Head: Normocephalic Eyes: EOM's intact, conjunctiva pink and moist, no icterus, sclera white, non-injected Ears: Right ear: External ear/canal- Normal, TM - clear with good landmarks. Left ear: External ear/canal- Normal, TM - clear with good landmarks Oropharynx:mild erythema, without exudates present Heart: Negative. RRR without obvious murmur, gallop, or rubs. No ectopy. 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, most often secondary to a remote infection with rubella History of skin cancer SCC R arm; basal cell face, scalp Hives OSTEOPENIA Personal history of colonic polyps lymphoid aggregate removed Piezogenic pedal papule fatty papules around heel: no clinical significance Seasonal allergies Skin cancer melanoma,basal and squamous cell Symptomatic menopausal or female climacteric states was on HRT then off, last DXA 1998 PAST SURGICAL HISTORY Procedure Laterality Date CATARACT SURGERY, COMPLEX and Hx Fuch's dystrophy COLONOSCOPY FLX DX W/COLLJ SPEC WHEN PFRMD 12/1999 Colonoscopy- DIVERTICULOSIS DILATION AND CURETTAGE DXAND/THER NONOBSTETRIC 1989 Dilation AND curettage DILATION AND CURETTAGE DXAND/THER NONOBSTETRIC Dilation AND curettage TAB Down's GI COLON STEPHANIE INTUSSUSCEPTION 1939 LIG/TRNSXJ FLP TUBE ABDL/VAG APPR UNI/BI 1981 PAST SURGICAL HISTORY OF 1958 'polyp' removal PAST SURGICAL HISTORY OF 06/04/11 basal cell carcinoma removed from face PAST SURGICAL HISTORY OF 02/16/11 squamous cell skin CA PAST SURGICAL HISTORY OF 09/2011 basal cell carcinoma removed behind left ear, left buttock, left forearm, PAST SURGICAL HISTORY OF Skin cancer biopsies TONSILLECTOMY AND ADENOIDECTOMY Tonsil/adenoidectomy ALLERGIES Lidocaine, Codeine, Diclofenac, Etodolac, and Medroxyprogesterone MEDICATIONS sertraline (ZOLOFT) 25 mg tablet Take 1 tablet by mouth once daily. Glucosamine HCl, Bulk, powd NEOMYCIN 3.5 MG/G-POLYMYXIN B 10,000 UNIT/G-DEXAMETH 0.1 % EYE OINT fexofenadine (MELBA) 180 mg tablet Take 180 mg by mouth once daily. Chlorhexidine Gluconate (PERIDEX) 0.12 % solution two times a day. calcium carbonate (TUMS 500 ORAL) Take by mouth as needed. ergocalciferol, vitamin D2, (VITAMIN D2 ORAL) Take by mouth. COLLAGEN MISC vit C/E/Zn/coppr/lutein/zeaxan (PRESERVISION AREDS-2 ORAL) Take by mouth. acetaminophen (TYLENOL) 325 mg tablet Take 650 mg by mouth every 6 hours as needed. SIMETHICONE (GAS-X ORAL) Take 1 tablet by mouth as needed. CARBOXYMETHYLCELLULOSE SODIUM (REFRESH TEARS OPHTHALMIC) Use 1 Drop in eyes three times daily as needed. COMPOUNDED PRESCRIPTION Gum Rincinol as needed ketoconazole (NIZORAL) 2 % shampoo Apply 1 application to affected area once daily as needed. polyethylene glycol 3350 (MIRALAX) 17 gram/dose powder As needed for constipation FAMILY HISTORY Problem Relation Age of Onset Hypertension Mother Heart Father Skin Cancer Father melanoma other (alcoholism) Father brother other (depression) Brother Heart Brother stent placement Heart Sister replaced heart valve Skin Cancer Sister melanoma Social History Tobacco Use Smoking status: Never Smokeless tobacco: Never Vaping Use Vaping status: Never Used Substance Use Topics Alcohol use: No Com (more content not included)... Normal [facility] STREP A MOLECULAR (POC)on Procedural Control [facility] St[facility] A (POCT) Negative Negative [facility] CNOVon 01-02-2024 CNOV Office Visit (ORTHWS ) -- ARIANNE ALEMAN ([id number]) 1940 F TXT Date Time Provider Department 01/02/24 11:30 AM MARLYS JERNIGAN During your visit today, we recorded the following information about you: Kajal Gonzalez MA 01/02/2024 12:19 PM Signed Patient presents with: Right Knee - Injections 17 weeks post visit OA bilateral knees with injection given: Here for injection right knee AMB ROOMING INTAKE FLOWSHEET DATA Pain Pain Level: 5 Pain Location: Knee-Right Description: Dull, Aching Duration Amount of Time: (Ongoing) Frequency: Continuous Intervention/Comfort measure: Medication Patient states she is continuing to have pain in her right knee. She will have swelling in her foot if she over does it. Taking Tylenol for the pain and helps. Here for injection today. Marlys Jernigan PA-C 01/02/2024 12:19 PM Signed Large Joint Arthro/Inj: R knee joint Informed Consent Consent Obtained: Verbal [place] Protocol A moment to CARE was completed. SIGN IN Sign in communication not applicable due to emergent procedure. Personnel directly involved with the procedure wore the appropriate PPE. Special Equipment: N/A Patient/Surrogate Stated/Verified: Patient name, Date of , Relevant allergies and Intended procedure TIME OUT Intended patient and procedure match the source document(s). Consent documented and matches the intended procedure. Relevant labs, photos, and/or imaging studies have been reviewed. Correct side/site marked and visible. Medications required for procedure verified. No fire risk assessment and interventions applicable. No implant(s) inserted. 01/02/2024 12:19 PM The procedure site was prepped in the usual sterile fashion. Site: R knee joint Medications: 6 mg betamethasone acetate-betamethasone sodium phosphate 6 mg/mL Anesthetics: 5 mL lidocaine (PF) 10 mg/mL (1 %) Outcome: Tolerated well, no immediate complications Post-injection instructions were reviewed with the patient and the patient voiced understanding of these instructions. SIGN OUT All instruments, equipment, possible retained foreign bodies accounted for. Allergies As of Date: 01/02/2024 Noted Allergy Reaction LIDOCAINE 11/03/2015 5 - Intolerance Comments: Severe itching, burning. Pt. has had Marcaine without problem for oral surgery per Dr. Rodriguez's office. (Unsure true Lidocaine allergy) CODEINE 11/09/2001 DICLOFENAC 02/06/2013 14 - Other: See Comments Comments: mouth ulcerations ETODOLAC 07/09/2014 14 - Other: See Comments Comments: Mouth ulcers MEDROXYPROGESTERONE 11/09/2001 Date Reviewed: 01/02/2024 Reviewed by: Kajal Gonzalez MA - Fully Assessed Reason for Visit: Injections [199] 17 weeks post visit OA bilateral knees with injection given [Other] Cmt: Her- e for inj- ect- ion rig- ht knee Primary Visit Diagnosis:Primary osteoarthritis of both knees [M17.0] Order(s):Large Joint Arthro/Inj: R knee joint [SEK848] Order #: [id number] [] betamethasone acetate-betamethasone sodium phosphate 6 mg injection (CELESTONE)Disp: Rfl: [] lidocaine (PF) 10 mg/mL (1 %) 5 mL injection (XYLOCAINE)Disp: Rfl: Prescriptions as of 01/02/2024 - sertraline (ZOLOFT) 25 mg tablet Take 1 tablet by mouth once daily. - Glucosamine HCl, Bulk, powd - NEOMYCIN 3.5 MG/G-POLYMYXIN B 10,000 UNIT/G-DEXAMETH 0.1 % EYE OINT - fexofenadine (MELBA) 180 mg tablet Take 180 mg by mouth once daily. - Chlorhexidine Gluconate (PERIDEX) 0.12 % solution two times a day. - calcium carbonate (TUMS 500 ORAL) Take by mouth as needed. - ergocalciferol, vitamin D2, (VITAMIN D2 ORAL) Take by mouth. - COLLAGEN MISC - vit C/E/Zn/coppr/lutein/zeaxan (PRESERVISION AREDS-2 ORAL) Take by mouth. - acetaminophen (TYLENOL) 325 mg tablet Take 650 mg by mouth every 6 hours as needed. - SIMETHICONE (GAS-X ORAL) Take 1 tablet by mouth as needed. - CARBOXYMETHYLCELLULOSE SODIUM (REFRESH TEARS OPHTHALMIC) Use 1 Drop in eyes three times daily as needed. - COMPOUNDED PRESCRIPTION Gum Rincinol as needed - ketoconazole (NIZORAL) 2 % shampoo Apply 1 application to affected area once daily as needed. - polyethylene glycol 3350 (MIRALAX) 17 gram/dose powder As needed for constipation Meds Comments as of 03/18/2014: Problem List As Of Date 01/02/2024 Noted Resolved Chronic depression [F32.A] 11/04/2001 12/07/2018 Symptomatic menopausal or female climacteric st*11/04/2001 GENERAL OSTEOARTHROSIS [M15.9] 11/04/2001 Personal history of colonic polyps [Z86.0100] 11/04/2001 Osteopenia [M85.80] 11/04/2001 Neoplasm of Uncertain Behavior (NUB) of skin: L*04/28/2011 09/13/2011 Personal history of other malignant neoplasm of*04/28/2011 Actinic skin damage [L57.8] 04/28/2011 10/26/2016 Hypertrophic//Keloid scar: L upper lip [L91.0] 04/28/2011 Telangiectasia [I78.1] 04/28/2011 (more content not included)... Normal [facility] Large Joint Arthro/Inj: R kn ee jointon 01-02-2024 Marlys Jernigan PA -C 01/02/2024 12:19 PM Large Joint Arthro/Inj: R knee joint Informed Consent Consent Obtained: Verbal [place] Protocol A moment to CARE was completed. SIGN IN Sign in communication not applicable due to emergent procedure. Personnel directly involved with the procedure wore the appropriate PPE. Special Equipment: N/A Patient/Surrogate Stated/Verified: Patient name, Date of , Relevant allergies and Intended procedure TIME OUT Intended patient and procedure match the source document(s). Consent documented and matches the intended procedure. Relevant labs, photos, and/or imaging studies have been reviewed. Correct side/site marked and visible. Medications required for procedure verified. No fire risk assessment and interventions applicable. No implant(s) inserted. 01/02/2024 12:19 PM The procedure site was prepped in the usual sterile fashion. Site: R knee joint Medications: 6 mg betamethasone acetate-betamethasone sodium phosphate 6 mg/mL Anesthetics: 5 mL lidocaine (PF) 10 mg/mL (1 %) Outcome: Tolerated well, no immediate complications Post-injection instructions were reviewed with the patient and the patient voiced understanding of these instructions. SIGN OUT All instruments, equipment, possible retained foreign bodies accounted for. [facility] Large Joint Arthro/Inj: bila teral knee jointson 09-05-2023 Marlys Jernigan PA -C 09/05/2023 12:41 PM Large Joint Arthro/Inj: bilateral knee joints Informed Consent Consent Obtained: Verbal [place] Protocol A moment to CARE was completed. SIGN IN Sign in communication not applicable due to emergent procedure. Personnel directly involved with the procedure wore the appropriate PPE. Special Equipment: N/A Patient/Surrogate Stated/Verified: Patient name, Date of , Relevant allergies and Intended procedure TIME OUT Intended patient and procedure match the source document(s). Consent documented and matches the intended procedure. Relevant labs, photos, and/or imaging studies have been reviewed. Correct side/site marked and visible. Medications required for procedure verified. No fire risk assessment and interventions applicable. No implant(s) inserted. 09/05/2023 12:41 PM The procedure site was prepped in the usual sterile fashion. Site: bilateral knee joints Medications (Right): 6 mL hyaluronate sodium, stabilized 60 mg/3 mL Medications (Left): 6 mL hyaluronate sodium, stabilized 60 mg/3 mL Outcome: Tolerated well, no immediate complications Post-injection instructions were reviewed with the patient and the patient voiced understanding of these instructions. SIGN OUT All instruments, equipment, possible retained foreign bodies accounted for. [facility] Emergency Department Summary on 08-12-2023 Emergency Department Summary [facility] Medical Records Department [address] [place] [address] Emergency Department Summary 08/12/23 MR#: [id number] Acct: [id number] Name: ARIANNE ALEMAN Rep #: [id number] : 1940 83 From: Alin Villarreal DO PCP: Dr. John Hicks MD Status:DEP ER Location: ED HPI History of Present Illness Chief Complaint: Edema Narrative Narrative: Patient is 83-year-old female with history of osteoarthritis, who presents to the emergency department with concern for right lower leg swelling. Patient is currently receiving treatment from her PCP for shingles to her right buttock, going down her right leg. Patient she is also having worsening pain to the right knee secondary to not getting her knee injections, she states she is formed weeks overdue. She denies any history of blood clots in the legs or lungs, denies any car rides greater than 4 hours, [place] any recent surgeries. PFSH PFSH Home Medications ???Medication ???Instructions ???Recorded ???Last Taken ???Type gabapentin 300 mg capsule 300 mg PO TID 08/12/23 Unknown History ketoconazole 2 % shampoo 1 applic topical .COMPLEX 08/12/23 Unknown History prednisone 10 mg tablet See Taper PO 08/12/23 Unknown History sertraline 25 mg tablet 25 mg PO DAILY 08/12/23 Unknown History valacyclovir 1 gram tablet 1,000 mg PO TID 08/12/23 Unknown History Allergy/AdvReac Type Severity Reaction Status Date / Time No Known Allergies Allergy Verified 08/12/23 18:08 Social History Smoking Status: Never smoker ROS ROS ED ROS Narrative Constitutional: Negative for fever, chills, weight loss, weakness Eyes: Negative for vision loss, vision change, double vision ENT: Negative for any sore throat, ear pain, congestion Cardiovascular: Negative for any chest pain, tightness, palpitations Respiratory: Negative for any cough, sputum production, hemoptysis, dyspnea, dyspnea on exertion, orthopnea Gastrointestinal: Negative for any abdominal pain, nausea, vomiting, diarrhea, constipation, blood in stool, blood in vomit : Negative for any urinary frequency, dysuria, retention, blood in urine Muscle skeletal: Negative for any neck pain, back pain. Positive right leg pain, right leg swelling Neurological: Negative for any headache, syncope, dizziness Skin: Negative for any rashes, itching, abrasions, lacerations Psychiatric: Negative for any depression, anxiety, stress, suicidal ideation, homicidal ideation Hematologic: Negative for any excessive bruising, easy bleeding EXAM Physical Exam Narrative Exam Narrative: Vital signs reviewed. HEET: Head normocephalic atraumatic, TMs clear bilaterally. Posterior pharynx is clear, moist mucous membranes. Nares clear bilaterally. Neck: Supple with no lymphadenopathy or tenderness. No signs of meningismus. Cardiac: Regular rate and rhythm no murmurs gallops or rubs, equal peripheral pulses bilaterally. Respiratory: Lungs clear to auscultation bilaterally. No chest tenderness. Abdomen: Soft, nontender, nondistended. No abdominal bruit or pulsatile masses. No hepatosplenomegaly Extremities: Patient does have some swelling to bilateral feet, bilateral ankles, this is minimal, slight more pronounced on the right. Patient does have some rash to the anterior right lower leg, this is consistent with a shingles that is up in her right buttock. +2 pedal pulse.. Active full range of motion of all extremities. Neuro: Cranial nerves II through XII intact, no focal neurological deficits. Skin: Clean dry and intact with no rash, purpura, petechiae, vesicles or pustules. Backs/flank: No CVA tenderness, no midline spinal tenderness, no deformity. Psych: Normal mood and affect. No SI, HI or acute psychosis. Const Vital Signs: 08/12/23 18:07 08/12/23 18:08 Temperature 97 F L Temperature Source Temporal Pulse Rate 95 Respiratory Rate 18 Respiratory Effort Normal Respiratory Pattern Normal Blood Pressure 128/97 H Blood Pressure Mean 107 Pulse Ox 94 Oxygen Delivery Method Room Air Positive well nourished and well developed General Appearance ED: well developed Physical Exam Const Vital Signs: 08/12/23 18:07 08/12/23 18:08 Temperature 97 F L Temperature Source Temporal Pulse Rate 95 Respiratory Rate 18 Respiratory Effort Normal Respiratory Pattern Normal Blood Pressure 128/97 H Blood Pressure Mean 107 Pulse Ox 94 Oxygen Delivery Method Room Air [facility] Treatment and Re-Evaluation :: Differential diagnosis includes however is not limited to: DVT, dependent edema, cellulitis Patient appears to be in no obvious respiratory distress, patient's vital signs are stable. Patient presents to the emergency department with concerns of right lower leg swelling concerning for bl (more content not included)... Normal [facility] Venous Duplex Imag/Limited/U nion 08-12-2023 Venous Duplex Imag/Limited/Uni [facility] Imaging Services [facility] [address] [place], [place] [address] Venous Duplex Imag/Limited/Uni MR#: [id number] Acct: [id number] Name: ARIANNE ALEMAN Rep #: [id number] : 1940 F 83 From: Haroon cabrales MD PCP: Dr. John Hicks MD Status: [facility] Study: Venous Duplex Imag/Limited/Uni Date of Exam: 0 08/12/23 Exam# [id number] Ordering Dr: Alin Villarreal DO [id number] INDICATION: rt leg pain EXAMINATION: US Venous Duplex LE Unilat / Limited TECHNIQUE: Garber scale, pulse wave, and color flow Doppler imaging was performed of the lower extremity venous system. The right greater saphenous, common femoral, femoral, and popliteal veins were interrogated. COMPARISON: None. FINDINGS: There is normal compression, augmentation, and signal throughout the visualized deep lower extremity veins. No mass or fluid collection. US/Venous Duplex Imag/Limited/Uni IMPRESSION: No sonographic evidence of deep venous thrombosis. Electronically Signed: Haroon Martins MD at 21:19 EDT , CC: Dr. Alin Villarreal DO; Dr. John Hicks MD Sap Pp Consultant: Signed Normal [facility] XR Wrist - right 4 Viewson 0 10-26-2021 IMPRESSION: No acute pathology. Degenerative changes as discussed Sap Pp Consultant: PSCB Transcribe Date/Time: Oct 26 2021 10:41A Dictated by : SHELBY COSTA DO This examination was interpreted and the report reviewed and electronically signed by: SHELBY COSTA DO on Oct 26 2021 10:47AM ARTI SALAZAR__NOT_US E_DIVISION OF RADIOLOGY * * *Final Report* * * DATE OF EXAM: Oct 26 2021 10:37AM WOX [id number] - XR WRIST 4V PA/LAT/OBL/SCAPH RT / PROCEDURE REASON: Traumatic hematoma of right wrist, initial encounter * * * * Physician Interpretation * * * * EXAM(s): XR WRIST 4V PA/LAT/OBL/SCAPH RT EXAM DATE/TIME: 10/26/2021 10:37 AM HISTORY: 81 years old Clinical information: Traumatic hematoma of right wrist, initial encounter right wrist injury that occurred 6 days ago. Swellling and extensive bruising present. TECHNIQUE: Images: XR WRIST 4V PA/LAT/OBL/SCAPH RT Comparison: None. RESULT: Findings: Moderate narrowing of the first metacarpal carpal joint and the triscaphe joint Bone density appears well-preserved. No fractures or dislocations are seen. [id number] E_DIVISION OF RADIOLOGY Provider, [facility] - 10/26/2021 * * *Final Report* * * DATE OF EXAM: Oct 26 2021 10:37AM WOX [id number] - XR WRIST 4V PA/LAT/OBL/SCAPH RT / PROCEDURE REASON: Traumatic hematoma of right wrist, initial encounter * * * * Physician Interpretation * * * * EXAM(s): XR WRIST 4V PA/LAT/OBL/SCAPH RT EXAM DATE/TIME: 10/26/2021 10:37 AM HISTORY: 81 years old Clinical information: Traumatic hematoma of right wrist, initial encounter right wrist injury that occurred 6 days ago. Swellling and extensive bruising present. TECHNIQUE: Images: XR WRIST 4V PA/LAT/OBL/SCAPH RT Comparison: None. RESULT: Findings: Moderate narrowing of the first metacarpal carpal joint and the triscaphe joint Bone density appears well-preserved. No fractures or dislocations are seen. IMPRESSION IMPRESSION: No acute pathology. Degenerative changes as discussed Sap Pp Consultant: PSCB Transcribe Date/Time: Oct 26 2021 10:41A Dictated by : SHELBY COSTA DO This examination was interpreted and the report reviewed and electronically signed by: SHELBY COSTA DO on Oct 26 2021 10:47AM EST [facility] Radiology Study observation (narrative) [facility] XR Wrist - right 4 ViewsOrde red By: [facility] Provider on 10-26-2021 [facility] No Panel Information [facility] Vital Signs Date Time Vital Sign Value Performing Clinician Faci lity 10-02-2024 16:19-0400 Body mass index (BMI) [Ratio] 31.24 kg/m2 Kaitlin Suppan 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 Work Phone: [facility] 10-02-2024 16:19-0400 Body weight 82.56 kg Kaitlin Suppan 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 Work Phone: [facility] 10-02-2024 16:19-0400 Diastolic blood pressure 76 mm[Hg] Kaitlin Suppan 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 Work Phone: [facility] 10-02-2024 16:19-0400 Heart rate 88 /min Kaitlin Suppan 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 Work Phone: [facility] 10-02-2024 16:19-0400 SaO2% (BldA) [Mass fraction] 97 % Kaitlin Suppan 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 Work Phone: [facility] 10-02-2024 16:19-0400 Systolic blood pressure 138 mm[Hg] Kaitlin Suppan 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 Work Phone: [facility] 02-21-2024 14:01-0500 Body mass index (BMI) [Ratio] 30.45 kg/m2 Kaitlin Suppan 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 Work Phone: [facility] 02-21-2024 14:01-0500 Body weight 80.47 kg Kaitlin Suppan 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 Work Phone: [facility] 02-21-2024 14:01-0500 Diastolic blood pressure 68 mm[Hg] Kaitlin Suppan 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 Work Phone: [facility] 02-21-2024 14:01-0500 Heart rate 80 /min Kaitlin Suppan 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 Work Phone: [facility] 02-21-2024 14:01-0500 Respiratory rate 16 /min Kaitlin Suppan 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 Work Phone: [facility] 02-21-2024 14:01-0500 SaO2% (BldA) [Mass fraction] 97 % Kaitlin Victor 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 Work Phone: [facility] 02-21-2024 14:01-0500 Systolic blood pressure 122 mm[Hg] Kaitlin Victor 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 Work Phone: [facility] 02-08-2024 14:10-0500 Diastolic blood pressure 72 mm[Hg] Shanna Mukherjee 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 Work Phone: [facility] 02-08-2024 14:10-0500 Heart rate 78 /min Shanna Mukherjee 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 Work Phone: [facility] 02-08-2024 14:10-0500 Respiratory rate 16 /min Shanna Mukherjee 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 Work Phone: [facility] 02-08-2024 14:10-0500 SaO2% (BldA) [Mass fraction] 94 % Shanna Mukherjee 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 Work Phone: [facility] 02-08-2024 14:10-0500 Systolic blood pressure 112 mm[Hg] Shanna Mukherjee 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 Work Phone: [facility] 01-10-2024 07:18-0400 Body mass index (BMI) [Ratio] 31.03 kg/m2 Diana Araiza APRN.MULTIPLE KNIFE EDGE TRIMMER OPERATOR Work Phone: [facility] 01-10-2024 07:18-0400 Body temperature 97.7 [degF] Diana Araiza APRN.MULTIPLE KNIFE EDGE TRIMMER OPERATOR Work Phone: [facility] 01-10-2024 07:18-0400 Body weight 82 kg Diana Araiza APRN.MULTIPLE KNIFE EDGE TRIMMER OPERATOR Work Phone: [facility] 01-10-2024 07:18-0400 Diastolic blood pressure 78 mm[Hg] Diana Araiza APRN.MULTIPLE KNIFE EDGE TRIMMER OPERATOR Work Phone: [facility] 01-10-2024 07:18-0400 Heart rate 75 /min Diana Araiza APRN.MULTIPLE KNIFE EDGE TRIMMER OPERATOR Work Phone: [facility] 01-10-2024 07:18-0400 Respiratory rate 18 /min Diana Araiza 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 Work Phone: [facility] 01-10-2024 07:18-0400 SaO2% (BldA) [Mass fraction] 97 % Diana Araiza 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 Work Phone: [facility] 01-10-2024 07:18-0400 Systolic blood pressure 122 mm[Hg] Diana Araiza 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 Work Phone: [facility] 11-08-2023 19:08-0400 Body mass index (BMI) [Ratio] 30.77 kg/m2 Nitin Silva 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 Work Phone: [facility] 11-08-2023 19:08-0400 Body temperature 98.4 [degF] Nitin Silva 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 Work Phone: [facility] 11-08-2023 19:08-0400 Body weight 81.3 kg Nitin Silva 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 Work Phone: [facility] 11-08-2023 19:08-0400 Diastolic blood pressure 82 mm[Hg] Nitin Silva 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 Work Phone: [facility] 11-08-2023 19:08-0400 Heart rate 90 /min Nitin Silva 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 Work Phone: [facility] 11-08-2023 19:08-0400 Respiratory rate 18 /min Nitin Silva 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 Work Phone: [facility] 11-08-2023 19:08-0400 SaO2% (BldA) [Mass fraction] 95 % Nitin Silva 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 Work Phone: [facility] 11-08-2023 19:08-0400 Systolic blood pressure 132 mm[Hg] Nitin Silva 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 Work Phone: [facility] 10-18-2023 15:37-0400 Body mass index (BMI) [Ratio] 31.24 kg/m2 Kaitlin Douglasan 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 Work Phone: [facility] 10-18-2023 15:37-0400 Body weight 82.56 kg Kaitlin Suppan 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 Work Phone: [facility] 10-18-2023 15:37-0400 Diastolic blood pressure 68 mm[Hg] Kaitlin Suppan 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 Work Phone: [facility] 10-18-2023 15:37-0400 Heart rate 91 /min Kaitlin Suppan 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 Work Phone: [facility] 10-18-2023 15:37-0400 Respiratory rate 16 /min Kaitlin Suppan 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 Work Phone: [facility] 10-18-2023 15:37-0400 SaO2% (BldA) [Mass fraction] 97 % Kaitlin Suppan 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 Work Phone: [facility] 10-18-2023 15:37-0400 Systolic blood pressure 140 mm[Hg] Kaitlin Suppan 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 Work Phone: [facility] 10-08-2023 08:43-0400 Body height 162.6 cm John Hicks MD Work Phone: [facility] 10-08-2023 08:43-0400 Body mass index (BMI) [Ratio] 30.73 kg/m2 John Hicks MD Work Phone: [facility] 10-08-2023 08:43-0400 Body weight 81.19 kg John Hicks MD Work Phone: [facility] 10-08-2023 08:43-0400 Diastolic blood pressure 58 mm[Hg] John Hicks MD Work Phone: [facility] 10-08-2023 08:43-0400 Heart rate 94 /min John Hicks MD Work Phone: [facility] 10-08-2023 08:43-0400 SaO2% (BldA) [Mass fraction] 95 % John Hicks MD Work Phone: [facility] 10-08-2023 08:43-0400 Systolic blood pressure 124 mm[Hg] John Hicks MD Work Phone: [facility] 09-15-2023 14:22-0400 Body mass index (BMI) [Ratio] 31.41 kg/m2 Kaitlin Suppan LICENSED PHYSICAL THERAPY ASSISTANT.PRE SALES TECHNICAL CONSULTANT Work Phone: [facility] 09-15-2023 14:22-0400 Body weight 83.01 kg Kaitlin Suppan LICENSED PHYSICAL THERAPY ASSISTANT.PRE SALES TECHNICAL CONSULTANT Work Phone: [facility] 09-15-2023 14:22-0400 Diastolic blood pressure 70 mm[Hg] Kaitlin Suppan LICENSED PHYSICAL THERAPY ASSISTANT.PRE SALES TECHNICAL CONSULTANT Work Phone: [facility] 09-15-2023 14:22-0400 Heart rate 85 /min Kaitlin Suppan LICENSED PHYSICAL THERAPY ASSISTANT.PRE SALES TECHNICAL CONSULTANT Work Phone: [facility] 09-15-2023 14:22-0400 Respiratory rate 16 /min Kaitlin Suppan LICENSED PHYSICAL THERAPY ASSISTANT.PRE SALES TECHNICAL CONSULTANT Work Phone: [facility] 09-15-2023 14:22-0400 SaO2% (BldA) [Mass fraction] 98 % Kaitlin Suppan LICENSED PHYSICAL THERAPY ASSISTANT.PRE SALES TECHNICAL CONSULTANT Work Phone: [facility] 09-15-2023 14:22-0400 Systolic blood pressure 132 mm[Hg] Kaitlin Suppan LICENSED PHYSICAL THERAPY ASSISTANT.PRE SALES TECHNICAL CONSULTANT Work Phone: [facility] 09-07-2023 10:38-0400 Diastolic blood pressure 76 mm[Hg] Shanna Haagen 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 Work Phone: [facility] 09-07-2023 10:38-0400 Heart rate 91 /min Shanna Haagen 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 Work Phone: [facility] 09-07-2023 10:38-0400 Respiratory rate 16 /min Shanna Haagen 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 Work Phone: [facility] 09-07-2023 10:38-0400 SaO2% (BldA) [Mass fraction] 97 % Shanna Haagen 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 Work Phone: [facility] 09-07-2023 10:38-0400 Systolic blood pressure 126 mm[Hg] Shanna Mukherjee APRN.MULTIPLE KNIFE EDGE TRIMMER OPERATOR Work Phone: [facility] 09-03-2023 10:23-0400 Body mass index (BMI) [Ratio] 31.75 kg/m2 Parul Khalil APRN.MULTIPLE KNIFE EDGE TRIMMER OPERATOR Work Phone: [facility] 09-03-2023 10:23-0400 Body temperature 96.91 [degF] Parul Khalil APRN.MULTIPLE KNIFE EDGE TRIMMER OPERATOR Work Phone: [facility] 09-03-2023 10:23-0400 Body weight 83.9 kg Parul Khalil APRN.MULTIPLE KNIFE EDGE TRIMMER OPERATOR Work Phone: [facility] 09-03-2023 10:23-0400 Diastolic blood pressure 90 mm[Hg] Parul Khalil APRN.MULTIPLE KNIFE EDGE TRIMMER OPERATOR Work Phone: [facility] 09-03-2023 10:23-0400 Heart rate 85 /min Parul Khalil APRN.MULTIPLE KNIFE EDGE TRIMMER OPERATOR Work Phone: [facility] 09-03-2023 10:23-0400 Respiratory rate 20 /min Parul Khalil APRN.MULTIPLE KNIFE EDGE TRIMMER OPERATOR Work Phone: [facility] 09-03-2023 10:23-0400 SaO2% (BldA) [Mass fraction] 95 % Parul Khalil APRN.MULTIPLE KNIFE EDGE TRIMMER OPERATOR Work Phone: [facility] 09-03-2023 10:23-0400 Systolic blood pressure 132 mm[Hg] Parul Khalil APRN.MULTIPLE KNIFE EDGE TRIMMER OPERATOR Work Phone: [facility] 08-22-2023 15:18-0400 Body mass index (BMI) [Ratio] 31.41 kg/m2 Shanna Mukherjee APRN.MULTIPLE KNIFE EDGE TRIMMER OPERATOR Work Phone: [facility] 08-22-2023 15:18-0400 Body weight 83.01 kg Shanna Mukherjee APRN.MULTIPLE KNIFE EDGE TRIMMER OPERATOR Work Phone: [facility] 08-22-2023 15:18-0400 Diastolic blood pressure 70 mm[Hg] Shanna Haagen 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 Work Phone: [facility] 08-22-2023 15:18-0400 Heart rate 88 /min Shanna Haagen 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 Work Phone: [facility] 08-22-2023 15:18-0400 Respiratory rate 16 /min Shanna Haagen 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 Work Phone: [facility] 08-22-2023 15:18-0400 SaO2% (BldA) [Mass fraction] 98 % Shanna Haagen 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 Work Phone: [facility] 08-22-2023 15:18-0400 Systolic blood pressure 120 mm[Hg] Shanna Haagen 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 Work Phone: [facility] 08-12-2023 17:28-0400 Body mass index (BMI) [Ratio] 31.67 kg/m2 Lenard Jerome 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 Work Phone: [facility] 08-12-2023 17:28-0400 Body temperature 99.5 [degF] Lenard Jerome 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 Work Phone: [facility] 08-12-2023 17:28-0400 Body weight 83.7 kg Lenard Jerome 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 Work Phone: [facility] 08-12-2023 17:28-0400 Diastolic blood pressure 76 mm[Hg] Lenard Jerome 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 Work Phone: [facility] 08-12-2023 17:28-0400 Heart rate 89 /min Lenard Jerome 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 Work Phone: [facility] 08-12-2023 17:28-0400 Respiratory rate 16 /min Lenard Jerome 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 Work Phone: [facility] 08-12-2023 17:28-0400 SaO2% (BldA) [Mass fraction] 96 % Lenard Jerome 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 Work Phone: [facility] 08-12-2023 17:28-0400 Systolic blood pressure 142 mm[Hg] Lenard Justus 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 Work Phone: [facility] 08-09-2023 10:12-0400 Body mass index (BMI) [Ratio] 31.33 kg/m2 Lenard Jerome 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 Work Phone: [facility] 08-09-2023 10:12-0400 Body temperature 98.29 [degF] Lenard Jerome 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 Work Phone: [facility] 08-09-2023 10:12-0400 Body weight 82.8 kg Lenard Jerome 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 Work Phone: [facility] 08-09-2023 10:12-0400 Diastolic blood pressure 82 mm[Hg] Lenard Jerome 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 Work Phone: [facility] 08-09-2023 10:12-0400 Heart rate 91 /min Lenard Jerome 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 Work Phone: [facility] 08-09-2023 10:12-0400 Respiratory rate 18 /min Lenard Jerome 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 Work Phone: [facility] 08-09-2023 10:12-0400 SaO2% (BldA) [Mass fraction] 99 % Lenard Jerome 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 Work Phone: [facility] 08-09-2023 10:12-0400 Systolic blood pressure 138 mm[Hg] Lenard Justus 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 Work Phone: [facility] 07-06-2023 11:45-0400 Diastolic blood pressure 78 mm[Hg] Shanna Haagen 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 Work Phone: [facility] 07-06-2023 11:45-0400 Heart rate 88 /min Shanna Haagen 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 Work Phone: [facility] 07-06-2023 11:45-0400 Respiratory rate 16 /min Shanna Haagen 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 Work Phone: [facility] 07-06-2023 11:45-0400 SaO2% (BldA) [Mass fraction] 96 % Shanna Mukherjee 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 Work Phone: [facility] 07-06-2023 11:45-0400 Systolic blood pressure 112 mm[Hg] Shanna Mukherjee 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 Work Phone: [facility] 03-03-2023 10:34-0500 Body weight 83.46 kg NA Chavez PA-C Work Phone: [facility] 03-03-2023 10:34-0500 Diastolic blood pressure 64 mm[Hg] NA Chavez PA-C Work Phone: [facility] 03-03-2023 10:34-0500 Heart rate 76 /min NA Chavez PA-C Work Phone: [facility] 03-03-2023 10:34-0500 Respiratory rate 16 /min NA Chavez PA-C Work Phone: [facility] 03-03-2023 10:34-0500 SaO2% (BldA) [Mass fraction] 94 % NA Chavez PA-C Work Phone: [facility] 03-03-2023 10:34-0500 Systolic blood pressure 126 mm[Hg] NA Chavez PA-C Work Phone: [facility] 05-10-2022 09:02-0500 Body height 162.6 cm John Hicks MD Work Phone: [facility] 05-10-2022 09:02-0500 Body weight 86.46 kg John Hicks MD Work Phone: [facility] 05-10-2022 09:02-0500 Diastolic blood pressure 72 mm[Hg] John Hicks MD Work Phone: [facility] 05-10-2022 09:02-0500 Heart rate 84 /min John Hicks MD Work Phone: [facility] 05-10-2022 09:02-0500 SaO2% (BldA) [Mass fraction] 96 % John Hicks MD Work Phone: [facility] 05-10-2022 09:02-0500 Systolic blood pressure 128 mm[Hg] John Hicks MD Work Phone: [facility] 03-08-2022 09:04-0500 Body weight 83.92 kg John Hicks MD Work Phone: [facility] 03-08-2022 09:04-0500 Diastolic blood pressure 72 mm[Hg] John Hicks MD Work Phone: [facility] 03-08-2022 09:04-0500 Heart rate 80 /min John Hicks MD Work Phone: [facility] 03-08-2022 09:04-0500 SaO2% (BldA) [Mass fraction] 97 % John Hicks MD Work Phone: [facility] 03-08-2022 09:04-0500 Systolic blood pressure 122 mm[Hg] John Hicks MD Work Phone: [facility] 10-25-2021 09:56-0400 Body temperature 98.49 [degF] Nancy Athy PA-C Work Phone: [facility] 10-25-2021 09:56-0400 Body weight 83.46 kg Nancy Athy PA-C Work Phone: [facility] 10-25-2021 09:56-0400 Diastolic blood pressure 74 mm[Hg] Nancy Athy PA-C Work Phone: [facility] 10-25-2021 09:56-0400 Heart rate 94 /min Nancy Athy PA-C Work Phone: [facility] 10-25-2021 09:56-0400 Respiratory rate 16 /min Nancy Athy PA-C Work Phone: [facility] 10-25-2021 09:56-0400 SaO2% (BldA) [Mass fraction] 96 % Nancy Athy PA-C Work Phone: [facility] 10-25-2021 09:56-0400 Systolic blood pressure 124 mm[Hg] Nancy Schmidt PA-C Work Phone: [facility] 08-14-2021 14:24-0400 Body weight 86.64 kg John Hicks MD Work Phone: [facility] 08-14-2021 14:24-0400 Diastolic blood pressure 72 mm[Hg] John Hicks MD Work Phone: [facility] 08-14-2021 14:24-0400 Heart rate 90 /min John Hicks MD Work Phone: [facility] 08-14-2021 14:24-0400 SaO2% (BldA) [Mass fraction] 96 % John Hicks MD Work Phone: [facility] 08-14-2021 14:24-0400 Systolic blood pressure 122 mm[Hg] John Hicks MD Work Phone: [facility] 06-29-2021 15:26-0400 Body weight 86.64 kg John Hicks MD Work Phone: [facility] 06-29-2021 15:26-0400 Diastolic blood pressure 82 mm[Hg] John Hicks MD Work Phone: [facility] 06-29-2021 15:26-0400 Heart rate 80 /min John Hicks MD Work Phone: [facility] 06-29-2021 15:26-0400 Systolic blood pressure 142 mm[Hg] John Hicks MD Work Phone: [facility] Encounters Encounter Date Encounter Type Care Provider Facility Start: 12-11-2024 End: 12-11-2024 ambulatory JOHN HICKS Facility:[facility] Start: 12-10-2024 End: 12-10-2024 ambulatory JOHN HIKCS Facility:[facility] Start: 12-05-2024 End: 12-05-2024 ambulatory Nurse Card Wilton Dior Work Phone: Cardiology Comment on above: Stress Test Instruct ions for 12/10/24 Start: 12-05-2024 End: 12-05-2024 E-mail encounter from caregiver Nurse Card Wilton Dior Work Phone: Cardiology Start: 12-03-2024 End: 12-05-2024 Telephone encounter John Hicks MD Work Phone: [address] [place] [address] Comment on above: Patient Update; Marcelle ent Question Start: 10-31-2024 End: 11-30-2024 Telephone encounter Kaitlin Victor APRN.MULTIPLE KNIFE EDGE TRIMMER OPERATOR Work Phone: [facility] Comment on above: Patient Update Start: 10-23-2024 End: 10-23-2024 ambulatory JOHN HICKS Facility:[facility] Start: 10-16-2024 End: 10-16-2024 ambulatory Sanaz Lopezba [employer] Work Phone: [facility] Comment on above: Chronic bilateral lo w back pain without sciatica (Primary Dx) Start: 10-09-2024 End: 10-09-2024 ambulatory Sanaz Kashuba [employer] Work Phone: [facility] Comment on above: Chronic bilateral lo w back pain without sciatica (Primary Dx) Start: 10-02-2024 End: 10-02-2024 Office outpatient visit 15 minutes Kaitlin Victor APRN.MULTIPLE KNIFE EDGE TRIMMER OPERATOR Work Phone: [facility] Comment on above: 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); Left bundle branch block; Grief Start: 10-02-2024 End: 10-02-2024 ambulatory JOHN HICKS Facility:[facility] Start: 10-01-2024 End: 10-01-2024 Patient encounter procedure Marlys Jernigan PA-C Work Phone: Orthopaedics Comment on above: 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) Start: 10-01-2024 End: 10-01-2024 ambulatory MARLYS JERNIGAN Facility:[facility] Start: 09-25-2024 End: 09-25-2024 ambulatory Christian Stanford PT [facility] Comment on above: Chronic bilateral lo w back pain without sciatica (Primary Dx) Start: 09-18-2024 End: 09-18-2024 ambulatory Sanaz Castanon [employer] Work Phone: [facility] Comment on above: Chronic bilateral lo w back pain without sciatica (Primary Dx) Start: 09-12-2024 End: 09-12-2024 ambulatory Christian Stanford PT [facility] Comment on above: Chronic bilateral lo w back pain without sciatica (Primary Dx) Start: 09-04-2024 End: 09-04-2024 ambulatory Sanaz Castanon [employer] Work Phone: [facility] Comment on above: Chronic bilateral lo w back pain without sciatica (Primary Dx) Start: 08-28-2024 End: 08-28-2024 ambulatory Christian Stanford PT [facility] Comment on above: Chronic bilateral lo w back pain without sciatica (Primary Dx) Start: 08-24-2024 End: 08-24-2024 Refill John Hicks MD Work Phone: [facility] Comment on above: Refill Request Start: 08-09-2024 End: 08-09-2024 ambulatory JOHN HICKS Facility:[facility] Start: 08-09-2024 End: 08-09-2024 ambulatory JOHN HICKS Facility:[facility] Start: 07-11-2024 End: 09-17-2024 Telephone encounter Marlys Vetovitz PA-C Work Phone: Orthopaedics Comment on above: Patient Question Start: 04-02-2024 End: 04-02-2024 ambulatory MARLYS VETOVITZ Facility:[facility] Start: 04-02-2024 End: 04-02-2024 Patient encounter procedure Marlys Vetovitz PA-C Work Phone: Orthopaedics Comment on above: 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) Start: 03-01-2024 End: 03-08-2024 Telephone encounter Marlys Vetovitz PA-C Work Phone: Orthopaedics Comment on above: prior auth info Start: 02-21-2024 End: 02-21-2024 Patient encounter status Kaitlin Victor 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 Work Phone: [facility] Work Phone: Start: 02-21-2024 End: 02-21-2024 ambulatory [facility] Facility:[facility] Start: 02-21-2024 Encounter for genera l adult medical examination without abnormal findings KAITLIN VICTOR [facility] Start: 02-21-2024 End: 02-21-2024 Patient encounter procedure Kaitlin Marc Anai CORDON.MULTIPLE KNIFE EDGE TRIMMER OPERATOR Work Phone: [facility] [place] Comment on above: Wellness examination (Primary Dx); Chest discomfort; Lower extremity edema; Medicare annual wellness visit, subsequent; Cognitive changes Start: 02-20-2024 End: 02-20-2024 Telephone encounter Marlys Jernigan PA-C Work Phone: Orthopaedics Start: 02-18-2024 End: 02-18-2024 ambulatory Suzanne Talavera RN NURSE HELPER TEACHER Comment on above: Opened In Error Start: 02-13-2024 End: 02-13-2024 Refill John Hicks MD Work Phone: [facility] [place] Comment on above: Refill Request Start: 02-08-2024 End: 02-08-2024 Office outpatient visit 25 minutes Shanna Mukherjee APRN.MULTIPLE KNIFE EDGE TRIMMER OPERATOR Work Phone: [facility] [place] Comment on above: Fluid level behind t ympanic membrane of both ears (Primary Dx); Chest discomfort Start: 02-08-2024 End: 02-08-2024 ambulatory [facility] Facility:[facility] Start: 01-24-2024 End: 01-24-2024 ambulatory Sarah Almendarez LPN NURSE HELPER TEACHER Comment on above: Return Provider Call Start: 01-24-2024 End: 01-24-2024 Telephone encounter John Hicks MD Work Phone: [facility] [place] Comment on above: Patient Update Start: 01-10-2024 End: 01-10-2024 ambulatory [facility] Facility:[facility] Start: 01-10-2024 End: 01-10-2024 Patient encounter procedure Diana Araiza APRN.MULTIPLE KNIFE EDGE TRIMMER OPERATOR Work Phone: [facility] Comment on above: Sore throat (Primary Dx) Start: 01-02-2024 End: 01-02-2024 ambulatory MARLYS JERNIGAN Facility:[facility] Start: 01-02-2024 End: 01-02-2024 Patient encounter procedure Marlys Jernigan PA-C Work Phone: Orthopaedics Comment on above: 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) Start: 12-12-2023 End: 12-13-2023 Telephone encounter Marlys Jeringan PA-C Work Phone: Orthopaedics Comment on above: Cortisone injection Start: 11-09-2023 End: 11-09-2023 Telephone encounter John Hicks MD Work Phone: [facility] [place] Comment on above: Patient Update Start: 11-08-2023 End: 11-08-2023 Patient encounter procedure Nitin Silva APRN.MULTIPLE KNIFE EDGE TRIMMER OPERATOR Work Phone: [facility] Comment on above: Procedure not jacob d out (Primary Dx) Start: 10-28-2023 ambulatory Parul Rios [facility] [place] [facility] [place] Start: 10-28-2023 [facility] Comment on above: Population Health Na v[facility] Outreach ([facility]o [facility] [place] [facility] Start: 10-18-2023 End: 10-18-2023 Office outpatient visit 15 minutes Kaitlin Victor 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 Work Phone: [facility] [place] Comment on above: Laceration of skin o f right lower leg, initial encounter (Primary Dx); Leg hematoma, right, sequela Start: 10-08-2023 End: 10-08-2023 Patient encounter procedure John Hicks MD Work Phone: [facility] [place] Comment on above: Herpes zoster with c omplication (Primary Dx) Start: 09-29-2023 Telephone encounter John Hicks MD Work Phone: [facility] [place] Comment on above: Lab Orders Start: 09-26-2023 Telephone encounter John Hicks MD Work Phone: [facility] [place] Comment on above: medication problem/s hingles update Start: 09-15-2023 End: 09-15-2023 Office outpatient visit 15 minutes Kaitlin Victor LICENSED PHYSICAL THERAPY ASSISTANT.PRE SALES TECHNICAL CONSULTANT Work Phone: [facility] [place] Comment on above: Herpes zoster withou t complication (Primary Dx) Start: 09-07-2023 Telephone encounter John Hicks MD Work Phone: [facility] [place] Comment on above: Appointment Start: 09-07-2023 End: 09-07-2023 Office outpatient visit 15 minutes Shanna Mukherjee 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 Work Phone: [facility] [place] Comment on above: Herpes zoster with c omplication (Primary Dx); Lower extremity edema Start: 09-05-2023 End: 09-05-2023 Patient encounter procedure Marlys Jernigan PA-C Work Phone: Orthopaedics Comment on above: 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) Start: 09-03-2023 End: 09-03-2023 Patient encounter procedure Parul Khalil 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 Work Phone: [facility] Comment on above: Lower extremity sergei a (Primary Dx) Start: 08-30-2023 Telephone encounter John Hicks MD Work Phone: [facility] [place] Comment on above: Patient Update Start: 08-22-2023 End: 08-22-2023 Office outpatient visit 15 minutes Shanna Mukherjee 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 Work Phone: [facility] [place] Comment on above: Herpes zoster with c omplication (Primary Dx) Start: 08-19-2023 Refill John Hicks MD Work Phone: [facility] [place] Comment on above: Refill Request Start: 08-18-2023 Telephone encounter Marlys huerta PA-C Work Phone: [facility] Comment on above: Insurance Authorizat ion (Prior Auth Delayed:Request Different Drug (Durolane,Euflexxa,Gelsyn-3 or Supartz FX)/) Start: 08-12-2023 End: 08-12-2023 Emergency department patient visit John Hicks Facility:[facility] Start: 08-12-2023 End: 08-12-2023 Patient encounter procedure Lenard Jerome BRAVO.MULTIPLE KNIFE EDGE TRIMMER OPERATOR Work Phone: [facility] Comment on above: Pain and swelling of right lower extremity (Primary Dx) Start: 08-12-2023 Telephone encounter John Hicks MD Work Phone: [facility] [place] Comment on above: Patient Update Start: 08-11-2023 Telephone encounter John Hicks MD Work Phone: [facility] [place] Comment on above: Patient Update; Appo intment Start: 08-11-2023 End: 08-11-2023 Office outpatient visit 15 minutes Kaitlin Victor LICENSED PHYSICAL THERAPY ASSISTANT.PRE SALES TECHNICAL CONSULTANT Work Phone: [facility] [place] Comment on above: Herpes zoster with c omplication (Primary Dx) Start: 08-09-2023 End: 08-09-2023 Patient encounter procedure Lenard Jerome 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 Work Phone: [facility] Comment on above: Chronic pain of righ t knee (Primary Dx) Start: 08-08-2023 Telephone encounter Marlys huerta PA-C Work Phone: Orthopaedics Comment on above: Patient Update Start: 07-19-2023 ambulatory Parul Rios MA [facility] [place] [facility] [place] Start: 07-19-2023 Patient encounter procedure Parul Rios MA [facility] [place] [facility] [place] Comment on above: Population Health Na vigation Outreach ([facility] CURRENT ROSTER workbench - AWV, Care gaps, HCC gap closure - [facility]) Start: 07-06-2023 End: 07-06-2023 Office outpatient visit 15 minutes Shanna Mukherjee 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 Work Phone: [facility] [place] Comment on above: Impacted cerumen of left ear (Primary Dx) Start: 07-04-2023 Telephone encounter John Hicks MD Work Phone: [facility] [place] Comment on above: Patient Question Start: 06-30-2023 End: 06-30-2023 Subsequent hospital visit by physician Bone Density [facility] Work Phone: Radiology Comment on above: Postmenopausal state [Z78.0] Start: 06-13-2023 Telephone encounter Trav Chavez PA-C Work Phone: [facility] [place] Comment on above: Patient Question Start: 03-03-2023 End: 03-03-2023 Patient encounter procedure Trav Chavez PA-C Work Phone: [facility] [place] Comment on above: Recurrent depression (HCC) (Primary Dx); JOSE ELIAS (generalized anxiety disorder); Stage 3a chronic kidney disease (HCC); Primary osteoarthritis involving multiple joints; Basal cell carcinoma (BCC) of skin of right upper eyelid including canthus; Osteopenia, unspecified location; Asymptomatic postmenopausal status; Screening for colon cancer; High serum high density lipoprotein (HDL); Medicare annual wellness visit, subsequent Start: 01-10-2023 Telephone encounter Trav Chavez PA-C Work Phone: [facility] [place] Start: 01-10-2023 End: 01-10-2023 Patient encounter procedure Marlys Eliotz PA-C Work Phone: Orthopaedics Comment on above: 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) Start: 01-07-2023 Telephone encounter Marlys Vet ovitz PA-C Work Phone: Orthopaedics Comment on above: Patient Question Start: 12-17-2022 Telephone encounter Marlys Vet ovitz PA-C Work Phone: Orthopaedics Comment on above: Appointment Start: 08-24-2022 Telephone encounter Marlys Vet ovitz PA-C Work Phone: Orthopaedics Comment on above: Patient Question Start: 07-02-2022 Telephone encounter Marlys Vet ovitz PA-C Work Phone: Orthopaedics Comment on above: Appointment Start: 06-30-2022 Telephone encounter John Hicks MD Work Phone: [facility] [place] Comment on above: Patient Update; Requ est for Advice Start: 06-25-2022 Telephone encounter John Hicks MD Work Phone: [facility] [place] Comment on above: Orders; Patient Ques tion Start: 06-22-2022 Telephone encounter John Hicks MD Work Phone: [facility] [place] Comment on above: COVID symptoms/reque sting treatment Start: 05-12-2022 Telephone encounter John Hicks MD Work Phone: [facility] [place] Comment on above: Patient Request Start: 05-11-2022 Telephone encounter John Hicks MD Work Phone: [facility] [place] Comment on above: Results Release Of Medical R ecords Start: 05-10-2022 End: 05-10-2022 Patient encounter procedure John Hicks MD Work Phone: [facility] [place] Comment on above: Basal cell carcinoma (BCC) of skin of right upper eyelid including canthus (Primary Dx); Recurrent depression (HCC); Stage 3a chronic kidney disease (HCC) Start: 03-12-2022 Telephone encounter John Hicks MD Work Phone: [facility] [place] Comment on above: Patient Update Start: 03-08-2022 End: 03-08-2022 Patient encounter procedure John Hicks MD Work Phone: [facility] [place] Comment on above: Skin cancer (Primary Dx); Stage 3a chronic kidney disease (HCC); JOSE ELIAS (generalized anxiety disorder); Recurrent depression (HCC) Start: 02-25-2022 Telephone encounter John Hicks MD Work Phone: [facility] [place] Comment on above: Forms (FYI) Start: 02-02-2022 Refill John Hicks MD Work Phone: [facility] [place] Comment on above: Refill Request Patient Update Start: 01-26-2022 Telephone encounter John Hicks MD Work Phone: [facility] [place] Comment on above: Patient Question Start: 01-20-2022 Telephone encounter John Hicks MD Work Phone: [facility] [place] Comment on above: Patient Question Start: 12-19-2021 End: 12-19-2021 ambulatory [facility] Nurse [place] Work Phone: [facility] [place] Start: 11-30-2021 End: 11-30-2021 Patient encounter procedure Marlysdra Jernigan PA-C Work Phone: Orthopaedics Comment on above: 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) Start: 11-12-2021 Telephone encounter Marlysdra Flavia huerta PA-C Work Phone: Orthopaedics Comment on above: referral for Durolan e injection Start: 10-26-2021 Telephone encounter Nancy baires PA-C Work Phone: [facility] Comment on above: Results Patient Question Start: 10-26-2021 End: 10-26-2021 Subsequent hospital visit by physician Catrachita [facility] [place] Work Phone: Radiology Comment on above: Traumatic hematoma o f right wrist, initial encounter [S60.211A] Start: 10-25-2021 End: 10-25-2021 Patient encounter procedure Nancy Schmidt PA-C Work Phone: [facility] Comment on above: Traumatic hematoma o f right wrist, initial encounter (Primary Dx) Start: 08-19-2021 Telephone encounter John Hicks MD Work Phone: [facility] [place] Comment on above: Results Start: 08-18-2021 Telephone encounter Marlys huerta PA-C Work Phone: [facility] Comment on above: Insurance Authorizat ion (Prior Auth Delayed Additional Clinical Information needed ) Start: 08-14-2021 End: 08-14-2021 Patient encounter procedure John Hicks MD Work Phone: [facility] Comment on above: Medicare annual well ness visit, subsequent (Primary Dx); Fuchs' heterochromic iridocyclitis, right; Scabies; Stage 3a chronic kidney disease (HCC); Screening for lipid disorders Start: 08-12-2021 Telephone encounter Marlys huerta PA-C Work Phone: Orthopaedics Comment on above: Durolane referral Start: 06-29-2021 End: 06-29-2021 Patient encounter procedure John Hicks MD Work Phone: [facility] [place] Comment on above: Scabies (Primary Dx) Start: 06-25-2021 Telephone encounter John Hicks MD Work Phone: [facility] [place] Comment on above: Patient Question Start: 03-26-2021 Telephone encounter John Hicks MD Work Phone: [facility] [place] Comment on above: Cough Start: 04-11-2020 End: 04-11-2020 [address]charged [address] [facility]-Immunization s Procedures Date Procedure Procedure Detail Performing Clinician Start: 10-01-2024 Arthrocentesis aspir &/inj major jt/bursa w/o us Marlys Vetovitz PA-C Work Phone: Start: 04-02-2024 Arthrocentesis aspir &/inj major jt/bursa w/o us Marlys Vetovitz PA-C Work Phone: Start: 01-10-2024 ARIA Tran MOLECULAR (POC) Nitin Silva APRN.CNP Work Phone: Start: 01-02-2024 Arthrocentesis aspir &/inj major jt/bursa w/o us Marlys Vetovitz PA-C Work Phone: Start: 09-05-2023 Arthrocentesis aspir &/inj major jt/bursa w/o us Marlys Vetovitz PA-C Work Phone: Start: 01-10-2023 Arthrocentesis aspir &/inj major jt/bursa w/o us Marlys Vetovitz PA-C Work Phone: Start: 12-19-2021 INFLUENZA SEASONAL QUADRIVALENT HIGH DOSE AGE 65+ Dusty Morataya DO Work Phone: Start: 11-30-2021 Arthrocentesis aspir &/inj major jt/bursa w/o us Marlys Jernigan PA-C Work Phone: Start: 10-26-2021 Radex wrist complete minimum 3 views Nancy Schmidt PA-C Work Phone: Plan of Treatment Date Care Activity Detail Author Start: 08-10-2027 [facility] Start: 09-28-2026 [facility] Start: 05-10-2025 DIABETES SCREEN DIABETES SCREEN [facility] Start: 05-10-2025 [facility] Start: 02-20-2025 End: 02-20-2025 Patient encounter procedure 02/20/2025 9:40 AM EST Office Visit [facility] [address] [place] [address] John Hicks MD [address] [place] [address] 6 month exam [facility] Comment on above: 6 month exam Start: 12-11-2024 End: 12-11-2024 ambulatory 12/11/2024 5:15 PM EDT OT/PT/Speech Visit [facility] [address] [place] [address] Christian Stanford, PT M54.50,G89.29 (ICD-10-CM) - Chronic bilateral low back pain without sciatica [facility] Comment on above: M54.50,G89.29 (ICD-1 0-CM) - Chronic bilateral low back pain without sciatica Start: 12-10-2024 End: 12-10-2024 Nursing evaluation of patient and report 12/10/2024 9:15 AM EDT Nurse Visit Cardiology [address] [place] [address] 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] Cardiology Comment on above: Unstable angina pect klever (HCC) [I20.0] Start: 12-10-2024 End: 12-10-2024 Patient encounter procedure Nuclear Medicine Comment on above: Unstable angina pect klever (HCC) [I20.0] Start: 10-30-2024 End: 10-30-2024 ambulatory 10/30/2024 10:45 AM EDT OT/PT/Speech Visit [facility] [address] [place] [address] Christian Stanford, PT M54.50,G89.29 (ICD-10-CM) - Chronic bilateral low back pain without sciatic [facility] Comment on above: M54.50,G89.29 (ICD-1 0-CM) - Chronic bilateral low back pain without sciatic Start: 10-23-2024 End: 10-23-2024 ambulatory 10/23/2024 8:00 AM EDT OT/PT/Speech Visit [facility] [address] [place] [address] Ada Castanonh, PI[employer]A [employer] TEAM MEMBER [address] [place] [address] M54.50,G89.29 (ICD-10-CM) - Chronic bilateral low back pain without sciatic [facility] Comment on above: M54.50,G89.29 (ICD-1 0-CM) - Chronic bilateral low back pain without sciatic Start: 10-16-2024 End: 10-16-2024 ambulatory 10/16/2024 8:45 AM EDT OT/PT/Speech Visit [facility] [address] [place] [address] Ada Castanonh, [employer] TEAM MEMBER [address] [place] [address] M54.50,G89.29 (ICD-10-CM) - Chronic bilateral low back pain without sciatic [facility] Comment on above: M54.50,G89.29 (ICD-1 0-CM) - Chronic bilateral low back pain without sciatic Start: 10-15-2024 End: 10-15-2024 Nursing evaluation of patient and report Cardiology Comment on above: Unstable angina pect klever (HCC) [I20.0] Start: 10-15-2024 End: 10-15-2024 Patient encounter procedure Nuclear Medicine Comment on above: Unstable angina pect klever ([facility]) [I20.0] Start: 10-09-2024 End: 10-09-2024 ambulatory 10/09/2024 8:00 AM EDT OT/PT/Speech Visit [facility] [address] [place] [address] Sanaz Castanon, [employer] TEAM MEMBER [address] [place] [address] M54.50,G89.29 (ICD-10-CM) - Chronic bilateral low back pain without sciatic [facility] Comment on above: M54.50,G89.29 (ICD-1 0-CM) - Chronic bilateral low back pain without sciatic Start: 10-01-2024 End: 10-01-2024 Patient encounter procedure 10/01/2024 7:30 AM EDT Office Visit Orthopaedics [address] [place] [address] Marlys Jernigan PA-C [address], [place] [id number] Durolane injection into bilateral knees - authorized Orthopaedics Comment on above: Durolane injection i nto bilateral knees - authorized Start: 09-25-2024 End: 09-25-2024 ambulatory 09/25/2024 9:15 AM EDT OT/PT/Speech Visit [facility] [address] [place] [address] Christian Stanford, PT M54.50,G89.29 (ICD-10-CM) - Chronic bilateral low back pain without sciatica [facility] Comment on above: M54.50,G89.29 (ICD-1 0-CM) - Chronic bilateral low back pain without sciatica Start: 09-18-2024 End: 09-18-2024 ambulatory 09/18/2024 11:45 AM EDT OT/PT/Speech Visit [facility] [address] [place] [address] Sanaz Castanon, [employer] [address] [place] [address] M54.50,G89.29 (ICD-10-CM) - Chronic bilateral low back pain without sciatica [facility] Comment on above: M54.50,G89.29 (ICD-1 0-CM) - Chronic bilateral low back pain without sciatica Start: 09-12-2024 End: 09-12-2024 ambulatory 09/12/2024 2:30 PM EDT OT/PT/Speech Visit [facility] [address] [place] [address] Christian Stanford PT M54.50,G89.29 (ICD-10-CM) - Chronic bilateral low back pain without sciatica [facility] Comment on above: M54.50,G89.29 (ICD-1 0-CM) - Chronic bilateral low back pain without sciatica Start: 09-04-2024 End: 09-04-2024 ambulatory 09/04/2024 9:30 AM EDT OT/PT/Speech Visit [facility] [address] [place] [address] Ada Castanonh, [employer] MEMBER [address] [place] [address] M54.50,G89.29 (ICD-10-CM) - Chronic bilateral low back pain without sciatica [facility] Comment on above: M54.50,G89.29 (ICD-1 0-CM) - Chronic bilateral low back pain without sciatica Start: 09-03-2024 DIABETES SCREEN DIABETES SCREEN [facility] Start: 08-28-2024 End: 08-28-2024 ambulatory 08/28/2024 11:30 AM EDT OT/PT/Speech Visit [facility] [address] [place] [address] Christian Stanford PT Chronic bilateral low back pain without sciatica [M54.50, G89.29] [place] [facility] Comment on above: Chronic bilateral lo w back pain without sciatica [M54.50, G89.29] Start: 08-19-2024 DIABETES SCREEN DIABETES SCREEN [facility] Start: 05-22-2024 Covid-19 Vaccine () Covid-19 Vaccine () [facility] Start: 03-21-2024 Advance Directive Discussion Advance Directive Discussion [facility] Start: 03-21-2024 Medicare Advantage Annual Wellness Visit Medicare Advantage Annual Wellness Visit [facility] Start: 03-03-2024 Shingrix Vaccine (1 of 2) Shingrix Vaccine (1 of 2) [facility] Comment on above: Postponed from 02/16 (Insurance Coverage) Start: 03-03-2024 Urine microalbumin profile DTaP,Tdap,Td Vaccine (3 - Td or Tdap) [facility] Comment on above: Postponed from 10/19 (Insurance Coverage) Start: 02-21-2024 End: 02-21-2024 Patient encounter procedure 02/21/2024 2:00 PM EST Office Visit [facility] [place] [address] [place] [address] Kaitlin Victor APRN.MULTIPLE KNIFE EDGE TRIMMER OPERATOR [address] [place] [address] Medicare Wellness - Anytime in calendar year per [facility] [place] Comment on above: Medicare Wellness - Anytime in calendar year per [place] Start: 02-20-2024 End: 02-20-2024 Patient encounter procedure 02/20/2024 8:00 AM EST Office Visit [facility] [place] [address] [place] [address] John Hicks MD [address] [place] [address] Medicare Wellness - Anytime in calendar year per [facility] [place] Comment on above: Medicare Wellness - Anytime in calendar year per [facility] Start: 02-05-2024 DIABETES SCREEN DIABETES SCREEN [facility] Start: 01-02-2024 End: 01-02-2024 Patient encounter procedure 01/02/2024 11:30 AM EDT Office Visit Orthopaedics [address] [place] [address] Marlys Jernigan PA-C [address] [place] [address] Follow up Right knee pain - wants cortisone Orthopaedics Comment on above: Follow up Right knee pain - wants cortisone Start: 11-20-2023 Shingrix Vaccine (2 of 2) Shingrix Vaccine (2 of 2) [facility] Start: 09-29-2023 End: 12-29-2023 CBC W Auto Differential panel - Blood [facility] Comment on above: Expected: 09/29/2023 , Expires: 12/29/2023 Start: 09-29-2023 End: 12-29-2023 Comprehensive metabolic 2000 panel - Serum or Plasma [facility] Work Phone: Comment on above: Expected: 09/29/2023 , Expires: 12/29/2023 Start: 09-29-2023 End: 12-29-2023 LIPID PANEL, NONFASTING [facility] Comment on above: Expected: 09/29/2023 , Expires: 12/29/2023 Start: 09-09-2023 End: 09-09-2023 Patient encounter procedure 09/09/2023 7:40 AM EDT Office Visit [facility] [place] [address] [place] [address] Shanna Mukherjee APRN.MULTIPLE KNIFE EDGE TRIMMER OPERATOR [address] [place] [address] urgent care follow up, check swelling [facility] [place] Comment on above: urgent care follow u p, check swelling Start: 09-05-2023 End: 09-05-2023 Patient encounter procedure 09/05/2023 11:30 AM EDT Office Visit Orthopaedics [address] [place] [address] Marlys Jernigan PA-C [address] [place] [address] Durolane injections bilateral knees Orthopaedics Comment on above: Durolane injections bilateral knees Start: 07-14-2023 Covid-19 Vaccine () Covid-19 Vaccine () [facility] Start: 06-13-2023 End: 09-12-2023 CBC W Auto Differential panel - Blood CBC + DIFF Lab Routine Stage 3a chronic kidney disease (HCC) JOSE ELIAS (generalized anxiety disorder) Recurrent depression (HCC) Expected: 06/13/2023, Expires: 09/12/2023 [facility] Work Phone: Comment on above: Expected: 06/13/2023 , Expires: 09/12/2023 Start: 06-13-2023 End: 09-12-2023 Comprehensive metabolic 2000 panel - Serum or Plasma COMP METABOLIC PANEL Lab Routine Stage 3a chronic kidney disease (HCC) JOSE ELIAS (generalized anxiety disorder) Recurrent depression (HCC) Expected: 06/13/2023, Expires: 09/12/2023 [facility] Work Phone: Comment on above: Expected: 06/13/2023 , Expires: 09/12/2023 Start: 06-13-2023 End: 09-12-2023 Lipid 1996 panel - Serum or Plasma LIPID PANEL BASIC Lab Routine High serum high density lipoprotein (HDL) Expected: 06/13/2023, Expires: 09/12/2023 [facility] Work Phone: Comment on above: Expected: 06/13/2023 , Expires: 09/12/2023 Start: 03-21-2023 Advance Directive Discussion Advance Directive Discussion [facility] Start: 03-03-2023 End: 06-02-2023 CBC panel - Blood by Automated count CBC Lab Routine Recurrent depression (HCC) JOSE ELIAS (generalized anxiety disorder) Primary osteoarthritis involving multiple joints Expected: 03/03/2023, Expires: 06/02/2023 [facility] Work Phone: Comment on above: Expected: 03/03/2023 , Expires: 06/02/2023 Start: 03-03-2023 End: 06-02-2023 Comprehensive metabolic 2000 panel - Serum or Plasma COMP METABOLIC PANEL Lab Routine Recurrent depression (HCC) JOSE ELIAS (generalized anxiety disorder) Stage 3a chronic kidney disease (HCC) Primary osteoarthritis involving multiple joints Expected: 03/03/2023, Expires: 06/02/2023 [facility] Work Phone: Comment on above: Expected: 03/03/2023 , Expires: 06/02/2023 Start: 03-03-2023 End: 06-02-2023 Lipid 1996 panel - Serum or Plasma LIPID PANEL BASIC Lab Routine High serum high density lipoprotein (HDL) Expected: 03/03/2023, Expires: 06/02/2023 [facility] Work Phone: Comment on above: Expected: 03/03/2023 , Expires: 06/02/2023 Start: 10-19-2022 Urine microalbumin profile [facility] Start: 05-10-2022 End: 07-10-2022 Basic metabolic 2000 panel - Serum or Plasma [facility] Work Phone: Comment on above: Expected: 05/10/2022 , Expires: 07/10/2022 Start: 03-21-2022 ADVANCE DIRECTIVE DISCUSSION ADVANCE DIRECTIVE DISCUSSION [facility] Start: 08-19-2021 End: 10-19-2021 Basic metabolic 2000 panel - Serum or Plasma BASIC METABOLIC PNL Lab Routine Renal insufficiency Expected: 08/19/2021, Expires: 10/19/2021 [facility] Work Phone: Comment on above: Expected: 08/19/2021 , Expires: 10/19/2021 Start: 08-19-2021 End: 10-19-2021 Urinalysis complete panel - Urine URINALYSIS, WITH MICROSCOPIC Lab Routine Renal insufficiency Expected: 08/19/2021, Expires: 10/19/2021 [facility] Work Phone: Comment on above: Expected: 08/19/2021 , Expires: 10/19/2021 Start: 08-14-2021 End: 08-14-2022 CBC W Auto Differential panel - Blood CBC + DIFF Lab Routine Stage 3a chronic kidney disease (HCC) Expected: 08/14/2021, Expires: 08/14/2022 [facility] Work Phone: Comment on above: Expected: 08/14/2021 , Expires: 08/14/2022 Start: 08-14-2021 End: 08-14-2022 Comprehensive metabolic 2000 panel - Serum or Plasma COMP METABOLIC PANEL Lab Routine Stage 3a chronic kidney disease (HCC) Expected: 08/14/2021, Expires: 08/14/2022 [facility] Work Phone: Comment on above: Expected: 08/14/2021 , Expires: 08/14/2022 Start: 08-14-2021 End: 10-14-2021 LIPID PANEL BASIC LIPID PANEL BASIC Lab Routine Screening for lipid disorders Expected: 08/14/2021, Expires: 10/14/2021 [facility] Work Phone: Comment on above: Expected: 08/14/2021 , Expires: 10/14/2021 Start: 03-21-2021 ADVANCE DIRECTIVE DISCUSSION ADVANCE DIRECTIVE DISCUSSION [facility] Start: 02-17-1988 SHINGRIX VACCINE (1 of 2) SHINGRIX VACCINE (1 of 2) [facility] BD DXA TRABECULAR MACEY NE SCORE (TBS) BD DXA TRABECULAR BONE SCORE (TBS) Radiology Routine Postmenopausal state 06/30/2023 8:32 AM EDT [facility] Work Phone: DXA Skeletal system.axial Views for bone density DXA-AXIAL SKELETON Radiology Routine Postmenopausal state 06/30/2023 8:32 AM EDT [facility] Work Phone: ECG COMPLETE ECG COMPLETE ECG Routine Chest discomfort Ordered: 02/08/2024 [facility] Work Phone: Comment on above: Ordered: 02/08/2024 Hemoglobin.gastroint est inal.lower [Presence] in Stool by Immunoassay FECAL OCCULT BLOOD TEST Lab Routine Screening for colon cancer Ordered: 03/03/2023 [facility] Work Phone: Comment on above: Ordered: 03/03/2023 Removal impacted cerumen irrigation/lvg unilat AMBULATORY EAR LAVAGE/IRRIGATION Procedures Routine Impacted cerumen of left ear Ordered: 07/06/2023 [facility] Work Phone: Comment on above: Ordered: 07/06/2023 End: 02-19-2023 Screening mammography bi 2-view breast inc cad DELON SCREENING Radiology Routine Encounter for screening for malignant neoplasm of breast, unspecified screening modality 1 Occurrences starting 01/20/2022 until 02/19/2023 [facility] Work Phone: Comment on above: 1 Occurrences starti ng 01/20/2022 until 02/19/2023 End: 02-07-2025 STRESS ECHO TREADMILL STRESS ECHO TREADMILL Cardiology Routine Chest discomfort 1 Occurrences starting 02/08/2024 until 02/07/2025 [facility] Comment on above: 1 Occurrences starti ng 02/08/2024 until 02/07/2025 End: 04-01-2024 Vertebral fracture assessment via dxa DXA - VFA ASSESS ONLY Radiology Routine Asymptomatic postmenopausal status 1 Occurrences starting 03/03/2023 until 04/01/2024 [facility] Work Phone: Comment on above: 1 Occurrences starti ng 03/03/2023 until 04/01/2024 End: 11-24-2022 XR WRIST INJURY 4V PA/LAT/OBL/SCAPH RIGHT XR WRIST INJURY 4V PA/LAT/OBL/SCAPH RIGHT Radiology STAT Traumatic hematoma of right wrist, initial encounter 1 Occurrences starting 10/25/2021 until 11/24/2022 [facility] Work Phone: Comment on above: 1 Occurrences starti ng 10/25/2021 until 11/24/2022 [facility] Immunizations Immunization Date Immunization Notes Care Provider [place] page 11-23-2023 COVID-19 vaccine, ag e 12+ yr (MODERNA) Marlys Jernigan PA-C Work Phone: [facility] 11-23-2023 influenza, high dose seasonal, preservative-free Marlys Jernigan PA-C Work Phone: [facility] 05-19-2023 COVID-19 vaccine, ag e 12+ yr, bivalent (MODERNA) DEVORA Chavez PA-C Work Phone: [facility] 12-17-2022 COVID-19 vaccine, ag e 12+ yr, season (MODERNA) Marlys MANUEL-C Work Phone: [facility] 11-20-2022 influenza, high dose seasonal, preservative-free Marlys Lila PA-C Work Phone: [facility] 11-20-2022 respiratory syncytia l virus (RSV) vaccine, adjuvanted (AREXVY) Marlys Lila PA-C Work Phone: [facility] 12-19-2021 influenza, high-dose , quadrivalent vaccine (FLUZONE HIGH DOSE QUADRIVALENT) Immunization [place] Work Phone: [facility] 01-22-2021 COVID-19 vaccine, booster dose (MODERNA) John Hicks MD Work Phone: [facility] 01-10-2021 influenza, high-dose , quadrivalent vaccine (FLUZONE HIGH DOSE QUADRIVALENT) John Hicks MD Work Phone: [facility] 05-09-2020 Covid (Moderna) [facility] 04-11-2020 Covid (Moderna) [facility] 12-21-2019 influenza, high-dose , quadrivalent vaccine (FLUZONE HIGH DOSE QUADRIVALENT) John Hicks MD Work Phone: [facility] 01-16-2019 pneumococcal polysaccharide vaccine, 23 valent John Hicks MD Work Phone: [facility] Work Phone: 12-07-2018 influenza, high dose seasonal, preservative-free John Hicks MD Work Phone: [facility] 01-04-2018 pneumococcal conjuga te vaccine, 13 valent John Hicks MD Work Phone: [facility] Work Phone: 12-06-2017 influenza, high dose seasonal, preservative-free John Hicks MD Work Phone: [facility] 10-19-2012 tetanus and diphther ia toxoids, adsorbed, preservative free, for adult use (2 Lf of tetanus toxoid and 2 Lf of diphtheria toxoid) John Hicks MD Work Phone: [facility] 01-30-2012 influenza virus vaccine, unspecified formulation John Hicks MD Work Phone: [facility] Work Phone: 09-15-2011 tetanus toxoid, redu dominick diphtheria toxoid, and acellular pertussis vaccine, adsorbed John Hicks MD Work Phone: [facility] 01-26-2005 influenza virus vaccine, unspecified formulation John Hicks MD Work Phone: [facility] Work Phone: Payers Date Payer Category Payer Self-pay [id number] 2018 Medicare (Managed Care) [employer] O Member Subscriber Plan / Payer (Effective 2018-Present) Name: Love Arianne M Relation to Subscriber: Self Name: Arianne Aleman Payer ID: [id number] (NAIC) Group ID: [id number] Type: HMO Address: [address] [place] [id number] 2018 Unknown [employer]AR[employer] MICHELLE S AND BL[employer] ANTHOSMAR MEDIDEVIUE O [id number] 2018-Present [phone] [address] [place] [address] [facility] [id number] 2018 Unknown [id number] 2018 Medicare [id number] Medicare SELF PAY INSURANCE [id number] Medicare SELF PAY INSURANCE [id number] Unknown [id number] Social History Date Type Detail Facility Tobacco smoking stat [facility] Unknown if ever smoked [facility] Work Phone: Start: 1940 Sex Assigned At Female W [facility] Work Phone: Start: 11-18-2010 Tobacco smoking stat [facility] Never smoked tobacco [facility] Start: 04-30-2021 End: 10-02-2024 Alcohol intake Current non-drinker of alcohol (finding) [facility] Start: 11-18-2010 History SDOH Alcohol Comment has drank in the past [facility] Start: 1940 Sex Assigned At Not on file C [facility] Start: 06-19-2021 End: 11-30-2021 Exposure to SARS-CoV-2 (event) Not sure [facility] Work Phone: Start: 11-18-2010 Tobacco use and exposure Smokeless tobacco non-user [facility] Start: 04-02-2022 End: 09-13-2022 History of Social function [facility] Work Phone: Start: 04-02-2022 End: 09-13-2022 Tobacco use panel [facility] Work Phone: Start: 02-20-2012 Adult Depression Screening Assessment 0 [facility] Work Phone: How often to you hav e a drink containing alcohol? Never [facility] Goals Date Patient Goal Desired Activity /State Functional Status Date Assessment Result Facility 09-12-2014 Are you deaf, or do you have serious difficulty hearing No 09/12/2014 4:15 PM EDT Jonathan Mcleod LPN No [facility] 09-12-2014 Are you blind, or do you have serious difficulty seeing, even when wearing glasses No 09/12/2014 4:15 PM EDT Jonathan Mcleod LPN No [facility] 09-12-2014 Do you have serious difficulty walking or climbing stairs No 09/12/2014 4:15 PM EDT Jonathan Mcleod LPN No [facility] 09-12-2014 Do you have difficul ty dressing or bathing No 09/12/2014 4:15 PM EDT Jonathan Mcleod LPN No [facility] 09-12-2014 Because of a physica l, mental, or emotional condition, do you have difficulty doing errands alone such as visiting a physician's office or shopping No 09/12/2014 4:15 PM EDT Jonathan Mcleod LPN No [facility] Mental Status Date Assessment Result Facility 09-12-2014 Because of a physica l, mental, or emotional condition, do you have serious difficulty concentrating, remembering, or making decisions No 09/12/2014 4:15 PM EDT Jonathan Mcleod LPN No [facility] Clinical Notes 07-16-2014 to 12-13-2024 Telephone Encounter - Jonathan Mcleod LPN - 12/05/2024 9:11 AM EDTTelephone Encounter - Jonathan Mcleod LPN - 12/05/2024 9:11 AM EDTTelephone Encounter - Flory Porras - 12/03/2024 11:44 AM EDT Note Date & Type Note Facility 12-13-2024 Note HNO ID: [id number] Author: CHRISTIAN STANFORD PT Service: ? Author Type: Physical Therapist Type: Progress Notes Filed: 12/13/2024 10:05 Note Text: Episode Visit Count: 9 Therapist That Will Accept/Oversee The Plan Of Care: Christian Stanford Start of Care Date: 08/28/24 Onset Date: 03/21/24 Plan of Care Certification Date: 12/11/24 Next Certification Due Date: 02/10/25 [facility] PHYSICAL THERAPY PROGRESS REPORT PLAN OF CARE UPDATE: Assessment: Arianne Aleman demonstrates moderate improvement in rising from a chair, standing, and walking. The patient has progressed toward goals. Patient continues to present with impairments in ADL's, overall function, and strength that interfere with rising from a chair, standing, walking . Current prognosis is Good due to: current objective clinical presentation, good overall health status, positive past response to therapy, within-session changes, good support system/ coping skills . The patient will benefit from continued skilled therapy services to meet the updated goals for this plan of care as noted below. Goals updated on 12/11/2024. Goals for Episode of Care: established 08/28/24 Independent in home exercises. Met Patient will decrease pain rating by 2 points to meet minimal clinical important difference for numeric pain rating scale. Partially met Restore pain-free lumbar ROM to WNL to allow for improved tolerance for standing and walking. Improved Stand / Walk for ADLs and self care without pain/symptoms. Improved Maintain proper sitting posture throughout session. Improved Patient will increase strength of trunk and BLE to 4 to 4+/5 to allow for improve gait mechanics/gait pattern and improve ability to complete ADLs. Improved Time Frame for Goals and Treatment : 02/12/25 Planned Interventions, Frequency, and Duration: 1x/week, 8 weeks Total Number of Visits Planned: 8 Patient to be seen for Manual therapy (40740), Therapeutic exercise (54350), Neuromuscular re-education (36302), Therapeutic activities (41322), Self-group home management (35132), Gait Training (88245), Patient/Family/Caregiver Education, Body Mechanics Training PLAN FOR NEXT VISIT: Continue with BLE and core strengthening per tolerance SUBJECTIVE: Patient notes she has been through multiple dental and 1 cardiac procedure and is now able to again put her full effort into PT. She is functioning fairly well, but she wants to do better. She has started walking over to the rec center in her neighborhood and doing a recumbent bike for 20 min. She did this back to back days and felt really exhausted. Functional Limitations: rising from a chair, standing, walking Pain: Pain Pain Level: 4 Pain Location: Low Back/Lumbar Spine - Right, Hip - Right Description: Sore Frequency: Intermittent PROMIS Scales 10/09/2024 09/04/2024 Higher is Better Phys Func - T Score 43 (mild dysfunction) 44 (mild dysfunction) Phys Func - Percentile 24 27 Self-Eff Symptom - T Score 50 (Average) 52 (Average) Self-Eff Symptom - Percentile 50 58 Proxy-reported T-Score and Percentile Interpretation T-scores: mean of general population = 50. 5 points is clinically meaningfully difference Percentiles provide an indication of how the patient's score ranks in relation to the general population. Higher percentile rankings indicate better function/quality of life. 50th percentile is the average of the general population and indicates half of respondents had a worse score. OBJECTIVE MEASURES WITH LEVEL OF FUNCTION: LE Strength Trunk Strength: 4-/5 R LE Strength: 4/5 grossly L LE Strength: 4/5 grossly TREATMENT: Therapeutic Exercise: 1: SKC 3x30 sec/side 2: Seated TA bracing 3: Seated TA bracing plus marching 4: LTR 3x10/side 5: SLR 3x10/side 6: SL hip abduction 3x10/side 7: Clamshells 3x10/side 8: LAQ 3x10/side 9: Objective measures obtained Skilled Intervention: Patient was educated in proper exercise technique and purpose for exercises. Skilled judgment was used in selection of appropriate interventions. Provided written instruction for home exercise program to facilitate proper performance and compliance. Correct performance of therapeutic exercises was facilitated with verbal, visual, and tactile cuing. Billing Therapeutic Exercise Treatment Minutes: 38 Skilled Treatment Time Minutes (timed and untimed codes): 38 Total Session Time (minutes): 38 Session Start Time : 1719 Session Stop Time : 1757 Christian Stanford PT [facility] 12-10-2024 Note HNO ID: [id number] Author: NIVIA GELLER RT(R) Service: Nuclear Medicine Author Type: Technologist Type: Progress Notes Filed: 12/10/2024 14:30 Note Text: RADIOLOGY SERVICE PROGRESS NOTE SERVICE DATE: 12/10/2024 SERVICE TIME: 08:00 AM PATIENT IDENTITY VERIFICATION COMPLETED USING TWO (2) STANDARD IDENTIFIERS: Name and Date of confirmed by patient verbally FALL SCREENING: Has the patient had 2 falls in the last year or 1 fall with injury or currently using an Ambulatory Assistive Device (Walker, Cane, Wheelchair, Crutches, etc.)? Yes, Patient High Risk for Falls What interventions were put in place to prevent falls during this visit? Instructed Patient to Call for Help if Needed, Offered Assistance with Transfers/Clothing, Instructed Patient to Remain Seated (Not on Exam Table) Until Exam, Increased Observations by Caregivers, and Escorted to/from Restroom PATIENT GENDER DATA: .female : No ALLERGIES: Reviewed and unchanged MEDICATIONS REVIEWED: No PATIENT RELEVANT IMPLANT DATA REVIEWED: Not Applicable PATIENT PRESENTS WITH AN IMPLANTABLE OR ATTACHED METAL ANNEALER: n/a CREATININE: Creatinine Date Value Ref Range Status 08/09/2024 0.89 0.58 - 0.96 mg/dL Final 09/29/2023 0.83 0.58 - 0.96 mg/dL Final 05/10/2022 0.95 0.58 - 0.96 mg/dL Final Estimated Glomerular Filtration Rate Date Value Ref Range Status 08/09/2024 63 >=60 mL/min/1.73m? Final Comment: Estimated Glomerular Filtration Rate (eGFR) is calculated using the 2020 CKD-EPI creatinine equation. This equation utilizes serum creatinine, sex, and age as parameters. The creatinine assay has traceable calibration to isotope dilution-mass spectrometry. Refer to KDIGO guidelines for clinical interpretation. In patients with unstable renal function, e.g. those with acute kidney injury, the eGFR may not accurately reflect actual GFR. eGFR- Date Value Ref Range Status 02/04/2021 >60 Final Comment: Note: On 05/16/2021, the eGFR calculation will be updated to the NKF-ASN Task Force recommended 2020 CKD-EPI creatinine equation which does not include a race variable. For more information or to access a 2020 CKD-EPI calculator, visit the [employer] Kid[employer] website at kidney.org/professionals/kdoqi/gfr _calculator. P.O.C.T. RESULTS: N/A December 10, [address] PERFORMED: No IV SITE: Ambulatory: A peripheral IV was started in the Left antecubital site with a Angio cath: 22 gauge. POST EXAM PIV STATUS: Discontinued PROCEDURE TYPE: NM Stress: 13.7mCi [id number] was administered IV for Rest Imaging at 08:20 by . 35.3 mCi [id number] was administered IV for Stress Imaging at 09:44 by . PATIENT DISCHARGED TO: Ambulatory patient, left [place] department area. Is this a therapy: No A Diagnostic radioactive procedure has taken place, with no further precautions necessary other than routine body substance precautions. More information regarding radiation safety can be found using this link: [email or web address]%[email or web address]% [email or web address] SIGNATURE: RT Tabby(R) PATIENT NAME: Arianne Aleman DATE: December 10, 2024 TIME: 11:00 AM PAGER/CONTACT #: [facility] 12-05-2024 Telephone encounter Note The stress test is scheduled. Patient was notified to go ahead with test. [facility] 12-05-2024 Miscellaneous Notes The stress test is scheduled. Patient was notified to go ahead with test. Please schedule the stress test. Patient stopped in and wanted Shelby Victor to know that her last periodontal check is today for the upper work that was done. Things are going well and she is feeling fine. She had never had any issues with her heart until she had this periodontal work done. She wants to know if she should make an appt to see Shelby Victor about this or if she should go ahead with the scheduled stress test? She seemed very anxious about this upcoming procedure. Please call [phone] if you need to reach out to her. Thank you! documented in this encounter [facility] 12-03-2024 Telephone encounter Note Please schedule the stress test. [facility] Work Phone: 12-03-2024 Telephone encounter Note Patient stopped in and wanted Shelby Victor to know that her last periodontal check is today for the upper work that was done. Things are going well and she is feeling fine. She had never had any issues with her heart until she had this periodontal work done. She wants to know if she should make an appt to see Shelby Victor about this or if she should go ahead with the scheduled stress test? She seemed very anxious about this upcoming procedure. Please call [phone] if you need to reach out to her. Thank you! [facility] 10-31-2024 Telephone encounter Note Patient calling she had Hat Liner appt with Dr Trav Hoyos yesterday, laser surgery on upper gums. He is not doing her lower mouth until June 2025. He told her the procedure could put a strain on her heart. She said she had no problems with the procedure yesterday. [facility] 10-31-2024 Miscellaneous Notes Patient calling she had Hat Liner appt with Dr Trav Hoyos yesterday, laser surgery on upper gums. He is not doing her lower mouth until June 2025. He told her the procedure could put a strain on her heart. She said she had no problems with the procedure yesterday. documented in this encounter [facility] 10-23-2024 Note HNO ID: [id number] Author: CHRISTIAN STANFORD PT Service: ? Author Type: Physical Therapist Type: Progress Notes Filed: 10/23/2024 13:54 Note Text: Episode Visit Count: 8 Therapist That Will Accept/Oversee The Plan Of Care: Christian Stanford Start of Care Date: 08/28/24 Onset Date: 03/21/24 Plan of Care Certification Date: 08/28/24 Next Certification Due Date: 10/28/24 Patient Identified by Name and Date of : Yes REHABILITATION AND SPORTS THERAPY PHYSICAL THERAPY TREATMENT NOTE ASSESSMENT: Arianne Aleman tolerated the session with fatigue, decreased symptoms, and expected muscle soreness. She demonstrated improvements in LBP with lumbar flexion. The patient will continue to benefit from ongoing skilled physical therapy to progress toward set goals. PLAN FOR NEXT VISIT: [place]. SUBJECTIVE: Pt reports that she was moving a lot of furniture to put a rug down and it flared the R side of her back up again hurt for 2-3 days. Pt stated that her back was not bothering her now, but then gave a pain raiting. Pain: Pain Pain Level: 6 Pain Location: Low Back/Lumbar Spine - Right, Hip - Right Post Treatment Pain Post Treatment Pain Level: Better OBJECTIVE MEASURES WITH LEVEL OF FUNCTION: HS tightness with LAQ. TREATMENT: Therapeutic Exercise: 1: SciFit seated stepper x 5 minutes, seat # 13 (1:1 throughout. Pt provided update on condition. Discussed what exercise pt can use when her back flares up .) 2: *Seated lumbar flexion roll outs on 85 cm physioball 3x10 (pain decreased to 5.5/10) 3: Seated lumbar flexion roll outs with L sidebend on 85 cm physioball 3x10 4: Seated TA activation with alt LE marching 3x10 B 5: Seated TA activation with alt LAQ 3x10 B 6: Seated TA activation with push into 55 cm physioball 3x10 Skilled Intervention: Patient was educated in proper exercise technique and purpose for exercises. Reviewed and educated patient on additions/changes for home exercise program as above (*). Skilled judgment was used in selection of appropriate interventions. Correct performance of therapeutic exercises was facilitated with verbal and visual cuing. Billing Therapeutic Exercise Treatment Minutes: 42 Skilled Treatment Time Minutes (timed and untimed codes): 42 Total Session Time (minutes): 42 Session Start Time : 755 Session Stop Time : 837 ANDREAS Henley PT [facility] 10-16-2024 Note HNO ID: [id number] Author: CHRISTIAN STANFORD PT Service: ? Author Type: Physical Therapist Type: Progress Notes Filed: 10/16/2024 09:45 Note Text: Episode Visit Count: 7 Therapist That Will Accept/Oversee The Plan Of Care: Christian Stanford Start of Care Date: 08/28/24 Onset Date: 03/21/24 Plan of Care Certification Date: 08/28/24 Next Certification Due Date: 10/28/24 Patient Identified by Name and Date of : Yes REHABILITATION AND SPORTS THERAPY PHYSICAL THERAPY TREATMENT NOTE ASSESSMENT: Arianne Aleman tolerated the session with fatigue and expected muscle soreness. She demonstrated improvements in tolerance to standing exercises. The patient will continue to benefit from ongoing skilled physical therapy to progress toward set goals. PLAN FOR NEXT VISIT: Continue with core strenghtening in sitting. Asses how knees are feeling and trial standing LE strengthening. SUBJECTIVE: Pt reports that the chair exercises have been helpful. Pt reports that her knees and low back are better. Pain: Pain Pain Location: Low Back/Lumbar Spine - Right, Hip - Right OBJECTIVE MEASURES WITH LEVEL OF FUNCTION: Trunk lean with hip extension, corrected with cueing. TREATMENT: Therapeutic Exercise: 1: SciFit seated stepper x 5 minutes, seat # 13 (1:1 throughout. Pt provided update on condition.) 2: Seated TA activation 2x10 with 2 second holds 3: Seated TA activation with alt LE marching 3x10 B 4: LAQ 3x10 B 5: Standing hip abduction x10 B 6: Standing hip extension 2x10 B 7: Seated TA activation with push into 55 cm physioball 3x10 Skilled Intervention: Patient was educated in proper exercise technique and purpose for exercises. Skilled judgment was used in selection of appropriate interventions. Correct performance of therapeutic exercises was facilitated with verbal and visual cuing. Billing Therapeutic Exercise Treatment Minutes: 38 Skilled Treatment Time Minutes (timed and untimed codes): 38 Total Session Time (minutes): 38 Session Start Time : 844 Session Stop Time : 922 Sanaz Castanon, [employer]BER Christian Stanford, PT [facility] 10-16-2024 History of Present illness Narrative Episode Visit Count: 7 Therapist That Will Accept/Oversee The Plan Of Care: Christian Stanford Start of Care Date: 08/28/24 Onset Date: 03/21/24 Plan of Care Certification Date: 08/28/24 Next Certification Due Date: 10/28/24 Patient Identified by Name and Date of : Yes REHABILITATION AND SPORTS THERAPY PHYSICAL THERAPY TREATMENT NOTE ASSESSMENT: Arianne Aleman tolerated the session with fatigue and expected muscle soreness. She demonstrated improvements in tolerance to standing exercises. The patient will continue to benefit from ongoing skilled physical therapy to progress toward set goals. PLAN FOR NEXT VISIT: Continue with core strenghtening in sitting. Asses how knees are feeling and trial standing LE strengthening. SUBJECTIVE: Pt reports that the chair exercises have been helpful. Pt reports that her knees and low back are better. Pain: Pain Pain Location: Low Back/Lumbar Spine - Right, Hip - Right OBJECTIVE MEASURES WITH LEVEL OF FUNCTION: Trunk lean with hip extension, corrected with cueing. TREATMENT: Therapeutic Exercise: 1: SciFit seated stepper x 5 minutes, seat # 13 (1:1 throughout. Pt provided update on condition.) 2: Seated TA activation 2x10 with 2 second holds 3: Seated TA activation with alt LE marching 3x10 B 4: LAQ 3x10 B 5: Standing hip abduction x10 B 6: Standing hip extension 2x10 B 7: Seated TA activation with push into 55 cm physioball 3x10 Skilled Intervention: Patient was educated in proper exercise technique and purpose for exercises. Skilled judgment was used in selection of appropriate interventions. Correct performance of therapeutic exercises was facilitated with verbal and visual cuing. Billing Therapeutic Exercise Treatment Minutes: 38 Skilled Treatment Time Minutes (timed and untimed codes): 38 Total Session Time (minutes): 38 Session Start Time : 844 Session Stop Time : 922 ANDREAS Henley PT documented in this encounter [facility] 10-09-2024 History of Present illness Narrative Program_ID:[id number] Access Code: [email or web address] URL: [email or web address] Date: 10-09-2024 Prepared By: Christian Stanford Program Notes Exercises - Supine Lower Trunk Rotation - 1 x daily - 7 x weekly - 3 sets - 10 reps - Standing Hip Abduction with Counter Support - 1 x daily - 7 x weekly - 3 sets - 10 reps - Standing Hip Abduction with Counter Support - 1 x daily - 7 x weekly - 3 sets - 10 reps - Standing Hip Extension with Counter Support - 1 x daily - 7 x weekly - 3 sets - 10 reps - Hooklying Single Knee to Chest - 1 x daily - 7 x weekly - 3 sets - 3 reps - Hooklying Single Knee to Chest - 1 x daily - 7 x weekly - 3 sets - 3 reps - Supine Straight Leg Raises - 1 x daily - 7 x weekly - 3 sets - 10 reps - Supine Straight Leg Raises - 1 x daily - 7 x weekly - 3 sets - 10 reps - Clamshell - 1 x daily - 7 x weekly - 3 sets - 10 reps - Clamshell - 1 x daily - 7 x weekly - 3 sets - 10 reps - Sidelying Hip Abduction - 1 x daily - 7 x weekly - 3 sets - 10 reps - Sidelying Hip Abduction - 1 x daily - 7 x weekly - 3 sets - 10 reps - Supine Transversus Abdominis Bracing - Hands on Ground - 2 x daily - 7 x weekly - 2 sets - 10 reps - Supine March - 1 x daily - 7 x weekly - 3 sets - 10 reps - Seated Long Arc Quad - 1 x daily - 7 x weekly - 2 sets - 10 reps - Seated Transversus Abdominis Bracing - 2-3 x daily - 7 x weekly - 2 sets - 10 reps - Seated March - 1 x daily - 7 x weekly - 2 sets - 10 reps Episode Visit Count: 6 Therapist That Will Accept/Oversee The Plan Of Care: Christian Stanford Start of Care Date: 08/28/24 Onset Date: 03/21/24 Plan of Care Certification Date: 08/28/24 Next Certification Due Date: 10/28/24 Patient Identified by Name and Date of : Yes REHABILITATION AND SPORTS THERAPY PHYSICAL THERAPY TREATMENT NOTE ASSESSMENT: Arianne Aleman tolerated the session with fatigue, decreased symptoms, and expected muscle soreness. She demonstrated improvements in core strengthening in sitting with decreased lumbar support. The patient will continue to benefit from ongoing skilled physical therapy to progress toward set goals. PLAN FOR NEXT VISIT: Continue with core strenghtening in sitting. Asses how knees are feeling and trial standing LE strengthening. SUBJECTIVE: Pt states that she got her knee injections and is doing better, but still not 100%. Pt states that her back is feeling better. 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 Pt states that it has been challenging to complete some of her bed exercises due to her knees, but states it will get better the further she is out from her injections. Pain: Pain Pain Level: 4 Pain Location: Low Back/Lumbar Spine - Right, Hip - Right Description: ("more discomfort") Post Treatment Pain Post Treatment Pain Level: Better OBJECTIVE MEASURES WITH LEVEL OF FUNCTION: Good sitting posture observed this session TREATMENT: Therapeutic Exercise: 1: SciFit seated stepper x 5 minutes, seat # 13 (1:1 throughout. Pt provided update on condition.) 2: *Seated TA activation 2x10 with 2 second holds 3: *Seated TA activation with alt LE marching 3x5 B 4: *LAQ 2X10 B 5: Hip adduction squeeze 2x10 with ball 6: Hip abduction with GTB 2x10 7: *Seated HEP given until pt's knees feel better than she will resume previous exercises Skilled Intervention: Patient was educated in proper exercise technique and purpose for exercises. Reviewed and educated patient on additions/changes for home exercise program as above (*). Skilled judgment was used in selection of appropriate interventions. Provided written instruction for home exercise program to facilitate proper performance and compliance. Correct performance of therapeutic exercises was facilitated with verbal and visual cuing. Billing Therapeutic Exercise Treatment Minutes: 45 Skilled Treatment Time Minutes (timed and untimed codes): 45 Total Session Time (minutes): 45 Session Start Time : 753 Session Stop Time : 838 ANDREAS Henley PT documented in this encounter [facility] 10-09-2024 Note HNO ID: [id number] Author: CHRISTIAN STANFORD PT Service: ? Author Type: Physical Therapist Type: Progress Notes Filed: 10/09/2024 09:36 Note Text: Episode Visit Count: 6 Therapist That Will Accept/Oversee The Plan Of Care: Christian Stanford Start of Care Date: 08/28/24 Onset Date: 03/21/24 Plan of Care Certification Date: 08/28/24 Next Certification Due Date: 10/28/24 Patient Identified by Name and Date of : Yes REHABILITATION AND SPORTS THERAPY PHYSICAL THERAPY TREATMENT NOTE ASSESSMENT: Arianne Aleman tolerated the session with fatigue, decreased symptoms, and expected muscle soreness. She demonstrated improvements in core strengthening in sitting with decreased lumbar support. The patient will continue to benefit from ongoing skilled physical therapy to progress toward set goals. PLAN FOR NEXT VISIT: Continue with core strenghtening in sitting. Asses how knees are feeling and trial standing LE strengthening. SUBJECTIVE: Pt states that she got her knee injections and is doing better, but still not 100%. Pt states that her back is feeling better. 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 Pt states that it has been challenging to complete some of her bed exercises due to her knees, but states it will get better the further she is out from her injections. Pain: Pain Pain Level: 4 Pain Location: Low Back/Lumbar Spine - Right, Hip - Right Description: ("more discomfort") Post Treatment Pain Post Treatment Pain Level: Better OBJECTIVE MEASURES WITH LEVEL OF FUNCTION: Good sitting posture observed this session TREATMENT: Therapeutic Exercise: 1: SciFit seated stepper x 5 minutes, seat # 13 (1:1 throughout. Pt provided update on condition.) 2: *Seated TA activation 2x10 with 2 second holds 3: *Seated TA activation with alt LE marching 3x5 B 4: *LAQ 2X10 B 5: Hip adduction squeeze 2x10 with ball 6: Hip abduction with GTB 2x10 7: *Seated HEP given until pt's knees feel better than she will resume previous exercises Skilled Intervention: Patient was educated in proper exercise technique and purpose for exercises. Reviewed and educated patient on additions/changes for home exercise program as above (*). Skilled judgment was used in selection of appropriate interventions. Provided written instruction for home exercise program to facilitate proper performance and compliance. Correct performance of therapeutic exercises was facilitated with verbal and visual cuing. Billing Therapeutic Exercise Treatment Minutes: 45 Skilled Treatment Time Minutes (timed and untimed codes): 45 Total Session Time (minutes): 45 Session Start Time : 753 Session Stop Time : 08 Sanaz Castanon, ANDREAS Stanford, PT [facility] 10-02-2024 Instructions Kaitlin Victor APRN.CNP - 10/02/2024 5:07 PM EDT 1) Schedule stress test at your convenience 2) See Dr. Hicks in Feb. documented in this encounter [facility] 10-02-2024 Note HNO ID: [id number] Author: KAITLIN VICTOR APRN.MULTIPLE KNIFE EDGE TRIMMER OPERATOR Service: ? Author Type: Nurse Practitioner Type: Progress Notes Filed: 10/02/2024 17:07 Note Text: This is a 84 year old female who presents today with: Patient presents with: Foot Pain (Midfoot): Concerns about right foot giving out. HISTORY OF PRESENT ILLNESS: Arianne Aleman is a 84 year old female. Patient presents with: Foot Pain (Midfoot): Concerns about right foot giving out. Having peridontals surgery X 4- done just with numbing injections. Orthopedics did octavio. Knee injections. Having stress test. Wondering if she should try to do an exercise stress test. 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 Physical therapy is helping her back and right hip so much. Stress level much improved. Sleeping great. Cleaned and reorganized entire house. Working through grief very well. 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, most often secondary to a remote infection with rubella History of skin cancer SCC R arm; basal cell face, scalp Hives OSTEOPENIA Personal history of colonic polyps lymphoid aggregate removed Piezogenic pedal papule fatty papules around heel: no clinical significance Seasonal allergies Skin cancer melanoma,basal and squamous cell Symptomatic menopausal or female climacteric states was on HRT then off, last DXA 1998 PAST SURGICAL HISTORY Procedure Laterality Date CATARACT SURGERY, COMPLEX and Hx Fuch's dystrophy COLONOSCOPY FLX DX W/COLLJ SPEC WHEN PFRMD 12/1999 Colonoscopy- DIVERTICULOSIS DILATION AND CURETTAGE DXAND/THER NONOBSTETRIC 1989 Dilation AND curettage DILATION AND CURETTAGE DXAND/THER NONOBSTETRIC Dilation AND curettage TAB Down's GI COLON STEPHANIE INTUSSUSCEPTION 1939 LIG/TRNSXJ FLP TUBE ABDL/VAG APPR UNI/BI 1981 PAST SURGICAL HISTORY OF 1958 'polyp' removal PAST SURGICAL HISTORY OF 06/04/11 basal cell carcinoma removed from face PAST SURGICAL HISTORY OF 02/16/11 squamous cell skin CA PAST SURGICAL HISTORY OF 09/2011 basal cell carcinoma removed behind left ear, left buttock, left forearm, PAST SURGICAL HISTORY OF Skin cancer biopsies TONSILLECTOMY AND ADENOIDECTOMY Tonsil/adenoidectomy ALLERGIES Lidocaine, Codeine, Diclofenac, Etodolac, and Medroxyprogesterone MEDICATIONS Current Outpatient Medications Medication Sig sertraline (ZOLOFT) 25 mg tablet Take 1 tablet by mouth once daily. Glucosamine HCl, Bulk, powd fexofenadine (MELBA) 180 mg tablet Take 180 mg by mouth once daily. calcium carbonate (TUMS 500 ORAL) Take by mouth as needed. COLLAGEN MISC acetaminophen (TYLENOL) 325 mg tablet Take 650 mg by mouth every 6 hours as needed. SIMETHICONE (GAS-X ORAL) Take 1 tablet by mouth as needed. CARBOXYMETHYLCELLULOSE SODIUM (REFRESH TEARS OPHTHALMIC) Use 1 Drop in eyes three times daily as needed. ketoconazole (NIZORAL) 2 % shampoo Apply 1 application to affected area once daily as needed. polyethylene glycol 3350 (MIRALAX) 17 gram/dose powder As needed for constipation NEOMYCIN 3.5 MG/G-POLYMYXIN B 10,000 UNIT/G-DEXAMETH 0.1 % EYE OINT Chlorhexidine Gluconate (PERIDEX) 0.12 % solution two times a day. ergocalciferol, vitamin D2, (VITAMIN D2 ORAL) Take by mouth. vit C/E/Zn/coppr/lutein/zeaxan (PRESERVISION AREDS-2 ORAL) Take by mouth. COMPOUNDED PRESCRIPTION Gum Rincinol as needed No current facility-administered medications for this visit. FAMILY HISTORY Problem Relation Age of Onset Hypertension Mother Heart Father Skin Cancer Father melanoma other (alcoholism) Father brother other (depression) Brother Heart Brother stent placement Heart Sister replaced heart valve Skin Cancer Sister melanoma Social History Tobacco Use Smoking status: Never Smokeless tobacco: Never Vaping Use Vaping status: Never Used Substance Use Topics Alcohol use: No Comment: has drank in the past Drug use: No EXAM: BP 138/76 Pulse 88 Wt 82.6 kg (182 lb) SpO2 97% BMI 31.24 kg/m? PHYSICAL EXAM: Physical Exam Vitals reviewed. Constitutional: Appearance: Normal appearance. HENT: Head: Normocephalic. Cardiovascular: Rate and Rhythm: Normal rate and regular rhythm. Pulses: Normal pulses. Heart sounds: Normal heart sounds. Pulmonary: Effort: Pulmonary effort is normal. Breath sounds: Normal breath sounds. Musculoskeletal: General: Normal range of motion. Comments: Just had both knees injected for OA Right forefoot with extensive OA also Skin: General: Skin is warm and dry. Neurological: Mental Status: She is alert and oriented to person, place, and time. Psychiatric: Mood and Affect: Mood normal. Behavior: Behavior normal. Comments: Smiling and good eye contact LABS: ASSESSMENT/PLAN: 1. Primary osteoarth (more content not included)... [facility] 10-02-2024 History of Present illness Narrative This is a 84 year old female who presents today with: Patient presents with: Foot Pain (Midfoot): Concerns about right foot giving out. HISTORY OF PRESENT ILLNESS: Arianne Aleman is a 84 year old female. Patient presents with: Foot Pain (Midfoot): Concerns about right foot giving out. Having peridontals surgery X 4- done just with numbing injections. Orthopedics did octavio. Knee injections. Having stress test. Wondering if she should try to do an exercise stress test. 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 Physical therapy is helping her back and right hip so much. Stress level much improved. Sleeping great. Cleaned and reorganized entire house. Working through grief very well. 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, most often secondary to a remote infection with rubella History of skin cancer SCC R arm; basal cell face, scalp Hives OSTEOPENIA Personal history of colonic polyps lymphoid aggregate removed Piezogenic pedal papule fatty papules around heel: no clinical significance Seasonal allergies Skin cancer melanoma,basal and squamous cell Symptomatic menopausal or female climacteric states was on HRT then off, last DXA 1998 PAST SURGICAL HISTORY Procedure Laterality Date CATARACT SURGERY, COMPLEX and Hx Fuch's dystrophy COLONOSCOPY FLX DX W/COLLJ SPEC WHEN PFRMD 12/1999 Colonoscopy- DIVERTICULOSIS DILATION & CURETTAGE DX&/THER NONOBSTETRIC 1989 Dilation & curettage DILATION & CURETTAGE DX&/THER NONOBSTETRIC Dilation & curettage TAB Down's GI COLON STEPHANIE INTUSSUSCEPTION 1939 LIG/TRNSXJ FLP TUBE ABDL/VAG APPR UNI/BI 1981 PAST SURGICAL HISTORY OF 1958 'polyp' removal PAST SURGICAL HISTORY OF 3/16/12 basal cell carcinoma removed from face PAST SURGICAL HISTORY OF 02/16/11 squamous cell skin CA PAST SURGICAL HISTORY OF 09/2011 basal cell carcinoma removed behind left ear, left buttock, left forearm, PAST SURGICAL HISTORY OF Skin cancer biopsies TONSILLECTOMY & ADENOIDECTOMY <AGE 10 1960 Tonsil/adenoidectomy ALLERGIES Lidocaine, Codeine, Diclofenac, Etodolac, and Medroxyprogesterone MEDICATIONS Current Outpatient Medications Medication Sig sertraline (ZOLOFT) 25 mg tablet Take 1 tablet by mouth once daily. Glucosamine HCl, Bulk, powd fexofenadine (MELBA) 180 mg tablet Take 180 mg by mouth once daily. calcium carbonate (TUMS 500 ORAL) Take by mouth as needed. COLLAGEN MISC acetaminophen (TYLENOL) 325 mg tablet Take 650 mg by mouth every 6 hours as needed. SIMETHICONE (GAS-X ORAL) Take 1 tablet by mouth as needed. CARBOXYMETHYLCELLULOSE SODIUM (REFRESH TEARS OPHTHALMIC) Use 1 Drop in eyes three times daily as needed. ketoconazole (NIZORAL) 2 % shampoo Apply 1 application to affected area once daily as needed. polyethylene glycol 3350 (MIRALAX) 17 gram/dose powder As needed for constipation NEOMYCIN 3.5 MG/G-POLYMYXIN B 10,000 UNIT/G-DEXAMETH 0.1 % EYE OINT Chlorhexidine Gluconate (PERIDEX) 0.12 % solution two times a day. ergocalciferol, vitamin D2, (VITAMIN D2 ORAL) Take by mouth. vit C/E/Zn/coppr/lutein/zeaxan (PRESERVISION AREDS-2 ORAL) Take by mouth. COMPOUNDED PRESCRIPTION Gum Rincinol as needed No current facility-administered medications for this visit. FAMILY HISTORY Problem Relation Age of Onset Hypertension Mother Heart Father Skin Cancer Father melanoma other (alcoholism) Father brother other (depression) Brother Heart Brother stent placement Heart Sister replaced heart valve Skin Cancer Sister melanoma Social History Tobacco Use Smoking status: Never Smokeless tobacco: Never Vaping Use Vaping status: Never Used Substance Use Topics Alcohol use: No Comment: has drank in the past Drug use: No EXAM: BP 138/76 Pulse 88 Wt 82.6 kg (182 lb) SpO2 97% BMI 31.24 kg/m PHYSICAL EXAM: Physical Exam Vitals reviewed. Constitutional: Appearance: Normal appearance. HENT: Head: Normocephalic. Cardiovascular: Rate and Rhythm: Normal rate and regular rhythm. Pulses: Normal pulses. Heart sounds: Normal heart sounds. Pulmonary: Effort: Pulmonary effort is normal. Breath sounds: Normal breath sounds. Musculoskeletal: General: Normal range of motion. Comments: Just had both knees injected for OA Right forefoot with extensive OA also Skin: General: Skin is warm and dry. Neurological: Mental Status: She is alert and oriented to person, place, and time. Psychiatric: Mood and Affect: Mood normal. Behavior: Behavior normal. Comments: Smiling and good eye contact LABS: ASSESSMENT/PLAN: 1. Primary osteoarthritis of both knees - ICD9: 715.16, ICD10: M17.0 (primary diagnosis) Injected yesterday, feeling better 2. Left bundle branch block - ICD9: 426.3, ICD10: I44.7 Will await stress test 3. Grief - ICD9: 309.0, ICD10: F43.21 Getting through grief with help of friends and family Discussed treatment plan and patient voices understanding. Patient's questions answered appropriately. Medications and potential side effects were discussed and patient voices understanding. Return to the office as scheduled or as needed for worsening/no improvement. Kaitlin Victor APRN.MULTIPLE KNIFE EDGE TRIMMER OPERATOR documented in this encounter [facility] 10-01-2024 Note HNO ID: [id number] Author: MARLYS JERNIGAN PA-C Service: ? Author Type: Physician Sheet Rock Nailer Type: Progress Notes Filed: 10/01/2024 08:02 Note Text: Large Joint Arthro/Inj: bilateral knee joints 10/01/2024 8:01 AM The procedure site was prepped in the usual sterile fashion. Site: bilateral knee joints Medications (Right): 3 mL hyaluronate sodium, stabilized 60 mg/3 mL Medications (Left): 3 mL hyaluronate sodium, stabilized 60 mg/3 mL Outcome: Tolerated well, no immediate complications Post-injection instructions were reviewed with the patient and the patient voiced understanding of these instructions. Informed Consent Consent Obtained: Verbal [place] Protocol A moment to CARE was completed. SIGN IN Sign in communication not applicable due to emergent procedure. Personnel directly involved with the procedure wore the appropriate PPE. Special Equipment: N/A Patient/Surrogate Stated/Verified: Patient name, Date of , Relevant allergies and Intended procedure TIME OUT Relevant labs, photos, and/or imaging studies have been reviewed. Consent documented and matches the intended procedure. Correct side/site marked and visible. Medications required for procedure verified. No fire risk assessment and interventions applicable. No implant(s) inserted. SIGN OUT No specimen collected. All instruments, equipment, possible retained foreign bodies accounted for. No post-procedure POC communication to the patient's multidisciplinary team (including the bedside nurse for hospitalized patients) applicable. [facility] 10-01-2024 History of Present illness Narrative Associated Order(s): Large Joint Arthro/Inj: bilateral knee joints Post-Procedure Diagnose(s): Primary osteoarthritis of both knees Large Joint Arthro/Inj: bilateral knee joints 10/01/2024 8:01 AM The procedure site was prepped in the usual sterile fashion. Site: bilateral knee joints Medications (Right): 3 mL hyaluronate sodium, stabilized 60 mg/3 mL Medications (Left): 3 mL hyaluronate sodium, stabilized 60 mg/3 mL Outcome: Tolerated well, no immediate complications Post-injection instructions were reviewed with the patient and the patient voiced understanding of these instructions. Informed Consent Consent Obtained: Verbal [place] Protocol A moment to CARE was completed. SIGN IN Sign in communication not applicable due to emergent procedure. Personnel directly involved with the procedure wore the appropriate PPE. Special Equipment: N/A Patient/Surrogate Stated/Verified: Patient name, Date of , Relevant allergies and Intended procedure TIME OUT Relevant labs, photos, and/or imaging studies have been reviewed. Consent documented and matches the intended procedure. Correct side/site marked and visible. Medications required for procedure verified. No fire risk assessment and interventions applicable. No implant(s) inserted. SIGN OUT No specimen collected. All instruments, equipment, possible retained foreign bodies accounted for. No post-procedure POC communication to the patient's multidisciplinary team (including the bedside nurse for hospitalized patients) applicable. Patient presents with: Left Knee - Established Patient, Injections Right Knee - Established Patient, Injections: Durolane injections bilateral knees AMB ROOMING INTAKE FLOWSHEET DATA Pain Pain Level: 6 Pain Location: (Bilateral knees) Description: Dull Duration Amount of Time: (Ongoing) Frequency: Continuous Intervention/Comfort measure: Medication Taking Tylenol 1 tablet a day for the pain. Here for Durolane injections bilateral knees. LOT # [id number] EXP 12/18/2026 Kajal Gonzalez MA documented in this encounter [facility] 10-01-2024 Note HNO ID: [id number] Author: KAJAL GONZALEZ MA Service: ? Author Type: Taproom Attendant Type: Progress Notes Filed: 10/01/2024 08:02 Note Text: Patient presents with: Left Knee - Established Patient, Injections Right Knee - Established Patient, Injections: Durolane injections bilateral knees AMB ROOMING INTAKE FLOWSHEET DATA Pain Pain Level: 6 Pain Location: (Bilateral knees) Description: Dull Duration Amount of Time: (Ongoing) Frequency: Continuous Intervention/Comfort measure: Medication Taking Tylenol 1 tablet a day for the pain. Here for Durolane injections bilateral knees. LOT # [id number] EXP 12/18/2026 Kajal Gonzalez MA [facility] 09-26-2024 Note HNO ID: [id number] Author: CHRISTIAN STANFORD PT Service: ? Author Type: Physical Therapist Type: Progress Notes Filed: 09/26/2024 15:28 Note Text: Episode Visit Count: 5 Therapist That Will Accept/Oversee The Plan Of Care: Christian Stanford Start of Care Date: 08/28/24 Onset Date: 03/21/24 Plan of Care Certification Date: 08/28/24 Next Certification Due Date: 10/28/24 REHABILITATION AND SPORTS THERAPY PHYSICAL THERAPY PROGRESS REPORT PLAN OF CARE UPDATE: Assessment: Arianne Aleman demonstrates moderate improvement in rising from a chair, standing, walking, and physical activities. The patient has progressed toward goals. Patient continues to present with impairments in ADL's, overall function, strength, and symptom management that interfere with rising from a chair, standing, walking . Current prognosis is Good due to: current objective clinical presentation, good overall health status, good support system/ coping skills . The patient will benefit from continued skilled therapy services to meet the updated goals for this plan of care as noted below. Goals updated on 09/26/2024. Goals for Episode of Care: established 08/28/24 Independent in home exercises. Met Patient will decrease pain rating by 2 points to meet minimal clinical important difference for numeric pain rating scale. Partially met Restore pain-free lumbar ROM to WNL to allow for improved tolerance for standing and walking. Improved Stand / Walk for ADLs and self care without pain/symptoms. Improved Maintain proper sitting posture throughout session. Improved Patient will increase strength of trunk and BLE to 4 to 4+/5 to allow for improve gait mechanics/gait pattern and improve ability to complete ADLs. Improved Time Frame for Goals and Treatment : 10/28/24 Planned Interventions, Frequency, and Duration: 1x/week, 4 weeks Total Number of Visits Planned: 4 Patient to be seen for Therapeutic exercise (51119), Neuromuscular re-education (48794), Manual therapy (68103), Therapeutic activities (43628), Self-group home management (62531), Patient/Family/Caregiver Education, Body Mechanics Training PLAN FOR NEXT VISIT: Continue strength progression SUBJECTIVE: Patient is doing better, functioning better, and sleeping better. She notes she still feels like she has room for improvement and a ways to go, but overall better. Functional Limitations: rising from a chair, standing, walking Pain: Pain Pain Level: 4 Pain Location: Low Back/Lumbar Spine - Right, Hip - Right Description: Sore Frequency: Intermittent PROMIS Scales 09/04/2024 Higher is Better Phys Func - T Score 44 (mild dysfunction) Phys Func - Percentile 27 Self-Eff Symptom - T Score 52 (Average) Self-Eff Symptom - Percentile 58 Proxy-reported T-scores: mean of general population = 50. 5 points is clinically meaningfully difference Percentiles provide an indication of how the patient's score ranks in relation to the general population. Higher percentile rankings indicate better function/quality of life. 50th percentile is the average of the general population and indicates half of respondents had a worse score. OBJECTIVE MEASURES WITH LEVEL OF FUNCTION: Lumbar Spine AROM Lumbar Flexion: Normal Lumbar Extension: Normal Lumbar R Side-Bend: Minimal limitation Lumbar L Side-Bend: Normal Lumbar R Rotation: Normal Lumbar L Rotation: Normal LE Strength Trunk Strength: 3+/5 R LE Strength: 4/5 L LE Strength: 4/5 TREATMENT: Therapeutic Exercise: 1: Objective measures obtained 2: SciFit x5 min (discussed progress towards therapy goals, 1:1 entire time) 3: Reviewed HEP 4: *TA bracing plus marching 3x10/side Skilled Intervention: Patient was educated in proper exercise technique and purpose for exercises. Skilled judgment was used in selection of appropriate interventions. Provided written instruction for home exercise program to facilitate proper performance and compliance. Correct performance of therapeutic exercises was facilitated with verbal, visual, and tactile cuing. Billing Therapeutic Exercise Treatment Minutes: 27 Skilled Treatment Time Minutes (timed and untimed codes): 27 Total Session Time (minutes): 27 Session Start Time : 919 Session Stop Time : 946 Christian Stanford PT [facility] 09-26-2024 History of Present illness Narrative Images from the original note were not included. Episode Visit Count: 5 Therapist That Will Accept/Oversee The Plan Of Care: Christian Stanford Start of Care Date: 08/28/24 Onset Date: 03/21/24 Plan of Care Certification Date: 08/28/24 Next Certification Due Date: 10/28/24 REHABILITATION AND SPORTS THERAPY PHYSICAL THERAPY PROGRESS REPORT PLAN OF CARE UPDATE: Assessment: Arianne Aleman demonstrates moderate improvement in rising from a chair, standing, walking, and physical activities. The patient has progressed toward goals. Patient continues to present with impairments in ADL's, overall function, strength, and symptom management that interfere with rising from a chair, standing, walking . Current prognosis is Good due to: current objective clinical presentation, good overall health status, good support system/ coping skills . The patient will benefit from continued skilled therapy services to meet the updated goals for this plan of care as noted below. Goals updated on 09/26/2024. Goals for Episode of Care: established 08/28/24 Independent in home exercises. Met Patient will decrease pain rating by 2 points to meet minimal clinical important difference for numeric pain rating scale. Partially met Restore pain-free lumbar ROM to WNL to allow for improved tolerance for standing and walking. Improved Stand / Walk for ADLs and self care without pain/symptoms. Improved Maintain proper sitting posture throughout session. Improved Patient will increase strength of trunk and BLE to 4 to 4+/5 to allow for improve gait mechanics/gait pattern and improve ability to complete ADLs. Improved Time Frame for Goals and Treatment : 10/28/24 Planned Interventions, Frequency, and Duration: 1x/week, 4 weeks Total Number of Visits Planned: 4 Patient to be seen for Therapeutic exercise (24171), Neuromuscular re-education (45417), Manual therapy (00667), Therapeutic activities (03912), Self-group home management (11890), Patient/Family/Caregiver Education, Body Mechanics Training PLAN FOR NEXT VISIT: Continue strength progression SUBJECTIVE: Patient is doing better, functioning better, and sleeping better. She notes she still feels like she has room for improvement and a ways to go, but overall better. Functional Limitations: rising from a chair, standing, walking Pain: Pain Pain Level: 4 Pain Location: Low Back/Lumbar Spine - Right, Hip - Right Description: Sore Frequency: Intermittent PROMIS Scales 09/04/2024 Higher is Better Phys Func - T Score 44 (mild dysfunction) Phys Func - Percentile 27 Self-Eff Symptom - T Score 52 (Average) Self-Eff Symptom - Percentile 58 Proxy-reported T-scores: mean of general population = 50. 5 points is clinically meaningfully difference Percentiles provide an indication of how the patient's score ranks in relation to the general population. Higher percentile rankings indicate better function/quality of life. 50th percentile is the average of the general population and indicates half of respondents had a worse score. OBJECTIVE MEASURES WITH LEVEL OF FUNCTION: Lumbar Spine AROM Lumbar Flexion: Normal Lumbar Extension: Normal Lumbar R Side-Bend: Minimal limitation Lumbar L Side-Bend: Normal Lumbar R Rotation: Normal Lumbar L Rotation: Normal LE Strength Trunk Strength: 3+/5 R LE Strength: 4/5 L LE Strength: 4/5 TREATMENT: Therapeutic Exercise: 1: Objective measures obtained 2: SciFit x5 min (discussed progress towards therapy goals, 1:1 entire time) 3: Reviewed HEP 4: *TA bracing plus marching 3x10/side Skilled Intervention: Patient was educated in proper exercise technique and purpose for exercises. Skilled judgment was used in selection of appropriate interventions. Provided written instruction for home exercise program to facilitate proper performance and compliance. Correct performance of therapeutic exercises was facilitated with verbal, visual, and tactile cuing. Billing Therapeutic Exercise Treatment Minutes: 27 Skilled Treatment Time Minutes (timed and untimed codes): 27 Total Session Time (minutes): Session Start Time : 919 Session Stop Time : 946 Christian Stanford PT Program_ID:[id number] Access Code: [email or web address] URL: [email or web address] Date: 09-25-2024 Prepared By: Christian Stanford Program Notes Exercises - Supine Lower Trunk Rotation - 1 x daily - 7 x weekly - 3 sets - 10 reps - Standing Hip Abduction with Counter Support - 1 x daily - 7 x weekly - 3 sets - 10 reps - Standing Hip Abduction with Counter Support - 1 x daily - 7 x weekly - 3 sets - 10 reps - Standing Hip Extension with Counter Support - 1 x daily - 7 x weekly - 3 sets - 10 reps - Hooklying Single Knee to Chest - 1 x daily - 7 x weekly - 3 sets - 3 reps - Hooklying Single Knee to Chest - 1 x daily - 7 x weekly - 3 sets - 3 reps - Supine Straight Leg Raises - 1 x daily - 7 x weekly - 3 sets - 10 reps - Supine Straight Leg Raises - 1 x daily - 7 x weekly - 3 sets - 10 reps - Clamshell - 1 x daily - 7 x weekly - 3 sets - 10 reps - Clamshell - 1 x daily - 7 x weekly - 3 sets - 10 reps - Sidelying Hip Abduction - 1 x daily - 7 x weekly - 3 sets - 10 reps - Sidelying Hip Abduction - 1 x daily - 7 x weekly - 3 sets - 10 reps - Supine Transversus Abdominis Bracing - Hands on Ground - 2 x daily - 7 x weekly - 2 sets - 10 reps - Supine March - 1 x daily - 7 x weekly - 3 sets - 10 reps documented in this encounter [facility] 09-18-2024 History of Present illness Narrative Program_ID:[id number] Access Code: [email or web address] URL: [email or web address]/ Date: 09-18-2024 Prepared By: Christian Stanford Program Notes Exercises - Supine Lower Trunk Rotation - 1 x daily - 7 x weekly - 3 sets - 10 reps - Standing Hip Abduction with Counter Support - 1 x daily - 7 x weekly - 3 sets - 10 reps - Standing Hip Abduction with Counter Support - 1 x daily - 7 x weekly - 3 sets - 10 reps - Standing Hip Extension with Counter Support - 1 x daily - 7 x weekly - 3 sets - 10 reps - Hooklying Single Knee to Chest - 1 x daily - 7 x weekly - 3 sets - 3 reps - Hooklying Single Knee to Chest - 1 x daily - 7 x weekly - 3 sets - 3 reps - Supine Straight Leg Raises - 1 x daily - 7 x weekly - 3 sets - 10 reps - Supine Straight Leg Raises - 1 x daily - 7 x weekly - 3 sets - 10 reps - Clamshell - 1 x daily - 7 x weekly - 3 sets - 10 reps - Clamshell - 1 x daily - 7 x weekly - 3 sets - 10 reps - Sidelying Hip Abduction - 1 x daily - 7 x weekly - 3 sets - 10 reps - Sidelying Hip Abduction - 1 x daily - 7 x weekly - 3 sets - 10 reps - Supine Transversus Abdominis Bracing - Hands on Ground - 2 x daily - 7 x weekly - 2 sets - 10 reps Episode Visit Count: 4 Therapist That Will Accept/Oversee The Plan Of Care: Christian Stanford Start of Care Date: 08/28/24 Onset Date: 03/21/24 Plan of Care Certification Date: 08/28/24 Next Certification Due Date: 10/28/24 Patient Identified by Name and Date of : Yes REHABILITATION AND SPORTS THERAPY PHYSICAL THERAPY TREATMENT NOTE ASSESSMENT: Arianne Aleman tolerated the session with fatigue, decreased symptoms, and expected muscle soreness. She demonstrated improvements in low back pain. The patient will continue to benefit from ongoing skilled physical therapy to progress toward set goals. PLAN FOR NEXT VISIT: PN. Asses response to introduction of core stabilization strengthening. SUBJECTIVE: Pt states that she is going to have her knee injections October 01, then has to have a week of rest after that. Pt states that her back is feeling better. Pt states knee pain is nauseating. Pain: Pain Pain Level: 6 Pain Location: Low Back/Lumbar Spine - Right, Hip - Right OBJECTIVE MEASURES WITH LEVEL OF FUNCTION: Improved mobility with LTR to the L. TREATMENT: Therapeutic Exercise: 1: LTR 3x10 2: R SKC 3x30 sec 3: *Hooklying TA activation via shoulder extension 2x10 with 2 second holds (relieves pressure on the back) 4: SLR x10/side 5: Clamshells x10 B 6: SL hip abduction x10 B Skilled Intervention: Patient was educated in proper exercise technique and purpose for exercises. Reviewed and educated patient on additions/changes for home exercise program as above (*). Skilled judgment was used in selection of appropriate interventions. Provided written instruction for home exercise program to facilitate proper performance and compliance. Correct performance of therapeutic exercises was facilitated with verbal and visual cuing. Billing Therapeutic Exercise Treatment Minutes: 40 Skilled Treatment Time Minutes (timed and untimed codes): 40 Total Session Time (minutes): 40 Session Start Time : 1145 Session Stop Time : 1225 ANDREAS Henley PT documented in this encounter [facility] 09-18-2024 Note HNO ID: [id number] Author: CHRISTIAN STANFORD PT Service: ? Author Type: Physical Therapist Type: Progress Notes Filed: 09/18/2024 12:48 Note Text: Episode Visit Count: 4 Therapist That Will Accept/Oversee The Plan Of Care: Christian Stanford Start of Care Date: 08/28/24 Onset Date: 03/21/24 Plan of Care Certification Date: 08/28/24 Next Certification Due Date: 10/28/24 Patient Identified by Name and Date of : Yes REHABILITATION AND SPORTS THERAPY PHYSICAL THERAPY TREATMENT NOTE ASSESSMENT: Arianne Aleman tolerated the session with fatigue, decreased symptoms, and expected muscle soreness. She demonstrated improvements in low back pain. The patient will continue to benefit from ongoing skilled physical therapy to progress toward set goals. PLAN FOR NEXT VISIT: PN. Asses response to introduction of core stabilization strengthening. SUBJECTIVE: Pt states that she is going to have her knee injections October 01, then has to have a week of rest after that. Pt states that her back is feeling better. Pt states knee pain is nauseating. Pain: Pain Pain Level: 6 Pain Location: Low Back/Lumbar Spine - Right, Hip - Right OBJECTIVE MEASURES WITH LEVEL OF FUNCTION: Improved mobility with LTR to the L. TREATMENT: Therapeutic Exercise: 1: LTR 3x10 2: R SKC 3x30 sec 3: *Hooklying TA activation via shoulder extension 2x10 with 2 second holds (relieves pressure on the back) 4: SLR x10/side 5: Clamshells x10 B 6: SL hip abduction x10 B Skilled Intervention: Patient was educated in proper exercise technique and purpose for exercises. Reviewed and educated patient on additions/changes for home exercise program as above (*). Skilled judgment was used in selection of appropriate interventions. Provided written instruction for home exercise program to facilitate proper performance and compliance. Correct performance of therapeutic exercises was facilitated with verbal and visual cuing. Billing Therapeutic Exercise Treatment Minutes: 40 Skilled Treatment Time Minutes (timed and untimed codes): 40 Total Session Time (minutes): 40 Session Start Time : 1145 Session Stop Time : 1225 Sanaz Castanon [employer]BER Christian Stanford, PT [facility] 09-17-2024 Telephone encounter Note Patient has been authorized for Durolane injections into bilateral knees. Patient was contacted and has been scheduled. [facility] 09-17-2024 Miscellaneous Notes Patient has been authorized for Durolane injections into bilateral knees. Patient was contacted and has been scheduled. Message sent to pharmacy team to look into authorization. Patient called into office requesting status on injection authorization. Informed patient per referral in chart that was sent to her insurance we are still pending authorization. Patient requests this nurse check further. Informed patient referral in chart is sent directly to her insurance and is update once determination has been made and at this time there has not been a determination made at this time. Patient states she is in a lot of pain. Informed patient that unfortunately we are unable to schedule as injection has not been authorized. Patient verbalized understanding. Rochelle Augustine LPN Images from the original note were not included. === PHARMACY TEAM ==== === PHARMACY TEAM ==== [place] ORDER REVIEW Review Reason: Too Soon To Submit DOS/Next Tx Plan Date: Deferred Unitl: 08.31.24 GIVEN 04.02.24 Referral done in computer. 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 Please put a note in EPIC once approved and notify patient upon approval so they can schedule appointment. Thank you, Marlys Jernigan PA-C Patient calling and asking if the process can be started to get Durolane injections approved so that she can have them done in August. Last received them on 04/02/24. Tita Castellano RN documented in this encounter [facility] 09-12-2024 Note HNO ID: [id number] Author: CHRISTIAN STANFORD PT Service: ? Author Type: Physical Therapist Type: Progress Notes Filed: 09/12/2024 15:16 Note Text: Episode Visit Count: 3 Therapist That Will Accept/Oversee The Plan Of Care: Christian Stanford Start of Care Date: 08/28/24 Onset Date: 03/21/24 Plan of Care Certification Date: 08/28/24 Next Certification Due Date: 10/28/24 REHABILITATION AND SPORTS THERAPY PHYSICAL THERAPY TREATMENT NOTE ASSESSMENT: Arianne Aleman tolerated the session with fatigue and no issues. She demonstrated improvements in exercise tolerance. The patient will continue to benefit from ongoing skilled physical therapy to progress toward set goals. PLAN FOR NEXT VISIT: Continue exercise progression per tolerance SUBJECTIVE: patient had eye surgery but doing well. She feels her HEP is helping pain and reports sleeping better too Pain: OBJECTIVE MEASURES WITH LEVEL OF FUNCTION: TREATMENT: Therapeutic Exercise: 1: LTR 3x10 full ROM to the R, very limited to the L 2: R SKC 3x30 sec 3: *SLR 3x10/side 4: *SL hip abduction 3x5/side 5: *Clamshells 3x10/side Skilled Intervention: Patient was educated in proper exercise technique and purpose for exercises. Skilled judgment was used in selection of appropriate interventions. Provided written instruction for home exercise program to facilitate proper performance and compliance. Correct performance of therapeutic exercises was facilitated with verbal, visual, and tactile cuing. Billing Therapeutic Exercise Treatment Minutes: 42 Skilled Treatment Time Minutes (timed and untimed codes): 42 Total Session Time (minutes): 42 Session Start Time : 1430 Session Stop Time : 1512 Christian Stanford PT [facility] 09-12-2024 History of Present illness Narrative Episode Visit Count: 3 Therapist That Will Accept/Oversee The Plan Of Care: Christian Stanford Start of Care Date: 08/28/24 Onset Date: 03/21/24 Plan of Care Certification Date: 08/28/24 Next Certification Due Date: 10/28/24 REHABILITATION AND SPORTS THERAPY PHYSICAL THERAPY TREATMENT NOTE ASSESSMENT: Arianne Aleman tolerated the session with fatigue and no issues. She demonstrated improvements in exercise tolerance. The patient will continue to benefit from ongoing skilled physical therapy to progress toward set goals. PLAN FOR NEXT VISIT: Continue exercise progression per tolerance SUBJECTIVE: patient had eye surgery but doing well. She feels her HEP is helping pain and reports sleeping better too Pain: OBJECTIVE MEASURES WITH LEVEL OF FUNCTION: TREATMENT: Therapeutic Exercise: 1: LTR 3x10 full ROM to the R, very limited to the L 2: R SKC 3x30 sec 3: *SLR 3x10/side 4: *SL hip abduction 3x5/side 5: *Clamshells 3x10/side Skilled Intervention: Patient was educated in proper exercise technique and purpose for exercises. Skilled judgment was used in selection of appropriate interventions. Provided written instruction for home exercise program to facilitate proper performance and compliance. Correct performance of therapeutic exercises was facilitated with verbal, visual, and tactile cuing. Billing Therapeutic Exercise Treatment Minutes: 42 Skilled Treatment Time Minutes (timed and untimed codes): 42 Total Session Time (minutes): 42 Session Start Time : 1430 Session Stop Time : 1512 Christian Stanford PT Program_ID:[id number] Access Code: [email or web address] URL: [email or web address] Date: 09-12-2024 Prepared By: Christian Stanford Program Notes Exercises - Supine Lower Trunk Rotation - 1 x daily - 7 x weekly - 3 sets - 10 reps - Standing Hip Abduction with Counter Support - 1 x daily - 7 x weekly - 3 sets - 10 reps - Standing Hip Abduction with Counter Support - 1 x daily - 7 x weekly - 3 sets - 10 reps - Standing Hip Extension with Counter Support - 1 x daily - 7 x weekly - 3 sets - 10 reps - Hooklying Single Knee to Chest - 1 x daily - 7 x weekly - 3 sets - 3 reps - Hooklying Single Knee to Chest - 1 x daily - 7 x weekly - 3 sets - 3 reps - Supine Straight Leg Raises - 1 x daily - 7 x weekly - 3 sets - 10 reps - Supine Straight Leg Raises - 1 x daily - 7 x weekly - 3 sets - 10 reps - Clamshell - 1 x daily - 7 x weekly - 3 sets - 10 reps - Clamshell - 1 x daily - 7 x weekly - 3 sets - 10 reps - Sidelying Hip Abduction - 1 x daily - 7 x weekly - 3 sets - 10 reps - Sidelying Hip Abduction - 1 x daily - 7 x weekly - 3 sets - 10 reps documented in this encounter [facility] 09-12-2024 Telephone encounter Note Message sent to pharmacy team to look into authorization. [facility] 09-07-2024 Telephone encounter Note Patient called into office requesting status on injection authorization. Informed patient per referral in chart that was sent to her insurance we are still pending authorization. Patient requests this nurse check further. Informed patient referral in chart is sent directly to her insurance and is update once determination has been made and at this time there has not been a determination made at this time. Patient states she is in a lot of pain. Informed patient that unfortunately we are unable to schedule as injection has not been authorized. Patient verbalized understanding. Rochelle Augustine LPN [facility] Work Phone: 09-04-2024 Note HNO ID: [id number] Author: CHRISTIAN STANFORD PT Service: ? Author Type: Physical Therapist Type: Progress Notes Filed: 09/04/2024 11:13 Note Text: Episode Visit Count: 2 Therapist That Will Accept/Oversee The Plan Of Care: Christian Stanford Start of Care Date: 08/28/24 Onset Date: 03/21/24 Plan of Care Certification Date: 08/28/24 Next Certification Due Date: 10/28/24 Patient Identified by Name and Date of : Yes REHABILITATION AND SPORTS THERAPY PHYSICAL THERAPY TREATMENT NOTE ASSESSMENT: Arianne Aleman tolerated the session with fatigue and expected muscle soreness. She demonstrated improvements in understanding that a bigger motion isn't always better and to not push into pain. The patient will continue to benefit from ongoing skilled physical therapy to progress toward set goals. PLAN FOR NEXT VISIT: Continue with BLE strenghtening and Neutral spine strenghtening, Ta activation in HL or sitting. SUBJECTIVE: She states that she has done baout 50 % of her exercises. Pt reports that if she overdoes it, the back of her L knee flares up, may still have a bakers cyst. Pt reports that her R foot is full of arthritis, has pain in her foot. Pt states that she took a Tylenol and used voltaren this morning. Pt states that she is in need of knee injections. Having eye surgery next week. Pain: Pain Pain Level: 0 Pain Location: Low Back/Lumbar Spine - Right, Hip - Right Post Treatment Pain Post Treatment Pain Level: No Change OBJECTIVE MEASURES WITH LEVEL OF FUNCTION: Limited mobility of LLE compared to RLE this visit TREATMENT: Therapeutic Exercise: 1: LTR 2x10 to the R only, L knee is flared up . 2: R SKTC 3x30 seconds 3: Standing hip abduction x10/side (cueing for smaller range) 4: Standing hip extension x 10 B (cueing for proper technique, smaller range, and not using momentum to complete exercise) Skilled Intervention: Patient was educated in proper exercise technique and purpose for exercises. Skilled judgment was used in selection of appropriate interventions. Correct performance of therapeutic exercises was facilitated with verbal and visual cuing. Billing Therapeutic Exercise Treatment Minutes: 41 Skilled Treatment Time Minutes (timed and untimed codes): 41 Total Session Time (minutes): 41 Session Start Time : 929 Session Stop Time : 1010 Sanaz Castanon, ANDREAS Stanford, PT [facility] 09-04-2024 History of Present illness Narrative Episode Visit Count: 2 Therapist That Will Accept/Oversee The Plan Of Care: Christian Stanford Start of Care Date: 08/28/24 Onset Date: 03/21/24 Plan of Care Certification Date: 08/28/24 Next Certification Due Date: 10/28/24 Patient Identified by Name and Date of : Yes REHABILITATION AND SPORTS THERAPY PHYSICAL THERAPY TREATMENT NOTE ASSESSMENT: Arianne Aleman tolerated the session with fatigue and expected muscle soreness. She demonstrated improvements in understanding that a bigger motion isn't always better and to not push into pain. The patient will continue to benefit from ongoing skilled physical therapy to progress toward set goals. PLAN FOR NEXT VISIT: Continue with BLE strenghtening and Neutral spine strenghtening, Ta activation in HL or sitting. SUBJECTIVE: She states that she has done baout 50 % of her exercises. Pt reports that if she overdoes it, the back of her L knee flares up, may still have a bakers cyst. Pt reports that her R foot is full of arthritis, has pain in her foot. Pt states that she took a Tylenol and used voltaren this morning. Pt states that she is in need of knee injections. Having eye surgery next week. Pain: Pain Pain Level: 0 Pain Location: Low Back/Lumbar Spine - Right, Hip - Right Post Treatment Pain Post Treatment Pain Level: No Change OBJECTIVE MEASURES WITH LEVEL OF FUNCTION: Limited mobility of LLE compared to RLE this visit TREATMENT: Therapeutic Exercise: 1: LTR 2x10 to the R only, L knee is flared up . 2: R SKTC 3x30 seconds 3: Standing hip abduction x10/side (cueing for smaller range) 4: Standing hip extension x 10 B (cueing for proper technique, smaller range, and not using momentum to complete exercise) Skilled Intervention: Patient was educated in proper exercise technique and purpose for exercises. Skilled judgment was used in selection of appropriate interventions. Correct performance of therapeutic exercises was facilitated with verbal and visual cuing. Billing Therapeutic Exercise Treatment Minutes: 41 Skilled Treatment Time Minutes (timed and untimed codes): 41 Total Session Time (minutes): 41 Session Start Time : 929 Session Stop Time : 1010 ANDREAS Henley PT documented in this encounter [facility] 08-28-2024 Note HNO ID: [id number] Author: CHRISTIAN STANFORD PT Service: ? Author Type: Physical Therapist Type: Progress Notes Filed: 08/28/2024 14:45 Note Text: Episode Visit Count: 1 Therapist That Will Accept/Oversee The Plan Of Care: Christian Stanford Start of Care Date: 08/28/24 Onset Date: 03/21/24 Plan of Care Certification Date: 08/28/24 Next Certification Due Date: 10/28/24 Patient Identified by Name and Date of : Yes REHABILITATION AND SPORTS THERAPY PHYSICAL THERAPY EVALUATION PLAN OF CARE: Assessment: Arianne Aleman presents with chief complaint of R sided LBP that interferes with rising from a chair, standing, walking . The patient presents with impairments in ADL's, overall function, range of motion, strength, symptom management, and tissue tenderness. Patient did not complete the PROMIS? (Patient Reported Outcome Measures Information System). Prognosis for therapy is Good due to: current objective clinical presentation, good overall health status, good support system/ coping skills . The patient will benefit from skilled therapy services to meet the goals established for this plan of care as noted below. Classification Pain Mechanism Classification: Nociceptive Low Back Pain Classification: Movement Control Goals for Episode of Care: established 08/28/24 Independent in home exercises. Patient will decrease pain rating by 2 points to meet minimal clinical important difference for numeric pain rating scale. Restore pain-free lumbar ROM to WNL to allow for improved tolerance for standing and walking Stand / Walk for ADLs and self care without pain/symptoms. Maintain proper sitting posture throughout session Patient will increase strength of trunk and BLE to 4 to 4+/5 to allow for improve gait mechanics/gait pattern and improve ability to complete ADLs. Time Frame for Goals and Treatment : 10/28/24 Planned Interventions, Frequency, and Duration: Current Frequency: 1x/week Duration: 8 weeks Total Number of Visits Planned: 8 Planned Treatment Interventions: Therapeutic exercise (17851), Neuromuscular re-education (05203), Manual therapy (60866), Therapeutic activities (96820), Self-group home management (28634), Patient/Family/Caregiver Education, Body Mechanics Training PLAN FOR NEXT VISIT: Assess carry over of HEP. BLE strengthening, neutral spien strengthening Patient demonstrates good understanding of plan of care and treatment. The above goals and plan of care were discussed and agreed upon by patient/family. SUBJECTIVE: B knee pain and LBP for years. Patient was dealing with a lot of health issues with her for years, and neglected a lot of her own stuff. He passed a few months ago and she is now working on herself quite a bit. 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 Pain is worse on the right side top of the hip lower back that hurts the most. Patient has difficulty with standing from sitting, and being upright standing, walking, get to her the most. Notes no radiation into the buttocks or legs. Patient takes arthirtis strength tylenol 1x/day and this usually keeps things at a tolerable level. She also notes difficulty with standing up straight, she is walking hunched over now. Back feels better in a recliner or lying in bed. Pain isn't bad in the morning, the back hurts worse the more she is up on her feet. Functional Limitations: rising from a chair, standing, walking Intake Information: Prescription present Pain: Pain Pain Level: 6 Pain Location: Low Back/Lumbar Spine - Right, Hip - Right Description: Aching, Sore Frequency: Intermittent Post Treatment Pain Post Treatment Pain Level: No Change OBJECTIVE MEASURES WITH LEVEL OF FUNCTION: Spine Observations R Lumbar Spine Palpation Tenderness: Gluteals, Paraspinals (glute med) Lumbar Spine AROM Lumbar Flexion: Normal Lumbar Extension: Moderate limitation Lumbar R Side-Bend: Moderate limitation Lumbar L Side-Bend: Moderate limitation Lumbar R Rotation: Minimal limitation Lumbar L Rotation: Minimal limitation LE Strength Trunk Strength: 3/5 R LE Strength: 4-/5 grossly L LE Strength: 4-/5 grossly Special Tests - Hip and Spine Hip and Spine Special Tests: SLR Test, Extension with Rotation Test SLR Test: Right Negative Extension with Rotation Test: Right Negative Education: Education Learning/educational needs: Home exercise program, Plan of Care, Changes in Plan of Care, Posture, Body Mechanics TREATMENT: PT Treatment Interventions: Therapeutic Exercise Evaluation Therapeutic Exercise: 1: *LTR 3x10/side 2: *SKC 3x30 sec/side 3: *Standing hip abduction 3x10/side 4: *Standing hip extension 3x10/side Skilled Intervention: Patient was educated in proper exercise technique and purpose for exercises. Skilled judgment was used in selection of appropriate interventions. Provided writt (more content not included)... [facility] 08-28-2024 History of Present illness Narrative Episode Visit Count: 1 Therapist That Will Accept/Oversee The Plan Of Care: Christian Stanford Start of Care Date: 08/28/24 Onset Date: 03/21/24 Plan of Care Certification Date: 08/28/24 Next Certification Due Date: 10/28/24 Patient Identified by Name and Date of : Yes REHABILITATION AND SPORTS THERAPY PHYSICAL THERAPY EVALUATION PLAN OF CARE: Assessment: Arianne Aleman presents with chief complaint of R sided LBP that interferes with rising from a chair, standing, walking . The patient presents with impairments in ADL's, overall function, range of motion, strength, symptom management, and tissue tenderness. Patient did not complete the PROMIS (Patient Reported Outcome Measures Information System). Prognosis for therapy is Good due to: current objective clinical presentation, good overall health status, good support system/ coping skills . The patient will benefit from skilled therapy services to meet the goals established for this plan of care as noted below. Classification Pain Mechanism Classification: Nociceptive Low Back Pain Classification: Movement Control Goals for Episode of Care: established 08/28/24 Independent in home exercises. Patient will decrease pain rating by 2 points to meet minimal clinical important difference for numeric pain rating scale. Restore pain-free lumbar ROM to WNL to allow for improved tolerance for standing and walking Stand / Walk for ADLs and self care without pain/symptoms. Maintain proper sitting posture throughout session Patient will increase strength of trunk and BLE to 4 to 4+/5 to allow for improve gait mechanics/gait pattern and improve ability to complete ADLs. Time Frame for Goals and Treatment : 10/28/24 Planned Interventions, Frequency, and Duration: Current Frequency: 1x/week Duration: 8 weeks Total Number of Visits Planned: 8 Planned Treatment Interventions: Therapeutic exercise (24150), Neuromuscular re-education (95804), Manual therapy (64852), Therapeutic activities (68345), Self-group home management (18081), Patient/Family/Caregiver Education, Body Mechanics Training PLAN FOR NEXT VISIT: Assess carry over of HEP. BLE strengthening, neutral spien strengthening Patient demonstrates good understanding of plan of care and treatment. The above goals and plan of care were discussed and agreed upon by patient/family. SUBJECTIVE: B knee pain and LBP for years. Patient was dealing with a lot of health issues with her for years, and neglected a lot of her own stuff. He passed a few months ago and she is now working on herself quite a bit. 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 Pain is worse on the right side top of the hip lower back that hurts the most. Patient has difficulty with standing from sitting, and being upright standing, walking, get to her the most. Notes no radiation into the buttocks or legs. Patient takes arthirtis strength tylenol 1x/day and this usually keeps things at a tolerable level. She also notes difficulty with standing up straight, she is walking hunched over now. Back feels better in a recliner or lying in bed. Pain isn't bad in the morning, the back hurts worse the more she is up on her feet. Functional Limitations: rising from a chair, standing, walking Intake Information: Prescription present Pain: Pain Pain Level: 6 Pain Location: Low Back/Lumbar Spine - Right, Hip - Right Description: Aching, Sore Frequency: Intermittent Post Treatment Pain Post Treatment Pain Level: No Change OBJECTIVE MEASURES WITH LEVEL OF FUNCTION: Spine Observations R Lumbar Spine Palpation Tenderness: Gluteals, Paraspinals (glute med) Lumbar Spine AROM Lumbar Flexion: Normal Lumbar Extension: Moderate limitation Lumbar R Side-Bend: Moderate limitation Lumbar L Side-Bend: Moderate limitation Lumbar R Rotation: Minimal limitation Lumbar L Rotation: Minimal limitation LE Strength Trunk Strength: 3/5 R LE Strength: 4-/5 grossly L LE Strength: 4-/5 grossly Special Tests - Hip and Spine Hip and Spine Special Tests: SLR Test, Extension with Rotation Test SLR Test: Right Negative Extension with Rotation Test: Right Negative Education: Education Learning/educational needs: Home exercise program, Plan of Care, Changes in Plan of Care, Posture, Body Mechanics TREATMENT: PT Treatment Interventions: Therapeutic Exercise Evaluation Therapeutic Exercise: 1: *LTR 3x10/side 2: *SKC 3x30 sec/side 3: *Standing hip abduction 3x10/side 4: *Standing hip extension 3x10/side Skilled Intervention: Patient was educated in proper exercise technique and purpose for exercises. Skilled judgment was used in selection of appropriate interventions. Provided written instruction for home exercise program to facilitate proper performance and compliance. Correct performance of therapeutic exercises was facilitated with verbal, visual, and tactile cuing. Billing * Evaluation Low Complexity: 1 Unit Therapeutic Exercise Treatment Minutes: 12 Skilled Treatment Time Minutes (timed and untimed codes): 38 Total Session Time (minutes): 38 Session Start Time : 1132 Session Stop Time : 1210 Christian Stanford PT Program_ID:[id number] Access Code: [email or web address] URL: [email or web address] Date: 08-28-2024 Prepared By: Christian Stanford Program Notes Exercises - Supine Lower Trunk Rotation - 1 x daily - 7 x weekly - 3 sets - 10 reps - Standing Hip Abduction with Counter Support - 1 x daily - 7 x weekly - 3 sets - 10 reps - Standing Hip Abduction with Counter Support - 1 x daily - 7 x weekly - 3 sets - 10 reps - Standing Hip Extension with Counter Support - 1 x daily - 7 x weekly - 3 sets - 10 reps - Hooklying Single Knee to Chest - 1 x daily - 7 x weekly - 3 sets - 3 reps - Hooklying Single Knee to Chest - 1 x daily - 7 x weekly - 3 sets - 3 reps documented in this encounter [facility] 08-24-2024 Telephone encounter Note Patient wanted provider to know that she is proceeding with eye surgery on 09/06/2024 Patient is also needing a refill if sertraline. The patient has been identified by name and date of : Yes Caregiver verified no other encounters exist for this prescription request: Yes Caregiver confirmed with patient/requestor that no other refills are due, in the near future, with this provider at this time: Yes The last office visit in the department: 08/09/2024 Does the patient have a future office visit with this provider/department: Yes 02/20/2025 Requested Prescriptions Pending Prescriptions Disp Refills sertraline (ZOLOFT) 25 mg tablet 30 tablet 5 Sig: Take 1 tablet by mouth once daily. Emy Santoyo RN August 24, 2024 1:38 PM [facility] 08-24-2024 Miscellaneous Notes Patient wanted provider to know that she is proceeding with eye surgery on 09/06/2024 Patient is also needing a refill if sertraline. The patient has been identified by name and date of : Yes Caregiver verified no other encounters exist for this prescription request: Yes Caregiver confirmed with patient/requestor that no other refills are due, in the near future, with this provider at this time: Yes The last office visit in the department: 08/09/2024 Does the patient have a future office visit with this provider/department: Yes 02/20/2025 Requested Prescriptions Pending Prescriptions Disp Refills sertraline (ZOLOFT) 25 mg tablet 30 tablet 5 Sig: Take 1 tablet by mouth once daily. Emy Santoyo RN August 24, 2024 1:38 PM documented in this encounter [facility] 08-09-2024 Note HNO ID: [id number] Author: AZNE OROZCO RT(R) Service: Radiology Author Type: Technologist Type: Progress Notes Filed: 08/09/2024 11:10 Note Text: Radiology Service Progress Note PATIENT NAME: Arianne Aleman DATE OF SERVICE: August 09, 2024 TIME: 11:03 AM PATIENT IDENTITY VERIFICATION COMPLETED USING TWO (2) IDENTIFIERS: Name and Date of confirmed by patient verbally. FALL SCREENING: Has the patient had 2 falls in the last year or 1 fall with injury or currently using an Ambulatory Assistive Device (Walker, Cane, Wheelchair, Crutches, etc.)? No PATIENT GENDER DATA: Assigned female at . status: : No status: NO. PATIENT RELEVANT IMPLANT DATA REVIEWED: Not Applicable PATIENT PRESENTS WITH AN IMPLANTABLE OR ATTACHED METAL ANNEALER: No RADIOLOGY DEPARTMENT: General X-ray: Exam(s) Completed: Chest X-Ray PERIPHERAL IV DATA: Not applicable SIGNED BY: RT Tin(R) August 09, 2024 11:03 AM [facility] 08-09-2024 Note HNO ID: [id number] Author: KAITLIN VICTOR APRN.MULTIPLE KNIFE EDGE TRIMMER OPERATOR Service: ? Author Type: Nurse Practitioner Type: Progress Notes Filed: 08/09/2024 11:04 Note Text: This is a 84 year old female who presents today with: Patient presents with: Back Pain HISTORY OF PRESENT ILLNESS: Arianne Aleman is a 84 year old female. Patient presents with: Back Pain Arianne is an 84-year-old female with a history of GERD, presenting for evaluation of bilateral rib tightness, knee and back pain, and requesting physical therapy. Bilateral Rib Tightness: - Intermittent tightness in bilateral lower ribs, x years. - Episodes occur at rest, including while sitting in a car or lying in bed. - Describes episodes as brief, resolving quickly. - Denies associated dyspnea, dizziness, diaphoresis, nausea, or pain in the arms, jaw, or between the shoulder blades. - PMHx of GERD and hyperventilation; takes Tums occasionally (3 times in the past year) with some relief. - Family history of crescendo angina in grandmother and brother; brother required a stent. - Has not seen a support team member; unable to perform treadmill test due to knee and back pain. Knee and Back Pain: - Chronic knee and back pain, exacerbated by walking beside her who used a walker. - Scheduled for knee injections in 2 weeks. - Recently purchased new shoes for better support. - Considering physical therapy to alleviate discomfort. GERD: - Diagnosed at [facility]. - Takes Tums occasionally (3 times in the past year) with some relief. Periodontal Treatments: - Scheduled for 4 periodontal treatments, 2-3 weeks apart. - No bleeding or infection reported; maintains good oral hygiene due to a history of a childhood accident affecting the mouth. Cataract Surgery: - Scheduled for left eye cataract surgery on September 06. Family and Social Support: - Recently ; on July 18. - Has been managing legal and financial matters since his passing. - Receives support from children and neighbors. - Daughter Kimberly provides financial support and assistance. - Son Lenard is helping at home and working through his grief. 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, most often secondary to a remote infection with rubella History of skin cancer SCC R arm; basal cell face, scalp Hives OSTEOPENIA Personal history of colonic polyps lymphoid aggregate removed Piezogenic pedal papule fatty papules around heel: no clinical significance Seasonal allergies Skin cancer melanoma,basal and squamous cell Symptomatic menopausal or female climacteric states was on HRT then off, last DXA 1998 PAST SURGICAL HISTORY Procedure Laterality Date CATARACT SURGERY, COMPLEX and Hx Fuch's dystrophy COLONOSCOPY FLX DX W/COLLJ SPEC WHEN PFRMD 12/1999 Colonoscopy- DIVERTICULOSIS DILATION AND CURETTAGE DXAND/THER NONOBSTETRIC 1989 Dilation AND curettage DILATION AND CURETTAGE DXAND/THER NONOBSTETRIC Dilation AND curettage TAB Down's GI COLON STEPHANIE INTUSSUSCEPTION 1939 LIG/TRNSXJ FLP TUBE ABDL/VAG APPR UNI/BI 1981 PAST SURGICAL HISTORY OF 1958 'polyp' removal PAST SURGICAL HISTORY OF 06/04/11 basal cell carcinoma removed from face PAST SURGICAL HISTORY OF 02/16/11 squamous cell skin CA PAST SURGICAL HISTORY OF 09/2011 basal cell carcinoma removed behind left ear, left buttock, left forearm, PAST SURGICAL HISTORY OF Skin cancer biopsies TONSILLECTOMY AND ADENOIDECTOMY Tonsil/adenoidectomy ALLERGIES Lidocaine, Codeine, Diclofenac, Etodolac, and Medroxyprogesterone MEDICATIONS Current Outpatient Medications Medication Sig sertraline (ZOLOFT) 25 mg tablet Take 1 tablet by mouth once daily. Glucosamine HCl, Bulk, powd NEOMYCIN 3.5 MG/G-POLYMYXIN B 10,000 UNIT/G-DEXAMETH 0.1 % EYE OINT fexofenadine (MELBA) 180 mg tablet Take 180 mg by mouth once daily. Chlorhexidine Gluconate (PERIDEX) 0.12 % solution two times a day. calcium carbonate (TUMS 500 ORAL) Take by mouth as needed. ergocalciferol, vitamin D2, (VITAMIN D2 ORAL) Take by mouth. COLLAGEN MISC vit C/E/Zn/coppr/lutein/zeaxan (PRESERVISION AREDS-2 ORAL) Take by mouth. acetaminophen (TYLENOL) 325 mg tablet Take 650 mg by mouth every 6 hours as needed. SIMETHICONE (GAS-X ORAL) Take 1 tablet by mouth as needed. CARBOXYMETHYLCELLULOSE SODIUM (REFRESH TEARS OPHTHALMIC) Use 1 Drop in eyes three times daily as needed. COMPOUNDED PRESCRIPTION Gum Rincinol as needed ketoconazole (NIZORAL) 2 % shampoo Apply 1 application to affected area once daily as needed. polyethylene glycol 3350 (MIRALAX) 17 gram/dose powder As needed for constipation No current facility-administered medications for this visit. FAMILY HISTORY Problem Relation Age of Onset Hyperten (more content not included)... [facility] 07-31-2024 Telephone encounter Note Images from the original note were not included. === PHARMACY TEAM ==== === PHARMACY TEAM ==== [facility] ORDER REVIEW Review Reason: Too Soon To Submit DOS/Next Tx Plan Date: Deferred Unitl: 08.31.24 GIVEN 04.02.24 [facility] 07-12-2024 Telephone encounter Note Referral done in computer. [facility] 07-12-2024 Telephone encounter Note Please accept this as a request for approval for Durolane (or equivalent insurance approved brand) injections for Osteoarthritis for patient's bilateral knees. Please put a note in EPIC once approved and notify patient upon approval so they can schedule appointment. Thank you, Marlys Jernigan PA-C [facility] Work Phone: 07-11-2024 Telephone encounter Note Patient calling and asking if the process can be started to get Durolane injections approved so that she can have them done in August. Last received them on 04/02/24. Tita Castellano RN [facility] 04-02-2024 Note HNO ID: [id number] Author: MARLYS JERNIGAN PA-C Service: ? Author Type: Physician Sheet Rock Nailer Type: Progress Notes Filed: 04/02/2024 08:48 Note Text: Large Joint Arthro/Inj: bilateral knee joints Informed Consent Consent Obtained: Verbal [place] Protocol A moment to CARE was completed. SIGN IN Sign in communication not applicable due to emergent procedure. Personnel directly involved with the procedure wore the appropriate PPE. Special Equipment: N/A Patient/Surrogate Stated/Verified: Patient name, Date of , Relevant allergies and Intended procedure TIME OUT Relevant labs, photos, and/or imaging studies have been reviewed. Intended patient and procedure match the source document(s). Consent documented and matches the intended procedure. Correct side/site marked and visible. Medications required for procedure verified. No fire risk assessment and interventions applicable. No implant(s) inserted.04/02/2024 8:48 AM The procedure site was prepped in the usual sterile fashion. Site: bilateral knee joints Medications (Right): 6 mL hyaluronate sodium, stabilized 60 mg/3 mL Medications (Left): 6 mL hyaluronate sodium, stabilized 60 mg/3 mL Outcome: Tolerated well, no immediate complications Post-injection instructions were reviewed with the patient and the patient voiced understanding of these instructions. SIGN OUT No specimen collected. All instruments, equipment, possible retained foreign bodies accounted for. Post-procedure follow-up management communicated and Plan of Care Visit completed when applicable [facility] 04-02-2024 History of Present illness Narrative Associated Order(s): Large Joint Arthro/Inj: bilateral knee joints Post-Procedure Diagnose(s): Primary osteoarthritis of both knees Large Joint Arthro/Inj: bilateral knee joints Informed Consent Consent Obtained: Verbal [place] Protocol A moment to CARE was completed. SIGN IN Sign in communication not applicable due to emergent procedure. Personnel directly involved with the procedure wore the appropriate PPE. Special Equipment: N/A Patient/Surrogate Stated/Verified: Patient name, Date of , Relevant allergies and Intended procedure TIME OUT Relevant labs, photos, and/or imaging studies have been reviewed. Intended patient and procedure match the source document(s). Consent documented and matches the intended procedure. Correct side/site marked and visible. Medications required for procedure verified. No fire risk assessment and interventions applicable. No implant(s) inserted.04/02/2024 8:48 AM The procedure site was prepped in the usual sterile fashion. Site: bilateral knee joints Medications (Right): 6 mL hyaluronate sodium, stabilized 60 mg/3 mL Medications (Left): 6 mL hyaluronate sodium, stabilized 60 mg/3 mL Outcome: Tolerated well, no immediate complications Post-injection instructions were reviewed with the patient and the patient voiced understanding of these instructions. SIGN OUT No specimen collected. All instruments, equipment, possible retained foreign bodies accounted for. Post-procedure follow-up management communicated and Plan of Care Visit completed when applicable Patient presents with: Left Knee - Injections, Established Patient Right Knee - Injections, Established Patient Durolane injections bilateral knees AMB ROOMING INTAKE FLOWSHEET DATA Pain Pain Level: 6 Pain Location: (Bilateral knees) Description: Aching (steady) Duration Amount of Time: (Ongoing) Frequency: Continuous Intervention/Comfort measure: Medication Taking Tylenol for the pain. Here for Durolane injections bilateral knees. LOT # [id number] EXP 06/18/2026 Kajal Gonzalez MA documented in this encounter [facility] 04-02-2024 Note HNO ID: [id number] Author: KAJAL GONZALEZ MA Service: ? Author Type: Taproom Attendant Type: Progress Notes Filed: 04/02/2024 08:48 Note Text: Patient presents with: Left Knee - Injections, Established Patient Right Knee - Injections, Established Patient Durolane injections bilateral knees AMB ROOMING INTAKE FLOWSHEET DATA Pain Pain Level: 6 Pain Location: (Bilateral knees) Description: Aching (steady) Duration Amount of Time: (Ongoing) Frequency: Continuous Intervention/Comfort measure: Medication Taking Tylenol for the pain. Here for Durolane injections bilateral knees. LOT # [id number] EXP 06/18/2026 Kajal Gonzalez MA [facility] 03-01-2024 Telephone encounter Note [facility] calling for clinical information in order to prior authorize the requested Durolane injections. Clinical questions answered. Rep indicated that the request is being forwarded for clinical review and turn around time is approx 72 hours for response. Case # [id number]. Lissett Zafar MA [facility] 03-01-2024 Miscellaneous Notes [facility] calling for clinical information in order to prior authorize the requested Durolane injections. Clinical questions answered. Rep indicated that the request is being forwarded for clinical review and turn around time is approx 72 hours for response. Case # [id number]. Lissett Zafar MA documented in this encounter [facility] 02-21-2024 Kaitlin Lares APRN.MULTIPLE KNIFE EDGE TRIMMER OPERATOR - 02/21/2024 2:32 PM EST 1) Follow up in 6 months Screening schedule The following prevention plan is recommended: Advance Directive Discussion due on 03/21/2023 WHAT YOU CAN DO TO PREVENT FALLS Many falls can be prevented. By making some changes, you can lower your chances of falling. Four things YOU can do to prevent falls for you* and your caregiver 1. Begin a regular exercise program Exercise is one of the most important ways to lower your chances of falling. It makes you stronger and helps you feel better. Exercises that improve balance and coordination (like Jayson Chi) are the most helpful. Lack of exercise leads to weakness and increases your chances of falling. Ask your doctor or health care provider about the best type of exercise program for you. 2. Have your health care provider review your medicines Have your doctor or pharmacist review all the medicines you take, even [id number] medicines. As you get older, the way medicines work in your body can change. Some medicines, or combinations of medicines, can make you sleepy or dizzy and can cause you to fall. 3. Have your vision checked Have your eyes checked by an eye doctor at least once a year. You may be wearing the wrong glasses or have a condition like glaucoma or cataracts that limits your vision. Poor vision can increase your chances of falling. 4. Make your home safer About half of all falls happen at home. To make your home safer: Remove things you can trip over (like papers, books, clothes, and shoes) from stairs and places where you walk. Remove small throw rugs or use double-sided tape to keep the rugs from slipping. Keep items you use often in cabinets you can reach easily without using a step stool. Have grab bars put in next to your toilet and in the tub or shower. Use non-slip mats in the bathtub and on shower floors. Improve the lighting in your home. As you get older, you need brighter lights to see well. Hang light-weight curtains or shades to reduce glare. Have handrails and lights put in on all staircases. Wear shoes both inside and outside the house. Avoid going barefoot or wearing slippers. For more information, contact: Centers for Disease Control and Prevention www.cdc.gov/injury * This information may not apply if you have certain medical conditions. documented in this encounter [facility] 02-21-2024 Note HNO ID: [id number] Author: KAITLIN VICTOR APRN.CNP Service: ? Author Type: Clinical Nurse Specialist Type: Progress Notes Filed: 02/21/2024 14:36 Note Text: Chief Reason For Appointment No chief complaint on file. Arianne Aleman is a 84 year old female who presents for annual exam. 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 (D priority) Comment: SCC Left forearm 2010, BCC left nasolabial fold 2011, BCC left scalp 2011 Hypertrophic//Keloid scar: L upper lip - 04/28/2011 (D priority) Basal Cell Carcinoma (Bcc) of Skin of Right Upper Eyelid Including [place] - 02/02/2022 Fuchs' Heterochromic Iridocyclitis, 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 Ckd (Chronic Kidney Disease) Stage 3, Gfr 30-59 Ml/Min ([facility]) - 12/06/2017 Recurrent Depression ([facility]) - 04/26/2017 Jose Elias (Generalized Anxiety Disorder) - 04/26/2017 Hives Arthritis of Knee, Degenerative - 03/18/2014 Bilateral Shoulder Pain - 05/19/2012 Symptomatic Menopausal Or Female Climacteric States - 11/04/2001 Generalized Osteoarthrosis, Unspecified Site - 11/04/2001 Personal History of Colonic Polyps - 11/04/2001 Osteopenia - 11/04/2001 ROS: REVIEW OF SYSTEMS Able to sleep again with 's relief from bladder pain GENERAL: No weight loss, + malaise for cause, no fevers/chills HEENT: Negative for frequent or significant headaches, No changes in hearing, Left eye cataract affecting vision. NECK: Negative for lumps, goiter, pain and significant neck swelling RESPIRATORY: Negative for cough, hemoptysis, wheezing, dyspnea or shortness of breath CARDIOVASCULAR: Negative for chest pain, some leg swelling, orthopnea, or palpitations GI: No nausea, vomiting, or diarrhea/constipation. No hematochezia/melena. Occ heartburn or reflux symptoms. : No history of dysuria, frequency or incontinence MUSCULOSKELETAL: Knees are terrible, right ankle joint pain or swelling. SKIN: Negative for lesions, rash, and itching ENDOCRINE: Negative for cold or heat intolerance, polyuria, polydipsia and goiter NEURO: No history of headaches, syncope, paralysis, seizures or tremors MOOD: Negative for depression, anxiety, or suicidal ideation. 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, most often secondary to a remote infection with rubella History of skin cancer SCC R arm; basal cell face, scalp Hives OSTEOPENIA Personal history of colonic polyps lymphoid aggregate removed Piezogenic pedal papule fatty papules around heel: no clinical significance Seasonal allergies Skin cancer melanoma,basal and squamous cell Symptomatic menopausal or female climacteric states was on HRT then off, last DXA 1998 PAST SURGICAL HISTORY Procedure Laterality Date CATARACT SURGERY, COMPLEX and Hx Fuch's dystrophy COLONOSCOPY FLX DX W/COLLJ SPEC WHEN PFRMD 12/1999 Colonoscopy- DIVERTICULOSIS DILATION AND CURETTAGE DXAND/THER NONOBSTETRIC 1989 Dilation AND curettage DILATION AND CURETTAGE DXAND/THER NONOBSTETRIC Dilation AND curettage TAB Down's GI COLON STEPHANIE INTUSSUSCEPTION 1939 LIG/TRNSXJ FLP TUBE ABDL/VAG APPR UNI/BI 1981 PAST SURGICAL HISTORY OF 1958 'polyp' removal PAST SURGICAL HISTORY OF 06/04/11 basal cell carcinoma removed from face PAST SURGICAL HISTORY OF 02/16/11 squamous cell skin CA PAST SURGICAL HISTORY OF 09/2011 basal cell carcinoma removed behind left ear, left buttock, left forearm, PAST SURGICAL HISTORY OF Skin cancer biopsies TONSILLECTOMY AND ADENOIDECTOMY Tonsil/adenoidectomy Medication List Current Outpatient Medications Medication Sig Dispense Refill sertraline (ZOLOFT) 25 mg tablet Take 1 tablet by mouth once daily. 30 tablet 5 Glucosamine HCl, Bulk, powd NEOMYCIN 3.5 MG/G-POLYMYXIN B 10,000 UNIT/G-DEXAMETH 0.1 % EYE OINT fexofenadine (MELBA) 180 mg tablet Take 180 mg by mouth once daily. Chlorhexidine Gluconate (PERIDEX) 0.12 % solution two times a day. calcium carbonate (TUMS 500 ORAL) Take by mouth as needed. ergocalciferol, vitamin D2, (VITAMIN D2 ORAL) Take by mouth. COLLAGEN MISC vit C/E/Zn/coppr/lutein/zeaxan (PRESERVISION AREDS-2 ORAL) Take by mouth. acetaminophen (TYLENOL) 325 mg tablet Take 650 mg by mouth every 6 hours as needed. SI (more content not included)... [facility] 02-21-2024 History of Present illness Narrative Images from the original note were not included. Chief Reason For Appointment No chief complaint on file. Arianne Aleman is a 84 year old female who presents for annual exam. 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 (D priority) Comment: SCC Left forearm 2010, BCC left nasolabial fold 2011, BCC left scalp 2011 Hypertrophic//Keloid scar: L upper lip - 04/28/2011 (D priority) Basal Cell Carcinoma (Bcc) of Skin of Right Upper Eyelid Including [place] - 02/02/2022 Fuchs' Heterochromic Iridocyclitis, 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 Ckd (Chronic Kidney Disease) Stage 3, Gfr 30-59 Ml/Min (Hcc) - 12/06/2017 Recurrent Depression (Hcc) - 04/26/2017 Jose Elias (Generalized Anxiety Disorder) - 04/26/2017 Hives Arthritis of Knee, Degenerative - 03/18/2014 Bilateral Shoulder Pain - 05/19/2012 Symptomatic Menopausal Or Female Climacteric States - 11/04/2001 Generalized Osteoarthrosis, Unspecified Site - 11/04/2001 Personal History of Colonic Polyps - 11/04/2001 Osteopenia - 11/04/2001 ROS: REVIEW OF SYSTEMS Able to sleep again with 's relief from bladder pain GENERAL: No weight loss, + malaise for cause, no fevers/chills HEENT: Negative for frequent or significant headaches, No changes in hearing, Left eye cataract affecting vision. NECK: Negative for lumps, goiter, pain and significant neck swelling RESPIRATORY: Negative for cough, hemoptysis, wheezing, dyspnea or shortness of breath CARDIOVASCULAR: Negative for chest pain, some leg swelling, orthopnea, or palpitations GI: No nausea, vomiting, or diarrhea/constipation. No hematochezia/melena. Occ heartburn or reflux symptoms. : No history of dysuria, frequency or incontinence MUSCULOSKELETAL: Knees are terrible, right ankle joint pain or swelling. SKIN: Negative for lesions, rash, and itching ENDOCRINE: Negative for cold or heat intolerance, polyuria, polydipsia and goiter NEURO: No history of headaches, syncope, paralysis, seizures or tremors MOOD: Negative for depression, anxiety, or suicidal ideation. 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, most often secondary to a remote infection with rubella History of skin cancer SCC R arm; basal cell face, scalp Hives OSTEOPENIA Personal history of colonic polyps lymphoid aggregate removed Piezogenic pedal papule fatty papules around heel: no clinical significance Seasonal allergies Skin cancer melanoma,basal and squamous cell Symptomatic menopausal or female climacteric states was on HRT then off, last DXA 1998 PAST SURGICAL HISTORY Procedure Laterality Date CATARACT SURGERY, COMPLEX and Hx Fuch's dystrophy COLONOSCOPY FLX DX W/COLLJ SPEC WHEN PFRMD 12/1999 Colonoscopy- DIVERTICULOSIS DILATION & CURETTAGE DX&/THER NONOBSTETRIC 1990 Dilation & curettage DILATION & CURETTAGE DX&/THER NONOBSTETRIC Dilation & curettage TAB Down's GI COLON STEPHANIE INTUSSUSCEPTION 1939 LIG/TRNSXJ FLP TUBE ABDL/VAG APPR UNI/BI 1981 PAST SURGICAL HISTORY OF 1958 'polyp' removal PAST SURGICAL HISTORY OF 06/04/11 basal cell carcinoma removed from face PAST SURGICAL HISTORY OF 02/16/11 squamous cell skin CA PAST SURGICAL HISTORY OF 09/2011 basal cell carcinoma removed behind left ear, left buttock, left forearm, PAST SURGICAL HISTORY OF Skin cancer biopsies TONSILLECTOMY & ADENOIDECTOMY <AGE 10 1959 Tonsil/adenoidectomy Medication List Current Outpatient Medications Medication Sig Dispense Refill sertraline (ZOLOFT) 25 mg tablet Take 1 tablet by mouth once daily. 30 tablet 5 Glucosamine HCl, Bulk, powd NEOMYCIN 3.5 MG/G-POLYMYXIN B 10,000 UNIT/G-DEXAMETH 0.1 % EYE OINT fexofenadine (MELBA) 180 mg tablet Take 180 mg by mouth once daily. Chlorhexidine Gluconate (PERIDEX) 0.12 % solution two times a day. calcium carbonate (TUMS 500 ORAL) Take by mouth as needed. ergocalciferol, vitamin D2, (VITAMIN D2 ORAL) Take by mouth. COLLAGEN MISC vit C/E/Zn/coppr/lutein/zeaxan (PRESERVISION AREDS-2 ORAL) Take by mouth. acetaminophen (TYLENOL) 325 mg tablet Take 650 mg by mouth every 6 hours as needed. SIMETHICONE (GAS-X ORAL) Take 1 tablet by mouth as needed. CARBOXYMETHYLCELLULOSE SODIUM (REFRESH TEARS OPHTHALMIC) Use 1 Drop in eyes three times daily as needed. COMPOUNDED PRESCRIPTION Gum Rincinol as needed ketoconazole (NIZORAL) 2 % shampoo Apply 1 application to affected area once daily as needed. polyethylene glycol 3350 (MIRALAX) 17 gram/dose powder As needed for constipation No current facility-administered medications for this visit. Weight Summary: Weight Change: Body mass index is 30.45 kg/m . Last Wt 02/21/24 : 80.5 kg (177 lb 6.4 oz) 01/10/24 : 82 kg (180 lb 12.4 oz) 11/08/23 : 81.3 kg (179 lb 3.7 oz) 10/18/23 : 82.6 kg (182 lb) 10/08/23 : 81.2 kg (179 lb) Physical Exam: General Appearance: well appearing, alert and oriented. Skin: no suspicious lesion, no rash, no open sores Head: normocephalic, no obvious masses, lesions, tenderness or abnormalities. Eyes: Anicteric sclera. Pupils are equally round and reactive to light. Extraocular movements are intact. Ears: external ears normal, canals clear, TM's opaque. Hearing to conversational voice intact. Nose/Sinuses: nares normal, septum midline, mucosa normal, no drainage or sinus tenderness. Oropharynx: lips, mucosa, and tongue normal, oropharynx normal. Neck: trachea midline, thyroid without mass or nodularity, thyroid moves normally with swallow, no regional lymphadenopathy. Carotids normal upstroke, no bruit or thrill. Back:no pain to palpation of vertebrae, no percussion tenderness over spine. Lungs: Chest rise & fall symmetrical, Lungs clear to auscultation. No wheezing or rhonchi. No rales. Abdomen: normal bowel sounds, no mass, non-tender Heart: S1S2, no gallop, no rub, no murmur Lymph Nodes: no lymphadenopathy. Ext: no clubbing, cyanosis or edema. Mood: bright affect, speech clear, answers questions appropriately SCREENINGS Health Maintenance Listing Advance Directive Discussion TEST RESULTS: Lab Studies: Date of lab studies: - glucose - potassium - Creatinine, gfr - LFTs Lipid: WBC, H&H, Platelets: A1C: Vitamin D: Other: A/P: ASSESSMENT/PLAN: 1. Wellness examination - ICD9: V70.0, ICD10: Z00.00 (primary diagnosis) - Counseled on healthy diet and regular exercise 2. Chest discomfort - ICD9: 786.59, ICD10: R07.89 Atypical chest pain, symptoms are not consistent with cardiac ischemia due to panic possible etiology include Anxiety Reviewed cardiac symptoms with pt. 3. Lower extremity edema - ICD9: 782.3, ICD10: R60.0 Ongoing, considering compression stockings Discussed treatment plan and patient voices understanding. Patient's questions answered appropriately. Medications and potential side effects were discussed and patient voices understanding. Return to the office as scheduled or as needed for worsening/no improvement. Kaitlin Victor, LICENSED PHYSICAL THERAPY ASSISTANT.[facility] Follow Up Plans: 12 m Arianne Aleman is a 84 year old female here for a Medicare wellness visit. Medicare Health Risk Assessment General Health Very good Exercise: Minutes/Day 30 min Exercise: Days/Week 7 days Alcohol: Daily Use Never Alcohol: Drinks/Day Patient does not drink Alcohol: 6 or more drinks Never Feel off balance Yes Concerns: Teeth/Dentures No (Being treated by dentist) Concerns: Sexual function No Troubled by feelings None of the above Frequency: Eating healthy diet Nearly every day ADLs requiring help None of the above Safety precautions in home/vehicle Yes Smoke, vape, chews tobacco No Difficulty hearing No Difficulty seeing Yes (Last exam this year, scheduled for cataract sx) Current Providers Specialists: I have reviewed specialist-related care of the patient in the medical record. Medical/Family history review Reviewed and updated problem list, medical/surgical/family/social history, medications, and allergies. Opioid use review Opioid Medications (last 90 days) No data to display Depression Screening PHQ-2 Score: 0 Cognitive screening Mini Cog Score: 5 Cognitive screening reviewed and No further action needed (score 3-5). Functional Observation Was the patient's Timed Up & Go test unsteady or >= 12 seconds? No Advance Care Planning Surrogate decision maker documented and/or advance directives scanned in chart Measurements BP 122/68 Pulse 80 Resp 16 Wt 80.5 kg (177 lb 6.4 oz) SpO2 97% BMI 30.45 kg/m Vision Screening: Follows with optometry/ophthalmology Assessment/Plan Medicare annual wellness visit, subsequent (Z00.00) - Counseled on healthy diet and regular exercise - Fall avoidance information provided - Personalized prevention plan provided documented in this encounter [facility] 02-20-2024 Telephone encounter Note Patient called in and was wondering if the process can be started to get the Durolane injections scheduled and approved. Looks like her last ones were 09/05/2023. Pily Zavala LPN [facility] 02-20-2024 Miscellaneous Notes Patient called in and was wondering if the process can be started to get the Durolane injections scheduled and approved. Looks like her last ones were 09/05/2023. Pily Zavala LPN documented in this encounter [facility] 02-18-2024 Telephone encounter Note Error [facility] 02-18-2024 Miscellaneous Notes Error documented in this encounter [facility] 02-13-2024 Telephone encounter Note The patient has been identified by name and date of : Yes Caregiver verified no other encounters exist for this prescription request: Yes Caregiver confirmed with patient/requestor that no other refills are due, in the near future, with this provider at this time: Yes The last office visit in the department: 02/08/2024 Does the patient have a future office visit with this provider/department: Yes 02/20/2024 Requested Prescriptions Pending Prescriptions Disp Refills sertraline (ZOLOFT) 25 mg tablet 30 tablet 5 Sig: Take 1 tablet by mouth once daily. Josette Clement RN February 13, 2024 12:20 PM [facility] 02-13-2024 Miscellaneous Notes The patient has been identified by name and date of : Yes Caregiver verified no other encounters exist for this prescription request: Yes Caregiver confirmed with patient/requestor that no other refills are due, in the near future, with this provider at this time: Yes The last office visit in the department: 02/08/2024 Does the patient have a future office visit with this provider/department: Yes 02/20/2024 Requested Prescriptions Pending Prescriptions Disp Refills sertraline (ZOLOFT) 25 mg tablet 30 tablet 5 Sig: Take 1 tablet by mouth once daily. Josette Clement RN February 13, 2024 12:20 PM documented in this encounter [facility] 02-08-2024 Instructions Shanna Mukherjee APRN.MARLENE - 02/08/2024 3:01 PM EST Try some flonase to help with the ears. Schedule stress testing. documented in this encounter [facility] 02-08-2024 Note HNO ID: [id number] Author: SHANNA MUKHERJEE APRN.MARLENE Service: ? Author Type: Nurse Practitioner Type: Progress Notes Filed: 02/08/2024 15:30 Note Text: This is a 83 year old female who presents today with: Patient presents with: Acute Visit: L ear pressure x2-3 weeks HISTORY OF PRESENT ILLNESS: Arianne Aleman is a 83 year old female. Patient presents with: Acute Visit: L ear pressure x2-3 weeks Pt presents today with complaint of ear problems. Refers that she started with uri symptoms/cough a few weeks ago. Left with the problems with the ears -- L>R. Has hx of cerumen impaction. She report that she has been having some episodes of chest pain. Happens generally with periods of stress. Will last approximately 15 minutes. Maybe some SOB. No palpitations. 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, most often secondary to a remote infection with rubella History of skin cancer SCC R arm; basal cell face, scalp Hives OSTEOPENIA Personal history of colonic polyps lymphoid aggregate removed Piezogenic pedal papule fatty papules around heel: no clinical significance Seasonal allergies Skin cancer melanoma,basal and squamous cell Symptomatic menopausal or female climacteric states was on HRT then off, last DXA 1998 PAST SURGICAL HISTORY Procedure Laterality Date CATARACT SURGERY, COMPLEX and Hx Fuch's dystrophy COLONOSCOPY FLX DX W/COLLJ SPEC WHEN PFRMD 12/1999 Colonoscopy- DIVERTICULOSIS DILATION AND CURETTAGE DXAND/THER NONOBSTETRIC 1989 Dilation AND curettage DILATION AND CURETTAGE DXAND/THER NONOBSTETRIC Dilation AND curettage TAB Down's GI COLON STEPHANIE INTUSSUSCEPTION 1939 LIG/TRNSXJ FLP TUBE ABDL/VAG APPR UNI/BI 1981 PAST SURGICAL HISTORY OF 1959 'polyp' removal PAST SURGICAL HISTORY OF 06/04/11 basal cell carcinoma removed from face PAST SURGICAL HISTORY OF 02/16/11 squamous cell skin CA PAST SURGICAL HISTORY OF 09/2011 basal cell carcinoma removed behind left ear, left buttock, left forearm, PAST SURGICAL HISTORY OF Skin cancer biopsies TONSILLECTOMY AND ADENOIDECTOMY Tonsil/adenoidectomy ALLERGIES Lidocaine, Codeine, Diclofenac, Etodolac, and Medroxyprogesterone MEDICATIONS Current Outpatient Medications Medication Sig sertraline (ZOLOFT) 25 mg tablet Take 1 tablet by mouth once daily. Glucosamine HCl, Bulk, powd NEOMYCIN 3.5 MG/G-POLYMYXIN B 10,000 UNIT/G-DEXAMETH 0.1 % EYE OINT fexofenadine (MELBA) 180 mg tablet Take 180 mg by mouth once daily. Chlorhexidine Gluconate (PERIDEX) 0.12 % solution two times a day. calcium carbonate (TUMS 500 ORAL) Take by mouth as needed. ergocalciferol, vitamin D2, (VITAMIN D2 ORAL) Take by mouth. COLLAGEN MISC vit C/E/Zn/coppr/lutein/zeaxan (PRESERVISION AREDS-2 ORAL) Take by mouth. acetaminophen (TYLENOL) 325 mg tablet Take 650 mg by mouth every 6 hours as needed. SIMETHICONE (GAS-X ORAL) Take 1 tablet by mouth as needed. CARBOXYMETHYLCELLULOSE SODIUM (REFRESH TEARS OPHTHALMIC) Use 1 Drop in eyes three times daily as needed. COMPOUNDED PRESCRIPTION Gum Rincinol as needed ketoconazole (NIZORAL) 2 % shampoo Apply 1 application to affected area once daily as needed. polyethylene glycol 3350 (MIRALAX) 17 gram/dose powder As needed for constipation No current facility-administered medications for this visit. FAMILY HISTORY Problem Relation Age of Onset Hypertension Mother Heart Father Skin Cancer Father melanoma other (alcoholism) Father brother other (depression) Brother Heart Brother stent placement Heart Sister replaced heart valve Skin Cancer Sister melanoma Social History Tobacco Use Smoking status: Never Smokeless tobacco: Never Vaping Use Vaping status: Never Used Substance Use Topics Alcohol use: No Comment: has drank in the past Drug use: No EXAM: BP 112/72 Pulse 78 Resp 16 SpO2 94% PHYSICAL EXAM: General Appearance: Well appearing, alert, in no acute distress, well-hydrated, well nourished.. Skin: Skin color, texture, turgor normal, no suspicious rashes or lesions. Head: Normocephalic, no masses, lesions, tenderness or abnormalities. Eyes: Anicteric sclera. Extraocular movements are intact. . Ears: External ears normal, canals clear, Positive findings: R TM: air/fluid interface visualized, L TM: air/fluid interface visualized. Lungs: Lungs clear to auscultation. No wheezing, rhonchi, rales.. Heart: RRR without murmur, gallop, or rubs. No ectopy. Extremities: No deformities, edema, skin discoloration, clubbing or cyanosis. Good capillary refill. .Neurologic: Gait normal. ASSESSMENT/PLAN: 1. Fluid level behind tympanic membrane of both ears - ICD9: 381.4, ICD10: H65.93 (primary diagnosis) - no s/s of infection. Start flonase. (more content not included)... [facility] 02-08-2024 History of Present illness Narrative This is a 83 year old female who presents today with: Patient presents with: Acute Visit: L ear pressure x2-3 weeks HISTORY OF PRESENT ILLNESS: Arianne Aleman is a 83 year old female. Patient presents with: Acute Visit: L ear pressure x2-3 weeks Pt presents today with complaint of ear problems. Refers that she started with uri symptoms/cough a few weeks ago. Left with the problems with the ears -- L>R. Has hx of cerumen impaction. She report that she has been having some episodes of chest pain. Happens generally with periods of stress. Will last approximately 15 minutes. Maybe some SOB. No palpitations. 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, most often secondary to a remote infection with rubella History of skin cancer SCC R arm; basal cell face, scalp Hives OSTEOPENIA Personal history of colonic polyps lymphoid aggregate removed Piezogenic pedal papule fatty papules around heel: no clinical significance Seasonal allergies Skin cancer melanoma,basal and squamous cell Symptomatic menopausal or female climacteric states was on HRT then off, last DXA 1998 PAST SURGICAL HISTORY Procedure Laterality Date CATARACT SURGERY, COMPLEX and Hx Fuch's dystrophy COLONOSCOPY FLX DX W/COLLJ SPEC WHEN PFRMD 12/1999 Colonoscopy- DIVERTICULOSIS DILATION & CURETTAGE DX&/THER NONOBSTETRIC 1990 Dilation & curettage DILATION & CURETTAGE DX&/THER NONOBSTETRIC Dilation & curettage TAB Down's GI COLON STEPHANIE INTUSSUSCEPTION 1939 LIG/TRNSXJ FLP TUBE ABDL/VAG APPR UNI/BI 1981 PAST SURGICAL HISTORY OF 1958 'polyp' removal PAST SURGICAL HISTORY OF 06/04/11 basal cell carcinoma removed from face PAST SURGICAL HISTORY OF 02/16/11 squamous cell skin CA PAST SURGICAL HISTORY OF 09/2011 basal cell carcinoma removed behind left ear, left buttock, left forearm, PAST SURGICAL HISTORY OF Skin cancer biopsies TONSILLECTOMY & ADENOIDECTOMY <AGE 10 1960 Tonsil/adenoidectomy ALLERGIES Lidocaine, Codeine, Diclofenac, Etodolac, and Medroxyprogesterone MEDICATIONS Current Outpatient Medications Medication Sig sertraline (ZOLOFT) 25 mg tablet Take 1 tablet by mouth once daily. Glucosamine HCl, Bulk, powd NEOMYCIN 3.5 MG/G-POLYMYXIN B 10,000 UNIT/G-DEXAMETH 0.1 % EYE OINT fexofenadine (MELBA) 180 mg tablet Take 180 mg by mouth once daily. Chlorhexidine Gluconate (PERIDEX) 0.12 % solution two times a day. calcium carbonate (TUMS 500 ORAL) Take by mouth as needed. ergocalciferol, vitamin D2, (VITAMIN D2 ORAL) Take by mouth. COLLAGEN MISC vit C/E/Zn/coppr/lutein/zeaxan (PRESERVISION AREDS-2 ORAL) Take by mouth. acetaminophen (TYLENOL) 325 mg tablet Take 650 mg by mouth every 6 hours as needed. SIMETHICONE (GAS-X ORAL) Take 1 tablet by mouth as needed. CARBOXYMETHYLCELLULOSE SODIUM (REFRESH TEARS OPHTHALMIC) Use 1 Drop in eyes three times daily as needed. COMPOUNDED PRESCRIPTION Gum Rincinol as needed ketoconazole (NIZORAL) 2 % shampoo Apply 1 application to affected area once daily as needed. polyethylene glycol 3350 (MIRALAX) 17 gram/dose powder As needed for constipation No current facility-administered medications for this visit. FAMILY HISTORY Problem Relation Age of Onset Hypertension Mother Heart Father Skin Cancer Father melanoma other (alcoholism) Father brother other (depression) Brother Heart Brother stent placement Heart Sister replaced heart valve Skin Cancer Sister melanoma Social History Tobacco Use Smoking status: Never Smokeless tobacco: Never Vaping Use Vaping status: Never Used Substance Use Topics Alcohol use: No Comment: has drank in the past Drug use: No EXAM: BP 112/72 Pulse 78 Resp 16 SpO2 94% PHYSICAL EXAM: General Appearance: Well appearing, alert, in no acute distress, well-hydrated, well nourished.. Skin: Skin color, texture, turgor normal, no suspicious rashes or lesions. Head: Normocephalic, no masses, lesions, tenderness or abnormalities. Eyes: Anicteric sclera. Extraocular movements are intact. . Ears: External ears normal, canals clear, Positive findings: R TM: air/fluid interface visualized, L TM: air/fluid interface visualized. Lungs: Lungs clear to auscultation. No wheezing, rhonchi, rales.. Heart: RRR without murmur, gallop, or rubs. No ectopy. Extremities: No deformities, edema, skin discoloration, clubbing or cyanosis. Good capillary refill. .Neurologic: Gait normal. ASSESSMENT/PLAN: 1. Fluid level behind tympanic membrane of both ears - ICD9: 381.4, ICD10: H65.93 (primary diagnosis) - no s/s of infection. Start flonase. 2. Chest discomfort - ICD9: 786.59, ICD10: R07.89 Chest pain of unclear etiology, patient with significant risk factor(s) of family history of early coronary heart disease - Stress testing- see orders - ECG COMPLETE - SR without ST changes. + LBBB. No ectopy. Will get stress testing. New left BBB. Follow-up pending results. - STRESS ECHO TREADMILL - PERFLUTREN LIPID MICROSPHERES 1.1 MG/ML INJECTION IN NS 10 ML - SODIUM CHLORIDE 0.9 % (FLUSH) INJECTION SYRINGE Discussed treatment plan and patient voices understanding. Patient's questions answered appropriately. Medications and potential side effects were discussed and patient voices understanding. Return to the office as scheduled or as needed for worsening/no improvement. Shanna Mukherjee APRN.MULTIPLE KNIFE EDGE TRIMMER OPERATOR documented in this encounter [facility] 01-24-2024 Telephone encounter Note Patient calling with missed call from PCP office. Patient denies any new or worsening symptoms of which a provider is not aware:Yes Patient does not know if missed call was regarding herself or her . Conferenced to Quintin in provider's office at phone number [phone] for further assistance. Sarah Almendarez LPN [facility] 01-24-2024 Miscellaneous Notes Patient calling with missed call from PCP office. Patient denies any new or worsening symptoms of which a provider is not aware:Yes Patient does not know if missed call was regarding herself or her . Conferenced to Quintin in provider's office at phone number [phone] for further assistance. Sarah Almendarez LPN documented in this encounter [facility] 01-24-2024 Telephone encounter Note Patient calls and states that she saw Dr. Trejo today. Patient reports that Dr. Trejo is recommending compression socks to help control leg swelling. Patient reports that Dr. Trejo told her that providers are treating patient's deep tissue injury correctly. Emy Santoyo RN [facility] 01-24-2024 Miscellaneous Notes Patient calls and states that she saw Dr. Trejo today. Patient reports that Dr. Trejo is recommending compression socks to help control leg swelling. Patient reports that Dr. Trejo told her that providers are treating patient's deep tissue injury correctly. Emy Santoyo RN documented in this encounter [facility] 01-10-2024 Note HNO ID: [id number] Author: DIANA ARAIZA APRN.MULTIPLE KNIFE EDGE TRIMMER OPERATOR Service: ? Author Type: Nurse Practitioner Type: Progress Notes Filed: 01/10/2024 07:42 Note Text: CC: Patient presents with: Cough: Cough, fever, ST and chest congestion x 1 week HPI: Arianne Aleman is a 83 year old female who presents to the office with complaint of head congestion, cough, nonproductive, sore throat, and fever for a week. Symptoms are staying the same. Associated symptoms includes sore throat. Denies headache, body aches, dyspnea, nausea, vomiting , diarrhea, and pruritic pain. Treatments tried include nothing so far. with no relief of symptoms. Sick contacts: unknown. History of asthma, frequent episodes of bronchitis, chronic bronchitis, bronchiectasis or COPD: No Smoker: No Seasonal/environmental allergies: No The ROS is otherwise negative. The patient's pmh, medications, allergies, and past visits are reviewed. PHYSICAL EXAM: BP 122/78 Pulse 75 Temp 36.5 ?C (97.7 ?F) (Tympanic) Resp 18 Wt 82 kg (180 lb 12.4 oz) SpO2 97% BMI 31.03 kg/m? General appearance: alert, cooperative, pleasant, in no acute distress Head: Normocephalic Eyes: EOM's intact, conjunctiva pink and moist, no icterus, sclera white, non-injected Ears: Right ear: External ear/canal- Normal, TM - clear with good landmarks. Left ear: External ear/canal- Normal, TM - clear with good landmarks Oropharynx:mild erythema, without exudates present Heart: Negative. RRR without obvious murmur, gallop, or rubs. No ectopy. 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, most often secondary to a remote infection with rubella History of skin cancer SCC R arm; basal cell face, scalp Hives OSTEOPENIA Personal history of colonic polyps lymphoid aggregate removed Piezogenic pedal papule fatty papules around heel: no clinical significance Seasonal allergies Skin cancer melanoma,basal and squamous cell Symptomatic menopausal or female climacteric states was on HRT then off, last DXA 1998 PAST SURGICAL HISTORY Procedure Laterality Date CATARACT SURGERY, COMPLEX and Hx Fuch's dystrophy COLONOSCOPY FLX DX W/COLLJ SPEC WHEN PFRMD 12/1999 Colonoscopy- DIVERTICULOSIS DILATION AND CURETTAGE DXAND/THER NONOBSTETRIC 1990 Dilation AND curettage DILATION AND CURETTAGE DXAND/THER NONOBSTETRIC Dilation AND curettage TAB Down's GI COLON STEPHANIE INTUSSUSCEPTION 1939 LIG/TRNSXJ FLP TUBE ABDL/VAG APPR UNI/BI 1981 PAST SURGICAL HISTORY OF 1958 'polyp' removal PAST SURGICAL HISTORY OF 06/04/11 basal cell carcinoma removed from face PAST SURGICAL HISTORY OF 02/16/11 squamous cell skin CA PAST SURGICAL HISTORY OF 09/2011 basal cell carcinoma removed behind left ear, left buttock, left forearm, PAST SURGICAL HISTORY OF Skin cancer biopsies TONSILLECTOMY AND ADENOIDECTOMY Tonsil/adenoidectomy ALLERGIES Lidocaine, Codeine, Diclofenac, Etodolac, and Medroxyprogesterone MEDICATIONS sertraline (ZOLOFT) 25 mg tablet Take 1 tablet by mouth once daily. Glucosamine HCl, Bulk, powd NEOMYCIN 3.5 MG/G-POLYMYXIN B 10,000 UNIT/G-DEXAMETH 0.1 % EYE OINT fexofenadine (MELBA) 180 mg tablet Take 180 mg by mouth once daily. Chlorhexidine Gluconate (PERIDEX) 0.12 % solution two times a day. calcium carbonate (TUMS 500 ORAL) Take by mouth as needed. ergocalciferol, vitamin D2, (VITAMIN D2 ORAL) Take by mouth. COLLAGEN MISC vit C/E/Zn/coppr/lutein/zeaxan (PRESERVISION AREDS-2 ORAL) Take by mouth. acetaminophen (TYLENOL) 325 mg tablet Take 650 mg by mouth every 6 hours as needed. SIMETHICONE (GAS-X ORAL) Take 1 tablet by mouth as needed. CARBOXYMETHYLCELLULOSE SODIUM (REFRESH TEARS OPHTHALMIC) Use 1 Drop in eyes three times daily as needed. COMPOUNDED PRESCRIPTION Gum Rincinol as needed ketoconazole (NIZORAL) 2 % shampoo Apply 1 application to affected area once daily as needed. polyethylene glycol 3350 (MIRALAX) 17 gram/dose powder As needed for constipation FAMILY HISTORY Problem Relation Age of Onset Hypertension Mother Heart Father Skin Cancer Father melanoma other (alcoholism) Father brother other (depression) Brother Heart Brother stent placement Heart Sister replaced heart valve Skin Cancer Sister melanoma Social History Tobacco Use Smoking status: Never Smokeless tobacco: Never Vaping Use Vaping status: Never Used Substance Use Topics Alcohol use: No Comment: has drank in the past Drug use: No ASSESSMENT/PLAN: 1. Sore throat - ICD9: 462, ICD10: J02.9 - STREP A MOLECULAR (POC) - neg Does not want viral testing at this time. Potential red flag symptoms discussed with the patient. Reviewed appropriate action plan to take if red flag symp (more content not included)... [facility] 01-10-2024 History of Present illness Narrative CC: Patient presents with: Cough: Cough, fever, ST and chest congestion x 1 week HPI: Arianne Aleman is a 83 year old female who presents to the office with complaint of head congestion, cough, nonproductive, sore throat, and fever for a week. Symptoms are staying the same. Associated symptoms includes sore throat. Denies headache, body aches, dyspnea, nausea, vomiting , diarrhea, and pruritic pain. Treatments tried include nothing so far. with no relief of symptoms. Sick contacts: unknown. History of asthma, frequent episodes of bronchitis, chronic bronchitis, bronchiectasis or COPD: No Smoker: No Seasonal/environmental allergies: No The ROS is otherwise negative. The patient's pmh, medications, allergies, and past visits are reviewed. PHYSICAL EXAM: BP 122/78 Pulse 75 Temp 36.5 C (97.7 F) (Tympanic) Resp 18 Wt 82 kg (180 lb 12.4 oz) SpO2 97% BMI 31.03 kg/m General appearance: alert, cooperative, pleasant, in no acute distress Head: Normocephalic Eyes: EOM's intact, conjunctiva pink and moist, no icterus, sclera white, non-injected Ears: Right ear: External ear/canal- Normal, TM - clear with good landmarks. Left ear: External ear/canal- Normal, TM - clear with good landmarks Oropharynx:mild erythema, without exudates present Heart: Negative. RRR without obvious murmur, gallop, or rubs. No ectopy. 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, most often secondary to a remote infection with rubella History of skin cancer SCC R arm; basal cell face, scalp Hives OSTEOPENIA Personal history of colonic polyps lymphoid aggregate removed Piezogenic pedal papule fatty papules around heel: no clinical significance Seasonal allergies Skin cancer melanoma,basal and squamous cell Symptomatic menopausal or female climacteric states was on HRT then off, last DXA 1998 PAST SURGICAL HISTORY Procedure Laterality Date CATARACT SURGERY, COMPLEX and Hx Fuch's dystrophy COLONOSCOPY FLX DX W/COLLJ SPEC WHEN PFRMD 12/1999 Colonoscopy- DIVERTICULOSIS DILATION & CURETTAGE DX&/THER NONOBSTETRIC 1989 Dilation & curettage DILATION & CURETTAGE DX&/THER NONOBSTETRIC Dilation & curettage TAB Down's GI COLON STEPHANIE INTUSSUSCEPTION 1939 LIG/TRNSXJ FLP TUBE ABDL/VAG APPR UNI/BI 1981 PAST SURGICAL HISTORY OF 1958 'polyp' removal PAST SURGICAL HISTORY OF 06/04/11 basal cell carcinoma removed from face PAST SURGICAL HISTORY OF 02/16/11 squamous cell skin CA PAST SURGICAL HISTORY OF 09/2011 basal cell carcinoma removed behind left ear, left buttock, left forearm, PAST SURGICAL HISTORY OF Skin cancer biopsies TONSILLECTOMY & ADENOIDECTOMY <AGE 10 1960 Tonsil/adenoidectomy ALLERGIES Lidocaine, Codeine, Diclofenac, Etodolac, and Medroxyprogesterone MEDICATIONS sertraline (ZOLOFT) 25 mg tablet Take 1 tablet by mouth once daily. Glucosamine HCl, Bulk, powd NEOMYCIN 3.5 MG/G-POLYMYXIN B 10,000 UNIT/G-DEXAMETH 0.1 % EYE OINT fexofenadine (MELBA) 180 mg tablet Take 180 mg by mouth once daily. Chlorhexidine Gluconate (PERIDEX) 0.12 % solution two times a day. calcium carbonate (TUMS 500 ORAL) Take by mouth as needed. ergocalciferol, vitamin D2, (VITAMIN D2 ORAL) Take by mouth. COLLAGEN MISC vit C/E/Zn/coppr/lutein/zeaxan (PRESERVISION AREDS-2 ORAL) Take by mouth. acetaminophen (TYLENOL) 325 mg tablet Take 650 mg by mouth every 6 hours as needed. SIMETHICONE (GAS-X ORAL) Take 1 tablet by mouth as needed. CARBOXYMETHYLCELLULOSE SODIUM (REFRESH TEARS OPHTHALMIC) Use 1 Drop in eyes three times daily as needed. COMPOUNDED PRESCRIPTION Gum Rincinol as needed ketoconazole (NIZORAL) 2 % shampoo Apply 1 application to affected area once daily as needed. polyethylene glycol 3350 (MIRALAX) 17 gram/dose powder As needed for constipation FAMILY HISTORY Problem Relation Age of Onset Hypertension Mother Heart Father Skin Cancer Father melanoma other (alcoholism) Father brother other (depression) Brother Heart Brother stent placement Heart Sister replaced heart valve Skin Cancer Sister melanoma Social History Tobacco Use Smoking status: Never Smokeless tobacco: Never Vaping Use Vaping status: Never Used Substance Use Topics Alcohol use: No Comment: has drank in the past Drug use: No ASSESSMENT/PLAN: 1. Sore throat - ICD9: 462, ICD10: J02.9 - STREP A MOLECULAR (POC) - neg Does not want viral testing at this time. Potential red flag symptoms discussed with the patient. Reviewed appropriate action plan to take if red flag symptoms occur. Patient agreeable to treatment plan. Diana Araiza APRN.MULTIPLE KNIFE EDGE TRIMMER OPERATOR documented in this encounter [facility] 01-02-2024 Note HNO ID: [id number] Author: MARLYS JERNIGAN PA-C Service: ? Author Type: Physician Sheet Rock Nailer Type: Progress Notes Filed: 01/02/2024 12:19 Note Text: Large Joint Arthro/Inj: R knee joint Informed Consent Consent Obtained: Verbal [place] Protocol A moment to CARE was completed. SIGN IN Sign in communication not applicable due to emergent procedure. Personnel directly involved with the procedure wore the appropriate PPE. Special Equipment: N/A Patient/Surrogate Stated/Verified: Patient name, Date of , Relevant allergies and Intended procedure TIME OUT Intended patient and procedure match the source document(s). Consent documented and matches the intended procedure. Relevant labs, photos, and/or imaging studies have been reviewed. Correct side/site marked and visible. Medications required for procedure verified. No fire risk assessment and interventions applicable. No implant(s) inserted. 01/02/2024 12:19 PM The procedure site was prepped in the usual sterile fashion. Site: R knee joint Medications: 6 mg betamethasone acetate-betamethasone sodium phosphate 6 mg/mL Anesthetics: 5 mL lidocaine (PF) 10 mg/mL (1 %) Outcome: Tolerated well, no immediate complications Post-injection instructions were reviewed with the patient and the patient voiced understanding of these instructions. SIGN OUT All instruments, equipment, possible retained foreign bodies accounted for. [facility] 01-02-2024 History of Present illness Narrative Associated Order(s): Large Joint Arthro/Inj: R knee joint Post-Procedure Diagnose(s): Primary osteoarthritis of both knees Large Joint Arthro/Inj: R knee joint Informed Consent Consent Obtained: Verbal [place] Protocol A moment to CARE was completed. SIGN IN Sign in communication not applicable due to emergent procedure. Personnel directly involved with the procedure wore the appropriate PPE. Special Equipment: N/A Patient/Surrogate Stated/Verified: Patient name, Date of , Relevant allergies and Intended procedure TIME OUT Intended patient and procedure match the source document(s). Consent documented and matches the intended procedure. Relevant labs, photos, and/or imaging studies have been reviewed. Correct side/site marked and visible. Medications required for procedure verified. No fire risk assessment and interventions applicable. No implant(s) inserted. 01/02/2024 12:19 PM The procedure site was prepped in the usual sterile fashion. Site: R knee joint Medications: 6 mg betamethasone acetate-betamethasone sodium phosphate 6 mg/mL Anesthetics: 5 mL lidocaine (PF) 10 mg/mL (1 %) Outcome: Tolerated well, no immediate complications Post-injection instructions were reviewed with the patient and the patient voiced understanding of these instructions. SIGN OUT All instruments, equipment, possible retained foreign bodies accounted for. Patient presents with: Right Knee - Injections 17 weeks post visit OA bilateral knees with injection given: Here for injection right knee AMB ROOMING INTAKE FLOWSHEET DATA Pain Pain Level: 5 Pain Location: Knee-Right Description: Dull, Aching Duration Amount of Time: (Ongoing) Frequency: Continuous Intervention/Comfort measure: Medication Patient states she is continuing to have pain in her right knee. She will have swelling in her foot if she over does it. Taking Tylenol for the pain and helps. Here for injection today. documented in this encounter [facility] 01-02-2024 Note HNO ID: [id number] Author: KAJAL GONZALEZ MA Service: ? Author Type: Taproom Attendant Type: Progress Notes Filed: 01/02/2024 12:19 Note Text: Patient presents with: Right Knee - Injections 17 weeks post visit OA bilateral knees with injection given: Here for injection right knee AMB ROOMING INTAKE FLOWSHEET DATA Pain Pain Level: 5 Pain Location: Knee-Right Description: Dull, Aching Duration Amount of Time: (Ongoing) Frequency: Continuous Intervention/Comfort measure: Medication Patient states she is continuing to have pain in her right knee. She will have swelling in her foot if she over does it. Taking Tylenol for the pain and helps. Here for injection today. [facility] 12-13-2023 Telephone encounter Note Patient returned call and given provider's response. Patient would like a cortisone injection and scheduled appointment on 01/01. [facility] 12-13-2023 Miscellaneous Notes Patient returned call and given provider's response. Patient would like a cortisone injection and scheduled appointment on 01/01. Attempted to call patient. Voicemail is full and unable to leave a message. Sorry to hear she had a fall. Yes, she can follow up for a cortisone injection. No, it does not sound like the injection will help her montgomery pain. Sounds like the montgomery pain is from falling on the metal strip of don, that will just need time to improve. Patient called and states she has recovered from her shingles. She injured her right leg a few weeks ago when she tripped and landed on the metal stripping on the floor at home. She was having leg weakness from taking the gabapentin. She is continuing to have montgomery pain. Patient was unable to get cortisone injection when she had shingles. Patient is asking if she can have a cortisone injection if that would help her montgomery pain? documented in this encounter [facility] 12-13-2023 Telephone encounter Note Attempted to call patient. Voicemail is full and unable to leave a message. [facility] 12-12-2023 Telephone encounter Note Sorry to hear she had a fall. Yes, she can follow up for a cortisone injection. No, it does not sound like the injection will help her mongtomery pain. Sounds like the montgomery pain is from falling on the metal strip of don, that will just need time to improve. [facility] Work Phone: 12-12-2023 Telephone encounter Note Patient called and states she has recovered from her shingles. She injured her right leg a few weeks ago when she tripped and landed on the metal stripping on the floor at home. She was having leg weakness from taking the gabapentin. She is continuing to have montgomery pain. Patient was unable to get cortisone injection when she had shingles. Patient is asking if she can have a cortisone injection if that would help her montgomery pain? [facility] 11-09-2023 Telephone encounter Note Patient calls to report that she did not end up going to [facility] ER for her chest/back pain. Patient reports that she went home took some tylenol and has been taking it easy. She reports that the pain is no longer sharp and shooting but a dull ache under her right shoulder blade only. Reports it as a "pinch" and not when she takes a deep breath anymore. Reports that she is pretty certain it was from pulling a muscle with all the care she provides to her . Patient continues to monitor the area and reports if she feels that it is necessary she will go to the ER or call back if she desires an appointment. Current pain rating is a 2/10 and with movement. Encouraged tylenol, rest, ice. Patient verbalizes understanding and will continue. Red flag symptoms reviewed. Patient verbalizes understanding. Jessica Cutler RN [facility] 11-09-2023 Miscellaneous Notes Patient calls to report that she did not end up going to [facility] ER for her chest/back pain. Patient reports that she went home took some tylenol and has been taking it easy. She reports that the pain is no longer sharp and shooting but a dull ache under her right shoulder blade only. Reports it as a "pinch" and not when she takes a deep breath anymore. Reports that she is pretty certain it was from pulling a muscle with all the care she provides to her . Patient continues to monitor the area and reports if she feels that it is necessary she will go to the ER or call back if she desires an appointment. Current pain rating is a 2/10 and with movement. Encouraged tylenol, rest, ice. Patient verbalizes understanding and will continue. Red flag symptoms reviewed. Patient verbalizes understanding. Jessica Cutler RN documented in this encounter [facility] 11-08-2023 History of Present illness Narrative Nontoxic-appearing female presents urgent care chief complaint chest pain back pain. Patient states possibly pulled a muscle in her chest/back. No known injuries. States pain is sharp and tearing pain that radiates into her back. Is not reproducible by movements. Does hurt when she takes a deep breath. Rates pain 6-7 out of 10. Overall feels well. With presenting symptoms concerned about possible cardiac/pulmonary causes. Recommended patient be seen in ED for further evaluation care. Will be sent [facility]. Verbalized understanding agrees plan of care. Nitin Silva APRN.CNP documented in this encounter [facility] 10-28-2023 History of Present illness Narrative POPULATION HEALTH NAVIGATION OUTREACH Action/FYI Patient is on [facility] CURRENT ROSTER Workbench list for below and needs appointment to address: Advance Directive Discussion Covid-19 Vaccine( season) Shingrix Vaccine(2 of 2) No results found for: "HBA1C" Patient due for: Medicare Annual Wellness Visit Patient already scheduled for AWV. Reason for Outreach Care Gap/HCC or Scheduling Wellness Visits Care Gaps due: Medicare Annual Wellness Visit Patient Contacted: Unable or unnecessary to reach patient: HCC related Patient already scheduled Navigation Signature: Parul Rios MA October 28, 2023 8:00 AM documented in this encounter [facility] 10-18-2023 Instructions Kaitlin Victor APRN.CNP - 10/18/2023 3:55 PM EDT 1) Keep laceration clean and dry 2) See Dr. Hicks in Feb. As scheduled documented in this encounter [facility] 10-18-2023 History of Present illness Narrative This is a 83 year old female who presents today with: Patient presents with: Shingles: Follow up Edema: Swelling in ankles and feet Laceration: Right lower leg HISTORY OF PRESENT ILLNESS: Arianne Aleman is a 83 year old female. Patient presents with: Shingles: Follow up Edema: Swelling in ankles and feet Laceration: Right lower leg Hit right montgomery on a metal strip when leg gave out on her. Left leg with no more gaps. Right lateral leg with a 5 mm laceration that bled on her bed while sleeping last night. 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, most often secondary to a remote infection with rubella History of skin cancer SCC R arm; basal cell face, scalp Hives OSTEOPENIA Personal history of colonic polyps lymphoid aggregate removed Piezogenic pedal papule fatty papules around heel: no clinical significance Seasonal allergies Skin cancer melanoma,basal and squamous cell Symptomatic menopausal or female climacteric states was on HRT then off, last DXA 1998 PAST SURGICAL HISTORY Procedure Laterality Date CATARACT SURGERY, COMPLEX and Hx Fuch's dystrophy COLONOSCOPY FLX DX W/COLLJ SPEC WHEN PFRMD 12/1999 Colonoscopy- DIVERTICULOSIS DILATION & CURETTAGE DX&/THER NONOBSTETRIC 1989 Dilation & curettage DILATION & CURETTAGE DX&/THER NONOBSTETRIC Dilation & curettage TAB Down's GI COLON STEPHANIE INTUSSUSCEPTION 1939 LIG/TRNSXJ FLP TUBE ABDL/VAG APPR UNI/BI 1981 PAST SURGICAL HISTORY OF 1958 'polyp' removal PAST SURGICAL HISTORY OF 06/04/11 basal cell carcinoma removed from face PAST SURGICAL HISTORY OF 02/16/11 squamous cell skin CA PAST SURGICAL HISTORY OF 09/2011 basal cell carcinoma removed behind left ear, left buttock, left forearm, PAST SURGICAL HISTORY OF Skin cancer biopsies TONSILLECTOMY & ADENOIDECTOMY <AGE 10 1960 Tonsil/adenoidectomy ALLERGIES Lidocaine, Codeine, Diclofenac, Etodolac, and Medroxyprogesterone MEDICATIONS Current Outpatient Medications Medication Sig sertraline (ZOLOFT) 25 mg tablet Take 1 tablet by mouth once daily. Glucosamine HCl, Bulk, powd NEOMYCIN 3.5 MG/G-POLYMYXIN B 10,000 UNIT/G-DEXAMETH 0.1 % EYE OINT fexofenadine (MELBA) 180 mg tablet Take 180 mg by mouth once daily. Chlorhexidine Gluconate (PERIDEX) 0.12 % solution two times a day. calcium carbonate (TUMS 500 ORAL) Take by mouth as needed. ergocalciferol, vitamin D2, (VITAMIN D2 ORAL) Take by mouth. COLLAGEN MISC vit C/E/Zn/coppr/lutein/zeaxan (PRESERVISION AREDS-2 ORAL) Take by mouth. acetaminophen (TYLENOL) 325 mg tablet Take 650 mg by mouth every 6 hours as needed. SIMETHICONE (GAS-X ORAL) Take 1 tablet by mouth as needed. CARBOXYMETHYLCELLULOSE SODIUM (REFRESH TEARS OPHTHALMIC) Use 1 Drop in eyes three times daily as needed. COMPOUNDED PRESCRIPTION Gum Rincinol as needed ketoconazole (NIZORAL) 2 % shampoo Apply 1 application to affected area once daily as needed. polyethylene glycol 3350 (MIRALAX) 17 gram/dose powder As needed for constipation No current facility-administered medications for this visit. FAMILY HISTORY Problem Relation Age of Onset Hypertension Mother Heart Father Skin Cancer Father melanoma other (alcoholism) Father brother other (depression) Brother Heart Brother stent placement Heart Sister replaced heart valve Skin Cancer Sister melanoma Social History Tobacco Use Smoking status: Never Smokeless tobacco: Never Vaping Use Vaping Use: Never used Substance Use Topics Alcohol use: No Comment: has drank in the past Drug use: No EXAM: BP 140/68 Pulse 91 Resp 16 Wt 82.6 kg (182 lb) SpO2 97% BMI 31.24 kg/m PHYSICAL EXAM: Physical Exam Vitals reviewed. Constitutional: Appearance: Normal appearance. Musculoskeletal: Comments: Both tops of feet with edema on tops of feet Skin: Comments: Montgomery with a darkened area 3 mm in size left from hematoma Right lower lateral leg with a 5 mm laceration that bled last night. No drainage. Neurological: Mental Status: She is alert. LABS: ASSESSMENT/PLAN: 1. Laceration of skin of right lower leg, initial encounter - ICD9: 891.0, ICD10: S81.811A (primary diagnosis) Clean - No concerns 2. Leg hematoma, right, sequela - ICD9: 906.3, ICD10: S80.11XS Healed - Resolved Discussed treatment plan and patient voices understanding. Patient's questions answered appropriately. Medications and potential side effects were discussed and patient voices understanding. Return to the office as scheduled or as needed for worsening/no improvement. MIKAYLA Mckenzie APRN.CNP documented in this encounter [facility] 10-08-2023 History of Present illness Narrative Patient presents with: Shingles HPI: Patient presents today for office visit for shingles follow up. Diagnosed with Shingles back in July. Started on Gabapentin and Valtrex. Saw Shanna Lonny on 08/22/23 with complaints of still having blisters on her right buttocks. Gabapentin increased to 400 mg. Saw Shanna again on 09/07/23 and patient felt things were getting better. Saw shelby Victor on 09/15/23 for follow up of shingles. Recommended to continue Gabapentin. Started Shingrix series. Due for 2nd shot in Nov. She has since stopped the gabapentin on 09/26/23. Worried about the side effects. Having sensations in her right leg. Right leg "feels different" than the left. Tender to touch on inside of right calf. Had injury back in July where she fell and hit right montgomery. No gabapentin since early September. No rash. MEDICATIONS: Current Outpatient Medications Medication Sig sertraline (ZOLOFT) 25 mg tablet Take 1 tablet by mouth once daily. Glucosamine HCl, Bulk, powd NEOMYCIN 3.5 MG/G-POLYMYXIN B 10,000 UNIT/G-DEXAMETH 0.1 % EYE OINT fexofenadine (MELBA) 180 mg tablet Take 180 mg by mouth once daily. Chlorhexidine Gluconate (PERIDEX) 0.12 % solution two times a day. calcium carbonate (TUMS 500 ORAL) Take by mouth as needed. ergocalciferol, vitamin D2, (VITAMIN D2 ORAL) Take by mouth. COLLAGEN MISC vit C/E/Zn/coppr/lutein/zeaxan (PRESERVISION AREDS-2 ORAL) Take by mouth. acetaminophen (TYLENOL) 325 mg tablet Take 650 mg by mouth every 6 hours as needed. SIMETHICONE (GAS-X ORAL) Take 1 tablet by mouth as needed. CARBOXYMETHYLCELLULOSE SODIUM (REFRESH TEARS OPHTHALMIC) Use 1 Drop in eyes three times daily as needed. COMPOUNDED PRESCRIPTION Gum Rincinol as needed ketoconazole (NIZORAL) 2 % shampoo Apply 1 application to affected area once daily as needed. polyethylene glycol 3350 (MIRALAX) 17 gram/dose powder As needed for constipation gabapentin (NEURONTIN) 100 mg capsule Take 1 capsule by mouth daily at bedtime for 90 days. (Take with the 300 mg capsule at bedtime for total bedtime dose of 400 mg). (Patient not taking: Reported on 10/08/2023) gabapentin (NEURONTIN) 300 mg capsule Take 1 capsule by mouth three times a day for 90 days. (Patient not taking: Reported on 10/08/2023) No current facility-administered medications for this visit. ALLERGIES: ALLERGIES Allergen Reactions Lidocaine Intolerance Severe itching, burning. Pt. has had Marcaine without problem for oral surgery per Dr. Rodriguez's office. 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, most often secondary to a remote infection with rubella History of skin cancer SCC R arm; basal cell face, scalp Hives OSTEOPENIA Personal history of colonic polyps lymphoid aggregate removed Piezogenic pedal papule fatty papules around heel: no clinical significance Seasonal allergies Skin cancer melanoma,basal and squamous cell Symptomatic menopausal or female climacteric states was on HRT then off, last DXA 1998 PAST SURGICAL HISTORY Procedure Laterality Date CATARACT SURGERY, COMPLEX and Hx Fuch's dystrophy COLONOSCOPY FLX DX W/COLLJ SPEC WHEN PFRMD 12/1999 Colonoscopy- DIVERTICULOSIS DILATION & CURETTAGE DX&/THER NONOBSTETRIC 1989 Dilation & curettage DILATION & CURETTAGE DX&/THER NONOBSTETRIC Dilation & curettage TAB Down's GI COLON STEPHANIE INTUSSUSCEPTION 1939 LIG/TRNSXJ FLP TUBE ABDL/VAG APPR UNI/BI 1981 PAST SURGICAL HISTORY OF 1958 'polyp' removal PAST SURGICAL HISTORY OF 06/04/11 basal cell carcinoma removed from face PAST SURGICAL HISTORY OF 02/16/11 squamous cell skin CA PAST SURGICAL HISTORY OF 09/2011 basal cell carcinoma removed behind left ear, left buttock, left forearm, PAST SURGICAL HISTORY OF Skin cancer biopsies TONSILLECTOMY & ADENOIDECTOMY <AGE 12 1960 Tonsil/adenoidectomy FAMILY HISTORY Problem Relation Age of Onset Hypertension Mother Heart Father Skin Cancer Father melanoma other (alcoholism) Father brother other (depression) Brother Heart Brother stent placement Heart Sister replaced heart valve Skin Cancer Sister melanoma Social History Tobacco Use Smoking status: Never Smokeless tobacco: Never Vaping Use Vaping Use: Never used Substance Use Topics Alcohol use: No Comment: has drank in the past Drug use: No Reviewed current medications, allergies, past medical history, surgical history, family history and social history today. REVIEW OF SYSTEMS All other reviewed and negative other than HPI. VITALS: BP 124/58 Pulse 94 Ht 162.6 cm (5' 4") Wt 81.2 kg (179 lb) SpO2 95% BMI 30.73 kg/m Last 4 Encounter Wt Readings: Date: Wt: 09/15/2023 83 kg (183 lb) 09/03/2023 83.9 kg (184 lb 15.5 oz) 08/22/2023 83 kg (183 lb) 08/12/2023 83.7 kg (184 lb 8.4 oz) PHYSICAL EXAMINATION: General appearance: Well appearing, alert, in no acute distress, well-hydrated, well nourished. Skin: Skin color, texture, turgor normal, no suspicious rashes or lesions BACK: . Straight leg test negative. Deep tendon reflexes 2+/4 at patellas. Normal lower extremity strength. ASSESSMENT/PLAN: 1. Herpes zoster with complication - ICD9: 053.8, ICD10: B02.8 Resolving. Add b complex vitamins. Ok to stay off zmax Discussed supportive care. Red flags for re-assessment reviewed with patient in detail. John Hicks MD documented in this encounter [facility] 09-29-2023 Telephone encounter Note Patient called and notified that lab orders placed. Patient voiced understanding. Emy Santoyo RN [facility] 09-29-2023 Miscellaneous Notes Patient called and notified that lab orders placed. Patient voiced understanding. Emy Santoyo RN placed Patient calls and states that she went to get blood work done this morning and there were no lab orders. Patient had thought that she had standing orders since she has a hard time coming in to get labs done. Patient asking if orders can be placed again. Patient asking if they can be placed non fasting? Please review and advise, Emy Santoyo RN documented in this encounter [facility] 09-29-2023 Telephone encounter Note placed [facility] 09-29-2023 Telephone encounter Note Patient calls and states that she went to get blood work done this morning and there were no lab orders. Patient had thought that she had standing orders since she has a hard time coming in to get labs done. Patient asking if orders can be placed again. Patient asking if they can be placed non fasting? Please review and advise, Emy Santoyo RN [facility] 09-26-2023 Telephone encounter Note noted [facility] 09-26-2023 Miscellaneous Notes noted Pt calling in with update. Pt reports her shingles is getting better. Healing and seeing improvement. Flares have dissipated. Pt reports she is following every instruction given from the office. Pt reports she got the first shingles vaccine of the 2 yesterday 09-25-23 at [facility]. The 2nd one she will get in Nov. PROBLEM: Pt does not want to continue on Gabapentin. Pt reports side effect with leg weakness to the right leg is severe and her leg will give out on her and if she does not catch herself she will go down. She is fearing for her safety being on this medication and taking care of her with dementia 11/10. Please review and advise pt on this medication. Lissett Griffin LPN documented in this encounter [facility] 09-26-2023 Telephone encounter Note Pt calling in with update. Pt reports her shingles is getting better. Healing and seeing improvement. Flares have dissipated. Pt reports she is following every instruction given from the office. Pt reports she got the first shingles vaccine of the 2 yesterday 09-25-23 at [facility] pharmacy. The 2nd one she will get in Nov. PROBLEM: Pt does not want to continue on Gabapentin. Pt reports side effect with leg weakness to the right leg is severe and her leg will give out on her and if she does not catch herself she will go down. She is fearing for her safety being on this medication and taking care of her with dementia 11/10. Please review and advise pt on this medication. Lissett Griffin LPN [facility] 09-15-2023 Instructions Kaitlin Victor APRN.PRE SALES TECHNICAL CONSULTANT - 09/15/2023 2:57 PM EDT 1) Start shingles series- today and 2-6 months for 2cd dose 2) Continue gabapentin 3) Follow up with Dr. Hicks in As scheduled documented in this encounter [facility] 09-15-2023 History of Present illness Narrative This is a 83 year old female who presents today with: Patient presents with: Shingles: Follow up HISTORY OF PRESENT ILLNESS: Arianne Aleman is a 83 year old female. Patient presents with: Shingles: Follow up Right buttock lesion is dried. Does get a "brief sensation" of discomfort in L5-S1. 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, most often secondary to a remote infection with rubella History of skin cancer SCC R arm; basal cell face, scalp Hives OSTEOPENIA Personal history of colonic polyps lymphoid aggregate removed Piezogenic pedal papule fatty papules around heel: no clinical significance Seasonal allergies Skin cancer melanoma,basal and squamous cell Symptomatic menopausal or female climacteric states was on HRT then off, last DXA 1998 PAST SURGICAL HISTORY Procedure Laterality Date CATARACT SURGERY, COMPLEX and Hx Fuch's dystrophy COLONOSCOPY FLX DX W/COLLJ SPEC WHEN PFRMD 12/1999 Colonoscopy- DIVERTICULOSIS DILATION & CURETTAGE DX&/THER NONOBSTETRIC 1989 Dilation & curettage DILATION & CURETTAGE DX&/THER NONOBSTETRIC Dilation & curettage TAB Down's GI COLON STEPHANIE INTUSSUSCEPTION 1939 LIG/TRNSXJ FLP TUBE ABDL/VAG APPR UNI/BI 1981 PAST SURGICAL HISTORY OF 1958 'polyp' removal PAST SURGICAL HISTORY OF 06/04/11 basal cell carcinoma removed from face PAST SURGICAL HISTORY OF 02/16/11 squamous cell skin CA PAST SURGICAL HISTORY OF 09/2011 basal cell carcinoma removed behind left ear, left buttock, left forearm, PAST SURGICAL HISTORY OF Skin cancer biopsies TONSILLECTOMY & ADENOIDECTOMY <AGE 10 1960 Tonsil/adenoidectomy ALLERGIES Lidocaine, Codeine, Diclofenac, Etodolac, and Medroxyprogesterone MEDICATIONS Current Outpatient Medications Medication Sig gabapentin (NEURONTIN) 100 mg capsule Take 1 capsule by mouth daily at bedtime for 90 days. (Take with the 300 mg capsule at bedtime for total bedtime dose of 400 mg). sertraline (ZOLOFT) 25 mg tablet Take 1 tablet by mouth once daily. gabapentin (NEURONTIN) 300 mg capsule Take 1 capsule by mouth three times a day for 90 days. Glucosamine HCl, Bulk, powd fexofenadine (MELBA) 180 mg tablet Take 180 mg by mouth once daily. calcium carbonate (TUMS 500 ORAL) Take by mouth as needed. ergocalciferol, vitamin D2, (VITAMIN D2 ORAL) Take by mouth. COLLAGEN MISC vit C/E/Zn/coppr/lutein/zeaxan (PRESERVISION AREDS-2 ORAL) Take by mouth. acetaminophen (TYLENOL) 325 mg tablet Take 650 mg by mouth every 6 hours as needed. SIMETHICONE (GAS-X ORAL) Take 1 tablet by mouth as needed. CARBOXYMETHYLCELLULOSE SODIUM (REFRESH TEARS OPHTHALMIC) Use 1 Drop in eyes three times daily as needed. ketoconazole (NIZORAL) 2 % shampoo Apply 1 application to affected area once daily as needed. polyethylene glycol 3350 (MIRALAX) 17 gram/dose powder As needed for constipation NEOMYCIN 3.5 MG/G-POLYMYXIN B 10,000 UNIT/G-DEXAMETH 0.1 % EYE OINT Chlorhexidine Gluconate (PERIDEX) 0.12 % solution two times a day. COMPOUNDED PRESCRIPTION Gum Rincinol as needed No current facility-administered medications for this visit. FAMILY HISTORY Problem Relation Age of Onset Hypertension Mother Heart Father Skin Cancer Father melanoma other (alcoholism) Father brother other (depression) Brother Heart Brother stent placement Heart Sister replaced heart valve Skin Cancer Sister melanoma Social History Tobacco Use Smoking status: Never Smokeless tobacco: Never Vaping Use Vaping Use: Never used Substance Use Topics Alcohol use: No Comment: has drank in the past Drug use: No EXAM: BP 132/70 Pulse 85 Resp 16 Wt 83 kg (183 lb) SpO2 98% BMI 31.41 kg/m PHYSICAL EXAM: Physical Exam Vitals reviewed. Cardiovascular: Comments: Trace pedal edema Skin: Comments: Right buttock lesion is pink, dry- superficial scale from final layer closed LABS: ASSESSMENT/PLAN: 1. Herpes zoster without complication - ICD9: 053.9, ICD10: B02.9 Healed - Continue gabapentin, no change- effective and not habit forming - Needs shingles vaccines Kaitlin Victor APRN.PRE SALES TECHNICAL CONSULTANT documented in this encounter [facility] 09-07-2023 Instructions Gin Cruz - 09/07/2023 11:49 AM EDT Continue taking gabapentin as prescribed When you feel comfortable starting to wean off of gabapentin, reach out to us! If any new/worsening symptoms, please let us know! documented in this encounter [facility] 09-07-2023 History of Present illness Narrative This is a 83 year old female who presents today with: Patient presents with: Recheck: Follow up from [facility]- bilateral lower leg edema, started Tuesday; swelling has improved HISTORY OF PRESENT ILLNESS: Arianne Aleman is a 83 year old female. Patient presents with: Recheck: Follow up from [facility]- bilateral lower leg edema, started Tuesday; swelling has improved Pt presents with urgent care follow up for leg swelling since last Tuesday, noticed swelling about an hour after waking Pt went to urgent care regarding BLE edema, suspected that gabapentin may be contributing to swelling Pt states that ambulation and house work relieved the leg swelling Last night, woke up at 1 am with 9/10 deep, burning pain in R [place], she has not felt pain like that before Pain was relieved by ambulating and doing house work Pt is not having any current pain in the R leg Pt states that lower R leg was giving out when she was cleaning Pt states that R leg gave out on her when walking up the garage steps 2 weeks ago, pt hit the floor with her knee and montgomery. Bilateral knee injection 2 days ago, feeling improvement Pt currently has shingles and is taking gabapentin In the last 3 days, feels that the shingles are "departing" Pt feels that she does not have any pain related to shingles currently Pt does not feel like her legs are as swollen today as they have been No numbness and tingling noted No warmth, redness noted. 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, most often secondary to a remote infection with rubella History of skin cancer SCC R arm; basal cell face, scalp Hives OSTEOPENIA Personal history of colonic polyps lymphoid aggregate removed Piezogenic pedal papule fatty papules around heel: no clinical significance Seasonal allergies Skin cancer melanoma,basal and squamous cell Symptomatic menopausal or female climacteric states was on HRT then off, last DXA 1998 PAST SURGICAL HISTORY Procedure Laterality Date CATARACT SURGERY, COMPLEX and Hx Fuch's dystrophy COLONOSCOPY FLX DX W/COLLJ SPEC WHEN PFRMD 12/1999 Colonoscopy- DIVERTICULOSIS DILATION & CURETTAGE DX&/THER NONOBSTETRIC 1989 Dilation & curettage DILATION & CURETTAGE DX&/THER NONOBSTETRIC Dilation & curettage TAB Down's GI COLON STEPHANIE INTUSSUSCEPTION 1939 LIG/TRNSXJ FLP TUBE ABDL/VAG APPR UNI/BI 1981 PAST SURGICAL HISTORY OF 1958 'polyp' removal PAST SURGICAL HISTORY OF 06/04/11 basal cell carcinoma removed from face PAST SURGICAL HISTORY OF 02/16/11 squamous cell skin CA PAST SURGICAL HISTORY OF 09/2011 basal cell carcinoma removed behind left ear, left buttock, left forearm, PAST SURGICAL HISTORY OF Skin cancer biopsies TONSILLECTOMY & ADENOIDECTOMY <AGE 10 1960 Tonsil/adenoidectomy ALLERGIES Lidocaine, Codeine, Diclofenac, Etodolac, and Medroxyprogesterone MEDICATIONS Current Outpatient Medications Medication Sig gabapentin (NEURONTIN) 100 mg capsule Take 1 capsule by mouth daily at bedtime for 90 days. (Take with the 300 mg capsule at bedtime for total bedtime dose of 400 mg). sertraline (ZOLOFT) 25 mg tablet Take 1 tablet by mouth once daily. gabapentin (NEURONTIN) 300 mg capsule Take 1 capsule by mouth three times a day for 90 days. Glucosamine HCl, Bulk, powd NEOMYCIN 3.5 MG/G-POLYMYXIN B 10,000 UNIT/G-DEXAMETH 0.1 % EYE OINT (Patient not taking: Reported on 09/05/2023) fexofenadine (MELBA) 180 mg tablet Take 180 mg by mouth once daily. Chlorhexidine Gluconate (PERIDEX) 0.12 % solution twice daily. (Patient not taking: Reported on 09/05/2023) calcium carbonate (TUMS 500 ORAL) Take by mouth as needed. ergocalciferol, vitamin D2, (VITAMIN D2 ORAL) Take by mouth. COLLAGEN MISC vit C/E/Zn/coppr/lutein/zeaxan (PRESERVISION AREDS-2 ORAL) Take by mouth. acetaminophen (TYLENOL) 325 mg tablet Take 650 mg by mouth every 6 hours as needed. SIMETHICONE (GAS-X ORAL) Take 1 tablet by mouth as needed. CARBOXYMETHYLCELLULOSE SODIUM (REFRESH TEARS OPHTHALMIC) Use 1 Drop in eyes three times daily as needed. COMPOUNDED PRESCRIPTION Gum Rincinol as needed (Patient not taking: Reported on 09/03/2023) ketoconazole (NIZORAL) 2 % shampoo Apply 1 application to affected area once daily as needed. polyethylene glycol 3350 (MIRALAX) 17 gram/dose powder As needed for constipation No current facility-administered medications for this visit. FAMILY HISTORY Problem Relation Age of Onset Hypertension Mother Heart Father Skin Cancer Father melanoma other (alcoholism) Father brother other (depression) Brother Heart Brother stent placement Heart Sister replaced heart valve Skin Cancer Sister melanoma Social History Tobacco Use Smoking status: Never Smokeless tobacco: Never Vaping Use Vaping Use: Never used Substance Use Topics Alcohol use: No Comment: has drank in the past Drug use: No EXAM: BP 126/76 Pulse 91 Resp 16 SpO2 97% PHYSICAL EXAM: General Appearance: Well appearing, alert, in no acute distress, well-hydrated, well nourished.. Skin: Skin color, texture, turgor normal. Pt has shingles outbreak on R buttock traveling down R leg. Head: Normocephalic, no masses, lesions, tenderness or abnormalities. Eyes: Anicteric sclera. Extraocular movements are intact. Oropharynx: Lips, mucosa, and tongue normal, teeth and gums normal, oropharynx normal. Lungs: Lungs clear to auscultation. No wheezing, rhonchi, rales.. Heart: RRR without murmur, gallop, or rubs. No ectopy. Extremities: No deformities, skin discoloration, clubbing or cyanosis. Good capillary refill. Non-pitting edema BLE. Neurologic: Gait normal. ASSESSMENT/PLAN: 1. Herpes zoster with complication - ICD9: 053.8, ICD10: B02.8 (primary diagnosis) - currently taking gabapentin TID - Herpes zoster sites are improving - Discussed with the patient potential side effects of gabapentin - Pt decided that she will reach out when she feels comfortable starting the process to wean off of gabapentin with the improvement of Herpes Zoster outbreak 2. Lower extremity edema - ICD9: 782.3, ICD10: R60.0 - Pt currently taking gabapentin TID for Herpes zoster outbreak - Discussed with the patient potential side effects of gabapentin - pt decided that she will reach out when she feels comfortable starting the process to wean off of gabapentin with the improvement of Herpes Zoster outbreak Discussed treatment plan and patient voices understanding. Patient's questions answered appropriately. Medications and potential side effects were discussed and patient voices understanding. Return to the office as scheduled or as needed for worsening/no improvement. Shanna Mukherjee APRN.MARLENE The patient indicates understanding of these issues and agrees with the plan. documented in this encounter [facility] 09-07-2023 Telephone encounter Note Patient phoned requesting her appt on Tuesday be changed to today. Reports appt was scheduled to f/u on shingles, but she would like to be seen sooner. Re-scheduled appt to today. [facility] 09-07-2023 Miscellaneous Notes Patient phoned requesting her appt on Tuesday be changed to today. Reports appt was scheduled to f/u on shingles, but she would like to be seen sooner. Re-scheduled appt to today. documented in this encounter [facility] 09-05-2023 History of Present illness Narrative Associated Order(s): Large Joint Arthro/Inj: bilateral knee joints Post-Procedure Diagnose(s): Primary osteoarthritis of both knees Large Joint Arthro/Inj: bilateral knee joints Informed Consent Consent Obtained: Verbal [place] Protocol A moment to CARE was completed. SIGN IN Sign in communication not applicable due to emergent procedure. Personnel directly involved with the procedure wore the appropriate PPE. Special Equipment: N/A Patient/Surrogate Stated/Verified: Patient name, Date of , Relevant allergies and Intended procedure TIME OUT Intended patient and procedure match the source document(s). Consent documented and matches the intended procedure. Relevant labs, photos, and/or imaging studies have been reviewed. Correct side/site marked and visible. Medications required for procedure verified. No fire risk assessment and interventions applicable. No implant(s) inserted. 09/05/2023 12:41 PM The procedure site was prepped in the usual sterile fashion. Site: bilateral knee joints Medications (Right): 6 mL hyaluronate sodium, stabilized 60 mg/3 mL Medications (Left): 6 mL hyaluronate sodium, stabilized 60 mg/3 mL Outcome: Tolerated well, no immediate complications Post-injection instructions were reviewed with the patient and the patient voiced understanding of these instructions. SIGN OUT All instruments, equipment, possible retained foreign bodies accounted for. Patient presents with: Left Knee - Injections Right Knee - Injections Durolane injections bilateral knees AMB ROOMING INTAKE FLOWSHEET DATA Pain Pain Level: 8 Pain Location: (bilateral knees) Description: Sharp, Aching Duration Amount of Time: (Ongoing - worse when she had the shingles) Frequency: Continuous Intervention/Comfort measure: Medication Patient here for Durolane injections bilateral knees. Patient states when she had the shingles she fell going up into her kitchen around 08/10. States her right knee gave out on her. On Tuesday she was seen in urgent care due to swelling in her lower legs and feet. Was told it was coming from a reaction from the Gabapentin. She has an appointment this Tuesday for a follow up. LOT # [id number] EXP 01/18/2026 Kajal Gonzalez MA# documented in this encounter [facility] 09-03-2023 History of Present illness Narrative This note was created using [employer]. Subjective Arianne Aleman is a 83 year old female.Patient presents for lower extremity swelling right worse than left. Patient was treated for shingles in july and is currently on gabapentin for continued nerve pain. Dose was recently increased. Patient reports she has had US to r/o DVT 08/12 at [facility] which was negative. Objective BP 132/90 Pulse 85 Temp 36.1 C (96.9 F) Resp 20 Wt 83.9 kg (184 lb 15.5 oz) SpO2 95% BMI 31.75 kg/m Physical Exam PHYSICAL EXAMINATION: General appearance: Well appearing, alert, in no acute distress, well-hydrated, well nourished. Lungs: Lungs clear to auscultation. No wheezing, rhonchi, rales. Heart: RRR without murmur, gallop, or rubs. No ectopy Extremities: Pulses: 2+, Edema: 2-3+ pitting to right lower leg, 1-2+ pitting to left lower leg. Positive findings: joint location: on right knee pain, swelling, painful movement, loss of ROM, and stiffness chronic Peripheral pulses: Capillary refill <2secs, strong peripheral pulses, Pulses palpable Assessment and Plan ASSESSMENT/PLAN: 1. Lower extremity edema - ICD9: 782.3, ICD10: R60.0 -Likely a side effect of gabapentin combined with shingles affecting right leg and known severe degenerative disease of right knee. Recommend patient follow up with PCP for repeat eval in 1 week. Parul Khalil APRN.MARLENE documented in this encounter [facility] 08-31-2023 Telephone encounter Note Thank you. Please keep us updated. Sahnna Mukherjee APRN.MARLENE [facility] 08-31-2023 Miscellaneous Notes Thank you. Please keep us updated. Shanna Mukherjee APRN.CNP Patient calls and states that she has been treated for shingles. Patient feels like she is improving. Patient states that the issues that she had been having at night is not quite as often. Patient reports that her pain has been significantly less and not as severe. The blisters on patient's right buttocks is healing. Patient does have some abdominal discomfort on the right side which comes and goes. Patient wanted to give this update. Emy Santoyo RN documented in this encounter [facility] 08-31-2023 Telephone encounter Note Patient called and states her injections have been approved. Patient scheduled with Marlys on Monday 09/04. [facility] 08-31-2023 Miscellaneous Notes Patient called and states her injections have been approved. Patient scheduled with Marlys on Monday 09/04. Patient called to check on the status of her injection approval. She has shingles on that side of her body and it is really increasing her knee pain. I checked referral and it is still pending with her insurance. Patient notified and verbalized understanding. Patient has been contacted with message from provider. She verbalized understanding. She will wait for approval of injection. Having shingles is not going to interfere with her getting her viscosupplementation. However, for the safety of other patients and staff, I suggest that she not come to the office for gel injections until her rash has completely scabbed over. Shingles can be very contagious for the first 7 to 10 days or while the rash is still weeping. Patient called in to report she currently has shingles and is still dealing with a great deal of pain. She is taking gabapentin and it was recently increased to 400 mg at bedtime to help her get some sleep. She wants to make sure it would still be okay to get the gel injection once approved? Referral is still pending approval. Patient can be reached back at [phone]. Referral still pending with insurance. Patient seen in Urgent care on 08/09/2023 and started on prednisone. Waiting for insurance approval for viscosupplementation. Patient called, verified name and date of , regarding right knee pain. Patient states her pain is unbearable and needs some relief soon. Patient rates pain 7/10, swelling, pain so bad cause nauseous. Patient has used ice on knee, taken pain medication with no resolve of pain. Patient would like to be seen soon. Advised patient nurse will send message to ortho staff. Advised that if pain continues to get worse/ unbearable please visit local urgent care or ER. Patient verbalized understanding. Pam Aldrich LPN August 09, 2023 9:06 AM Patient is having knee pain again and would like to proceed with viscosupplementation approval. She had good relief from Durolane injection. She had better relief from Synvisc One injection a few years backand would like to try for approval of Synvisc One. Explained to the patient I would attempt it, but her insurance may require her to get Durolane or another preferred product. Patient verbalized understanding and said she will get whatever her insurance will allow her to have. Referral placed. documented in this encounter [facility] 08-30-2023 Telephone encounter Note Patient calls and states that she has been treated for shingles. Patient feels like she is improving. Patient states that the issues that she had been having at night is not quite as often. Patient reports that her pain has been significantly less and not as severe. The blisters on patient's right buttocks is healing. Patient does have some abdominal discomfort on the right side which comes and goes. Patient wanted to give this update. Emy Santoyo RN [facility] 08-26-2023 Telephone encounter Note Patient called to check on the status of her injection approval. She has shingles on that side of her body and it is really increasing her knee pain. I checked referral and it is still pending with her insurance. Patient notified and verbalized understanding. [facility] 08-24-2023 Telephone encounter Note Patient has been contacted with message from provider. She verbalized understanding. She will wait for approval of injection. [facility] 08-24-2023 Telephone encounter Note Having shingles is not going to interfere with her getting her viscosupplementation. However, for the safety of other patients and staff, I suggest that she not come to the office for gel injections until her rash has completely scabbed over. Shingles can be very contagious for the first 7 to 10 days or while the rash is still weeping. [facility] Work Phone: 08-24-2023 Telephone encounter Note Patient called in to report she currently has shingles and is still dealing with a great deal of pain. She is taking gabapentin and it was recently increased to 400 mg at bedtime to help her get some sleep. She wants to make sure it would still be okay to get the gel injection once approved? Referral is still pending approval. Patient can be reached back at [phone]. [facility] 08-22-2023 Instructions Shanna Mukherjee APRN.MARLENE - 08/22/2023 3:48 PM EDT Increase the evening dose of gabapentin to 400 mg. Okay to use hydrocortisone or calamine lotion to the area. Monitor for symptoms of infection. documented in this encounter [facility] 08-22-2023 History of Present illness Narrative This is a 83 year old female who presents today with: Patient presents with: Follow Up: shingles HISTORY OF PRESENT ILLNESS: Arianne Aleman is a 83 year old female. Patient presents with: Follow Up: shingles Pt presents today to follow-up on the shingles. She initially presented on 08/11/2023. She was diagnosed with shingles. She was started on gabapentin and Valtrex. Refers that she has finished the antiviral medication. Refers that her right buttock is where the blisters are. States that her buttock is still painful. She is taking the gabapentin three times daily. Pain is worse in the evening. 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, most often secondary to a remote infection with rubella History of skin cancer SCC R arm; basal cell face, scalp Hives OSTEOPENIA Personal history of colonic polyps lymphoid aggregate removed Piezogenic pedal papule fatty papules around heel: no clinical significance Seasonal allergies Skin cancer melanoma,basal and squamous cell Symptomatic menopausal or female climacteric states was on HRT then off, last DXA 1998 PAST SURGICAL HISTORY Procedure Laterality Date CATARACT SURGERY, COMPLEX and Hx Fuch's dystrophy COLONOSCOPY FLX DX W/COLLJ SPEC WHEN PFRMD 12/1999 Colonoscopy- DIVERTICULOSIS DILATION & CURETTAGE DX&/THER NONOBSTETRIC 1990 Dilation & curettage DILATION & CURETTAGE DX&/THER NONOBSTETRIC Dilation & curettage TAB Down's GI COLON STEPHANIE INTUSSUSCEPTION 1939 LIG/TRNSXJ FLP TUBE ABDL/VAG APPR UNI/BI 1981 PAST SURGICAL HISTORY OF 1958 'polyp' removal PAST SURGICAL HISTORY OF 06/04/11 basal cell carcinoma removed from face PAST SURGICAL HISTORY OF 02/16/11 squamous cell skin CA PAST SURGICAL HISTORY OF 09/2011 basal cell carcinoma removed behind left ear, left buttock, left forearm, PAST SURGICAL HISTORY OF Skin cancer biopsies TONSILLECTOMY & ADENOIDECTOMY <AGE 12 1960 Tonsil/adenoidectomy ALLERGIES Lidocaine, Codeine, Diclofenac, Etodolac, and Medroxyprogesterone MEDICATIONS Current Outpatient Medications Medication Sig sertraline (ZOLOFT) 25 mg tablet Take 1 tablet by mouth once daily. gabapentin (NEURONTIN) 300 mg capsule Take 1 capsule by mouth three times a day for 90 days. Glucosamine HCl, Bulk, powd NEOMYCIN 3.5 MG/G-POLYMYXIN B 10,000 UNIT/G-DEXAMETH 0.1 % EYE OINT fexofenadine (MELBA) 180 mg tablet Take 180 mg by mouth once daily. Chlorhexidine Gluconate (PERIDEX) 0.12 % solution twice daily. calcium carbonate (TUMS 500 ORAL) Take by mouth as needed. ergocalciferol, vitamin D2, (VITAMIN D2 ORAL) Take by mouth. COLLAGEN MISC vit C/E/Zn/coppr/lutein/zeaxan (PRESERVISION AREDS-2 ORAL) Take by mouth. acetaminophen (TYLENOL) 325 mg tablet Take 650 mg by mouth every 6 hours as needed. SIMETHICONE (GAS-X ORAL) Take 1 tablet by mouth as needed. CARBOXYMETHYLCELLULOSE SODIUM (REFRESH TEARS OPHTHALMIC) Use 1 Drop in eyes three times daily as needed. COMPOUNDED PRESCRIPTION Gum Rincinol as needed ketoconazole (NIZORAL) 2 % shampoo Apply 1 application to affected area once daily as needed. polyethylene glycol 3350 (MIRALAX) 17 gram/dose powder As needed for constipation No current facility-administered medications for this visit. FAMILY HISTORY Problem Relation Age of Onset Hypertension Mother Heart Father Skin Cancer Father melanoma other (alcoholism) Father brother other (depression) Brother Heart Brother stent placement Heart Sister replaced heart valve Skin Cancer Sister melanoma Social History Tobacco Use Smoking status: Never Smokeless tobacco: Never Vaping Use Vaping Use: Never used Substance Use Topics Alcohol use: No Comment: has drank in the past Drug use: No EXAM: BP 120/70 Pulse 88 Resp 16 Wt 83 kg (183 lb) SpO2 98% BMI 31.41 kg/m PHYSICAL EXAM: General Appearance: Well appearing, alert, in no acute distress, well-hydrated, well nourished.. Skin:scabbing lesions noticed on the right buttock. Several clusters of areas noted more distally on dermatome of right leg. Head: Normocephalic, no masses, lesions, tenderness or abnormalities. Eyes: Anicteric sclera. Extraocular movements are intact. . Neurologic: Gait normal. ASSESSMENT/PLAN: 1. Herpes zoster with complication - ICD9: 053.8, ICD10: B02.8 No s/s of infection. Continue the gabapentin. Will add an additional 100 mg in the evening to help with the nighttime pain. Consider shingrix upon resolution of rash. Discussed treatment plan and patient voices understanding. Patient's questions answered appropriately. Medications and potential side effects were discussed and patient voices understanding. Return to the office as scheduled or as needed for worsening/no improvement. Shanna Mukherjee APRN.MULTIPLE KNIFE EDGE TRIMMER OPERATOR documented in this encounter [facility] 08-19-2023 Telephone encounter Note Patient has been identified by name and date of : Yes, Jessica Cutler RN Date 08/19/2023 Time 11:08 AM Patient phones for refill(s): Requested Prescriptions Pending Prescriptions Disp Refills sertraline (ZOLOFT) 25 mg tablet 30 tablet 5 Sig: Take 1 tablet by mouth once daily. Date of last office visit in primary care: 08/11/2023 Date of next office visit in primary care: 02/20/2024 Please advise. Thank you. Jessica Cutler RN. [facility] 08-19-2023 Miscellaneous Notes Patient has been identified by name and date of : Yes, Jessica Cutler RN Date 08/19/2023 Time 11:08 AM Patient phones for refill(s): Requested Prescriptions Pending Prescriptions Disp Refills sertraline (ZOLOFT) 25 mg tablet 30 tablet 5 Sig: Take 1 tablet by mouth once daily. Date of last office visit in primary care: 08/11/2023 Date of next office visit in primary care: 02/20/2024 Please advise. Thank you. Jessica Cutler RN. documented in this encounter [facility] 08-18-2023 Telephone encounter Note Patient had Durolane the last time. Please precert for Durolane. Thank you. [facility] 08-18-2023 Miscellaneous Notes Patient had Durolane the last time. Please precert for Durolane. Thank you. === PHARMACY TEAM ==== ADDITIONAL INFORMATION NEEDED/REQUESTED Case Submitted: No Request Type: Provider Date of Service: TBD Additional Information Needed: per patients health plan [place] [employer] the preferred drugs are Durolane,Euflexxa,Gelsyn-3 and Supartz FX Request from Payor by: N/A Email Sent to: telephone encounter to MARLYS JERNIGAN Amy Rafferty, [place], [place] Requested Clinicals/Information Sent: N/A documented in this encounter [facility] 08-18-2023 Telephone encounter Note === PHARMACY TEAM ==== ADDITIONAL INFORMATION NEEDED/REQUESTED Case Submitted: No Request Type: Provider Date of Service: TBD Additional Information Needed: per patients health plan [place] [employer] the preferred drugs are Durolane,Euflexxa,Gelsyn-3 and Supartz FX Request from Payor by: N/A Email Sent to: telephone encounter to MARLYS JERNIGAN Amy Rafferty, Brown, Sam[place] Requested Clinicals/Information Sent: N/A [facility] 08-18-2023 Telephone encounter Note Referral still pending with insurance. [facility] 08-12-2023 History of Present illness Narrative Subjective HPI HPI Arianne Aleman is a 83 year old female who presents today for CC of sudden onset right lower extremity swelling/worsening. Started today. Denies injury. Currently being treated for shingles. Denies numbness/tingling of right lower extremity .Patient presents with: Shingles: Possible side effect from meds. Right leg swelling and redness. 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, most often secondary to a remote infection with rubella History of skin cancer SCC R arm; basal cell face, scalp Hives OSTEOPENIA Personal history of colonic polyps lymphoid aggregate removed Piezogenic pedal papule fatty papules around heel: no clinical significance Seasonal allergies Skin cancer melanoma,basal and squamous cell Symptomatic menopausal or female climacteric states was on HRT then off, last DXA 1998 PAST SURGICAL HISTORY Procedure Laterality Date CATARACT SURGERY, COMPLEX and Hx Fuch's dystrophy COLONOSCOPY FLX DX W/COLLJ SPEC WHEN PFRMD 12/1999 Colonoscopy- DIVERTICULOSIS DILATION & CURETTAGE DX&/THER NONOBSTETRIC 1989 Dilation & curettage DILATION & CURETTAGE DX&/THER NONOBSTETRIC Dilation & curettage TAB Down's GI COLON STEPHANIE INTUSSUSCEPTION 1939 LIG/TRNSXJ FLP TUBE ABDL/VAG APPR UNI/BI 1981 PAST SURGICAL HISTORY OF 1958 'polyp' removal PAST SURGICAL HISTORY OF 06/04/11 basal cell carcinoma removed from face PAST SURGICAL HISTORY OF 02/16/11 squamous cell skin CA PAST SURGICAL HISTORY OF 09/2011 basal cell carcinoma removed behind left ear, left buttock, left forearm, PAST SURGICAL HISTORY OF Skin cancer biopsies TONSILLECTOMY & ADENOIDECTOMY <AGE 10 1960 Tonsil/adenoidectomy ALLERGIES Lidocaine, Codeine, Diclofenac, Etodolac, and Medroxyprogesterone MEDICATIONS valACYclovir (VALTREX) 1 gram tablet Take 1 tablet by mouth three times a day for 7 days. gabapentin (NEURONTIN) 300 mg capsule Take 1 capsule by mouth three times a day for 90 days. predniSONE (DELTASONE) 10 mg tablet Take 4 tabs daily for 3 days, then 2 tabs daily for 3 days, then 1 tab daily for 3 days with food. Glucosamine HCl, Bulk, powd sertraline (ZOLOFT) 25 mg tablet Take 1 tablet by mouth once daily. fexofenadine (MELBA) 180 mg tablet Take 180 mg by mouth once daily. calcium carbonate (TUMS 500 ORAL) Take by mouth as needed. ergocalciferol, vitamin D2, (VITAMIN D2 ORAL) Take by mouth. vit C/E/Zn/coppr/lutein/zeaxan (PRESERVISION AREDS-2 ORAL) Take by mouth. acetaminophen (TYLENOL) 325 mg tablet Take 650 mg by mouth every 6 hours as needed. SIMETHICONE (GAS-X ORAL) Take 1 tablet by mouth as needed. CARBOXYMETHYLCELLULOSE SODIUM (REFRESH TEARS OPHTHALMIC) Use 1 Drop in eyes three times daily as needed. ketoconazole (NIZORAL) 2 % shampoo Apply 1 application to affected area once daily as needed. polyethylene glycol 3350 (MIRALAX) 17 gram/dose powder As needed for constipation NEOMYCIN 3.5 MG/G-POLYMYXIN B 10,000 UNIT/G-DEXAMETH 0.1 % EYE OINT (Patient not taking: Reported on 01/10/2023) Chlorhexidine Gluconate (PERIDEX) 0.12 % solution twice daily. (Patient not taking: Reported on 01/10/2023) COLLAGEN MISC (Patient not taking: Reported on 01/10/2023) COMPOUNDED PRESCRIPTION Gum Rincinol as needed (Patient not taking: Reported on 01/10/2023) FAMILY HISTORY Problem Relation Age of Onset Hypertension Mother Heart Father Skin Cancer Father melanoma other (alcoholism) Father brother other (depression) Brother Heart Brother stent placement Heart Sister replaced heart valve Skin Cancer Sister melanoma Social History Tobacco Use Smoking status: Never Smokeless tobacco: Never Vaping Use Vaping Use: Never used Substance Use Topics Alcohol use: No Comment: has drank in the past Drug use: No ROS Objective Blood pressure 142/76, pulse 89, temperature 37.5 C (99.5 F), resp. rate 16, weight 83.7 kg (184 lb 8.4 oz), SpO2 96%. Physical Exam Constitutional: General: She is not in acute distress. Appearance: She is not toxic-appearing or diaphoretic. HENT: Head: Normocephalic and atraumatic. Cardiovascular: Pulses: Dorsalis pedis pulses are 1+ on the right side. Posterior tibial pulses are 1+ on the right side. Pulmonary: Effort: Pulmonary effort is normal. No accessory muscle usage or respiratory distress. Musculoskeletal: Right lower le+ Edema present. Neurological: Mental Status: She is alert and oriented to person, place, and time. ASSESSMENT/PLAN: 1. Pain and swelling of right lower extremity - ICD9: 729.5, 729.81, ICD10: M79.604, M79.89 Concerns this is sudden onset and worsening I will refer to ER Will drive pov to ER, unclear what ER will go to at this time. Lenard Jerome APRN.MARLENE documented in this encounter [facility] 08-12-2023 Telephone encounter Note Patient calls and states that she had noticed that within the past hour her leg has become swollen and it is turning brown. Patient states that she was told to call office if there was any changes. Advised patient that with that change she should go to ED to be evaluated. Patient states that [facility] and then if they think she needs to go to ED then she will go. Patient is afraid that she is having a reaction to the medications she was just placed on. Emy Santoyo RN [facility] 08-12-2023 Miscellaneous Notes Patient calls and states that she had noticed that within the past hour her leg has become swollen and it is turning brown. Patient states that she was told to call office if there was any changes. Advised patient that with that change she should go to ED to be evaluated. Patient states that she is going to go to [facility] and then if they think she needs to go to ED then she will go. Patient is afraid that she is having a reaction to the medications she was just placed on. Emy Santoyo RN documented in this encounter [facility] 08-12-2023 Telephone encounter Note Patient seen in Urgent care on 08/09/2023 and started on prednisone. Waiting for insurance approval for viscosupplementation. [facility] 08-11-2023 Instructions Kaitlin Victor APRN.CNS - 08/11/2023 9:42 AM EDT 1) Valacyclovir 1000 mg 3 x day for 7 days 2) Gabapentin 300mg 3 x day for pain- if too sleepy, reduce to 2 x day 3) Send message if pain too much, if too loopy, can reduce dose 4) Let me know when rash is nearly dried for Zoster series documented in this encounter [facility] 08-11-2023 History of Present illness Narrative This is a 83 year old female who presents today with: No chief complaint on file. HISTORY OF PRESENT ILLNESS: Arianne Aleman is a 83 year old female. No chief complaint on file. Rash that itches on buttock. Started prednisone 2 days ago. Started hydrocortisone cream. Taking tylenol through night due to pain. Examined in Urgent care on Tuesday. Awaiting injections in knee. No fever. That was why she is on prednisone. Pain 09/27 Skin cancer patient. Treating bed bugs but didn't treat car yet. 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, most often secondary to a remote infection with rubella History of skin cancer SCC R arm; basal cell face, scalp Hives OSTEOPENIA Personal history of colonic polyps lymphoid aggregate removed Piezogenic pedal papule fatty papules around heel: no clinical significance Seasonal allergies Skin cancer melanoma,basal and squamous cell Symptomatic menopausal or female climacteric states was on HRT then off, last DXA 1998 PAST SURGICAL HISTORY Procedure Laterality Date CATARACT SURGERY, COMPLEX and Hx Fuch's dystrophy COLONOSCOPY FLX DX W/COLLJ SPEC WHEN PFRMD 12/1999 Colonoscopy- DIVERTICULOSIS DILATION & CURETTAGE DX&/THER NONOBSTETRIC 1989 Dilation & curettage DILATION & CURETTAGE DX&/THER NONOBSTETRIC Dilation & curettage TAB Down's GI COLON STEPHANIE INTUSSUSCEPTION 1939 LIG/TRNSXJ FLP TUBE ABDL/VAG APPR UNI/BI 1981 PAST SURGICAL HISTORY OF 1958 'polyp' removal PAST SURGICAL HISTORY OF 06/04/11 basal cell carcinoma removed from face PAST SURGICAL HISTORY OF 02/16/11 squamous cell skin CA PAST SURGICAL HISTORY OF 09/2011 basal cell carcinoma removed behind left ear, left buttock, left forearm, PAST SURGICAL HISTORY OF Skin cancer biopsies TONSILLECTOMY & ADENOIDECTOMY <AGE 10 1960 Tonsil/adenoidectomy ALLERGIES Lidocaine, Codeine, Diclofenac, Etodolac, and Medroxyprogesterone MEDICATIONS Current Outpatient Medications Medication Sig predniSONE (DELTASONE) 10 mg tablet Take 4 tabs daily for 3 days, then 2 tabs daily for 3 days, then 1 tab daily for 3 days with food. Glucosamine HCl, Bulk, powd sertraline (ZOLOFT) 25 mg tablet Take 1 tablet by mouth once daily. NEOMYCIN 3.5 MG/G-POLYMYXIN B 10,000 UNIT/G-DEXAMETH 0.1 % EYE OINT (Patient not taking: Reported on 01/10/2023) fexofenadine (MELBA) 180 mg tablet Take 180 mg by mouth once daily. Chlorhexidine Gluconate (PERIDEX) 0.12 % solution twice daily. (Patient not taking: Reported on 01/10/2023) calcium carbonate (TUMS 500 ORAL) Take by mouth as needed. ergocalciferol, vitamin D2, (VITAMIN D2 ORAL) Take by mouth. COLLAGEN MISC (Patient not taking: Reported on 01/10/2023) vit C/E/Zn/coppr/lutein/zeaxan (PRESERVISION AREDS-2 ORAL) Take by mouth. acetaminophen (TYLENOL) 325 mg tablet Take 650 mg by mouth every 6 hours as needed. SIMETHICONE (GAS-X ORAL) Take 1 tablet by mouth as needed. CARBOXYMETHYLCELLULOSE SODIUM (REFRESH TEARS OPHTHALMIC) Use 1 Drop in eyes three times daily as needed. COMPOUNDED PRESCRIPTION Gum Rincinol as needed (Patient not taking: Reported on 01/10/2023) ketoconazole (NIZORAL) 2 % shampoo Apply 1 application to affected area once daily as needed. polyethylene glycol 3350 (MIRALAX) 17 gram/dose powder As needed for constipation No current facility-administered medications for this visit. FAMILY HISTORY Problem Relation Age of Onset Hypertension Mother Heart Father Skin Cancer Father melanoma other (alcoholism) Father brother other (depression) Brother Heart Brother stent placement Heart Sister replaced heart valve Skin Cancer Sister melanoma Social History Tobacco Use Smoking status: Never Smokeless tobacco: Never Vaping Use Vaping Use: Never used Substance Use Topics Alcohol use: No Comment: has drank in the past Drug use: No EXAM: There were no vitals taken for this visit. PHYSICAL EXAM: Physical Exam Vitals reviewed. Constitutional: Appearance: Normal appearance. Skin: Comments: Rash on left side of buttock to come across buttock in downward fashion. Very painful. Neurological: Mental Status: She is alert. LABS: ASSESSMENT/PLAN: 1. Herpes zoster with complication - ICD9: 053.8, ICD10: B02.8 - Will treat with Valtrex 3 x day for 1 week - Gabapentin 300 mg 3 x day for pain, educated omn use. Will send My Chart message if not helpful. - Will need Shingrix once rash resolves Return to the office as scheduled or as needed for worsening/no improvement. Discussed treatment plan and patient voices understanding. Patient's questions answered appropriately. Medications and potential side effects were discussed and patient voices understanding. Kaitlin Victor APRN.PRE SALES TECHNICAL CONSULTANT documented in this encounter [facility] 08-11-2023 Telephone encounter Note Pt called in and reports she came to [facility] 08/09/23 for knee pain and foot pain. She said she had a podiatry appointment canceled on her and she is over due for collagen injections in her knees. Pt is waiting on insurance approval to get knee injections. She reports she was put on Prednisone in the [facility] and some time after she got a rash on her R buttock. Pt cannot describe the rash as she cannot see it. She states it is on the side of the buttock and a spot on the top middle, but has not spread. Pt denies fever. [facility] 08-11-2023 Miscellaneous Notes Pt called in and reports she came to [facility] 08/09/23 for knee pain and foot pain. She said she had a podiatry appointment canceled on her and she is over due for collagen injections in her knees. Pt is waiting on insurance approval to get knee injections. She reports she was put on Prednisone in the [facility] and some time after she got a rash on her R buttock. Pt cannot describe the rash as she cannot see it. She states it is on the side of the buttock and a spot on the top middle, but has not spread. Pt denies fever. documented in this encounter [facility] 08-09-2023 History of Present illness Narrative Images from the original note were not included. Subjective HPI HPI Arianne Aleman is a 83 year old female who presents today for CC of right knee pain. This started months ago, much worse today. Has had steroid injections in this knee in past, requesting today. Denies fever and rash. 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, most often secondary to a remote infection with rubella History of skin cancer SCC R arm; basal cell face, scalp Hives OSTEOPENIA Personal history of colonic polyps lymphoid aggregate removed Piezogenic pedal papule fatty papules around heel: no clinical significance Seasonal allergies Skin cancer melanoma,basal and squamous cell Symptomatic menopausal or female climacteric states was on HRT then off, last DXA 1998 PAST SURGICAL HISTORY Procedure Laterality Date CATARACT SURGERY, COMPLEX and Hx Fuch's dystrophy COLONOSCOPY FLX DX W/COLLJ SPEC WHEN PFRMD 12/1999 Colonoscopy- DIVERTICULOSIS DILATION & CURETTAGE DX&/THER NONOBSTETRIC 1989 Dilation & curettage DILATION & CURETTAGE DX&/THER NONOBSTETRIC Dilation & curettage TAB Down's GI COLON STEPHANIE INTUSSUSCEPTION 1939 LIG/TRNSXJ FLP TUBE ABDL/VAG APPR UNI/BI 1981 PAST SURGICAL HISTORY OF 1958 'polyp' removal PAST SURGICAL HISTORY OF 06/04/11 basal cell carcinoma removed from face PAST SURGICAL HISTORY OF 02/16/11 squamous cell skin CA PAST SURGICAL HISTORY OF 09/2011 basal cell carcinoma removed behind left ear, left buttock, left forearm, PAST SURGICAL HISTORY OF Skin cancer biopsies TONSILLECTOMY & ADENOIDECTOMY <AGE 10 1960 Tonsil/adenoidectomy ALLERGIES Lidocaine, Codeine, Diclofenac, Etodolac, and Medroxyprogesterone MEDICATIONS Glucosamine HCl, Bulk, powd sertraline (ZOLOFT) 25 mg tablet Take 1 tablet by mouth once daily. fexofenadine (MELBA) 180 mg tablet Take 180 mg by mouth once daily. calcium carbonate (TUMS 500 ORAL) Take by mouth as needed. ergocalciferol, vitamin D2, (VITAMIN D2 ORAL) Take by mouth. vit C/E/Zn/coppr/lutein/zeaxan (PRESERVISION AREDS-2 ORAL) Take by mouth. acetaminophen (TYLENOL) 325 mg tablet Take 650 mg by mouth every 6 hours as needed. SIMETHICONE (GAS-X ORAL) Take 1 tablet by mouth as needed. CARBOXYMETHYLCELLULOSE SODIUM (REFRESH TEARS OPHTHALMIC) Use 1 Drop in eyes three times daily as needed. ketoconazole (NIZORAL) 2 % shampoo Apply 1 application to affected area once daily as needed. polyethylene glycol 3350 (MIRALAX) 17 gram/dose powder As needed for constipation predniSONE (DELTASONE) 10 mg tablet Take 4 tabs daily for 3 days, then 2 tabs daily for 3 days, then 1 tab daily for 3 days with food. NEOMYCIN 3.5 MG/G-POLYMYXIN B 10,000 UNIT/G-DEXAMETH 0.1 % EYE OINT (Patient not taking: Reported on 01/10/2023) Chlorhexidine Gluconate (PERIDEX) 0.12 % solution twice daily. (Patient not taking: Reported on 01/10/2023) COLLAGEN MISC (Patient not taking: Reported on 01/10/2023) COMPOUNDED PRESCRIPTION Gum Rincinol as needed (Patient not taking: Reported on 01/10/2023) FAMILY HISTORY Problem Relation Age of Onset Hypertension Mother Heart Father Skin Cancer Father melanoma other (alcoholism) Father brother other (depression) Brother Heart Brother stent placement Heart Sister replaced heart valve Skin Cancer Sister melanoma Social History Tobacco Use Smoking status: Never Smokeless tobacco: Never Vaping Use Vaping Use: Never used Substance Use Topics Alcohol use: No Comment: has drank in the past Drug use: No ROS Objective Blood pressure 138/82, pulse 91, temperature 36.8 C (98.3 F), temperature source Tympanic, resp. rate 18, weight 82.8 kg (182 lb 8.7 oz), SpO2 99%. Physical Exam Constitutional: General: She is not in acute distress. Appearance: She is not toxic-appearing or diaphoretic. HENT: Head: Normocephalic and atraumatic. Cardiovascular: Pulses: Dorsalis pedis pulses are 1+ on the right side. Posterior tibial pulses are 1+ on the right side. Pulmonary: Effort: Pulmonary effort is normal. No accessory muscle usage or respiratory distress. Skin: Neurological: Mental Status: She is alert and oriented to person, place, and time. ASSESSMENT/PLAN: 1. Chronic pain of right knee - ICD9: 719.46, 338.29, ICD10: M25.561, G89.29 Try steroid Keep f/u with ortho. - PREDNISONE 10 MG TABLET Lenard Jerome APRN.MULTIPLE KNIFE EDGE TRIMMER OPERATOR documented in this encounter [facility] 08-09-2023 Telephone encounter Note Patient called, verified name and date of , regarding right knee pain. Patient states her pain is unbearable and needs some relief soon. Patient rates pain 7/10, swelling, pain so bad cause nauseous. Patient has used ice on knee, taken pain medication with no resolve of pain. Patient would like to be seen soon. Advised patient nurse will send message to ortho staff. Advised that if pain continues to get worse/ unbearable please visit local urgent care or ER. Patient verbalized understanding. Pam Aldrich LPN August 09, 2023 9:06 AM [facility] 08-08-2023 Telephone encounter Note Patient is having knee pain again and would like to proceed with viscosupplementation approval. She had good relief from Durolane injection. She had better relief from Synvisc One injection a few years backand would like to try for approval of Synvisc One. Explained to the patient I would attempt it, but her insurance may require her to get Durolane or another preferred product. Patient verbalized understanding and said she will get whatever her insurance will allow her to have. Referral placed. T [facility] 07-19-2023 History of Present illness Narrative POPULATION HEALTH NAVIGATION OUTREACH Action/FYI Patient is on [facility] CURRENT ROSTER Workbench list for below and needs appointment to address: Advance Directive Discussion Covid-19 Vaccine( season) No results found for: "HBA1C" Patient due for: Medicare Annual Wellness Visit - last 03-03-23 Advance Directives Spoke to patient. Scheduled with PCP. Noted upcoming appointment to address due care gap and HCC gap closure. Reason for Outreach Care Gap/HCC or Scheduling Wellness Visits Care Gaps due: Medicare Annual Wellness Visit Advance Directives Patient Contacted: Spoke to patient/parent/or legal guardian Patient identified by name and : Yes Care Gap/HCC/Scheduling Wellness actions taken: Patient scheduled/pended labs: Medicare Annual Wellness Visit 02/20/2024 in [facility] with JOHN HICKS - Medicare Wellness - Anytime in calendar year per [place], AWV due. Please address due care gap and HCC gap closure HCC related Navigation Signature: Parul Rios MA July 19, 2023 7:22 AM documented in this encounter [facility] 07-06-2023 History of Present illness Narrative Ambulatory Ear Lavage Pre-treatment: No pre-treatment Treatment: Left ear Equipment and Irrigation solution and Volume used: Single use syringe with single use irrigation tip Water Total Irrigation Volume: 200cc Return flow appearance: Clear Debris Patient tolerated procedure: yes Tympanic membrane assessment: Tympanic membrane assessed by LIP pre and post procedure This is a 83 year old female who presents today with: Patient presents with: Acute Visit: L ear pressure, feels like fluid in the ear; tried sudafed for 2 weeks, doesn't feel it's working HISTORY OF PRESENT ILLNESS: Arianne Aleman is a 83 year old female. Patient presents with: Acute Visit: L ear pressure, feels like fluid in the ear; tried sudafed for 2 weeks, doesn't feel it's working Pt presents today with complaint of Had an upper resp infection over winter. Was having a lot of discomfort in her ears. Was advised to take sudafed X 2 weeks. Still having some problems with the left ear. Not painful. Feels very full. + itching. She did use a q-tip this morning and had removed some brown material. Right ear is fine. 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, most often secondary to a remote infection with rubella History of skin cancer SCC R arm; basal cell face, scalp Hives OSTEOPENIA Personal history of colonic polyps lymphoid aggregate removed Piezogenic pedal papule fatty papules around heel: no clinical significance Seasonal allergies Skin cancer melanoma,basal and squamous cell Symptomatic menopausal or female climacteric states was on HRT then off, last DXA 1998 PAST SURGICAL HISTORY Procedure Laterality Date CATARACT SURGERY, COMPLEX and Hx Fuch's dystrophy COLONOSCOPY FLX DX W/COLLJ SPEC WHEN PFRMD 12/1999 Colonoscopy- DIVERTICULOSIS DILATION & CURETTAGE DX&/THER NONOBSTETRIC 1990 Dilation & curettage DILATION & CURETTAGE DX&/THER NONOBSTETRIC Dilation & curettage TAB Down's GI COLON STEPHANIE INTUSSUSCEPTION 1939 LIG/TRNSXJ FLP TUBE ABDL/VAG APPR UNI/BI 1981 PAST SURGICAL HISTORY OF 1958 'polyp' removal PAST SURGICAL HISTORY OF 06/04/11 basal cell carcinoma removed from face PAST SURGICAL HISTORY OF 02/16/11 squamous cell skin CA PAST SURGICAL HISTORY OF 09/2011 basal cell carcinoma removed behind left ear, left buttock, left forearm, PAST SURGICAL HISTORY OF Skin cancer biopsies TONSILLECTOMY & ADENOIDECTOMY <AGE 10 1960 Tonsil/adenoidectomy ALLERGIES Lidocaine, Codeine, Diclofenac, Etodolac, Medroxyprogesterone, and Predisone [Other] MEDICATIONS Current Outpatient Medications Medication Sig Glucosamine HCl, Bulk, powd sertraline (ZOLOFT) 25 mg tablet Take 1 tablet by mouth once daily. fexofenadine (MELBA) 180 mg tablet Take 180 mg by mouth once daily. calcium carbonate (TUMS 500 ORAL) Take by mouth as needed. ergocalciferol, vitamin D2, (VITAMIN D2 ORAL) Take by mouth. acetaminophen (TYLENOL) 325 mg tablet Take 650 mg by mouth every 6 hours as needed. SIMETHICONE (GAS-X ORAL) Take 1 tablet by mouth as needed. CARBOXYMETHYLCELLULOSE SODIUM (REFRESH TEARS OPHTHALMIC) Use 1 Drop in eyes three times daily as needed. ketoconazole (NIZORAL) 2 % shampoo Apply 1 application to affected area once daily as needed. polyethylene glycol 3350 (MIRALAX) 17 gram/dose powder As needed for constipation NEOMYCIN 3.5 MG/G-POLYMYXIN B 10,000 UNIT/G-DEXAMETH 0.1 % EYE OINT (Patient not taking: Reported on 01/10/2023) Chlorhexidine Gluconate (PERIDEX) 0.12 % solution twice daily. (Patient not taking: Reported on 01/10/2023) COLLAGEN MISC (Patient not taking: Reported on 01/10/2023) vit C/E/Zn/coppr/lutein/zeaxan (PRESERVISION AREDS-2 ORAL) Take by mouth. COMPOUNDED PRESCRIPTION Gum Rincinol as needed (Patient not taking: Reported on 01/10/2023) No current facility-administered medications for this visit. FAMILY HISTORY Problem Relation Age of Onset Hypertension Mother Heart Father Skin Cancer Father melanoma other (alcoholism) Father brother other (depression) Brother Heart Brother stent placement Heart Sister replaced heart valve Skin Cancer Sister melanoma Social History Tobacco Use Smoking status: Never Smokeless tobacco: Never Vaping Use Vaping Use: Never used Substance Use Topics Alcohol use: No Comment: has drank in the past Drug use: No EXAM: BP 112/78 Pulse 88 Resp 16 SpO2 96% PHYSICAL EXAM: General Appearance: Well appearing, alert, in no acute distress, well-hydrated, well nourished.. Skin: Skin color, texture, turgor normal, no suspicious rashes or lesions. Head: Normocephalic, no masses, lesions, tenderness or abnormalities. Eyes: Anicteric sclera. Extraocular movements are intact. . Ears: External ears normal, canals clear, Positive findings: R TM: normal, L TM: obscured by cerumen Large. -- TM intact after irrigation. Neurologic: Gait normal. ASSESSMENT/PLAN: 1. Impacted cerumen of left ear - ICD9: 380.4, ICD10: H61.22 Successfully irrigated by nursing staff. TM intact after irrigation. - AMBULATORY EAR LAVAGE/IRRIGATION Discussed treatment plan and patient voices understanding. Patient's questions answered appropriately. Medications and potential side effects were discussed and patient voices understanding. Return to the office as scheduled or as needed for worsening/no improvement. Shanna Mukherjee APRN.MULTIPLE KNIFE EDGE TRIMMER OPERATOR documented in this encounter [facility] 07-04-2023 Miscellaneous Notes Patient informed and verbalized understanding. Nunu Gutierrez MA Can try flonase NS OTC 2 sprays each nostril twice a day She could use a decongestant in addition if tolerates. If persists > 4 weeks I usually enlist ENT consult. Thanks, Itz Chavez PA-C Patient calling with concern for feeling like her ears "are under water" at times over the last 2-3 months. States this has occurred ever since having an upper respiratory illness 2-3 months ago that resolved. She has no congestion, no pain, no ear pressure and no fever. Does have an occasional cough and is sneezing at times. Reports she does have allergies from time to time. She is not taking any OTC allergy-type medication currently. She is requesting either Dr. Hicks or Itz Chavez to advise her. She states she does not take any medication without recommendation from provider first. Patient reports if she needs to come in for an evaluation, she is agreeable, however is willing to try OTC medication first, once advised. Please advise patient. Thank you. documented in this encounter [facility] 06-30-2023 History of Present illness Narrative Radiology Service Progress Note PATIENT NAME: Arianne Aleman DATE OF SERVICE: June 30, 2023 TIME: 7:59 AM PATIENT IDENTITY VERIFICATION COMPLETED USING TWO (2) IDENTIFIERS: Name and Date of confirmed by patient verbally. FALL SCREENING: Has the patient had 2 falls in the last year or 1 fall with injury or currently using an Ambulatory Assistive Device (Walker, Cane, Wheelchair, Crutches, etc.)? No PATIENT GENDER DATA: Female. status: : No status: NO. PATIENT RELEVANT IMPLANT DATA REVIEWED: Not Applicable PATIENT PRESENTS WITH AN IMPLANTABLE OR ATTACHED METAL ANNEALER: No RADIOLOGY DEPARTMENT: Bone Density PERIPHERAL IV DATA: Not applicable SIGNED BY: RT Zara(R) June 30, 2023 7:59 AM documented in this encounter [facility] 06-13-2023 Miscellaneous Notes Telephone on 06/13/23 LIPID PANEL BASIC CBC + DIFF COMP METABOLIC PANEL Itz De Jesus PA-C Patient calling she was never able to get fasting lab work completed that was ordered in February. Now her son has moved back home and she is getting some help with her care with dementia. Patient asking if she should go ahead and get the labs done? Pending orders since . Orders will need diagnosis please. Please advise documented in this encounter [facility] 06-13-2023 Evaluation note Diagnosis Stage 3a chronic kidney disease (HCC)- Primary JOSE ELIAS (generalized anxiety disorder) Generalized anxiety disorder Recurrent depression (HCC) Major depressive disorder, recurrent episode, unspecified High serum high density lipoprotein (HDL) documented in this encounter [facility]-14-[facility]23 Instructions* Patient Instructions* Trav Chavez PA-C - 03/03/2023 11:15 AM EST BONE MINERAL DENSITY PATIENT INSTRUCTIONS Bone mineral density testing measures the amount of calcium in certain parts of your bones. This information determines how strong your bones are. The test is used to detect osteoporosis, a disease in which the bone's mineral content and density are low, increasing a person's risk of fractures. Thelumbar spine (lower back) and the hip are the skeletal sites usually examined. For the test, remember that: 1. You cannot take this test if you are . 2. Eat a normal diet on the day of the test. 3. Take your medications as you normally would. 4. DO NOT take calcium supplements (such as Tums) for 24 hours before the test. 5. On the day of the test, leave valuables (jewelry or credit cards) at home. 6. The test should be performed prior to oral, rectal or IV contrast studies, or at least 7 days after any of these studies. For the test, you may be asked to wear a hospital gown. You will lie on your back, on a padded table, in a comfortable position. Generally, you can resume your usual activities immediately. [facility] History of Present illness Narrative* Trav Chavez PA-C - 03/03/2023 11:00 AM EST 83 year old female with c/o Arianne Trav Aleman is a 83 year old female here for a Medicare wellness visit. Medicare Health Risk Assessment General Health Very good Exercise: Minutes/Day 30 min Exercise: Days/Week 7 days Alcohol: Daily Use Never Alcohol: Drinks/Day Patient does not drink Alcohol: 6 or more drinks Never Feel off balance No Concerns: Teeth/Dentures No Concerns: Sexual function No Troubled by feelings None of the above (managing anxiety with medicine) Frequency: Eating healthy diet Nearly every day ADLs requiring help None of the above Safety precautions in home/vehicle Yes Smoke, vape, chews tobacco No Difficulty hearing No Difficulty seeing Yes (Had complete eye exam 2 days ago) Current Providers Specialists: I have reviewed specialist-related care of the patient in the medical record. Medical/Family history review Reviewed and updated problem list, medical/surgical/family/social history, medications, and allergies. Opioid use review Opioid Medications (last 90 days) Some values may be hidden. Unless noted otherwise, only the newest values recorded on each date aredisplayed. Opioid Medications No data to display. Depression screening Depression Screening PHQ-2 Score 03/03/2023 1 Depression screening tool completed and reviewed. Based on score and interview, patient is already diagnosed with depression. Screening tool discussed with patient, and I recommended no further intervention at this time. Cognitive screening Minicog 5points, WNL Cognitive screening reviewed and no further action needed (score 3-5) Functional Observation Was the patient's timed Up & Go test unsteady or ? 12 seconds? No Advance Care Planning Surrogate decision maker and/or advance care plan documented Measurements BP 126/64 Pulse 76 Resp 16 Wt 184 lb (83.5kg) SpO2 94% Additional screenings: sees ophthalmology every 3 months Recurrent depression (hcc) (primary encounter diagnosis) Jose Elias (generalized anxiety disorder) Current medications: Sertraline 25 mg daily Doing well on low dose. Feels she is managing well since 2017 Stage 3a chronic kidney disease (hcc) Component Latest Ref Rng & Units 08/19/2021 09/03/2021 05/10/2022 Protein, Total 6.3 - 8.0 g/dL 6.5 Albumin 3.9 - 4.9 g/dL 4.1 Calcium 8.5 - 10.2 mg/dL 9.3 9.7 9.9 Bilirubin, Total 0.2 - 1.3 mg/dL 0.4 Alkaline Phosphatase 34 - 123 U/L 80 AST 13 - 35 U/L 18 ALT 7 - 38 U/L 12 Glucose 74 - 99 mg/dL 79 85 84 BUN 7 - 21 mg/dL 21 12 21 Creatinine 0.58 - 0.96 mg/dL 0.96 0.84 0.95 Sodium 136 - 144 mmol/L 141 138 141 Potassium 3.7 - 5.1 mmol/L 3.9 4.0 4.6 Chloride 97 - 105 mmol/L 105 103 105 CO2 22 - 30 mmol/L 26 24 26 Anion Gap 9 - 18 mmol/L 10 11 10 eGFR >=60 mL/min/1.73m 59 (L) 69 59 (L) Primary osteoarthritis involving multiple joints Current medications: Tylenol arthritis 325 mg 1 tablets every 24 hours as needed Pushing her exercise to levels she hasn't done before, doing well. Basal cell carcinoma (bcc) of skin of right upper eyelid including canthus Following with [facility] Osteopenia, unspecified location MiraLAX 17 g daily as needed for constipation Usually one dose every so often seems to keep everything stable. 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, most often secondary to a remote infection with rubella History of skin cancer SCC R arm; basal cell face, scalp Hives OSTEOPENIA Personal history of colonic polyps lymphoid aggregate removed Piezogenic pedal papule fatty papules around heel: no clinical significance Seasonal allergies Skin cancer melanoma,basal and squamous cell Symptomatic menopausal or female climacteric states was on HRT then off, last DXA 1998 PAST SURGICAL HISTORY Procedure Laterality Date CATARACT SURGERY, COMPLEX and Hx Fuch's dystrophy COLONOSCOPY FLX DX W/COLLJ SPEC WHEN PFRMD 12/1999 Colonoscopy- DIVERTICULOSIS DILATION & CURETTAGE DX&/THER NONOBSTETRIC 1989 Dilation & curettage DILATION & CURETTAGE DX&/THER NONOBSTETRIC Dilation & curettage TAB Down's GI COLON STEPHANIE INTUSSUSCEPTION 1939 LIG/TRNSXJ FLP TUBE ABDL/VAG APPR UNI/BI 1981 PAST SURGICAL HISTORY OF 1958 'polyp' removal PAST SURGICAL HISTORY OF 06/04/11 basal cell carcinoma removed from face PAST SURGICAL HISTORY OF 02/16/11 squamous cell skin CA PAST SURGICAL HISTORY OF 09/2011 basal cell carcinoma removed behind left ear, left buttock, left forearm, PAST SURGICAL HISTORY OF Skin cancer biopsies TONSILLECTOMY & ADENOIDECTOMY <AGE 10 1960 Tonsil/adenoidectomy Social History Tobacco Use Smoking status: Never Smokeless tobacco: Never Vaping Use Vaping Use: Never used Substance Use Topics Alcohol use: No Comment: has drank in the past Drug use: No ACTIVE PROBLEM LIST Symptomatic Menopausal Or Female Climacteric States Generalized Osteoarthrosis, Unspecified Site Personal History of Colonic Polyps Osteopenia Personal history of other malignant neoplasm of skin: H/O SCC in situ L forearm Hypertrophic//Keloid scar: L upper lip Bilateral Shoulder Pain Arthritis of Knee, Degenerative Hives Recurrent Depression (Hcc) Jose Elias (Generalized Anxiety Disorder) Ckd (Chronic Kidney Disease) Stage 3, Gfr 30-59 Ml/Min ([facility]) Fuchs' Heterochromic Iridocyclitis, Right Basal Cell Carcinoma (Bcc) of Skin of Right Upper Eyelid Including Canthus Current Outpatient Medications Medication Sig Dispense Refill Glucosamine HCl, Bulk, powd sertraline (ZOLOFT) 25 mg tablet Take 1 tablet by mouth once daily. 30 tablet 5 sertraline (ZOLOFT) 25 mg tablet Take 1 tablet by mouth once daily. 30 tablet 2 NEOMYCIN 3.5 MG/G-POLYMYXIN B 10,000 UNIT/G-DEXAMETH 0.1 % EYE OINT (Patient not taking: Reported on 01/10/2023) sertraline (ZOLOFT) 25 mg tablet Take 0.5 tablets by mouth once daily. 45 tablet 3 fexofenadine (MELBA) 180 mg tablet Take 180 mg by mouth once daily. Chlorhexidine Gluconate (PERIDEX) 0.12 % solution twice daily. (Patient not taking: Reported on 01/10/2023) calcium carbonate (TUMS 500 ORAL) Take by mouth as needed. ergocalciferol, vitamin D2, (VITAMIN D2 ORAL) Take by mouth. COLLAGEN MISC (Patient not taking: Reported on 01/10/2023) vit C/E/Zn/coppr/lutein/zeaxan (PRESERVISION AREDS-2 ORAL) Take by mouth. acetaminophen (TYLENOL) 325 mg tablet Take 650 mg by mouth every 6 hours as needed. SIMETHICONE (GAS-X ORAL) Take 1 tablet by mouth as needed. CARBOXYMETHYLCELLULOSE SODIUM (REFRESH TEARS OPHTHALMIC) Use 1 Drop in eyes three times daily as needed. COMPOUNDED PRESCRIPTION Gum Rincinol as needed (Patient not taking: Reported on 01/10/2023) ketoconazole (NIZORAL) 2 % shampoo Apply 1 application to affected area once daily as needed. loratadine (ALLERGY RELIEF, LORATADINE,) 10 mg tablet Take 1 tablet by mouth once daily as needed (hives). (Patient not taking: Reported on 01/10/2023) aspirin, enteric coated (ASPIRIN, ENTERIC COATED) 81 mg EC tablet Take 81 mg by mouth once daily. polyethylene glycol 3350 (MIRALAX) 17 gram/dose powder As needed for constipation No current facility-administered medications for this visit. Shingrix Vaccine(1 of 2) Never done Advance Directive Discussion due on 03/21/2022 DTaP,Tdap,Td Vaccine(3 - Td or Tdap) due on 10/19/2022 REVIEW OF SYSTEMS PAIN ASSESSMENT: minor pain as above GENERAL: No weight loss, malaise or fevers HEENT: Negative for frequent or significant headaches, No changes in hearing or vision, no nose bleeds or other nasal problems NECK: Negative for lumps, goiter, pain and significant neck swelling RESPIRATORY: Negative for cough, hemoptysis, wheezing, COPD, dyspnea or shortness of breath CARDIOVASCULAR: Negative for chest pain, leg swelling, hypertension, CHF or palpitations GI: No nausea, vomiting, or diarrhea : No history of dysuria, frequency or incontinence 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5 kg (184 lb) SpO2 94% BMI 31.58 kg/m Pleasant overweight but well appearing adult woman in no acute distress. Alert and oriented all spheres. Normal affect and cognition. Speech normal. Energetic, mildly anxious. No deficits to learningor comprehension. Skin warm, dry, pink to lips and nailbeds. Normal turgor. Multiple actinic areas, benign keratoses_follows twice a year with derm. Respirations regular and unlabored. HEENT: NCAT. No scleral icterus or conjunctival injection. TM's clear. Nose and oropharynx free from injection or lesion. Oral membranes moist and pink. No cervical lymph nodes. Thyroid non-tender, no masses, or enlargement. Carotids pulses 2+/4+ without bruits. No JVD with HOB at 30 degrees. Chest is normal shape. Lungs are clear to all weinberg with good air exchange through out. HRRR without murmur or gallop. No lifts, heaves, or rubs. Abdomen: active bowel sounds throughout, soft, nontender, no masses or organomegaly. No CVAT. No abdominal bruits, axillary or inguinal nodes. Femoral pulses 2/4+ without bruit. Extrem: no clubbing or cyanosis. Edema: none. Mild varicosities. Extremities are warm and pink withprompt capillary refill distally. Dorsal pedal and radial pulses 2/4+. Smooth nails. Distal sensation and circulation intact with prompt capillary refill. Gait and balance normal. Sensation grossly intact. Negative findings: speech normal, mental status intact, cranial nerves 2-12 intact, muscle tone normal, DTRs 2/4+ and symmetric ASSESSMENT/PLAN: 1. Recurrent depression (HCC) - ICD9: 296.30, ICD10: F33.9 (primary diagnosis) Stable for years - CBC - COMP METABOLIC PANEL 2. JOSE ELIAS (generalized anxiety disorder) - ICD9: 300.02, ICD10: F41.1 Doing fairly well, stressed with care of Norm. - CBC - COMP METABOLIC PANEL 3. Stage 3a chronic kidney disease (HCC) - ICD9: 585.3, ICD10: N18.31 - eGFR: 59 Stable - Counseled on avoiding NSAIDs, adequate hydration - COMP METABOLIC PANEL 4. Primary osteoarthritis involving multiple joints - ICD9: 715.98, ICD10: M15.9 Doing very well. - CBC - COMP METABOLIC PANEL 5. Basal cell carcinoma (BCC) of skin of right upper eyelid including canthus - ICD9: 173.11, ICD10: C44.1121 Follows with derm every 6 months 6. Osteopenia, unspecified location - ICD9: 733.90, ICD10: M85.80 7. Asymptomatic postmenopausal status - ICD9: V49.81, ICD10: Z78.0 Continue calcium, vit D - DXA - VFA ASSESS ONLY 8. Screening for colon cancer - ICD9: V76.51, ICD10: Z12.11 - FECAL OCCULT BLOOD TEST 9. High serum high density lipoprotein (HDL) - ICD9: 790.99, ICD10: R79.89 - LIPID PANEL BASIC Some of this note may have been copied and pasted for the purpose of history context and comparisonand has been adjusted for changes in prior data. Trav Chavez PA-C [facility] Miscellaneous Notes* Telephone Encounter - Trav Chavez PA-C - 01/10/2023 4:10 PM EDT Needs sertraline refilled. Taking 1/2 x 25mg tab. Increase to full tab. The following approved medication requests have been transmitted electronically. Requested Prescriptions Signed Prescriptions Disp Refills sertraline (ZOLOFT) 25 mg tablet 30 tablet 5 Sig: Take 1 tablet by mouth once daily. Authorizing Provider: Trav CHAVEZ sertraline (ZOLOFT) 25 mg tablet 30 tablet 2 Sig: Take 1 tablet by mouth once daily. Authorizing Provider: Trav CHAVEZ PA-C [facility] History of Present illness Narrative* Marlys Jernigan PA-C - 01/10/2023 11:54 AM EDTAssociated Order(s): Large Joint Arthro/Inj: bilateral knee joints Post-Procedure Diagnose(s): Primary osteoarthritis of both knees Marlys Jernigan PA-C Department of Orthopaedics Orthopaedics [address] [facility] [address] Dept: [phone] Dept January 10, 2023 CHIEF COMPLAINT: Injections of the Right Knee and Injections of the Left Knee. ASSESSMENT: M17.0 Primary osteoarthritis of both knees (primary encounter diagnosis) SUMMARY/PLAN: Patient presents for repeat visco supplementation, finds gel injection to be very helpful, eliminate her pain for several months. Did have a cortisone injection in between he gels injections and was happy with the combination. Still walking daily. Large Joint Arthro/Inj: bilateral knee joints Informed Consent Consent Obtained: Verbal [place] Protocol A moment to CARE was completed. SIGN IN Sign in communication not applicable due to emergent procedure. Personnel directly involved with the procedure wore the appropriate PPE. Special Equipment: N/A Patient/Surrogate Stated/Verified: Patient name, Date of , Relevant allergies and Intended procedure TIME OUT Intended patient and procedure match the source document(s). Consent documented and matches the intended procedure. Relevant labs, photos, and/or imaging studies have been reviewed. Correct side/site marked and visible. Medications required for procedure verified. No fire risk assessment and interventions applicable. No implant(s) inserted. 01/10/2023 11:55 AM The procedure site was prepped in the usual sterile fashion. Site: bilateral knee joints Medications (Right): 6 mL hyaluronate sodium, stabilized 60 mg/3 mL Medications (Left): 6 mL hyaluronate sodium, stabilized 60 mg/3 mL Anesthetics (Right): 5 mL BUPivacaine (PF) 0.5 % (5 mg/mL) Anesthetics (Left): 5 mL BUPivacaine (PF) 0.5 % (5 mg/mL) Outcome: Tolerated well, no immediate complications Post-injection instructions were reviewed with the patient and the patient voiced understanding of these instructions. SIGN OUT All instruments, equipment, possible retained foreign bodies accounted for. Ms. Arianne Aleman was advised as to contrast therapies and/or to take analgesics/anti-inflammatories as needed and all contraindications were reviewed. Supporting Information Below: Medications: Current Outpatient Medications Medication Sig Glucosamine HCl, Bulk, powd sertraline (ZOLOFT) 25 mg tablet Take 0.5 tablets by mouth once daily. fexofenadine (MELBA) 180 mg tablet Take 180 mg by mouth once daily. calcium carbonate (TUMS 500 ORAL) Take by mouth as needed. ergocalciferol, vitamin D2, (VITAMIN D2 ORAL) Take by mouth. vit C/E/Zn/coppr/lutein/zeaxan (PRESERVISION AREDS-2 ORAL) Take by mouth. acetaminophen (TYLENOL) 325 mg tablet Take 650 mg by mouth every 6 hours as needed. SIMETHICONE (GAS-X ORAL) Take 1 tablet by mouth as needed. CARBOXYMETHYLCELLULOSE SODIUM (REFRESH TEARS OPHTHALMIC) Use 1 Drop in eyes three times daily as needed. ketoconazole (NIZORAL) 2 % shampoo Apply 1 application to affected area once daily as needed. aspirin, enteric coated (ASPIRIN, ENTERIC COATED) 81 mg EC tablet Take 81 mg by mouth once daily. polyethylene glycol 3350 (MIRALAX) 17 gram/dose powder As needed for constipation NEOMYCIN 3.5 MG/G-POLYMYXIN B 10,000 UNIT/G-DEXAMETH 0.1 % EYE OINT (Patient not taking: Reported on 01/10/2023) Chlorhexidine Gluconate (PERIDEX) 0.12 % solution twice daily. (Patient not taking: Reported on 01/10/2023) COLLAGEN MISC (Patient not taking: Reported on 01/10/2023) COMPOUNDED PRESCRIPTION Gum Rincinol as needed (Patient not taking: Reported on 01/10/2023) loratadine (ALLERGY RELIEF, LORATADINE,) 10 mg tablet Take 1 tablet by mouth once daily as needed (hives). (Patient not taking: Reported on 01/10/2023) No current facility-administered medications for this visit. Allergies: Lidocaine, Codeine, Diclofenac, Etodolac, Medroxyprogesterone, and Predisone [Other] This note was partially generated using [employer] voice recognition system, and there may be some incorrect words, spellings, and punctuation that were not noted in checking the note before saving. Marlys Jernigan PA-C * Cecilia Gutierrez Ma - 01/10/2023 10:53 AM EDT Durolane injection into bilateral knees. LOT # [id number] EXP 02/17/2025 Cecilia Gutierrez Ma documented in this encounterGood [facility]23 Miscellaneous Notes* Telephone Encounter - Cecilia Gutierrez Ma - 01/07/2023 1:42 PM EDT Patient has been contacted and moved back to 02/10/2023. * Telephone Encounter - Tita Castellano RN - 01/07/2023 11:44 AM EDT Patient called stating that she received a call and was told it would be ok for her to have the injection on the and asking if her appointment would be able to be rescheduled back to the original one. Tita Castellano RN * Telephone Encounter - Cecilia Gutierrez Ma - 01/07/2023 10:11 AM EDT I called and spoke with the patient. She changed the date of her injection in hopes of having approval with insurance. * Telephone Encounter - Tita Castellano RN - 01/07/2023 9:21 AM EDT Patient called stating that she was told her injection has not been approved. States that she was previously notified that it was. Patient asking for a call back and highly concerned because she states she needs this and there is no other recourse due to allergies. Tita Castellano, RN documented in this encounterGood [facility]itan [facility]10-11-2023 Miscellaneous Notes* Telephone Encounter - Kajal Gonzalez Ma - 12/29/2022 4:30 PM EDT Called patient and scheduled injections on Wednesday 01/10. * Telephone Encounter - Mya Blanco LPN - 12/29/2022 3:12 PM EDT Patient called. Verified name and date of . Patient would like to schedule injections. Mya Blanco LPN * Telephone Encounter - Cecilia Gutierrez Ma - 12/29/2022 3:02 PM EDT Patient has been authorized for Durolane injection into bilateral knees. Needs to be scheduled after 01/08/2023 with Marlys Jernigan PA-C. * Telephone Encounter - Kajal Gonzalez Ma - 12/20/2022 10:46 AM EDT Referral done in computer. Voicemail left on patient's phone referral was entered. * Telephone Encounter - Marlys Jernigan PA-C - 12/20/2022 10:04 AM EDT Please accept this as a request for approval for Duralane (or equivalent insurance approved brand) injections for Osteoarthritis for patient's bilateral knees. Please put a note in EPIC once approvedand notify patient upon approval so they can schedule appointment. Thank you, Marlys Jernigan PA-C * Telephone Encounter - Kajal Gonzalez Ma - 12/20/2022 9:46 AM EDT Ok to do referral for Durolane bilateral knees? * Telephone Encounter - Mya Blanco LPN - 12/17/2022 3:40 PM EDT Patient called. Verified name and date of . Patient is due to see Marlys in December to have injections in bilateral knees. States she always has to contact the nursing staff first to get approval from her insurance. Please review advise. Mya Blanco LPN documented in this encounterGood [facility]06-06-2023 Miscellaneous Notes* Telephone Encounter - Cecilia Gutierrez Ma - 08/24/2022 4:41 PM EDT Patient has been contacted and scheduled for 09/06/2022 at her request. * Telephone Encounter - Marlys Jernigan PA-C - 08/24/2022 3:49 PM EDT Yes, I am fine with her having cortisone injections between gel injections. She can have cortisone every 91 day as needed. * Telephone Encounter - Rochelle Augustine LPN - 08/24/2022 3:20 PM EDT Patient called in asking if a steroid injection would be recommend between other injection she get every 6 months. 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 Patient states she pain is up to 7/10 on pain scale. Please advise. Rochelle Augustine LPN documented in this encounterGood Samaritan Hospital04-17-2023 Miscellaneous Notes* Telephone Encounter - Cecilia Gutierrez Ma - 07/05/2022 9:03 AM EDT Please see previous telephone encounter. * Telephone Encounter - Lashawn Cadet - 07/02/2022 1:55 PM EDT Approval for Laurent came by fax. Scanned to documents. Please contact the patient for scheduling. documented in this encounterGood [facility]aritan Hospital04-12-2023 Miscellaneous Notes* Telephone Encounter - Rafaela Sosa Ma - 06/30/2022 1:15 PM EDT Patient was notified Rafaela Sosa Ma * Telephone Encounter - John Hicks MD - 06/30/2022 12:31 PM EDT Too late to finish paxlovid. No definite treatment for covid at this time. If worsens, we can always recheck her but usually has to run its course. Use mucinex prn. * Telephone Encounter - Cheli Early RN - 06/30/2022 11:06 AM EDT Patient calling to update PCP team that she thought she was doing better after recent COVID but nowthinks she is "turning the other way". Pt has upcoming gum surgery and does not want any illness to"get in the way" of this procedure. States she "cannot let this progress". Pt reports she was ordered Paxlovid but was only able to take half of the total prescription due todiarrhea and hives and then held medication per recommendation. Pt reports had diarrhea last night and hives. Took "allergy pill" last evening and no hives today. Reports "head is stopped up", worsening hoarseness, reports "mild thickening of her throat" and mostly nonproductive cough but did bring up some sputum last night. Denies SOB, chest pressure, difficulty breathing or swallowing, fever, chills, sweats, wheezing, nausea, vomiting, rash, weakness or other sx's. Has good appetite. Please advise patient. Thank you. documented in this encounterGood Samaritan Hospital04-07-2023 Miscellaneous Notes* Telephone Encounter - Jonathan Mcleod LPN - 06/25/2022 9:12 AM EDT Patient notified and verbalizes understanding. * Telephone Encounter - John Hicks MD - 06/25/2022 8:49 AM EDT Paxlovid can cause gi upset but so can covid. If it is not bad, I would continue meds. Push fluids and call if any s/s of dehydration. * Telephone Encounter - Jessica Cutler RN - 06/25/2022 8:14 AM EDT Patient calls to ask provider opinion on Paxlovid and symptoms. Patient reports that yesterday she started having diarrhea for a total of 4 times. She reports that she held the Paxlovid PM dose last night 06/24/2022 out of concern that the diarrhea might be a side effect of the Paxlovid. Patient wokeup this morning and had diarrhea once. Patient asking provider recommendation on cause of diarrhea and should she continue the Paxlovid orstop it. Patient reports that she is also having a little bit of light-headedness when she gets up and it iscausing her to have to lay down more frequently than she would like. Patient reports that she is drinking adequate and has no other signs of dehydration. Please review and advise, Jessica Cutler RN documented in this encounterGood Samaritan Hospital04-04-2023 Instructions* Patient Instructions* M Ernie Chavez PA-C - 06/22/2022 12:38 PM EDT Images from the original note were not included. FACT SHEET FOR PATIENTS, PARENTS, AND CAREGIVERS EMERGENCY USE AUTHORIZATION (EUA) OF PAXLOVID FOR CORONAVIRUS DISEASE 2019 (COVID-19) You are being given this Fact Sheet because your healthcare provider believes it is necessary to provide you with PAXLOVID for the treatment of lyrg-am-akddffyr coronavirus disease (COVID-19) caused by the SARS-CoV-2 virus. This Fact Sheet contains information to help you understand the risks and benefits of taking the PAXLOVID you have received or may receive. The U.S. Food and Drug Administration (FDA) has issued an Emergency Use Authorization (EUA) to makePAXLOVID available during the COVID-19 pandemic (for more details about an EUA please see What is an Emergency Use Authorization? at the end of this document). PAXLOVID is not an FDA-approved medicine in the [place]. Read this Fact Sheet for information about PAXLOVID. Talk to your healthcareprovider about your options or if you have any questions. It is your choice to take PAXLOVID. What is COVID-19? COVID-19 is caused by a virus called a coronavirus. You can get COVID-19 through close contact withanother person who has the virus. COVID-19 illnesses have ranged from very fnwm-ip-kyjjdi, including illness resulting in . While information so far suggests that most COVID-19 illness is mild, serious illness can happen and maycause some of your other medical conditions to become worse. Older people and people of all ages with severe, long lasting (chronic) medical conditions like heart disease, lung disease, and diabetes,for example seem to be at higher risk of being hospitalized for COVID-19. What is PAXLOVID? PAXLOVID is an investigational medicine used to treat adults and children [12 years of age and older weighing at least 88 pounds (40 kg)] with a current diagnosis of iskq-by-vlvgomuy COVID-19 and whoare at high risk for progression to severe COVID-19, including hospitalization or . PAXLOVID is investigational because it is still being studied. There is limited information about the safety and effectiveness of using PAXLOVID to treat people with fkcv-xy-iekxgfbp COVID-19. The FDA has authorized the emergency use of PAXLOVID for the treatment of swbf-ms-vmlvbfvj COVID-19in adults and children [12 years of age and older weighing at least 88 pounds (40 kg)] with a current diagnosis of pamd-nb-kznqeymz COVID-19 and who are at high risk for progression to severe COVID-19, including hospitalization or , under an EUA. 1 Revised: 05 June 2021 What should I tell my healthcare provider before I take PAXLOVID? Tell your healthcare provider if you: Have any allergies Have liver or kidney disease Are or plan to become Are a child Have any serious illnesses Some medicines may interact with PAXLOVID and may cause serious side effects. Tell your healthcare provider about all the merdicines you take, including prescription and wtut-elh-skewxsp medicines, vitamins, and herbal supplements. Your healthcare provider can tell you if it is safe to take PAXLOVID with other medicines. You can ask your healthcare provider or pharmacist for a list of medicines that interact with PAXLOVID Do not start taking a new medicine without telling your healthcare provider. Tell your healthcare provider if you are taking combined hormonal contraceptive. PAXLOVID may affect how your control pills work. Females who are able to become should use another effective alternative form of contraception or an additional barrier method of contraception. Talk to your healthcare provider if you have any questions about contraceptive methods thatmight be right for you. How do I take PAXLOVID? PAXLOVID consists of 2 medicines: nirmatrelvir tablets and ritonavir tablets. The 2 medicines are taken together 2 times each day for 5 days Nirmatrelvir is an oval, pink tablet. Ritonavir is a white or off-white tablet. PAXLOVID is available in 2 Dose Packs (see Figures A and B below). Your healthcare provider will prescribe the PAXLOVID Dose Pack that is right for you. If you have kidney disease, your healthcare provider may prescribe a lower dose (see Figure B). Talk to your healthcare provider to make sure you receive the correct Dose Pack. Do not remove your PAXLOVID tablets from the blister card before you are ready to take your dose. Take your first dose of PAXLOVID in the Morning or Evening, depending on when you pharmacy picking tech your prescription, or as recommended by your healthcare provider. Swallow the tablets whole. Do not chew, break, or crush the tablets. Take PAXLOVID with or without food. Do not stop taking PAXLOVID without talking to your healthcare provider, even if you feel better. If you miss a dose of PAXLOVID within 8 hours of the time it is usually taken, take it as soon as you remember. If you miss a dose by more than 8 hours, skip the missed dose and take the next dose atyour regular time. Do not take 2 doses of PAXLOVID at the same time. If you take too much PAXLOVID, call your healthcare provider or go to the nearest hospital emergency room right away. If you are taking a ritonavir-or cobicistat-containing medicine to treat hepatitis C or Human Immunodeficiency Virus (HIV), you should continue to take your medicine as prescribed by your healthcare provider. Talk to your healthcare provider if you do not feel better or if you feel worse after 5 days. Who should generally not take PAXLOVID? Do not take PAXLOVID if: You are allergic to nirmatrelvir, ritonavir, or any of the ingredients in PAXLOVID You are taking any of the following medicines: alfuzosin flecainide primidone amiodarone filbanserin propafenone apalutamide ivabradine quinidine carbamazepine lomitapide ranolazine colchicine lovastatin ranolazine dihydroergotamine lumacaftor/ivacaftor rifampin dronedarone lurasidone [place] Wort (hypericum perforatium) eletriptan methylergonovine simvastatin eplerenone midazolam (oral) sildenafil (Revatio ) for pulmonary arterial hypertension ergotamine naloxegol silodosin finerenone phenobarbital triazolam flecainide phenytoin ubrogepant pimozide voclosporin Taking PAXLOVID with these medicines may cause serious or life-threatening side effects or affect how PAXLOVID works. These are not the only medicines that may cause serious side effects if taken with PAXLOVID. PAXLOVID may increase or decrease the levels of multiple other medicines. It is very important to tell your healthcare provider about all of the medicines you are taking because additional laboratory tests or changes in the dose of your other medicines may be necessary while you are taking PAXLOVID. Your healthcare provider may also tell you about specific symptoms to watch out for that may indicate that you need to stop or decrease the dose of some of your other medicines. What are the important possible side effects of PAXLOVID? Possible side effects of PAXLOVID are: Allergic Reactions. Allergic reactions, including severe allergic reactions (known as anaphylaxis ), can happen in people taking PAXLOVID, even after only 1 dose. Stop taking PAXLOVID and call your healthcare provider right away if you get any of the following symptoms of an allergic reaction: hives trouble swallowing or breathing swelling of the mouth, lips, or face throat tightness hoarseness skin rash Liver Problems. Tell your healthcare provider right away if you have any of these signs and symptoms of liver problems: loss of appetite, yellowing of your skin and the whites of eyes (jaundice), dark-colored urine, pale colored stools and itchy skin, stomach area (abdominal) pain. Resistance to HIV Medicines. If you have untreated HIV infection, PAXLOVID may lead to some HIV medicines not working as well in the future. Other possible side effects include: altered sense of taste diarrhea high blood pressure muscle aches abdominal pain nausea feeling generally unwell These are not all the possible side effects of PAXLOVID. Not many people have taken PAXLOVID. Serious and unexpected side effects may happen. PAXLOVID is still being studied, so it is possible that all of the risks are not known at this time. What other treatment choices are there? Veklury (remdesivir) is FDA-approved for the treatment of toll-ih-dtwqkget COVID-19 in certain adults and children. Talk with your doctor to see if Veklury is appropriate for you. Like PAXLOVID, FDA may also allow for the emergency use of other medicines to treat people with COVID-19. Go to https://www.fda.gov/snjvyfbhf-uymartghkdmi-poh-response/rjf-qxplr-ornorfmqfo-and -policy-framework/abgkzxlcq-usk-qjxfjekphpzxh for information on the emergency use of other medicines that are authorized by FDA to treat people with COVID-19. Your healthcare provider may talk with you about clinical trials for which you may be eligible. It is your choice to be treated or not to be treated with PAXLOVID. Should you decide not to receive it or for your child not to receive it, it will not change your standard medical care. What if I am or ? There is steward/stewardess economy class treating women or mothers with PAXLOVID. For a motherand unborn baby, the benefit of taking PAXLOVID may be greater than the risk from the treatment. Ifyou are , discuss your options and specific situation with your healthcare provider. It is recommended that you use effective barrier contraception or do not have sexual activity whiletaking PAXLOVID. If you are , discuss your options and specific situation with your healthcare provider. How do I report side effects or problems with the appearance or packaging of PAXLOVID? Contact your healthcare provider if you have any side effects that bother you or do not go away. Report side effects or problems with the appearance or packaging of PAXLOVID (see Figures A and B above for examples of PAXLOVID Dose Packs) to FDA MedWatch at www.fda.gov/medwatch or call 4-345-SZR9878 or you can report side effects to [employer]. at the contact information provided below. Website Fax number Telephone number [employer] How should I store PAXLOVID? Store PAXLOVID tablets at room temperature, between 68?F to 77?F (20?C to 25?C). How can I learn more about COVID-19? Ask your healthcare provider. Visit https://www.cdc.gov/COVID19 Contact your local or state public health department. What is an Emergency Use Authorization (EUA)? The [place] FDA has made PAXLOVID available under an emergency access mechanism called an Emergency Use Authorization (EUA). The EUA is supported by a Doping Supervisor of Health and Human Service ([facility]) declaration that circumstances exist to justify the emergency use of drugs and biological productsduring the COVID-19 pandemic. PAXLOVID for the treatment of ktyq-nd-owfwlqnk COVID-19 in adults and children [12 years of age andolder weighing at least 88 pounds (40 kg)] who are at high risk for progression to severe COVID-19,including hospitalization or , has not undergone the same type of review as an FDA-approved product. In issuing an EUA under the COVID-19 public health emergency, the FDA has determined, among ot her things, that based on the total amount of scientific evidence available including data from adequate and well-controlled clinical trials, if available, it is reasonable to believe that the product may be effective for diagnosing, treating, or preventing COVID-19, or a serious or life-threatening disease or condition caused by COVID-19; that the known and potential benefits of the product, when used to diagnose, treat, or prevent such disease or condition, outweigh the known and potential risks of such product; and that there are no adequate, approved, and available alternatives. All of these criteria must be met to allow for the product to be used in the treatment of patients during the COVID-19 pandemic. The EUA for PAXLOVID is in effect for the duration of the COVID-19 declaration justifying emergency use of this product, unless terminated or revoked (after which the products may no longer be used under the EUA). Additional Information For general questions, visit the website or call the telephone number provided below. Website Telephone number [email or web address] (8-525-G60-KMHW) You can also go to www.[email or web address] or call for more information. [employer] Distributed by [employer] [place] [address] [id number] Revised: 04/2022 FACT SHEET FOR PATIENTS, PARENTS, AND CAREGIVERS EMERGENCY USE AUTHORIZATION (EUA) OF PAXLOVID FOR CORONAVIRUS DISEASE 2019 (COVID-19) You are being given this Fact Sheet because your healthcare provider believes it is necessary to provide you with PAXLOVID for the treatment of zqoh-vw-gyowfyis coronavirus disease (COVID-19) caused by the SARS-CoV-2 virus. This Fact Sheet contains information to help you understand the risks and benefits of taking the PAXLOVID you have received or may receive. The [place].S. Food and Drug Administration (FDA) has issued an Emergency Use Authorization (EUA) to makePAXLOVID available during the COVID-19 pandemic (for more details about an EUA please see What is an Emergency Use Authorization? at the end of this document). PAXLOVID is not an FDA-approved medicine in the [place]. Read this Fact Sheet for information about PAXLOVID. Talk to your healthcareprovider about your options or if you have any questions. It is your choice to take PAXLOVID. What is COVID-19? COVID-19 is caused by a virus called a coronavirus. You can get COVID-19 through close contact withanother person who has the virus. COVID-19 illnesses have ranged from very qpgh-tp-zaodxd, including illness resulting in . While information so far suggests that most COVID-19 illness is mild, serious illness can happen and maycause some of your other medical conditions to become worse. Older people and people of all ages with severe, long lasting (chronic) medical conditions like heart disease, lung disease, and diabetes,for example seem to be at higher risk of being hospitalized for COVID-19. What is PAXLOVID? PAXLOVID is an investigational medicine used to treat adults and children [12 years of age and older weighing at least 88 pounds (40 kg)] with a current diagnosis of guhz-hz-icnfdpbw COVID-19 and whoare at high risk for progression to severe COVID-19, including hospitalization or . PAXLOVID is investigational because it is still being studied. There is limited information about the safety and effectiveness of using PAXLOVID to treat people with oitl-ga-qkjuphpk COVID-19. The FDA has authorized the emergency use of PAXLOVID for the treatment of tmvj-bd-abednyhb COVID-19in adults and children [12 years of age and older weighing at least 88 pounds (40 kg)] with a current diagnosis of qhzh-rn-fchfnyju COVID-19 and who are at high risk for progression to severe COVID-19, including hospitalization or , under an EUA. 1 Revised: 05 June 2021 What should I tell my healthcare provider before I take PAXLOVID? Tell your healthcare provider if you: Have any allergies Have liver or kidney disease Are or plan to become Are a child Have any serious illnesses Some medicines may interact with PAXLOVID and may cause serious side effects. Tell your healthcare provider about all the merdicines you take, including prescription and yana-pbc-ggxlsqh medicines, vitamins, and herbal supplements. Your healthcare provider can tell you if it is safe to take PAXLOVID with other medicines. You can ask your healthcare provider or pharmacist for a list of medicines that interact with PAXLOVID Do not start taking a new medicine without telling your healthcare provider. Tell your healthcare provider if you are taking combined hormonal contraceptive. PAXLOVID may affect how your control pills work. Females who are able to become should use another effective alternative form of contraception or an additional barrier method of contraception. Talk to your healthcare provider if you have any questions about contraceptive methods thatmight be right for you. How do I take PAXLOVID? PAXLOVID consists of 2 medicines: nirmatrelvir tablets and ritonavir tablets. The 2 medicines are taken together 2 times each day for 5 days Nirmatrelvir is an oval, pink tablet. Ritonavir is a white or off-white tablet. PAXLOVID is available in 2 Dose Packs (see Figures A and B below). Your healthcare provider will prescribe the PAXLOVID Dose Pack that is right for you. If you have kidney disease, your healthcare provider may prescribe a lower dose (see Figure B). Talk to your healthcare provider to make sure you receive the correct Dose Pack. Do not remove your PAXLOVID tablets from the blister card before you are ready to take your dose. Take your first dose of PAXLOVID in the Morning or Evening, depending on when you pharmacy picking tech your prescription, or as recommended by your healthcare provider. Swallow the tablets whole. Do not chew, break, or crush the tablets. Take PAXLOVID with or without food. Do not stop taking PAXLOVID without talking to your healthcare provider, even if you feel better. If you miss a dose of PAXLOVID within 8 hours of the time it is usually taken, take it as soon as you remember. If you miss a dose by more than 8 hours, skip the missed dose and take the next dose atyour regular time. Do not take 2 doses of PAXLOVID at the same time. If you take too much PAXLOVID, call your healthcare provider or go to the nearest hospital emergency room right away. If you are taking a ritonavir-or cobicistat-containing medicine to treat hepatitis C or Human Immunodeficiency Virus (HIV), you should continue to take your medicine as prescribed by your healthcare provider. Talk to your healthcare provider if you do not feel better or if you feel worse after 5 days. Who should generally not take PAXLOVID? Do not take PAXLOVID if: You are allergic to nirmatrelvir, ritonavir, or any of the ingredients in PAXLOVID You are taking any of the following medicines: alfuzosin flecainide primidone amiodarone filbanserin propafenone apalutamide ivabradine quinidine carbamazepine lomitapide ranolazine colchicine lovastatin ranolazine dihydroergotamine lumacaftor/ivacaftor rifampin dronedarone lurasidone [place] Wort (hypericum perforatium) eletriptan methylergonovine simvastatin eplerenone midazolam (oral) sildenafil (Revatio ) for pulmonary arterial hypertension ergotamine naloxegol silodosin finerenone phenobarbital triazolam flecainide phenytoin ubrogepant pimozide voclosporin Taking PAXLOVID with these medicines may cause serious or life-threatening side effects or affect how PAXLOVID works. These are not the only medicines that may cause serious side effects if taken with PAXLOVID. PAXLOVID may increase or decrease the levels of multiple other medicines. It is very important to tell your healthcare provider about all of the medicines you are taking because additional laboratory tests or changes in the dose of your other medicines may be necessary while you are taking PAXLOVID. Your healthcare provider may also tell you about specific symptoms to watch out for that may indicate that you need to stop or decrease the dose of some of your other medicines. What are the important possible side effects of PAXLOVID? Possible side effects of PAXLOVID are: Allergic Reactions. Allergic reactions, including severe allergic reactions (known as anaphylaxis ), can happen in people taking PAXLOVID, even after only 1 dose. Stop taking PAXLOVID and call your healthcare provider right away if you get any of the following symptoms of an allergic reaction: hives trouble swallowing or breathing swelling of the mouth, lips, or face throat tightness hoarseness skin rash Liver Problems. Tell your healthcare provider right away if you have any of these signs and symptoms of liver problems: loss of appetite, yellowing of your skin and the whites of eyes (jaundice), dark-colored urine, pale colored stools and itchy skin, stomach area (abdominal) pain. Resistance to HIV Medicines. If you have untreated HIV infection, PAXLOVID may lead to some HIV medicines not working as well in the future. Other possible side effects include: altered sense of taste diarrhea high blood pressure muscle aches abdominal pain nausea feeling generally unwell These are not all the possible side effects of PAXLOVID. Not many people have taken PAXLOVID. Serious and unexpected side effects may happen. PAXLOVID is still being studied, so it is possible that all of the risks are not known at this time. What other treatment choices are there? Veklury (remdesivir) is FDA-approved for the treatment of rnfh-hq-wzyfulyw COVID-19 in certain adults and children. Talk with your doctor to see if Veklury is appropriate for you. Like PAXLOVID, FDA may also allow for the emergency use of other medicines to treat people with COVID-19. Go to https://www.fda.gov/xxzqgveln-syslbfbyocwj-pit-response/qou-gssju-ittnrxnyet-and -policy-framework/nsenughbc-zoo-iuqeeechohrfv for information on the emergency use of other medicines that are authorized by FDA to treat people with COVID-19. Your healthcare provider may talk with you about clinical trials for which you may be eligible. It is your choice to be treated or not to be treated with PAXLOVID. Should you decide not to receive it or for your child not to receive it, it will not change your standard medical care. What if I am or ? There is steward/stewardess economy class treating women or mothers with PAXLOVID. For a motherand unborn baby, the benefit of taking PAXLOVID may be greater than the risk from the treatment. Ifyou are , discuss your options and specific situation with your healthcare provider. It is recommended that you use effective barrier contraception or do not have sexual activity whiletaking PAXLOVID. If you are , discuss your options and specific situation with your healthcare provider. How do I report side effects or problems with the appearance or packaging of PAXLOVID? Contact your healthcare provider if you have any side effects that bother you or do not go away. Report side effects or problems with the appearance or packaging of PAXLOVID (see Figures A and B above for examples of PAXLOVID Dose Packs) to [employer] at www.fda.gov/medwatch or call 3-234-BEN9047 or you can report side effects to [employer] at the contact information provided below. Website Fax number Telephone number [employer] How should I store PAXLOVID? Store PAXLOVID tablets at room temperature, between 68?F to 77?F (20?C to 25?C). How can I learn more about COVID-19? Ask your healthcare provider. Visit https://www.cdc.gov/COVID19 Contact your local or state public health department. What is an Emergency Use Authorization (EUA)? The [place] FDA has made PAXLOVID available under an emergency access mechanism called an Emergency Use Authorization (EUA). The EUA is supported by a Doping Supervisor of Health and Human Service (HHS) declaration that circumstances exist to justify the emergency use of drugs and biological productsduring the COVID-19 pandemic. PAXLOVID for the treatment of opmz-eb-ipitvgop COVID-19 in adults and children [12 years of age andolder weighing at least 88 pounds (40 kg)] who are at high risk for progression to severe COVID-19,including hospitalization or , has not undergone the same type of review as an FDA-approved product. In issuing an EUA under the COVID-19 public health emergency, the FDA has determined, among ot her things, that based on the total amount of scientific evidence available including data from adequate and well-controlled clinical trials, if available, it is reasonable to believe that the product may be effective for diagnosing, treating, or preventing COVID-19, or a serious or life-threatening disease or condition caused by COVID-19; that the known and potential benefits of the product, when used to diagnose, treat, or prevent such disease or condition, outweigh the known and potential risks of such product; and that there are no adequate, approved, and available alternatives. All of these criteria must be met to allow for the product to be used in the treatment of patients during the COVID-19 pandemic. The EUA for PAXLOVID is in effect for the duration of the COVID-19 declaration justifying emergency use of this product, unless terminated or revoked (after which the products may no longer be used under the EUA). Additional Information For general questions, visit the website or call the telephone number provided below. Website Telephone number [email or web address] (6-578-Y88-PACK) You can also go to wwwSyncano or call for more information. [employer] Distributed by [employer] [place] [address] [id number] Revised: 04/2022 documented in this encounterGood Samaritan Hospital04-04-2023 Miscellaneous Notes* Telephone Encounter - Trav Chavez PA-C - 06/22/2022 12:38 PM EDT Nirmatrelvir/Ritonavir (Paxlovid) Eligibility and Patient Discussion [facility] Formulary Restriction Criteria: Adult outpatients 18 years and older with ALL of the following: [x] Patient has symptoms for 5 days or less [x] Not requiring hospitalization at any time for management of COVID-19 [x] Not requiring supplemental oxygen or a change in baseline supplemental oxygen [x] Not utilized for pre-exposure or post-exposure prophylaxis for prevention of COVID-19 [x] Patient does not have severe renal impairment (eGFR < 30 mL/min) or severe hepatic impairment (Child-Byers Class C) [x] Meeting at least one of the criteria for high risk of progression to severe COVID-19: [x] Age over 65 years [] Cancer [] Chronic kidney disease [] Chronic liver disease [] Chronic lung diseases, including cystic fibrosis [] Dementia or other neurological conditions [] Diabetes (type 1 or type 2) [] Disabilities, including Down syndrome and neurodevelopmental disorders [] Heart conditions [] HIV infection [] Immunocompromised state [] Mental health conditions [] Medical related technological dependence (tracheostomy, gastrostomy, or positive pressure ventilation (not related to COVID) [] Overweight and obesity (BMI greater or equal to 25 for adults) [] Physical inactivity [] [] Sickle cell disease or thalassemia [] Smoking, current or former [] Solid organ or blood stem cell transplant [] Stroke or cerebrovascular disease [] Substance use disorders [] Tuberculosis [] People from racial and ethnic minority groups Criteria above are met: Yes Date of Symptom Onset: 06/21/2022 Patient received COVID vaccine: Yes Drug-Drug interactions reviewed: No. I have discussed the use of the investigational therapeutic, nirmatrelvir/ritonavir, for the treatment of mild to moderate COVID-19 and its use under Emergency Use Authorization with the patient. The patient was informed that nirmatrelvir/ritonavir is not an FDA approved drug and that it is authorized for use under this Emergency Use Authorization. The patient was also informed of the significant known benefits and potential risks of nirmatrelvir/ritonavir, and the extent to which such potential risks and benefits are unknown. The patient was informed that there is mandatory reporting of all medication errors and serious adverse events potentially related to nirmatrelvir/ritonavir treatment within 7 calendar days from the onset of the event and that events up to 28 days after completion of therapy need to be reported. The discussion included alternatives to receiving nirmatrelvir/rit onavir, including clinical trials, and potential the risks and benefits of those alternatives. The patient was provided electronically with the "Fact Sheet for Patients, Parents and Caregivers". The patient was also instructed that in addition to the treatment with nirmatrelvir/ritonavir, he/she should continue to self-isolate and use infection control measures (e.g., wear mask, isolate, social distance, avoid sharing personal items, clean and disinfect "high touch" surfaces, and frequent h andwashing) according to CDC guidelines. The patient stated understanding and gave verbal consent to proceeding with nirmatrelvir/ritonavir treatment. Trav Chavez PA-C June 22, 2022 12:41 PM * Telephone Encounter - Lissett Griffin LPN - 06/22/2022 8:50 AM EDT called and her is waiting on COIVD results. She woke up during the night and took cough min and took tylenol 06/22/22. Pt has a sore throat, coughing, cold symptoms. Pt would like to be treated. Please send treatment to [facility]. Please advise with instructions. Spouse Percy positive for COVID. Lissett Griffin LPN documented in this encounterGood Samaritan Hospital02-22-2023 Miscellaneous Notes* Telephone Encounter - Cheli Early RN - 05/12/2022 8:49 AM EST Letitia with Dr. Woodruff's office in Ophthalmology calling to request recent PCP OV note for patientfor upcoming eye procedure. OV faxed as requested to [phone]. Cheli Early RN documented in this encounterGood Samaritan Hospital02-21-2023 Miscellaneous Notes* Telephone Encounter - Lissett Griffin LPN - 05/11/2022 9:15 AM EST Letitia with Dr. Aguilar's office called to have the office note from yesterday 05-10-22 faxed to them. FAX: [phone] FAX: [phone] Asked to have office note faxed to both numbers above. Done. Lissett Griffin LPN documented in this encounterGood Samaritan Hospital02-21-2023 Miscellaneous Notes* Telephone Encounter - Gemma Fontanez LPN - 05/11/2022 8:24 AM EST Images from the original note were not included. Patient calling she is having problems getting her my chart open since she can hardly see. 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 Contains abnormal data BASIC METABOLIC PNL Order: [id number] Status: Final result Visible to patient: Yes (not seen) Dx: Stage 3a chronic kidney disease (HCC) 0 Result Notes 1 Patient Communication 1 HM Topic Component Ref Range & Units 1 d ago (05/10/22) 8 mo ago (09/03/21) 8 mo ago (08/19/21) 1 yr ago (02/04/21) 2 yr ago (12/21/19) 4 yr ago (05/05/18) 4 yr ago (11/29/17) Glucose 74 - 99 mg/dL 84 85 CM 79 CM 85 CM 80 CM 89 CM 81 CM Comment: The [place] Diabetes Association (ADA) provides guidance for cutoff values for fasting glucose and random glucose. The ADA defines fasting as no caloric intake for at least 8 hours. Fastingplasma glucose results between 100 to 125 mg/dL indicate increased risk for diabetes (prediabetes). Fasting plasma glucose results greater than or equal to 126 mg/dL meet the criteria for diagnosis of diabetes. In the absence of unequivocal hyperglycemia, results should be confirmed by repeat testing. In a patient with classic symptoms of hyperglycemia or hyperglycemic crisis, random plasma glucose results greater than or equal to 200 mg/dL meet the criteria for diagnosis of diabetes. Reference: Standards of Medical Care in Diabetes 2016, [place] Diabetes Association. Diabetes Care. 2016.39(Suppl 1). BUN 7 - 21 mg/dL 21 12 21 19 19 17 18 Creatinine 0.58 - 0.96 mg/dL 0.95 0.84 0.96 0.87 0.97 High 0.89 1.08 High Sodium 136 - 144 mmol/L 141 138 141 140 143 140 138 Potassium 3.7 - 5.1 mmol/L 4.6 4.0 3.9 4.7 4.2 4.3 4.2 Chloride 97 - 105 mmol/L 105 103 105 105 104 103 100 CO2 22 - 30 mmol/L 26 24 26 23 26 25 26 Anion Gap 9 - 18 mmol/L 10 11 10 12 13 12 12 Calcium, Total 8.5 - 10.2 mg/dL 9.9 9.7 9.3 9.5 9.7 9.8 9.7 Estimated Glomerular Filtration Rate >=60 mL/min/1.73m 59 Low 69 CM 59 Low CM Comment: Estimated Glomerular Filtration Rate (eGFR) is calculated using the 2020 CKD-EPI creatinine equation. This equation utilizes serum creatinine, sex, and age as parameters. The creatinine assay has traceable calibration to isotope dilution-mass spectrometry. Refer to KDIGO guidelines for clinical interpretation. In patients with unstable renal function, e.g. those with acute kidney injury,the eGFR may not accurately reflect actual GFR. Resulting Agency [facility] Specimen Collected: 05/10/22 9:33 AM EST Last Resulted: 05/10/22 6:12 PM EST Lab Flowsheet Order Details View Encounter Lab and Collection Details Routing Result History View Encounter Conversation CM=Additional comments Result Care Coordination Patient Communication Edit Comments Add Notifications Back to Top Labs are stable. John Hicks MD Written by John Hicks MD on 05/10/2022 6:21 PM EST Satisfied Health Maintenance Topics Back to Top DIABETES SCREEN (Every 3 Years) Next due on 05/10/2025 Address Topic Went over results from Dr Hicks with understanding. Patient is much less anxious now since results were good. documented in this encounterGood Samaritan Hospital02-20-2023 History of Present illness Narrative* John Hicks MD - 05/10/2022 9:03 AM EST Patient presents with: Medical Clearance HPI: Patient presents today for office visit for surgical clearance. Surgery: second stage reconstruction of right eye DOS: 05/14/22 Surgeon: Dr. Aguilar Hx of previous anesthesia problems: No. Family hx of anesthesia problems: No. Current signs of infection: No. Chest pain: No. Shortness of breath: No. Known sleep apnea: No. Hx of clotting issues: No. Current bleeding or bruising: No. States that is holding all OTC medications currently due to upcoming surgery. Needs H and P for surgery again. MEDICATIONS: Current Outpatient Medications Medication Sig NEOMYCIN 3.5 MG/G-POLYMYXIN B 10,000 UNIT/G-DEXAMETH 0.1 % EYE OINT APPLY INTO RIGHT EYE TWICE DAILY sertraline (ZOLOFT) 25 mg tablet Take 0.5 tablets by mouth once daily. fexofenadine (MELBA) 180 mg tablet Take 180 mg by mouth once daily. Chlorhexidine Gluconate (PERIDEX) 0.12 % solution twice daily. calcium carbonate (TUMS 500 ORAL) Take by mouth as needed. ergocalciferol, vitamin D2, (VITAMIN D2 ORAL) Take by mouth. COLLAGEN MISC vit C/E/Zn/coppr/lutein/zeaxan (PRESERVISION AREDS-2 ORAL) Take by mouth. acetaminophen (TYLENOL) 325 mg tablet Take 650 mg by mouth every 6 hours as needed. SIMETHICONE (GAS-X ORAL) Take 1 tablet by mouth as needed. CARBOXYMETHYLCELLULOSE SODIUM (REFRESH TEARS OPHTHALMIC) Use 1 Drop in eyes three times daily as needed. COMPOUNDED PRESCRIPTION Gum Rincinol as needed ketoconazole (NIZORAL) 2 % shampoo Apply 1 application to affected area once daily as needed. loratadine (ALLERGY RELIEF, LORATADINE,) 10 mg tablet Take 1 tablet by mouth once daily as needed (hives). aspirin, enteric coated (ASPIRIN, ENTERIC COATED) 81 mg EC tablet Take 81 mg by mouth once daily. polyethylene glycol 3350 (MIRALAX) 17 gram/dose powder As needed for constipation No current facility-administered medications for this visit. ALLERGIES: ALLERGIES Allergen Reactions Lidocaine Intolerance Severe itching, burning. Pt. has had Marcaine without problem for oral surgery per Dr. Rodriguez's office. 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, most often secondary to a remote infection with rubella History of skin cancer SCC R arm; basal cell face, scalp Hives OSTEOPENIA Personal history of colonic polyps lymphoid aggregate removed Piezogenic pedal papule fatty papules around heel: no clinical significance Seasonal allergies Skin cancer melanoma,basal and squamous cell Symptomatic menopausal or female climacteric states was on HRT then off, last DXA 1998 PAST SURGICAL HISTORY Procedure Laterality Date CATARACT SURGERY, COMPLEX and Hx Fuch's dystrophy COLONOSCOPY FLX DX W/COLLJ SPEC WHEN PFRMD 12/1999 Colonoscopy- DIVERTICULOSIS DILATION & CURETTAGE DX&/THER NONOBSTETRIC 1989 Dilation & curettage DILATION & CURETTAGE DX&/THER NONOBSTETRIC Dilation & curettage TAB Down's GI COLON STEPHANIE INTUSSUSCEPTION 1939 LIG/TRNSXJ FLP TUBE ABDL/VAG APPR UNI/BI 1981 PAST SURGICAL HISTORY OF 1958 'polyp' removal PAST SURGICAL HISTORY OF 06/04/11 basal cell carcinoma removed from face PAST SURGICAL HISTORY OF 02/16/11 squamous cell skin CA PAST SURGICAL HISTORY OF 09/2011 basal cell carcinoma removed behind left ear, left buttock, left forearm, PAST SURGICAL HISTORY OF Skin cancer biopsies TONSILLECTOMY & ADENOIDECTOMY <AGE 10 1960 Tonsil/adenoidectomy FAMILY HISTORY Problem Relation Age of Onset Hypertension Mother Heart Father Skin Cancer Father melanoma other (alcoholism) Father brother other (depression) Brother Heart Brother stent placement Heart Sister replaced heart valve Skin Cancer Sister melanoma Social History Tobacco Use Smoking status: Never Smokeless tobacco: Never Vaping Use Vaping Use: Never used Substance Use Topics Alcohol use: No Comment: has drank in the past Drug use: No Reviewed current medications, allergies, past medical history, surgical history, family history andsocial history today. REVIEW OF SYSTEMS All other reviewed and negative other than HPI. VITALS: BP 128/72 Pulse 84 Ht 162.6 cm (5' 4") Wt 86.5 kg (190 lb 9.6 oz) SpO2 96% BMI 32.72 kg/m Last 4 Encounter Wt Readings: Date: Wt: 05/10/2022 86.5 kg (190 lb 9.6 oz) 03/08/2022 83.9 kg (185 lb) 10/25/2021 83.5 kg (184 lb) 08/14/2021 86.6 kg (191 lb) PHYSICAL EXAMINATION: General appearance: Well appearing, alert, in no acute distress, well-hydrated, well nourished. Skin: Skin color, texture, turgor normal, no suspicious rashes or lesions Head: Normocephalic, no masses, lesions, tenderness or abnormalities Lungs: Lungs clear to auscultation. No wheezing, rhonchi, rales Heart: RRR without murmur, gallop, or rubs. No ectopy Abdomen: Normal abdominal exam, Abdomen soft, non-tender. Bowel sounds normal. No masses, organomegaly Extremities: No deformities, edema, skin discoloration, clubbing or cyanosis. Good capillary refill. ASSESSMENT/PLAN: 1. Basal cell carcinoma (BCC) of skin of right upper eyelid including canthus - ICD9: 173.11, ICD10: C44.1121 (primary diagnosis) - forms completed. Medically optimized for surgery. 2. Recurrent depression (HCC) - ICD9: 296.30, ICD10: F33.9 - stable. 3. Stage 3a chronic kidney disease (HCC) - ICD9: 585.3, ICD10: N18.31 - stable. Recheck bmp. Will not affect surgical status John Hicks MD documented in this encounterGood Samaritan Hospital12-23-2022 Miscellaneous Notes* Telephone Encounter - John Hicks MD - 03/12/2022 1:17 PM EST noted * Telephone Encounter - Emy Santoyo RN - 03/12/2022 1:02 PM EST Patient calls and wanted to let provider know that surgery was completed this week by Dr. Aguilar from [facility]. Patient had 60% of lower right eyelid removed in [place]. At patient's appointment the next day Dr. Aguilar reconstructed patient's lower right eyelid by taking tissue from upper eyelid. Patient currently cannot open eye too much due to Sewing eye lids together. Patient wanted to give provider an update on this. Emy Santoyo RN documented in this encounterGood Samaritan Hospital12-19-2022 History of Present illness Narrative* John Hicks MD - 03/08/2022 8:57 AM EST No chief complaint on file. HPI: Patient presents today for office visit for pre op exam Patient presents for preop clearance. Upcoming surgery for: reconstruction right lower eyelid. Hx of previous anesthesia problems: No. Family hx of anesthesia problems: No. Current signs of infection: No. Chest pain: No. Shortness of breath: No. Known sleep apnea: No. Hx of clotting issues: No. Current bleeding or bruising: No. States that is holding all OTC medications currently due to upcoming surgery. Only using Tyelnol for knee pain and zoloft daily currently. MEDICATIONS: Current Outpatient Medications Medication Sig sertraline (ZOLOFT) 25 mg tablet Take 0.5 tablets by mouth once daily. fexofenadine (MELBA) 180 mg tablet Take 180 mg by mouth once daily. Chlorhexidine Gluconate (PERIDEX) 0.12 % solution twice daily. calcium carbonate (TUMS 500 ORAL) Take by mouth as needed. ergocalciferol, vitamin D2, (VITAMIN D2 ORAL) Take by mouth. COLLAGEN MISC vit C/E/Zn/coppr/lutein/zeaxan (PRESERVISION AREDS-2 ORAL) Take by mouth. acetaminophen (TYLENOL) 325 mg tablet Take 650 mg by mouth every 6 hours as needed. SIMETHICONE (GAS-X ORAL) Take 1 tablet by mouth as needed. CARBOXYMETHYLCELLULOSE SODIUM (REFRESH TEARS OPHTHALMIC) Use 1 Drop in eyes three times daily as needed. COMPOUNDED PRESCRIPTION Gum Rincinol as needed ketoconazole (NIZORAL) 2 % shampoo Apply 1 application to affected area once daily as needed. loratadine (ALLERGY RELIEF, LORATADINE,) 10 mg tablet Take 1 tablet by mouth once daily as needed (hives). aspirin, enteric coated (ASPIRIN, ENTERIC COATED) 81 mg EC tablet Take 81 mg by mouth once daily. polyethylene glycol 3350 (MIRALAX) 17 gram/dose powder As needed for constipation No current facility-administered medications for this visit. ALLERGIES: ALLERGIES Allergen Reactions Lidocaine Intolerance Severe itching, burning. Pt. has had Marcaine without problem for oral surgery per Dr. Rodriguez's office. 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, most often secondary to a remote infection with rubella History of skin cancer SCC R arm; basal cell face, scalp Hives OSTEOPENIA Personal history of colonic polyps lymphoid aggregate removed Piezogenic pedal papule fatty papules around heel: no clinical significance Seasonal allergies Skin cancer melanoma,basal and squamous cell Symptomatic menopausal or female climacteric states was on HRT then off, last DXA 1998 PAST SURGICAL HISTORY Procedure Laterality Date CATARACT SURGERY, COMPLEX and Hx Fuch's dystrophy COLONOSCOPY FLX DX W/COLLJ SPEC WHEN PFRMD 12/1999 Colonoscopy- DIVERTICULOSIS DILATION & CURETTAGE DX&/THER NONOBSTETRIC 1989 Dilation & curettage DILATION & CURETTAGE DX&/THER NONOBSTETRIC Dilation & curettage TAB Down's GI COLON STEPHANIE INTUSSUSCEPTION 1939 LIG/TRNSXJ FLP TUBE ABDL/VAG APPR UNI/BI 1981 PAST SURGICAL HISTORY OF 1958 'polyp' removal PAST SURGICAL HISTORY OF 06/04/11 basal cell carcinoma removed from face PAST SURGICAL HISTORY OF 02/16/11 squamous cell skin CA PAST SURGICAL HISTORY OF 09/2011 basal cell carcinoma removed behind left ear, left buttock, left forearm, PAST SURGICAL HISTORY OF Skin cancer biopsies TONSILLECTOMY & ADENOIDECTOMY <AGE 10 1960 Tonsil/adenoidectomy FAMILY HISTORY Problem Relation Age of Onset Hypertension Mother Heart Father Skin Cancer Father melanoma other (alcoholism) Father brother other (depression) Brother Heart Brother stent placement Heart Sister replaced heart valve Skin Cancer Sister melanoma Social History Tobacco Use Smoking status: Never Smokeless tobacco: Never Vaping Use Vaping Use: Never used Substance Use Topics Alcohol use: No Comment: has drank in the past Drug use: No Reviewed current medications, allergies, past medical history, surgical history, family history andsocial history today. REVIEW OF SYSTEMS All other reviewed and negative other than HPI. VITALS: BP 122/72 Pulse 80 Wt 83.9 kg (185 lb) SpO2 97% BMI 30.82 kg/m Last 4 Encounter Wt Readings: Date: Wt: 10/25/2021 83.5 kg (184 lb) 08/14/2021 86.6 kg (191 lb) 06/29/2021 86.6 kg (191 lb) 04/30/2021 88.5 kg (195 lb) PHYSICAL EXAMINATION: General appearance: Well appearing, alert, in no acute distress, well-hydrated, well nourished. Skin: Skin color, texture, turgor normal, no suspicious rashes or lesions Head: Normocephalic, no masses, lesions, tenderness or abnormalities Neck: Supple, no adenopathy; thyroid symmetric, normal size, no bruits Back: Normal exam Lungs: Lungs clear to auscultation. No wheezing, rhonchi, rales Heart: RRR without murmur, gallop, or rubs. No ectopy Abdomen: Normal abdominal exam, Abdomen soft, non-tender. Bowel sounds normal. No masses, organomegaly Extremities: No deformities, edema, skin discoloration, clubbing or cyanosis. Good capillary refill. Musculoskeletal: No joint swelling, deformity, or tenderness Peripheral pulses: Normal Neuro: Negative. ASSESSMENT/PLAN: 1. Skin cancer - ICD9: 173.90, ICD10: C44.90 (primary diagnosis) - forms completed. 2. Stage 3a chronic kidney disease (HCC) - ICD9: 585.3, ICD10: N18.31 - last kidney function was good. 3. JOSE ELIAS (generalized anxiety disorder) - ICD9: 300.02, ICD10: F41.1 - stable. 4. Recurrent depression (HCC) - ICD9: 296.30, ICD10: F33.9 - stable John Hicks MD documented in this encounterGood [facility]12[facility] Evaluation note* Diagnosis Skin cancer- Primary Unspecified malignant neoplasm of skin, site unspecified Stage 3a chronic kidney disease (HCC) JOSE ELIAS (generalized anxiety disorder) Generalized anxiety disorder Recurrent depression (HCC) Major depressive disorder, recurrent episode, unspecified documented in this encounter [facility]12[facility] Miscellaneous Notes* Telephone Encounter - John Hicks MD - 02/25/2022 1:00 PM EST noted * Telephone Encounter - Mariah Harris LPN - 02/25/2022 10:44 AM EST Pt calling to report she had her initial consult this week with ocular surgeons. States she will have eye surgery 12/21/[address] Franklin at [facility] then will have reconstructive surgery with Dr Aguilar at [facility] the following day 03/11. Pt states Dr Aguilar's office faxed a form this am requesting information from pcp, pt states the form is required to complete surgery. Mariah Harris LPN documented in this encounterGood [facility]aritan [facility]11-15-2022 Miscellaneous Notes* Telephone Encounter - Gemma Fontanez LPN - 02/02/2022 9:16 AM EST Patient calling to let PCP know she was found to have basal cell cancer on her right eye lid. She is going to have surgery per [facility] and reconstruction surgery also. Patient saiddate is not be set up as yet. documented in this encounterGood Samaritan Hospital11-15-2022 Miscellaneous Notes* Telephone Encounter - Gemma Fontanez LPN - 02/02/2022 9:13 AM EST Patient has been identified by name and date of : Yes Patient phones for refill(s): Requested Prescriptions Pending Prescriptions Disp Refills sertraline (ZOLOFT) 25 mg tablet 45 tablet 3 Sig: Take 0.5 tablets by mouth once daily. Date of last office visit in primary care: 08/14/2021, no future appt scheduled Last 2 Encounter Wt Readings: Date: Wt: 10/25/2021 83.5 kg (184 lb) 08/14/2021 86.6 kg (191 lb) Previous labs/tests for medication: Not applicable Please advise. Thank you. Gemma Fontanez LPN documented in this encounterGood [facility]aritan Hospital11-09-2022 Miscellaneous Notes* Telephone Encounter - Trav Cottrell RN - 01/27/2022 8:31 AM EST Phoned patient and given provider's message below with verbalized understanding. * Telephone Encounter - John Hicks MD - 01/26/2022 4:46 PM EST I do not know who would do it without general anesthesia. Could look at an optho or plastic surgeon * Telephone Encounter - Trav Cottrell RN - 01/26/2022 4:16 PM EST Patient reports Jayme Denny did a biopsy yesterday on her right eyelid. Will have the results in2 weeks. 2 providers have told her they believe it is cancer. Patient asking Itz or Dr. Hicks, to give her names of surgeons that can do eyelid surgery without general anesthesia. Please phone patient with reply. documented in this encounterGood Samaritan Hospital11-02-2022 Miscellaneous Notes* Telephone Encounter - Cheli Early RN - 01/20/2022 11:54 AM EDT Patient contacted and given provider's message below. Cheli Early RN * Telephone Encounter - John Hicks MD - 01/20/2022 10:50 AM EDT As long as she is willing to pursue treatment if we found anything, I would continue to do mammograms annually * Telephone Encounter - Cheli Early RN - 01/20/2022 9:52 AM EDT Patient's last mammogram was 06/11/2020 and was negative. Patient asking if PCP feels she should getanother one this year? 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 Please advise patient on mammogram. Thank you. documented in this encounterGood Samaritan Hospital09-12-2022 History of Present illness Narrative* Marlys Jernigan PA-C - 11/30/2021 1:39 PM EDTAssociated Order(s): Large Joint Arthro/Inj: bilateral knee joints Post-Procedure Diagnose(s): Primary osteoarthritis of both knees Marlys Jernigan PA-C Department of Orthopaedics Orthopaedics [address] [facility] [address] Dept: [phone] Dept November 30, 2021 CHIEF COMPLAINT: Injections of the Left Knee, Injections of the Right Knee, and Durolane injectionsbilateral knees. ASSESSMENT: M17.0 Primary osteoarthritis of both knees (primary encounter diagnosis) SUMMARY/PLAN: Patient presents for repeat viscosupplementation. Previous injections have been very helpful, her last injection was 8 months ago. She tells me that her took a nasty fall in a parking lot andshe was not able to schedule an appointment as she was caring for him. Large Joint Arthro/Inj: bilateral knee joints Informed Consent Consent Obtained: Verbal [place] Protocol A moment to CARE was completed. SIGN IN Sign in communication not applicable due to emergent procedure. Personnel directly involved with the procedure wore the appropriate PPE. Special Equipment: N/A Patient/Surrogate Stated/Verified: Patient name, Date of , Relevant allergies and Intended procedure TIME OUT Intended patient and procedure match the source document(s). Consent documented and matches the intended procedure. Relevant labs, photos, and/or imaging studies have been reviewed. Correct side/site marked and visible. Medications required for procedure verified. No fire risk assessment and interventions applicable. No implant(s) inserted. 11/30/2021 1:43 PM The procedure site was prepped in the usual sterile fashion. Site: bilateral knee joints Medications (Right): 30 mg hyaluronate sod, cross-linked 30 mg/3 mL; 2 mL hylan G-F 20 16 mg/2 mL Medications (Left): 30 mg hyaluronate sod, cross-linked 30 mg/3 mL; 2 mL hylan G-F 20 16 mg/2 mL Anesthetics (Right): 5 mL bupivacaine (PF) 0.5 % (5 mg/mL) Anesthetics (Left): 5 mL bupivacaine (PF) 0.5 % (5 mg/mL) Outcome: Tolerated well, no immediate complications Post-injection instructions were reviewed with the patient and the patient voiced understanding of these instructions. SIGN OUT No specimen collected. No instruments, equipment or retained foreign bodies applicable. Post-procedure follow-up management communicated and Plan of Care Visit completed when applicable Ms. Arianne Aleman was advised as to contrast therapies and/or to take analgesics/anti-inflammatories as needed and all contraindications were reviewed. Supporting Information Below: Medications: Current Outpatient Medications Medication Sig fexofenadine (MELBA) 180 mg tablet Take 180 mg by mouth once daily. Chlorhexidine Gluconate (PERIDEX) 0.12 % solution twice daily. sertraline (ZOLOFT) 25 mg tablet Take 0.5 tablets by mouth once daily. calcium carbonate (TUMS 500 ORAL) Take by mouth as needed. ergocalciferol, vitamin D2, (VITAMIN D2 ORAL) Take by mouth. COLLAGEN MISC vit C/E/Zn/coppr/lutein/zeaxan (PRESERVISION AREDS-2 ORAL) Take by mouth. acetaminophen (TYLENOL) 325 mg tablet Take 650 mg by mouth every 6 hours as needed. SIMETHICONE (GAS-X ORAL) Take 1 tablet by mouth as needed. CARBOXYMETHYLCELLULOSE SODIUM (REFRESH TEARS OPHTHALMIC) Use 1 Drop in eyes three times daily as needed. COMPOUNDED PRESCRIPTION Gum Rincinol as needed ketoconazole (NIZORAL) 2 % shampoo Apply 1 application to affected area once daily as needed. loratadine (ALLERGY RELIEF, LORATADINE,) 10 mg tablet Take 1 tablet by mouth once daily as needed (hives). aspirin, enteric coated (ASPIRIN, ENTERIC COATED) 81 mg EC tablet Take 81 mg by mouth once daily. polyethylene glycol 3350 (MIRALAX) 17 gram/dose powder As needed for constipation No current facility-administered medications for this visit. Allergies: Lidocaine, Codeine, Diclofenac, Etodolac, Medroxyprogesterone, and Predisone [Other] This note was partially generated using Dragon voice recognition system, and there may be some incorrect words, spellings, and punctuation that were not noted in checking the note before saving. Marlys Jernigan PA-C * Kajal Gonzalez Ma - 11/30/2021 10:47 AM EDT Patient presents with: Left Knee - Injections Right Knee - Injections Durolane injections bilateral knees AMB ROOMING INTAKE FLOWSHEET DATA Risk Screening Do you have concerns about personal safety or safety in the home?: No Pain Pain Level: 6 Pain Location: (Bilateral knees) Description: Aching Frequency: Continuous Intervention/Comfort measure: Medication Patient here for Durolane injections bilateral knees. Has been taking 2 tablets daily Tylenol arthritis extended relief for the pain and does help. LOT # [id number] EXP 05/18/2027 Kajal Gonzalez Ma documented in this encounterGood Samaritan Hospital08-29-2022 Miscellaneous Notes* Telephone Encounter - Cecilia Gutierrez Ma - 11/16/2021 4:48 PM EDT Patient has been authorized through 01/12/2022. She is scheduled for 11/30/2021. * Telephone Encounter - Cecilia Gutierrez Ma - 11/12/2021 10:43 AM EDT New referral created for Durolane injection into bilateral knees. Patient was not scheduled before authorization . documented in this encounterGood Samaritan Hospital08-08-2022 Miscellaneous Notes* Telephone Encounter - Alex Matthew LPN - 10/26/2021 1:55 PM EDT TC to pt, follow up appt scheduled with APPLICATION SOFTWARE DEVELOPER. Alex Matthew LPN * Telephone Encounter - Simona Espinoza - 10/26/2021 10:22 AM EDTSummary: wrist question Patient wants to know if she should schedule an appointment with Dr. Hicks or Itz Chavez to go overthe wrist xray results. Patient mentioned that it changes every day. documented in this encounterGood Samaritan Hospital08-08-2022 Miscellaneous Notes* Telephone Encounter - Alex Matthew LPN - 10/26/2021 1:51 PM EDT Pt notified of results/provider instructions. She verbalized understanding. Alex Matthew LPN * Telephone Encounter - Nancy Schmidt PA-C - 10/26/2021 10:53 AM EDT Please let patient know her wrist x-rays show no fracture or dislocation. She does have some arthritis. Continue plan of care as discussed at visit. documented in this encounterGood Samaritan Hospital08-07-2022 History of Present illness Narrative* Nancy Schmidt PA-C - 10/25/2021 11:54 AM EDT Images from the original note were not included. This note was created using [employer] Oil[employer]. Subjective Arianne Aleman is a 81 year old female. HPI Patient presents with right forearm bruising and pain for 3 days. She was lifting a heavy board outof her house to put it in a dumpster when she had to push it up over the dumpster using her forearm. She started to get some bruising a couple days later. She states the bruising has continued so shewanted it looked at. She is not on any blood thinners. She has some minimal pain in the arm. Some swelling. Review of Systems Constitutional: Negative. HENT: Negative. Respiratory: Negative. Cardiovascular: Negative. Gastrointestinal: Negative. Genitourinary: Negative. 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 Chlorhexidine Gluconate (PERIDEX) 0.12 % solution twice daily. sertraline (ZOLOFT) 25 mg tablet Take 0.5 tablets by mouth once daily. 45 tablet 3 calcium carbonate (TUMS 500 ORAL) Take by mouth as needed. ergocalciferol, vitamin D2, (VITAMIN D2 ORAL) Take by mouth. COLLAGEN MISC vit C/E/Zn/coppr/lutein/zeaxan (PRESERVISION AREDS-2 ORAL) Take by mouth. acetaminophen (TYLENOL) 325 mg tablet Take 650 mg by mouth every 6 hours as needed. SIMETHICONE (GAS-X ORAL) Take 1 tablet by mouth as needed. CARBOXYMETHYLCELLULOSE SODIUM (REFRESH TEARS OPHTHALMIC) Use 1 Drop in eyes three times daily as needed. COMPOUNDED PRESCRIPTION Gum Rincinol as needed ketoconazole (NIZORAL) 2 % shampoo Apply 1 application to affected area once daily as needed. loratadine (ALLERGY RELIEF, LORATADINE,) 10 mg tablet Take 1 tablet by mouth once daily as needed (hives). aspirin, enteric coated (ASPIRIN, ENTERIC COATED) 81 mg EC tablet Take 81 mg by mouth once daily. polyethylene glycol 3350 (MIRALAX) 17 gram/dose powder As needed for constipation No current facility-administered medications for this visit. PAST SURGICAL HISTORY Procedure Laterality Date CATARACT SURGERY, COMPLEX and Hx Fuch's dystrophy COLONOSCOPY FLX DX W/COLLJ SPEC WHEN PFRMD 12/1999 Colonoscopy- DIVERTICULOSIS DILATION & CURETTAGE DX&/THER NONOBSTETRIC 1990 Dilation & curettage DILATION & CURETTAGE DX&/THER NONOBSTETRIC Dilation & curettage TAB Down's GI COLON STEPHANIE INTUSSUSCEPTION 1939 LIG/TRNSXJ FLP TUBE ABDL/VAG APPR UNI/BI 1981 PAST SURGICAL HISTORY OF 1958 'polyp' removal PAST SURGICAL HISTORY OF 06/04/11 basal cell carcinoma removed from face PAST SURGICAL HISTORY OF 02/16/11 squamous cell skin CA PAST SURGICAL HISTORY OF 09/2011 basal cell carcinoma removed behind left ear, left buttock, left forearm, PAST SURGICAL HISTORY OF Skin cancer biopsies TONSILLECTOMY & ADENOIDECTOMY <AGE 10 1960 Tonsil/adenoidectomy FAMILY HISTORY Problem Relation Age of Onset Hypertension Mother Heart Father Skin Cancer Father melanoma other (alcoholism) Father brother other (depression) Brother Heart Brother stent placement Heart Sister replaced heart valve Skin Cancer Sister melanoma Social History Tobacco Use Smoking status: Never Smokeless tobacco: Never Vaping Use Vaping Use: Never used Substance Use Topics Alcohol use: No Comment: has drank in the past Drug use: No Objective BP 124/74 Pulse 94 Temp 36.9 C (98.5 F) Resp 16 Wt 83.5 kg (184 lb) SpO2 96% BMI 30.66 kg/m Physical Exam Vitals reviewed. Constitutional: Appearance: Normal appearance. HENT: Head: Normocephalic and atraumatic. Musculoskeletal: Arms: Comments: Patient has bruising to the ventral distal forearm. Some minimal tenderness to palpation.Soft. No induration. No lymphangitic streaking or other erythema surrounding. No sign of cellulitis. She does have normal flexion and extension of the wrist. Radial pulse 2+. Normal hand grasp strength. Compartments are soft. No sign of compartment syndrome. Skin: General: Skin is warm and dry. Neurological: Mental Status: She is alert. Assessment and Plan ASSESSMENT/PLAN: 1. Traumatic hematoma of right wrist, initial encounter - ICD9: 923.21, ICD10: S60.211A Exam consistent with hematoma from lifting the heavy board. I will check an x- ray to rule out fracture, less likely. I did place her in a wrist cock-up splint. She will return tomorrow to have x-raysdone. Will call on results. Discussed warm compress and Tylenol as needed. - XR WRIST INJURY 4V PA/LAT/OBL/SCAPH RIGHT Nancy Schmidt PA-C documented in this encounterGood Samaritan Hospital06-06-2022 Miscellaneous Notes* Telephone Encounter - Lissett Zafar - 08/24/2021 1:42 PM EDT Pt called back and states she will call in to scheduled this once she is cleared by her dimensional engineer. (scabies diagnosis) Lissett Zafar * Telephone Encounter - Cecilia Gutierrez Ma - 08/24/2021 1:34 PM EDT Patient has been authorized for Durolane injection into bilateral knees with Marlys Jernigan PA-C until 11/05/2021. I called and left a message for patient to return call to office. Patient will need 1 appointment. * Telephone Encounter - Cecilia Gutierrez Ma - 08/14/2021 4:39 PM EDT Referral placed for Durolane injection into bilateral knees. * Telephone Encounter - Marlys Jernigan PA-C - 08/12/2021 3:04 PM EDT I am assuming she is wanting visco supplemantation? Looks like last gel injection was 07/21/20. No need for updated xrays. Please accept this as a request for approval for bilateral knee Euflexxa (or equivalent insurance approved brand) injections for Osteoarthritis for patient's bilateral knees. Please put a note in EPIC once approved and notify patient upon approval so they can schedule appointment. Thank you, Marlys Jernigan PA-C * Telephone Encounter - Lissett Zafar - 08/12/2021 2:53 PM EDT Pt calling to see what preparation she needs to do to schedule her next knee injections in August. Does she need to have it authorized? If so, can that be started? Pt also asking if she is due for x-rays. Please review and advise. Lissett Zafar MA documented in this encounterGood Samaritan Hospital06-02-2022 Miscellaneous Notes* Telephone Encounter - Trav Cottrell RN - 08/20/2021 9:33 AM EDT Patient returned call and given provider's message below with verbalized understanding. Scheduled lab appt. * Telephone Encounter - Kaelyn Villatoro Ma - 08/20/2021 8:54 AM EDT Left message for patient to return call. Kaelyn Villatoro Ma * Telephone Encounter - John Hicks MD - 08/19/2021 5:11 PM EDT Labs ok, except kidney function is very minimally reduced. Push fluids and recheck bmp and ua in two weeks. documented in this encounterGood Samaritan Hospital05-31-2022 Miscellaneous Notes* Telephone Encounter - Marlys Jernigan PA-C - 08/18/2021 9:35 AM EDT Spoke with patient over the phone, she states that the gel injections are very helpful and completely alleviate her bilateral knee pain for at least 5 months. She is able to walk pain-free and also to ride her stationary bicycle. * Telephone Encounter - Davida Michel - 08/18/2021 9:10 AM EDT === PHARMACY TEAM ==== ADDITIONAL INFORMATION NEEDED/REQUESTED Case Submitted: No Request Type: Provider Date of Service:TBD estimated around 09-07-2021 Additional Information Needed: A patient update or telephone encounter or OV stating that patient has had a positive clinical response to therapy Request from Payor by: N/A Email Sent to: telephone encounter to MARLYS JERNIGAN traci susong Nakeitha [place], Amy rafferty Requested Clinicals/Information Sent: N/A documented in this encounterGood Samaritan Hospital05-27-2022 History of Present illness Narrative* John Hicks MD - 08/14/2021 2:42 PM EDT Arianne Aleman 81 year old female here today for Annual Wellness Visit. I reviewed and updated her past medical history , past surgical history , family history, social history, medications, allergies and problem list today. I have reviewed specialist related care of the patient in her medical record. She sees the following specialists outside of [facility] Dr. Myrick,derm -Dr Phan, bioinformatics specialist Dr. Trejo, podiatry-Dr. Trejo-optho, Ortho at [place] [facility] [place] Planning discussed including patients advanced directive wishes: Yes, Percy her surrogate Depression screen: Depression Screening 05/03/2017 08/14/2021 PHQ-2 Score 0 0 Depression screening tool completed and reviewed. Based on score and interview, patient is not at risk for depression. Screening tool discussed with patient, and I recommended no further interventionat this time. Cognitive screen: Mini Cog Score: 3 Difficulty drawing clock draw. Had issues understanding instructions. Arianne works out regularly several times per week with house cleaning etc. . She watches her diet for sodium, low fat and low cholesterol most of the time. Social Needs Questionnaire none Does your home have rungs in the hallway, lack of grab bars in the bathroom, lack of handrails on the stairs or have poor lighting? No PHYSICAL EXAM BP 122/72 Pulse 90 Wt 86.6 kg (191 lb) SpO2 96% BMI 31.82 kg/m Alert and oriented X 3: YES There is no height or weight on file to calculate BMI. Visual acuity:per optho. Hearing Evaluation: normal Functional Ability/Safety Screen Was the patient's timed Up and Go test unsteady or longer than 30 seconds? No ASSESMENT/PLAN: 81 year old female The following prevention plan was discussed during the office visit and provided to the patient: - Vaccines recommended Shingrix at pharmacy, did do mammogram. John Hicks MD Problem 2: Wants to discuss ivermectin for her scabies by Derm. Sees them again in one month. Itching is better. Feels better but is concerned about it. Used cider vinegar to areas that were irritated. Tolerated meds well. She took meds on July 23 and then July 30. Still with some rash on her trunk No surrounding redness or warmth on exam. No fever or chills. Has two small spots on her left arm. Also had two on the right. Appear to be fading. Was doing a home bp cuff. They are fading. It may be related to the cuff. No bleeding elsewhere. REVIEW OF SYSTEMS RESPIRATORY: Negative for cough, hemoptysis, wheezing, COPD, dyspnea or shortness of breath CARDIOVASCULAR: Negative for chest pain, leg swelling, hypertension, CHF or palpitations GI: No nausea, vomiting, or diarrhea : Negative PHYSICAL EXAM: GEN: pleasant, no acute distress, alert SKIN: small area of redness on trunk. No signs of cellulitis. Tiny bruising on olecranon fossa HEART: regular rate, regular rhythm, no murmurs LUNGS: clear to auscultation, no wheezes or crackles, no increased WOB ABD: soft, non-distended, no masses palpated, non-tender EXT: no clubbing, no cyanosis, no edema ASSESSMENT/PLAN: 1. Medicare annual wellness visit, subsequent - ICD9: V70.0, ICD10: Z00.00 (primary diagnosis) - Counseled on healthy diet and regular exercise 2. 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 Scabies - ICD9: 133.0, ICD10: B86 - follow with derm. Red flags for re-assessment reviewed with patient in detail. 4. Stage 3a chronic kidney disease (HCC) - ICD9: 585.3, ICD10: N18.31 - follow labs. - CBC + DIFF - COMP METABOLIC PANEL 5. Screening for lipid disorders - ICD9: V77.91, ICD10: Z13.220 - LIPID PANEL BASIC John Hicks MD documented in this encounterGood [facility] History of Present illness Narrative* John Hicks MD - 06/29/2021 2:57 PM EDT Patient presents with: Itching: rash-scabies treatment follow up still some areas of concern wanting to be sure no infection HPI: Patient presents today for office visit for follow up. Her had seen her and diagnosed her with Scabies. Biopsy confirmed scabies as well. Was elimite x 2 Was also on steroids. She can't see derm until July. She is still having some areas that are itching. The rash is much better than it was She still has some irritation at the spots No drainage or fever or chills. Had cleaned everything well. We are just out about a month from the last treatment. We discussed that she does not appear infected on top of the scabies. We discussed one more trial of elimite vs adding ivermectin. No crusting etc. MEDICATIONS: Current Outpatient Medications Medication Sig triamcinolone acetonide (KENALOG) 0.1 % cream Apply to affected area twice daily. Apply a thin layer of cream to affected areas of the body twice daily for 2 weeks. Stop for one full week, then applyfor flares. fexofenadine (MELBA ALLERGY) 180 mg tablet Take 180 mg by mouth once daily. Chlorhexidine Gluconate (PERIDEX) 0.12 % solution twice daily. sertraline (ZOLOFT) 25 mg tablet Take 0.5 tablets by mouth once daily. calcium carbonate (TUMS 500 ORAL) Take by mouth as needed. ergocalciferol, vitamin D2, (VITAMIN D2 ORAL) Take by mouth. COLLAGEN MISC vit C/E/Zn/coppr/lutein/zeaxan (PRESERVISION AREDS-2 ORAL) Take by mouth. acetaminophen (TYLENOL) 325 mg tablet Take 650 mg by mouth every 6 hours as needed. SIMETHICONE (GAS-X ORAL) Take 1 tablet by mouth as needed. CARBOXYMETHYLCELLULOSE SODIUM (REFRESH TEARS OPHTHALMIC) Use 1 Drop in eyes three times daily as needed. COMPOUNDED PRESCRIPTION Gum Rincinol as needed ketoconazole (NIZORAL) 2 % shampoo Apply 1 application to affected area once daily as needed. loratadine (ALLERGY RELIEF, LORATADINE,) 10 mg tablet Take 1 tablet by mouth once daily as needed (hives). aspirin, enteric coated (ASPIRIN, ENTERIC COATED) 81 mg EC tablet Take 81 mg by mouth once daily. polyethylene glycol 3350 (MIRALAX) 17 gram/dose powder As needed for constipation No current facility-administered medications for this visit. ALLERGIES: ALLERGIES Allergen Reactions Lidocaine Intolerance Severe itching, burning. Pt. has had Marcaine without problem for oral surgery per Dr. Rodriguez's office. 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, most often secondary to a remote infection with rubella History of skin cancer SCC R arm; basal cell face, scalp Hives OSTEOPENIA Personal history of colonic polyps lymphoid aggregate removed Piezogenic pedal papule fatty papules around heel: no clinical significance Seasonal allergies Skin cancer melanoma,basal and squamous cell Symptomatic menopausal or female climacteric states was on HRT then off, last DXA 1998 PAST SURGICAL HISTORY Procedure Laterality Date CATARACT SURGERY, COMPLEX and Hx Fuch's dystrophy COLONOSCOPY FLX DX W/COLLJ SPEC WHEN PFRMD 12/1999 Colonoscopy- DIVERTICULOSIS DILATION & CURETTAGE DX&/THER NONOBSTETRIC 1989 Dilation & curettage DILATION & CURETTAGE DX&/THER NONOBSTETRIC Dilation & curettage TAB Down's GI COLON STEPHANIE INTUSSUSCEPTION 1939 LIG/TRNSXJ FLP TUBE ABDL/VAG APPR UNI/BI 1981 PAST SURGICAL HISTORY OF 1958 'polyp' removal PAST SURGICAL HISTORY OF 06/04/11 basal cell carcinoma removed from face PAST SURGICAL HISTORY OF 02/16/11 squamous cell skin CA PAST SURGICAL HISTORY OF 09/2011 basal cell carcinoma removed behind left ear, left buttock, left forearm, PAST SURGICAL HISTORY OF Skin cancer biopsies TONSILLECTOMY & ADENOIDECTOMY <AGE 10 1960 Tonsil/adenoidectomy FAMILY HISTORY Problem Relation Age of Onset Hypertension Mother Heart Father Skin Cancer Father melanoma other (alcoholism) Father brother other (depression) Brother Heart Brother stent placement Heart Sister replaced heart valve Skin Cancer Sister melanoma Social History Tobacco Use Smoking status: Never Smoker Smokeless tobacco: Never Used Vaping Use Vaping Use: Never used Substance Use Topics Alcohol use: No Comment: has drank in the past Drug use: No Reviewed current medications, allergies, past medical history, surgical history, family history andsocial history today. REVIEW OF SYSTEMS All other reviewed and negative other than HPI. VITALS: BP 142/82 Pulse 80 Wt 86.6 kg (191 lb) BMI 31.82 kg/m Last 4 Encounter Wt Readings: Date: Wt: 04/30/2021 88.5 kg (195 lb) 03/21/2021 89.8 kg (198 lb) 02/04/2021 89.8 kg (198 lb) 06/24/2020 89.4 kg (197 lb) PHYSICAL EXAMINATION: General appearance: Well appearing, alert, in no acute distress, well-hydrated, well nourished. Skin: has several small pain/red lesions on upper arm and around the beltline. Nos signs of infection. No drainage. Non tender. ASSESSMENT/PLAN: 1. Scabies - ICD9: 133.0, ICD10: B86 - Follow up with PCP/derm if no improvement in 3-4 weeks after treatment. - no new lesions. May simply be healing. Discussed options. Will treat one more treatment to see ifit heals completely. If continues may need something like ivermectin. Red flags for re-assessment reviewed with patient in detail. - PERMETHRIN 5 % TOPICAL CREAM - TRIAMCINOLONE ACETONIDE 0.1 % TOPICAL CREAM John Hicks Medical Decision Making documented in this encounterGood [facility]04-07-2022 Miscellaneous Notes* Telephone Encounter - Jonathan Mcleod LPN - 06/25/2021 12:51 PM EDT Notified patient. * Telephone Encounter - John Hicks MD - 06/25/2021 12:23 PM EDT Ok to get at 4 months after her second booster. * Telephone Encounter - Trav Cottrell RN - 06/25/2021 11:09 AM EDT Patient asking if pcp thinks she should get her 4 th covid booster? Reports she doesn't want to getit without pcp opinion. Please phone patient with reply. documented in this encounterGood [facility]01-06-2022 Miscellaneous Notes* Telephone Encounter - Evelyn Whitaker LPN - 03/26/2021 12:32 PM EST Patient notified of Rx., verbalizes understanding of instructions. Evelyn Whitaker LPN * Telephone Encounter - John Hicks MD - 03/26/2021 12:28 PM EST rx sent. Call if worsens or not better next week. * Telephone Encounter - Mariah Harris LPN - 03/26/2021 10:18 AM EST Pt was seen in & tested NEG for covid 03/21/21 after having sx X 2 days. Pt reports her cough is breaking up however she is still coughing a lot. Denies SOB, fever, sore throat, loss of taste or smell. Has had cough X 6-8 days. Pt is asking if she can have an rx for Tessalon perles? States she used it in the past with good results. Or asking if you feel pt should be seen again? Please advise. Mariah Harris LPN documented in this encounterGood Samaritan [facility]04-28-2015 History of Past illness Narrative* Problem Noted Date Resolved Date Right knee pain 07/16/2014 10/26/2016 Special screening for malignant neoplasms, colon 07/05/2011 10/23/2015 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 04/28/2011 09/13/2011 Actinic skin damage 04/28/2011 10/26/2016 Telangiectasia 04/28/2011 10/26/2016 Solar Lentigines 04/28/2011 10/26/2016 Chronic depression 11/04/2001 12/07/2018 documented as of this encounter (statuses as of 06/25/2021) [facility] of [facility] illness Narrative* Problem Noted Date Resolved Date Right knee pain 07/16/2014 10/26/2016 Special screening for malignant neoplasms, colon 07/05/2011 10/23/2015 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 04/28/2011 09/13/2011 Actinic skin damage 04/28/2011 10/26/2016 Telangiectasia 04/28/2011 10/26/2016 Solar Lentigines 04/28/2011 10/26/2016 Chronic depression 11/04/2001 12/07/2018 documented as of this encounter (statuses as of 06/29/2021) [facility] of [facility] illness Narrative* Problem Noted Date Resolved Date Right knee pain 07/16/2014 10/26/2016 Special screening for malignant neoplasms, colon 07/05/2011 10/23/2015 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 04/28/2011 09/13/2011 Actinic skin damage 04/28/2011 10/26/2016 Telangiectasia 04/28/2011 10/26/2016 Solar Lentigines 04/28/2011 10/26/2016 Chronic depression 11/04/2001 12/07/2018 documented as of this encounter (statuses as of 06/29/2021) [facility] Narrative* Problem Noted Date Resolved Date Right knee pain 07/16/2014 10/26/2016 Special screening for malignant neoplasms, colon 07/05/2011 10/23/2015 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 04/28/2011 09/13/2011 Actinic skin damage 04/28/2011 10/26/2016 Telangiectasia 04/28/2011 10/26/2016 Solar Lentigines 04/28/2011 10/26/2016 Chronic depression 11/04/2001 12/07/2018 documented as of this encounter (statuses as of 08/14/2021) [address]2015 History of Past illness Narrative* Problem Noted Date Resolved Date Right knee pain 07/16/2014 10/26/2016 Special screening for malignant neoplasms, colon 07/05/2011 10/23/2015 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 04/28/2011 09/13/2011 Actinic skin damage 04/28/2011 10/26/2016 Telangiectasia 04/28/2011 10/26/2016 Solar Lentigines 04/28/2011 10/26/2016 Chronic depression 11/04/2001 12/07/2018 documented as of this encounter (statuses as of 08/20/2021) [address]2015 History of Past illness Narrative* Problem Noted Date Resolved Date Right knee pain 07/16/2014 10/26/2016 Special screening for malignant neoplasms, colon 07/05/2011 10/23/2015 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 04/28/2011 09/13/2011 Actinic skin damage 04/28/2011 10/26/2016 Telangiectasia 04/28/2011 10/26/2016 Solar Lentigines 04/28/2011 10/26/2016 Chronic depression 11/04/2001 12/07/2018 documented as of this encounter (statuses as of 08/24/2021) [address]2015 History of Past illness Narrative* Problem Noted Date Resolved Date Right knee pain 07/16/2014 10/26/2016 Special screening for malignant neoplasms, colon 07/05/2011 10/23/2015 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 04/28/2011 09/13/2011 Actinic skin damage 04/28/2011 10/26/2016 Telangiectasia 04/28/2011 10/26/2016 Solar Lentigines 04/28/2011 10/26/2016 Chronic depression 11/04/2001 12/07/2018 documented as of this encounter (statuses as of 10/25/2021) [place] [id number] History of Past illness Narrative* Problem Noted Date Resolved Date Right knee pain 07/16/2014 10/26/2016 Special screening for malignant neoplasms, colon 07/05/2011 10/23/2015 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 04/28/2011 09/13/2011 Actinic skin damage 04/28/2011 10/26/2016 Telangiectasia 04/28/2011 10/26/2016 Solar Lentigines 04/28/2011 10/26/2016 Chronic depression 11/04/2001 12/07/2018 documented as of this encounter (statuses as of 10/26/2021) [place] [id number] History of Past illness Narrative* Problem Noted Date Resolved Date Right knee pain 07/16/2014 10/26/2016 Special screening for malignant neoplasms, colon 07/05/2011 10/23/2015 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 04/28/2011 09/13/2011 Actinic skin damage 04/28/2011 10/26/2016 Telangiectasia 04/28/2011 10/26/2016 Solar Lentigines 04/28/2011 10/26/2016 Chronic depression 11/04/2001 12/07/2018 documented as of this encounter (statuses as of 11/16/2021) [place] [id number] History of Past illness Narrative* Problem Noted Date Resolved Date Right knee pain 07/16/2014 10/26/2016 Special screening for malignant neoplasms, colon 07/05/2011 10/23/2015 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 04/28/2011 09/13/2011 Actinic skin damage 04/28/2011 10/26/2016 Telangiectasia 04/28/2011 10/26/2016 Solar Lentigines 04/28/2011 10/26/2016 Chronic depression 11/04/2001 12/07/2018 documented as of this encounter (statuses as of 11/30/2021) [place] [id number] History of Past illness Narrative* Problem Noted Date Resolved Date Right knee pain 07/16/2014 10/26/2016 Special screening for malignant neoplasms, colon 07/05/2011 10/23/2015 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 04/28/2011 09/13/2011 Actinic skin damage 04/28/2011 10/26/2016 Telangiectasia 04/28/2011 10/26/2016 Solar Lentigines 04/28/2011 10/26/2016 Chronic depression 11/04/2001 12/07/2018 documented as of this encounter (statuses as of 12/19/2021) [address] History of Past illness Narrative* Problem Noted Date Resolved Date Right knee pain 07/16/2014 10/26/2016 Special screening for malignant neoplasms, colon 07/05/2011 10/23/2015 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 04/28/2011 09/13/2011 Actinic skin damage 04/28/2011 10/26/2016 Telangiectasia 04/28/2011 10/26/2016 Solar Lentigines 04/28/2011 10/26/2016 Chronic depression 11/04/2001 12/07/2018 documented as of this encounter (statuses as of 01/20/2022) [address] History of Past illness Narrative* Problem Noted Date Resolved Date Right knee pain 07/16/2014 10/26/2016 Special screening for malignant neoplasms, colon 07/05/2011 10/23/2015 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 04/28/2011 09/13/2011 Actinic skin damage 04/28/2011 10/26/2016 Telangiectasia 04/28/2011 10/26/2016 Solar Lentigines 04/28/2011 10/26/2016 Chronic depression 11/04/2001 12/07/2018 documented as of this encounter (statuses as of 01/27/2022) [address] History of Past illness Narrative* Problem Noted Date Resolved Date Right knee pain 07/16/2014 10/26/2016 Special screening for malignant neoplasms, colon 07/05/2011 10/23/2015 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 04/28/2011 09/13/2011 Actinic skin damage 04/28/2011 10/26/2016 Telangiectasia 04/28/2011 10/26/2016 Solar Lentigines 04/28/2011 10/26/2016 Chronic depression 11/04/2001 12/07/2018 documented as of this encounter (statuses as of 02/02/2022) [place] [id number] History of Past illness Narrative* Problem Noted Date Resolved Date Right knee pain 07/16/2014 10/26/2016 Special screening for malignant neoplasms, colon 07/05/2011 10/23/2015 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 04/28/2011 09/13/2011 Actinic skin damage 04/28/2011 10/26/2016 Telangiectasia 04/28/2011 10/26/2016 Solar Lentigines 04/28/2011 10/26/2016 Chronic depression 11/04/2001 12/07/2018 documented as of this encounter (statuses as of 02/10/2022) [address] History of Past illness Narrative* Problem Noted Date Resolved Date Right knee pain 07/16/2014 10/26/2016 Special screening for malignant neoplasms, colon 07/05/2011 10/23/2015 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 04/28/2011 09/13/2011 Actinic skin damage 04/28/2011 10/26/2016 Telangiectasia 04/28/2011 10/26/2016 Solar Lentigines 04/28/2011 10/26/2016 Chronic depression 11/04/2001 12/07/2018 documented as of this encounter (statuses as of 02/25/2022) [place] [id number] History of Past illness Narrative* Problem Noted Date Resolved Date Right knee pain 07/16/2014 10/26/2016 Special screening for malignant neoplasms, colon 07/05/2011 10/23/2015 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 04/28/2011 09/13/2011 Actinic skin damage 04/28/2011 10/26/2016 Telangiectasia 04/28/2011 10/26/2016 Solar Lentigines 04/28/2011 10/26/2016 Chronic depression 11/04/2001 12/07/2018 documented as of this encounter (statuses as of 03/08/2022) [place] [id number] History of Past illness Narrative* Problem Noted Date Resolved Date Right knee pain 07/16/2014 10/26/2016 Special screening for malignant neoplasms, colon 07/05/2011 10/23/2015 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 04/28/2011 09/13/2011 Actinic skin damage 04/28/2011 10/26/2016 Telangiectasia 04/28/2011 10/26/2016 Solar Lentigines 04/28/2011 10/26/2016 Chronic depression 11/04/2001 12/07/2018 documented as of this encounter (statuses as of 03/14/2022) [address] History of Past illness Narrative* Problem Noted Date Resolved Date Right knee pain 07/16/2014 10/26/2016 Special screening for malignant neoplasms, colon 07/05/2011 10/23/2015 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 04/28/2011 09/13/2011 Actinic skin damage 04/28/2011 10/26/2016 Telangiectasia 04/28/2011 10/26/2016 Solar Lentigines 04/28/2011 10/26/2016 Chronic depression 11/04/2001 12/07/2018 documented as of this encounter (statuses as of 05/10/2022) [address] History of Past illness Narrative* Problem Noted Date Resolved Date Right knee pain 07/16/2014 10/26/2016 Special screening for malignant neoplasms, colon 07/05/2011 10/23/2015 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 04/28/2011 09/13/2011 Actinic skin damage 04/28/2011 10/26/2016 Telangiectasia 04/28/2011 10/26/2016 Solar Lentigines 04/28/2011 10/26/2016 Chronic depression 11/04/2001 12/07/2018 documented as of this encounter (statuses as of 05/11/2022) [place] [id number] History of Past illness Narrative* Problem Noted Date Resolved Date Right knee pain 07/16/2014 10/26/2016 Special screening for malignant neoplasms, colon 07/05/2011 10/23/2015 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 04/28/2011 09/13/2011 Actinic skin damage 04/28/2011 10/26/2016 Telangiectasia 04/28/2011 10/26/2016 Solar Lentigines 04/28/2011 10/26/2016 Chronic depression 11/04/2001 12/07/2018 documented as of this encounter (statuses as of 05/12/2022) [address] History of Past illness Narrative* Problem Noted Date Resolved Date Right knee pain 07/16/2014 10/26/2016 Special screening for malignant neoplasms, colon 07/05/2011 10/23/2015 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 04/28/2011 09/13/2011 Actinic skin damage 04/28/2011 10/26/2016 Telangiectasia 04/28/2011 10/26/2016 Solar Lentigines 04/28/2011 10/26/2016 Chronic depression 11/04/2001 12/07/2018 documented as of this encounter (statuses as of 06/22/2022) [address] History of Past illness Narrative* Problem Noted Date Resolved Date Right knee pain 07/16/2014 10/26/2016 Special screening for malignant neoplasms, colon 07/05/2011 10/23/2015 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 04/28/2011 09/13/2011 Actinic skin damage 04/28/2011 10/26/2016 Telangiectasia 04/28/2011 10/26/2016 Solar Lentigines 04/28/2011 10/26/2016 Chronic depression 11/04/2001 12/07/2018 documented as of this encounter (statuses as of 06/25/2022) [address] History of Past illness Narrative* Problem Noted Date Resolved Date Right knee pain 07/16/2014 10/26/2016 Special screening for malignant neoplasms, colon 07/05/2011 10/23/2015 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 04/28/2011 09/13/2011 Actinic skin damage 04/28/2011 10/26/2016 Telangiectasia 04/28/2011 10/26/2016 Solar Lentigines 04/28/2011 10/26/2016 Chronic depression 11/04/2001 12/07/2018 documented as of this encounter (statuses as of 07/01/2022) [address] History of Past illness Narrative* Problem Noted Date Resolved Date Right knee pain 07/16/2014 10/26/2016 Special screening for malignant neoplasms, colon 07/05/2011 10/23/2015 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 04/28/2011 09/13/2011 Actinic skin damage 04/28/2011 10/26/2016 Telangiectasia 04/28/2011 10/26/2016 Solar Lentigines 04/28/2011 10/26/2016 Chronic depression 11/04/2001 12/07/2018 documented as of this encounter (statuses as of 07/05/2022) [address] History of Past illness Narrative* Problem Noted Date Resolved Date Right knee pain 07/16/2014 10/26/2016 Special screening for malignant neoplasms, colon 07/05/2011 10/23/2015 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 04/28/2011 09/13/2011 Actinic skin damage 04/28/2011 10/26/2016 Telangiectasia 04/28/2011 10/26/2016 Solar Lentigines 04/28/2011 10/26/2016 Chronic depression 11/04/2001 12/07/2018 documented as of this encounter (statuses as of 08/25/2022) [address] History of Past illness Narrative* Problem Noted Date Diagnosed Date Resolved Date Right knee pain 07/16/2014 10/26/2016 Special screening for malign ant neoplasms, colon 07/05/2011 10/23/2015 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 04/28/2011 09/13/2011 Actinic skin damage 04/28/2011 10/27/19 17 Telangiectasia 04/28/2011 10/26/2016 Solar Lentigines 04/28/2011 10/26/2016 Chronic depression 11/04/2001 9 documented as of this encounter (statuses as of 12/30/2022) [address] History of Past illness Narrative* Problem Noted Date Diagnosed Date Resolved Date Right knee pain 07/16/2014 10/26/2016 Special screening for malign ant neoplasms, colon 07/05/2011 10/23/2015 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 04/28/2011 09/13/2011 Actinic skin damage 04/28/2011 10/27/19 17 Telangiectasia 04/28/2011 10/26/2016 Solar Lentigines 04/28/2011 10/26/2016 Chronic depression 11/04/2001 9 documented as of this encounter (statuses as of 01/07/2023) [address]28-2015 History of Past illness Narrative* Problem Noted Date Diagnosed Date Resolved Date Right knee pain 07/16/2014 10/26/2016 Special screening for malign ant neoplasms, colon 07/05/2011 10/23/2015 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 04/28/2011 09/13/2011 Actinic skin damage 04/28/2011 10/27/19 17 Telangiectasia 04/28/2011 10/26/2016 Solar Lentigines 04/28/2011 10/26/2016 Chronic depression 11/04/2001 9 documented as of this encounter (statuses as of 01/10/2023) [place] [id number] History of Past illness Narrative* Problem Noted Date Diagnosed Date Resolved Date Right knee pain 07/16/2014 10/26/2016 Special screening for malign ant neoplasms, colon 07/05/2011 10/23/2015 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 04/28/2011 09/13/2011 Actinic skin damage 04/28/2011 10/27/19 17 Telangiectasia 04/28/2011 10/26/2016 Solar Lentigines 04/28/2011 10/26/2016 Chronic depression 11/04/2001 9 documented as of this encounter (statuses as of 01/11/2023) [place] [address]-28-2015 History of Past illness Narrative* Problem Noted Date Diagnosed Date Resolved Date Right knee pain 07/16/2014 10/26/2016 Special screening for malign ant neoplasms, colon 07/05/2011 10/23/2015 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 04/28/2011 09/13/2011 Actinic skin damage 04/28/2011 10/27/19 17 Telangiectasia 04/28/2011 10/26/2016 Solar Lentigines 04/28/2011 10/26/2016 Chronic depression 11/04/2001 9 documented as of this encounter (statuses as of 03/04/2023) [place] [id number] History of Past illness Narrative* Problem Noted Date Diagnosed Date Resolved Date Right knee pain 07/16/2014 10/26/2016 Special screening for malign ant neoplasms, colon 07/05/2011 10/23/2015 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 04/28/2011 09/13/2011 Actinic skin damage 04/28/2011 10/27/19 17 Telangiectasia 04/28/2011 10/26/2016 Solar Lentigines 04/28/2011 10/26/2016 Chronic depression 11/04/2001 9 documented as of this encounter (statuses as of 06/14/2023) [facility] History of Past illness Narrative* Problem Noted Date Diagnosed Date Resolved Date Right knee pain 07/16/2014 10/26/2016 Special screening for malign ant neoplasms, colon 07/05/2011 10/23/2015 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 04/28/2011 09/13/2011 Actinic skin damage 04/28/2011 10/27/19 17 Telangiectasia 04/28/2011 10/26/2016 Solar Lentigines 04/28/2011 10/26/2016 Chronic depression 11/04/2001 9 documented as of this encounter (statuses as of 07/01/2023) [facility] History of Past illness Narrative* Problem Noted Date Diagnosed Date Resolved Date Right knee pain 07/16/2014 10/26/2016 Special screening for malign ant neoplasms, colon 07/05/2011 10/23/2015 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 04/28/2011 09/13/2011 Actinic skin damage 04/28/2011 10/27/19 17 Telangiectasia 04/28/2011 10/26/2016 Solar Lentigines 04/28/2011 10/26/2016 Chronic depression 11/04/2001 9 documented as of this encounter (statuses as of 07/05/2023) [facility] History of Past illness Narrative* Problem Noted Date Diagnosed Date Resolved Date Right knee pain 07/16/2014 10/26/2016 Special screening for malign ant neoplasms, colon 07/05/2011 10/23/2015 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 04/28/2011 09/13/2011 Actinic skin damage 04/28/2011 10/27/19 17 Telangiectasia 04/28/2011 10/26/2016 Solar Lentigines 04/28/2011 10/26/2016 Chronic depression 11/04/2001 9 documented as of this encounter (statuses as of 07/07/2023) [facility] Diagnosis Scabies- Primary [facility] encounter [facility] Diagnosis Medicare annual wellness visit, subsequent- Primary Routine general medical examination at a health care facility Fuchs' heterochromic iridocyclitis, right Scabies Stage 3a chronic kidney disease (HCC) Screening for lipid disorders documented [facility]* Diagnosis Renal insufficiency- Primary Unspecified disorder of kidney and ureter [facility] Diagnosis Traumatic hematoma of right wrist, initial encounter- Primary [facility] Diagnosis Primary osteoarthritis of both knees- Primary Primary localized osteoarthrosis, lower leg [facility] Diagnosis Encounter for screening for malignant neoplasm of breast, unspecified screening modality- Primary [facility] Diagnosis Recurrent depression (HCC) Major depressive disorder, recurrent episode, unspecified [facility] Diagnosis Basal cell carcinoma (BCC) of skin of right upper eyelid including canthus- Primary Recurrent depression (HCC) Major depressive disorder, recurrent episode, unspecified Stage 3a chronic kidney disease (HCC) [facility] Diagnosis Suspected COVID-19 virus infection- Primary [facility] Diagnosis Primary osteoarthritis of both knees- Primary Primary localized osteoarthrosis, lower leg [facility] Diagnosis Recurrent depression (HCC)- Primary Major depressive disorder, recurrent episode, unspecified JOSE ELIAS (generalized anxiety disorder) Generalized anxiety disorder Stage 3a chronic kidney disease (HCC) Primary osteoarthritis involving multiple joints Basal cell carcinoma (BCC) of skin of right upper eyelid including canthus Osteopenia, unspecified location Asymptomatic postmenopausal status Screening for colon cancer Special screening for malignant neoplasms, colon High serum high density lipoprotein (HDL) Medicare annual wellness visit, subsequent Routine general medical examination at a health care facility [facility] Diagnosis Postmenopausal state Asymptomatic postmenopausal status (age-related) (natural) [facility] Diagnosis Impacted cerumen of left ear- Primary Impacted cerumen [facility] Diagnosis Chronic pain of right knee- Primary [facility]* Diagnosis Herpes zoster with complication- Primary Herpes zoster with unspecified complication [facility]* Diagnosis Pain and swelling of right lower extremity- Primary [facility] Diagnosis Herpes zoster with complication- Primary Herpes zoster with unspecified complication documented in this encounter [facility] note* Diagnosis Lower extremity edema- Primary Edema [facility] Diagnosis Primary osteoarthritis of both knees- Primary Primary localized osteoarthrosis, lower leg [facility]* Diagnosis Herpes zoster with complication- Primary Herpes zoster with unspecified complication Lower extremity edema Edema [facility]* Diagnosis Herpes zoster without complication- Primary Herpes zoster without mention of complication [facility]* Diagnosis Stage 3a chronic kidney disease (HCC)- Primary JOSE ELIAS (generalized anxiety disorder) Generalized anxiety disorder Recurrent depression (HCC) Major depressive disorder, recurrent episode, unspecified High serum high density lipoprotein (HDL) documented [facility]* Diagnosis Herpes zoster with complication- Primary Herpes zoster with unspecified complication [facility]* Diagnosis Laceration of skin of right lower leg, initial encounter- Primary Leg hematoma, right, sequela [facility]* Diagnosis Procedure not carried out- Primary Procedure not carried out for other reasons [facility]* Diagnosis Traumatic hematoma of right wrist, initial encounter [facility]* Diagnosis Primary osteoarthritis of both knees- Primary Primary localized osteoarthrosis, lower leg [facility]* Diagnosis Sore throat- Primary Acute pharyngitis [facility] this [facility]* Diagnosis Fluid level behind tympanic membrane of both ears- Primary Chest discomfort Other chest pain [facility]* Diagnosis Wellness examination- Primary Chest discomfort Other chest pain Lower extremity edema Edema Medicare annual wellness visit, subsequent Routine general medical examination at a health care facility Cognitive changes Other signs and symptoms involving cognition [facility] Diagnosis Primary osteoarthritis of both knees- Primary Primary localized osteoarthrosis, lower leg [facility]* Diagnosis Chronic bilateral low back pain without sciatica- Primary documented in this encounter [facility] note* Diagnosis Chronic bilateral low back pain without sciatica- Primary [facility]* Diagnosis Chronic bilateral low back pain without sciatica- Primary [facility] Diagnosis Primary osteoarthritis of both knees- Primary Primary localized osteoarthrosis, lower leg [facility] Diagnosis Primary osteoarthritis of both knees- Primary Primary localized osteoarthrosis, lower leg Left bundle branch block Other left bundle branch block Grief Adjustment disorder with depressed mood [facility]* Diagnosis Chronic bilateral low back pain without sciatica- Primary [facility]* Diagnosis Chronic bilateral low back pain without sciatica- Primary [facility] Diagnostic Procedure Only (Urgent) - Pending Review Specialty Diagnoses / Procedures Referred By Janene perkins Referred To Contact XR IMAGING Diagnoses Traumatic hematoma of right wrist, initial encounter Procedures XR WRIST INJURY 4V PA/LAT/OBL/SCAPH RIGHT RADEX WRIST COMPLETE MINIMUM 3 VIEWS Nancy Schmidt PA-C [address] [place] [address] Xr Imaging Referral ID Status Reason Start Date Expiration Date Visits Requested Visits Authorized [id number] Pending Review Auto-Generat ed Referral 10/25/2021 11/24/2022 1 1 [facility] Diagnostic Procedure Only (Routine) - Pending Review Specialty Diagnoses / Procedures Referred By Janene perkins Referred To Contact BR IMAGING Diagnoses Encounter for screening for malignant neoplasm of breast, unspecified screening modality Procedures DELON SCREENING SCREENING MAMMOGRAPHY BI 2-VIEW BREAST INC CAD John Hicks MD [address] [place] [address] [facility] [address] [place] [address] Referral ID Status Reason Start Date Expiration Date Visits Requested Visits Authorized [id number] Pending Review Auto-Generat ed Referral 01/20/2022 02/19/2023 1 1 [facility] for referral (narrative)* Diagnostic Procedure Only (Routine) - Authorized Specialty Diagnoses / Procedures Referred By Contac t Referred To Contact XR IMAGING Diagnoses Asymptomatic postmenopausal status Procedures DXA - VFA ASSESS ONLY VERTEBRAL FRACTURE ASSESSMENT VIA DXA Trav Chavez PA-C [address] [place] [address] [place] [address] Referral ID Status Reason Start Date Expiration Date Visits Requested Visits Authorized [id number] Authorized Auto-Generat ed Referral 04/01/2024 1 1 [facility] for referral (narrative)* Diagnostic Procedure Only (Urgent) - Closed Specialty Diagnoses / Procedures Referred By Contac t Referred To Contact XR IMAGING Diagnoses Traumatic hematoma of right wrist, initial encounter Procedures XR WRIST INJURY 4V PA/LAT/OBL/SCAPH RIGHT RADEX WRIST COMPLETE MINIMUM 3 VIEWS Nancy Schmidt PA-C [address] [place] [address] [place] [address] Referral ID Status Reason Start Date Expiration Date V isits Requested Visits Authorized [id number] Closed Auto-Generate d Referral 10/25/2021 11/24/2022 1 1 [facility] for referral (narrative)* Outpatient Procedure (Routine) - New Request Specialty Diagnoses / Procedures Referred By Contac t Referred To [facility] Diagnoses Chest discomfort Procedures STRESS ECHO TREADMILL ECHO TTHRC R-T 2D W/WO M-MODE COMPLETE REST&ST Shanna Mukherjee, 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 [address] [place] [address] [facility] [place] [address] [place] [address] Referral ID Status Reason Start Date Expiration Date Visits Requested Visits Authorized [id number] New Request Auto-Generat ed Referral 4 02/07/2025 1 1 * Outpatient Procedure (Routine) - New Request Specialty Diagnoses / Procedures Referred By Contac t Referred To Contact [facility] Diagnoses Chest discomfort Procedures ECG COMPLETE ECG ROUTINE ECG W/LEAST 12 LDS W/I&R Shanna Mukherjee APRN.CNP [address] [place] [address] [facility] [address] [address] Referral ID Status Reason Start Date Expiration Date Visits Requested Visits Authorized [id number] New Request Auto-Generat ed Referral 4 02/07/2025 1 1 [facility] Diagnostic Procedure Only (Urgent) - Closed Specialty Diagnoses / Procedures Referred By Janene t Referred To Contact XR IMAGING Diagnoses Traumatic hematoma of right wrist, initial encounter Procedures XR WRIST INJURY 4V PA/LAT/OBL/SCAPH RIGHT RADEX WRIST COMPLETE MINIMUM 3 VIEWS Nancy Schmidt, PA-C [address] [place] [address] Xr Imaging [id number] Referral ID Status Reason Start Date Expiration Date V isits Requested Visits Authorized [id number] Closed Auto-Generate d Referral 10/25/2021 11/24/2022 1 1 [facility] Chief Complaint and Reason for Visit Chief Complaint MODERNA VACCINE Assessments No Assessments Information Available Medications Administered Section Inactive Administered Medications - up to 3 most recent administrations Medication Order MAR Action Action Date Dose Rate Site bupivacaine (PF) 0.5 % (5 mg/mL) 5 mL injection 5 mL, Injection - FOR ORTHO USE ONLY, ONE TIME INJECTION, 1 dose, Starting on Tue11/30/21 at 1343, Until Tue11/30/21 at 1343 Given 11/30/2021 1:43 PM EDT 5 mL Knee, Left bupivacaine (PF) 0.5 % (5 mg/mL) 5 mL injection 5 mL, Injection - FOR ORTHO USE ONLY, ONE TIME INJECTION, 1 dose, Starting on Tue11/30/21 at 1343, Until Tue11/30/21 at 1343 Given 11/30/2021 1:43 PM EDT 5 mL Knee, Right hyaluronate sod, cross-linked 30 mg injection (GEL-ONE) 30 mg, Injection - FOR ORTHO USE ONLY, ONE TIME INJECTION, 1 dose, Starting on Tue11/30/21 at 1343, Until Tue11/30/21 at 1343 Given 11/30/2021 1:43 PM EDT 30 mg Knee, Left hyaluronate sod, cross-linked 30 mg injection (GEL-ONE) 30 mg, Injection - FOR ORTHO USE ONLY, ONE TIME INJECTION, 1 dose, Starting on Tue11/30/21 at 1343, Until Tue11/30/21 at 1343 Given 11/30/2021 1:43 PM EDT 30 mg Knee, Right hylan G-F 20 2 mL injection (SYNVISC) 2 mL, Injection - FOR ORTHO USE ONLY, ONE TIME INJECTION, 1 dose, Starting on Tue11/30/21 at 1343, Until Tue11/30/21 at 1343 Given 11/30/2021 1:43 PM EDT 2 mL Knee, Left hylan G-F 20 2 mL injection (SYNVISC) 2 mL, Injection - FOR ORTHO USE ONLY, ONE TIME INJECTION, 1 dose, Starting on Tue11/30/21 at 1343, Until Tue11/30/21 at 1343 Given 11/30/2021 1:43 PM EDT 2 mL Knee, Right Inactive Administered Medications - up to 3 most recent administrations Medication Order MAR Action Action Date Dose Rate Site BUPivacaine (PF) 0.5 % (5 mg/mL) 5 mL injection 5 mL, Injection - FOR ORTHO USE ONLY, ONCE, 1 dose, Starting on Tue01/10/23 at 1155, Until Tue01/10/23 at 1155 Given 01/10/2023 11:55 AM EDT 5 mL Knee , Left BUPivacaine (PF) 0.5 % (5 mg/mL) 5 mL injection 5 mL, Injection - FOR ORTHO USE ONLY, ONCE, 1 dose, Starting on 01/10/23 at 1155, Until 01/10/23 at 1155 Given 01/10/2023 11:55 AM EDT 5 mL Knee , Right hyaluronate sodium, stabilized syrg 6 mL (DUROLANE) 6 mL, Injection - FOR ORTHO USE ONLY, ONCE, 1 dose, Starting on 01/10/23 at 1155, Until 01/10/23 at 1155 Given 01/10/2023 11:55 AM EDT 6 mL Knee , Left hyaluronate sodium, stabilized syrg 6 mL (DUROLANE) 6 mL, Injection - FOR ORTHO USE ONLY, ONCE, 1 dose, Starting on 01/10/23 at 1155, Until 01/10/23 at 1155 Given 01/10/2023 11:55 AM EDT 6 mL Knee , Right Summary Purpose Family History No Family History Records FoundNo Family History Records Found Advance Directives No Advanced Directives Records FoundNo Advanced Directives Records Found Additional Source Comments Source Comments (unrecognize d section and content) In the event this informatio n is protected by the Federal Confidentiality of Alcohol and Drug Abuse Patient Records regulations: The Federal rules restrict any use of the information to criminally investigate or prosecute any alcohol or drug abuse patient.[facility] event this information is protected by the Federal Confidentiality of Alcohol and Drug Abuse Patient Records regulations: The Federal rules restrict any use of the information to criminally investigate or prosecute any alcohol or drug abuse patient.[facility] the event this information is protected by the Federal Confidentiality of Alcohol and Drug Abuse Patient Records regulations: The Federal rules restrict any use of the information to criminally investigate or prosecute any alcohol or drug abuse patient.[facility] the event this information is protected by the Federal Confidentiality of Alcohol and Drug Abuse Patient Records regulations: The Federal rules restrict any use of the information to criminally investigate or prosecute any alcohol or drug abuse patient.[facility] the event this information is protected by the Federal Confidentiality of Alcohol and Drug Abuse Patient Records regulations: The Federal rules restrict any use of the information to criminally investigate or prosecute any alcohol or drug abuse patient.[facility] the event this information is protected by the Federal Confidentiality of Alcohol and Drug Abuse Patient Records regulations: The Federal rules restrict any use of the information to criminally investigate or prosecute any alcohol or drug abuse patient.[facility] the event this information is protected by the Federal Confidentiality of Alcohol and Drug Abuse Patient Records regulations: The Federal rules restrict any use of the information to criminally investigate or prosecute any alcohol or drug abuse patient.[facility] the event this information is protected by the Federal Confidentiality of Alcohol and Drug Abuse Patient Records regulations: The Federal rules restrict any use of the information to criminally investigate or prosecute any alcohol or drug abuse patient.[facility] the event this information is protected by the Federal Confidentiality of Alcohol and Drug Abuse Patient Records regulations: The Federal rules restrict any use of the information to criminally investigate or prosecute any alcohol or drug abuse patient.[facility] the event this information is protected by the Federal Confidentiality of Alcohol and Drug Abuse Patient Records regulations: The Federal rules restrict any use of the information to criminally investigate or prosecute any alcohol or drug abuse patient.[facility] the event this information is protected by the Federal Confidentiality of Alcohol and Drug Abuse Patient Records regulations: The Federal rules restrict any use of the information to criminally investigate or prosecute any alcohol or drug abuse patient.[facility] the event this information is protected by the Federal Confidentiality of Alcohol and Drug Abuse Patient Records regulations: The Federal rules restrict any use of the information to criminally investigate or prosecute any alcohol or drug abuse patient.[facility] the event this information is protected by the Federal Confidentiality of Alcohol and Drug Abuse Patient Records regulations: The Federal rules restrict any use of the information to criminally investigate or prosecute any alcohol or drug abuse patient.[facility] the event this information is protected by the Federal Confidentiality of Alcohol and Drug Abuse Patient Records regulations: The Federal rules restrict any use of the information to criminally investigate or prosecute any alcohol or drug abuse patient.[facility] the event this information is protected by the Federal Confidentiality of Alcohol and Drug Abuse Patient Records regulations: The Federal rules restrict any use of the information to criminally investigate or prosecute any alcohol or drug abuse patient.[facility] the event this information is protected by the Federal Confidentiality of Alcohol and Drug Abuse Patient Records regulations: The Federal rules restrict any use of the information to criminally investigate or prosecute any alcohol or drug abuse patient.[facility] the event this information is protected by the Federal Confidentiality of Alcohol and Drug Abuse Patient Records regulations: The Federal rules restrict any use of the information to criminally investigate or prosecute any alcohol or drug abuse patient.[facility] the event this information is protected by the Federal Confidentiality of Alcohol and Drug Abuse Patient Records regulations: The Federal rules restrict any use of the information to criminally investigate or prosecute any alcohol or drug abuse patient.[facility] the event this information is protected by the Federal Confidentiality of Alcohol and Drug Abuse Patient Records regulations: The Federal rules restrict any use of the information to criminally investigate or prosecute any alcohol or drug abuse patient.[facility] the event this information is protected by the Federal Confidentiality of Alcohol and Drug Abuse Patient Records regulations: The Federal rules restrict any use of the information to criminally investigate or prosecute any alcohol or drug abuse patient.[facility] the event this information is protected by the Federal Confidentiality of Alcohol and Drug Abuse Patient Records regulations: The Federal rules restrict any use of the information to criminally investigate or prosecute any alcohol or drug abuse patient.[facility] HospitalIn the event this information is protected by the Federal Confidentiality of Alcohol and Drug Abuse Patient Records regulations: The Federal rules restrict any use of the information to criminally investigate or prosecute any alcohol or drug abuse patient.[facility] HospitalIn the event this information is protected by the Federal Confidentiality of Alcohol and Drug Abuse Patient Records regulations: The Federal rules restrict any use of the information to criminally investigate or prosecute any alcohol or drug abuse patient.[facility] HospitalIn the event this information is protected by the Federal Confidentiality of Alcohol and Drug Abuse Patient Records regulations: The Federal rules restrict any use of the information to criminally investigate or prosecute any alcohol or drug abuse patient.[facility] HospitalIn the event this information is protected by the Federal Confidentiality of Alcohol and Drug Abuse Patient Records regulations: The Federal rules restrict any use of the information to criminally investigate or prosecute any alcohol or drug abuse patient.[facility] HospitalIn the event this information is protected by the Federal Confidentiality of Alcohol and Drug Abuse Patient Records regulations: The Federal rules restrict any use of the information to criminally investigate or prosecute any alcohol or drug abuse patient.[facility] HospitalIn the event this information is protected by the Federal Confidentiality of Alcohol and Drug Abuse Patient Records regulations: The Federal rules restrict any use of the information to criminally investigate or prosecute any alcohol or drug abuse patient.[facility] HospitalIn the event this information is protected by the Federal Confidentiality of Alcohol and Drug Abuse Patient Records regulations: The Federal rules restrict any use of the information to criminally investigate or prosecute any alcohol or drug abuse patient.[facility] HospitalIn the event this information is protected by the Federal Confidentiality of Alcohol and Drug Abuse Patient Records regulations: The Federal rules restrict any use of the information to criminally investigate or prosecute any alcohol or drug abuse patient.[facility] HospitalIn the event this information is protected by the Federal Confidentiality of Alcohol and Drug Abuse Patient Records regulations: The Federal rules restrict any use of the information to criminally investigate or prosecute any alcohol or drug abuse patient.[facility] HospitalIn the event this information is protected by the Federal Confidentiality of Alcohol and Drug Abuse Patient Records regulations: The Federal rules restrict any use of the information to criminally investigate or prosecute any alcohol or drug abuse patient.[facility] HospitalIn the event this information is protected by the Federal Confidentiality of Alcohol and Drug Abuse Patient Records regulations: The Federal rules restrict any use of the information to criminally investigate or prosecute any alcohol or drug abuse patient.[facility] HospitalIn the event this information is protected by the Federal Confidentiality of Alcohol and Drug Abuse Patient Records regulations: The Federal rules restrict any use of the information to criminally investigate or prosecute any alcohol or drug abuse patient.[facility] HospitalIn the event this information is protected by the Federal Confidentiality of Alcohol and Drug Abuse Patient Records regulations: The Federal rules restrict any use of the information to criminally investigate or prosecute any alcohol or drug abuse patient.[facility] HospitalIn the event this information is protected by the Federal Confidentiality of Alcohol and Drug Abuse Patient Records regulations: The Federal rules restrict any use of the information to criminally investigate or prosecute any alcohol or drug abuse patient.[facility] HospitalIn the event this information is protected by the Federal Confidentiality of Alcohol and Drug Abuse Patient Records regulations: The Federal rules restrict any use of the information to criminally investigate or prosecute any alcohol or drug abuse patient.[facility] HospitalIn the event this information is protected by the Federal Confidentiality of Alcohol and Drug Abuse Patient Records regulations: The Federal rules restrict any use of the information to criminally investigate or prosecute any alcohol or drug abuse patient.[facility] HospitalIn the event this information is protected by the Federal Confidentiality of Alcohol and Drug Abuse Patient Records regulations: The Federal rules restrict any use of the information to criminally investigate or prosecute any alcohol or drug abuse patient.[facility] HospitalIn the event this information is protected by the Federal Confidentiality of Alcohol and Drug Abuse Patient Records regulations: The Federal rules restrict any use of the information to criminally investigate or prosecute any alcohol or drug abuse patient.[facility] HospitalIn the event this information is protected by the Federal Confidentiality of Alcohol and Drug Abuse Patient Records regulations: The Federal rules restrict any use of the information to criminally investigate or prosecute any alcohol or drug abuse patient.[facility] HospitalIn the event this information is protected by the Federal Confidentiality of Alcohol and Drug Abuse Patient Records regulations: The Federal rules restrict any use of the information to criminally investigate or prosecute any alcohol or drug abuse patient.[facility] HospitalIn the event this information is protected by the Federal Confidentiality of Alcohol and Drug Abuse Patient Records regulations: The Federal rules restrict any use of the information to criminally investigate or prosecute any alcohol or drug abuse patient.[facility] HospitalIn the event this information is protected by the Federal Confidentiality of Alcohol and Drug Abuse Patient Records regulations: The Federal rules restrict any use of the information to criminally investigate or prosecute any alcohol or drug abuse patient.[facility] HospitalIn the event this information is protected by the Federal Confidentiality of Alcohol and Drug Abuse Patient Records regulations: The Federal rules restrict any use of the information to criminally investigate or prosecute any alcohol or drug abuse patient.[facility] HospitalIn the event this information is protected by the Federal Confidentiality of Alcohol and Drug Abuse Patient Records regulations: The Federal rules restrict any use of the information to criminally investigate or prosecute any alcohol or drug abuse patient.[facility] HospitalIn the event this information is protected by the Federal Confidentiality of Alcohol and Drug Abuse Patient Records regulations: The Federal rules restrict any use of the information to criminally investigate or prosecute any alcohol or drug abuse patient.[facility] HospitalIn the event this information is protected by the Federal Confidentiality of Alcohol and Drug Abuse Patient Records regulations: The Federal rules restrict any use of the information to criminally investigate or prosecute any alcohol or drug abuse patient.[facility] HospitalIn the event this information is protected by the Federal Confidentiality of Alcohol and Drug Abuse Patient Records regulations: The Federal rules restrict any use of the information to criminally investigate or prosecute any alcohol or drug abuse patient.[facility] HospitalIn the event this information is protected by the Federal Confidentiality of Alcohol and Drug Abuse Patient Records regulations: The Federal rules restrict any use of the information to criminally investigate or prosecute any alcohol or drug abuse patient.[facility] HospitalIn the event this information is protected by the Federal Confidentiality of Alcohol and Drug Abuse Patient Records regulations: The Federal rules restrict any use of the information to criminally investigate or prosecute any alcohol or drug abuse patient.[facility] HospitalIn the event this information is protected by the Federal Confidentiality of Alcohol and Drug Abuse Patient Records regulations: The Federal rules restrict any use of the information to criminally investigate or prosecute any alcohol or drug abuse patient.[facility] HospitalIn the event this information is protected by the Federal Confidentiality of Alcohol and Drug Abuse Patient Records regulations: The Federal rules restrict any use of the information to criminally investigate or prosecute any alcohol or drug abuse patient.[facility] HospitalIn the event this information is protected by the Federal Confidentiality of Alcohol and Drug Abuse Patient Records regulations: The Federal rules restrict any use of the information to criminally investigate or prosecute any alcohol or drug abuse patient.[facility] HospitalIn the event this information is protected by the Federal Confidentiality of Alcohol and Drug Abuse Patient Records regulations: The Federal rules restrict any use of the information to criminally investigate or prosecute any alcohol or drug abuse patient.[facility] HospitalIn the event this information is protected by the Federal Confidentiality of Alcohol and Drug Abuse Patient Records regulations: The Federal rules restrict any use of the information to criminally investigate or prosecute any alcohol or drug abuse patient.[facility] HospitalIn the event this information is protected by the Federal Confidentiality of Alcohol and Drug Abuse Patient Records regulations: The Federal rules restrict any use of the information to criminally investigate or prosecute any alcohol or drug abuse patient.[facility]In the event this information is protected by the Federal Confidentiality of Alcohol and Drug Abuse Patient Records regulations: The Federal rules restrict any use of the information to criminally investigate or prosecute any alcohol or drug abuse patient.[facility] HospitalIn the event this information is protected by the Federal Confidentiality of Alcohol and Drug Abuse Patient Records regulations: The Federal rules restrict any use of the information to criminally investigate or prosecute any alcohol or drug abuse patient.[facility] HospitalIn the event this information is protected by the Federal Confidentiality of Alcohol and Drug Abuse Patient Records regulations: The Federal rules restrict any use of the information to criminally investigate or prosecute any alcohol or drug abuse patient.[facility] HospitalIn the event this information is protected by the Federal Confidentiality of Alcohol and Drug Abuse Patient Records regulations: The Federal rules restrict any use of the information to criminally investigate or prosecute any alcohol or drug abuse patient.[facility] HospitalIn the event this information is protected by the Federal Confidentiality of Alcohol and Drug Abuse Patient Records regulations: The Federal rules restrict any use of the information to criminally investigate or prosecute any alcohol or drug abuse patient.[facility] HospitalIn the event this information is protected by the Federal Confidentiality of Alcohol and Drug Abuse Patient Records regulations: The Federal rules restrict any use of the information to criminally investigate or prosecute any alcohol or drug abuse patient.[facility] HospitalIn the event this information is protected by the Federal Confidentiality of Alcohol and Drug Abuse Patient Records regulations: The Federal rules restrict any use of the information to criminally investigate or prosecute any alcohol or drug abuse patient.[facility] HospitalIn the event this information is protected by the Federal Confidentiality of Alcohol and Drug Abuse Patient Records regulations: The Federal rules restrict any use of the information to criminally investigate or prosecute any alcohol or drug abuse patient.[facility] HospitalIn the event this information is protected by the Federal Confidentiality of Alcohol and Drug Abuse Patient Records regulations: The Federal rules restrict any use of the information to criminally investigate or prosecute any alcohol or drug abuse patient.[facility] HospitalIn the event this information is protected by the Federal Confidentiality of Alcohol and Drug Abuse Patient Records regulations: The Federal rules restrict any use of the information to criminally investigate or prosecute any alcohol or drug abuse patient.[facility] HospitalIn the event this information is protected by the Federal Confidentiality of Alcohol and Drug Abuse Patient Records regulations: The Federal rules restrict any use of the information to criminally investigate or prosecute any alcohol or drug abuse patient.[facility] HospitalIn the event this information is protected by the Federal Confidentiality of Alcohol and Drug Abuse Patient Records regulations: The Federal rules restrict any use of the information to criminally investigate or prosecute any alcohol or drug abuse patient.[facility] HospitalIn the event this information is protected by the Federal Confidentiality of Alcohol and Drug Abuse Patient Records regulations: The Federal rules restrict any use of the information to criminally investigate or prosecute any alcohol or drug abuse patient.[facility] HospitalIn the event this information is protected by the Federal Confidentiality of Alcohol and Drug Abuse Patient Records regulations: The Federal rules restrict any use of the information to criminally investigate or prosecute any alcohol or drug abuse patient.[facility] HospitalIn the event this information is protected by the Federal Confidentiality of Alcohol and Drug Abuse Patient Records regulations: The Federal rules restrict any use of the information to criminally investigate or prosecute any alcohol or drug abuse patient.[facility] HospitalIn the event this information is protected by the Federal Confidentiality of Alcohol and Drug Abuse Patient Records regulations: The Federal rules restrict any use of the information to criminally investigate or prosecute any alcohol or drug abuse patient.[facility] HospitalIn the event this information is protected by the Federal Confidentiality of Alcohol and Drug Abuse Patient Records regulations: The Federal rules restrict any use of the information to criminally investigate or prosecute any alcohol or drug abuse patient.[facility] HospitalIn the event this information is protected by the Federal Confidentiality of Alcohol and Drug Abuse Patient Records regulations: The Federal rules restrict any use of the information to criminally investigate or prosecute any alcohol or drug abuse patient.[facility] HospitalIn the event this information is protected by the Federal Confidentiality of Alcohol and Drug Abuse Patient Records regulations: The Federal rules restrict any use of the information to criminally investigate or prosecute any alcohol or drug abuse patient.[facility] HospitalIn the event this information is protected by the Federal Confidentiality of Alcohol and Drug Abuse Patient Records regulations: The Federal rules restrict any use of the information to criminally investigate or prosecute any alcohol or drug abuse patient.[facility] HospitalIn the event this information is protected by the Federal Confidentiality of Alcohol and Drug Abuse Patient Records regulations: The Federal rules restrict any use of the information to criminally investigate or prosecute any alcohol or drug abuse patient.[facility] HospitalIn the event this information is protected by the Federal Confidentiality of Alcohol and Drug Abuse Patient Records regulations: The Federal rules restrict any use of the information to criminally investigate or prosecute any alcohol or drug abuse patient.[facility] HospitalIn the event this information is protected by the Federal Confidentiality of Alcohol and Drug Abuse Patient Records regulations: The Federal rules restrict any use of the information to criminally investigate or prosecute any alcohol or drug abuse patient.[facility] HospitalIn the event this information is protected by the Federal Confidentiality of Alcohol and Drug Abuse Patient Records regulations: The Federal rules restrict any use of the information to criminally investigate or prosecute any alcohol or drug abuse patient.[facility] HospitalIn the event this information is protected by the Federal Confidentiality of Alcohol and Drug Abuse Patient Records regulations: The Federal rules restrict any use of the information to criminally investigate or prosecute any alcohol or drug abuse patient.[facility] HospitalIn the event this information is protected by the Federal Confidentiality of Alcohol and Drug Abuse Patient Records regulations: The Federal rules restrict any use of the information to criminally investigate or prosecute any alcohol or drug abuse patient.[facility] HospitalIn the event this information is protected by the Federal Confidentiality of Alcohol and Drug Abuse Patient Records regulations: The Federal rules restrict any use of the information to criminally investigate or prosecute any alcohol or drug abuse patient.[facility] HospitalIn the event this information is protected by the Federal Confidentiality of Alcohol and Drug Abuse Patient Records regulations: The Federal rules restrict any use of the information to criminally investigate or prosecute any alcohol or drug abuse patient.[facility] HospitalIn the event this information is protected by the Federal Confidentiality of Alcohol and Drug Abuse Patient Records regulations: The Federal rules restrict any use of the information to criminally investigate or prosecute any alcohol or drug abuse patient.[facility] HospitalIn the event this information is protected by the Federal Confidentiality of Alcohol and Drug Abuse Patient Records regulations: The Federal rules restrict any use of the information to criminally investigate or prosecute any alcohol or drug abuse patient.[facility] HospitalIn the event this information is protected by the Federal Confidentiality of Alcohol and Drug Abuse Patient Records regulations: The Federal rules restrict any use of the information to criminally investigate or prosecute any alcohol or drug abuse patient.[facility] HospitalIn the event this information is protected by the Federal Confidentiality of Alcohol and Drug Abuse Patient Records regulations: The Federal rules restrict any use of the information to criminally investigate or prosecute any alcohol or drug abuse patient.[facility] Reason for Visit (unrecogniz ed section and content) Reason Comments Physical Therapy Specialty Diagnoses / Procedures Referred By Janene perkins Referred To Contact [facility] Diagnoses Chronic bilateral low back pain without sciatica Procedures CONSULT TO PHYSICAL THERAPY PHYSICAL THERAPY EVALUATION HIGH COMPLEX 45 MINS Kaitlin Victor, 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 [address] [place] [address] Phone: tel: fax: [facility] [address] [place] [address] Referral ID Status Reason Start Date Expiration Date Visits Requested Visits Authorized [id number] Authorized Auto-Generat ed Referral 03/21/2024 03/20/2025 20 20 Reason Comments PT Progress Note Reason Comments Patient Question Reason Comments Cough Reason Comments Itching rash-scabies treatme nt follow up still some areas of concern wanting to be sure no infection Reason Comments Medicare Wellness Exam Reason Comments Results Reason Comments Insurance Authorization Prior Auth Delay ed Additional Clinical Information needed Reason Comments Durolane referral Reason Comments Bleeding/Bruising right forearm bruisi ng and pain x 2 days Reason Comments referral for Durolane injection Reason Comments Injections Durolane injections bilateral knees Specialty Diagnoses / Procedures Referred By Janene perkins Referred To Contact [facility] Diagnoses Bilateral primary osteoarthritis of knee M17.0 Primary osteoarthritis of both knees Procedures HYALURONAN OR DERIVATIVE, DUROLANE, FOR INTRA-ARTICULAR INJECTION, 1 MG Durolane injection x 1 into bilateral knees. This is requesting an extension on the date. Previous referral before patient scheduled appointment. Marlys Jernigan PA-C [address] [place] [address] [facility] [address] [place] [address] Referral ID Status Reason Start Date Expiration Date V isits Requested Visits Authorized [id number] Authorized 11/12/2021 01/12/2022 2 2 Reason Comments Patient Question Reason Onset Date Comments Refill Request 02/02/2022 Reason Comments Patient Update Reason Comments Forms FYI Reason Comments Pre-Op Exam Reason Comments Medical Clearance Reason Comments Release Of Medical Records Reason Comments Patient Request Reason Comments COVID symptoms/requesting treatment Reason Comments Orders Patient Question Reason Comments Patient Update Request for Advice Reason Comments Appointment Reason Comments Injections Specialty Diagnoses / Procedures Referred By Janene t Referred To Contact [facility] Diagnoses Primary osteoarthritis of knees, bilateral Procedures HYALURONAN OR DERIVATIVE, DUROLANE, FOR INTRA-ARTICULAR INJECTION, 1 MG Durolane injections weekly X1 bilateral knees Marlys Jernigan PA-C [address] [place] [address] [facility] [address] [place] [address] Referral ID Status Reason Start Date Expiration Date Visits Requested Visits Authorized [id number] Waiting for Response Patient Cleared - Admin/Chair man/Directo r advise to proceed or did not respond 3 07/07/2023 2 2 Reason Comments Acute Visit L ear pressure, feel s like fluid in the ear; tried sudafed for 2 weeks, doesn't feel it's working Reason Onset Date Comments Population Health Navigation Outreach 07/19/2023 Jar[facility] [place] 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 Right leg swelling and redness. Reason Comments Insurance Authorization Prior Auth Delay ed:Request Different Drug (Durolane,Euflexxa,Gelsyn-3 or Supartz FX) Reason Onset Date Comments Refill Request 08/19/2023 Reason Comments Follow Up shingles Reason Comments Edema Swelling in right le g started last night Specialty Diagnoses / Procedures Referred By Janene perkins Referred To Contact [facility]THOPAED[facility] SURGERY Diagnoses Bilateral primary osteoarthritis of knee Primary osteoarthritis of both knees [M17.0] Procedures HYALURONAN OR DERIVATIVE, DUROLANE, FOR INTRA-ARTICULAR INJECTION, 1 MG Synvisc One injection (or insurance approved equivalent) to bilateral knees Patient had Durolane 6 months ago and felt she had better relief from Synvisc One Marlys Jernigan PA-C [address] [address] [facility] [address] [place] [address] Referral ID Status Reason Start Date Expiration Date V isits Requested Visits Authorized [id number] Authorized 08/08/2023 02/21/2024 2 2 Reason Comments Recheck Follow up from [facility] C are- bilateral lower leg edema, started Tuesday morning; swelling has improved Reason Comments Shingles Follow up Reason Comments medication problem/shingles update Reason Comments Lab Orders Reason Comments Shingles Reason Comments Shingles Follow up Edema Swelling in ankles a nd feet Laceration Right lower leg Reason Onset Date Comments Population Health Navigation Outreach 10/28/2023 Jarocho [facility] PCSA Reason Comments feels like a pulled muscle in chest X 12 hours Reason Comments Cortisone injection Reason Comments Injections 17 weeks post visit OA bilat eral knees with injection given Here for injection right knee Reason Comments Cough Cough, fever, ST and chest congestion x 1 week Reason Onset Date Comments Return Provider Call 01/24/2024 Reason Comments Acute Visit L ear pressure x2-3 weeks Reason Onset Date Comments Refill Request 02/13/2024 Reason Comments Opened In Error Reason Comments prior auth info Reason Comments Injections Established Patient Durolane injections bilateral knees Specialty Diagnoses / Procedures Referred By Janene perkins Referred To Contact ORTHOPAEDIC SURGERY Diagnoses Bilateral primary osteoarthritis of knee bilateral OA knee Procedures DUROLANE PER 1MG Marlys Jernigan PA-C [address] [place] [address] Orth [facility] [address] [place] [address] Referral ID Status Reason Start Date Expiration Date Visits Re quested Visits Authorized [id number] Closed 03/09/2024 09/05/2024 1 1 Reason Comments Refill Request Reason Comments PT Eval Reason Comments Established Patient Injections Established Patient Durolane injections bilateral knees Injections Durolane injections bilateral knees Specialty Diagnoses / Procedures Referred By Janene t Referred To Contact ORTHOPAEDIC SURGERY Diagnoses Bilateral primary osteoarthritis of knee Procedures HYALURONAN OR DERIVATIVE, DUROLANE, FOR INTRA-ARTICULAR INJECTION, 1 MG [id number] - Durolane injections bilateral knees weekly X 1 Marlys Jernigan PA-C [address] [address] Phone: tel: Orthopaedics [address] [place] [address] Phone: tel: fax: Referral ID Status Reason Start Date Expiration Date Visits Re quested Visits Authorized [id number] Closed 09/13/2024 03/29/2025 1 1 Reason Comments Foot Pain (Midfoot) Concerns about right foot giving out. Reason Comments Patient Update Patient Question Care Teams (unrecognized sec tion and content) Profile Saw Operator Relationship Specialty Start Date End Date John Hicks MD [address] [place] [address] PCP - General Family Practice 09/11/14 Profile Saw Operator Relationship Specialty Start Date End Date John Hicks MD [address] [place], [place] [id number] PCP - General Family Practice 09/11/14 Profile Saw Operator Relationship Specialty Start Date End Date John Hicks MD [address] [place], [place] [id number] PCP - General Family Practice 09/11/14 Profile Saw Operator Relationship Specialty Start Date End Date John Hicks MD [address] [place], [place] [id number] PCP - General Family Practice 09/11/14 Profile Saw Operator Relationship Specialty Start Date End Date John Hicks MD [address] [facility] [address] PCP - General Family Practice 09/11/14 Profile Saw Operator Relationship Specialty Start Date End Date John Hicks MD [address] [facility] [place] [address] PCP - General Family Practice 09/11/14 Profile Saw Operator Relationship Specialty Start Date End Date John Hicks MD [address] [facility] [place] [address] PCP - General Family Practice 09/11/14 Profile Saw Operator Relationship Specialty Start Date End Date John Hicks MD [address] [facility] [place] [address] PCP - General Family Practice 09/11/14 Profile Saw Operator Relationship Specialty Start Date End Date John Hicks MD [address] [facility] [place] [address] PCP - General Family Medicine 09/11/14 Profile Saw Operator Relationship Specialty Start Date End Date John Hicks MD [address] [facility] [place] [address] PCP - General Family Medicine 09/11/14 Profile Saw Operator Relationship Specialty Start Date End Date John Hicks MD [address] [facility] [place] [address] PCP - General Family Medicine 09/11/14 Profile Saw Operator Relationship Specialty Start Date End Date John Hicks MD [address] [facility] [place] [address] PCP - General Family Medicine 09/11/14 Profile Saw Operator Relationship Specialty Start Date End Date John Hicks MD [address] [facility] [place] [address] PCP - General Family Medicine 09/11/14 Profile Saw Operator Relationship Specialty Start Date End Date John Hicks MD [address] [facility] [place] [address] PCP - General Family Medicine 09/11/14 Profile Saw Operator Relationship Specialty Start Date End Date John Hicks MD [address] [facility] [place] [address] PCP - General Family Medicine 09/11/14 Profile Saw Operator Relationship Specialty Start Date End Date John Hicks MD [address] [facility] [place] [address] PCP - General Family Medicine 09/11/14 Profile Saw Operator Relationship Specialty Start Date End Date John Hicks MD [address] [facility] [place] [address] PCP - General Family Medicine 09/11/14 Profile Saw Operator Relationship Specialty Start Date End Date John Hicks MD [address] [facility] [place] [address] PCP - General Family Medicine 09/11/14 Profile Saw Operator Relationship Specialty Start Date End Date John Hicks MD [address] [facility] [place] [address] PCP - General Family Medicine 09/11/14 Profile Saw Operator Relationship Specialty Start Date End Date John Hicks MD [address] [facility] [place] [address] PCP - General Family Medicine 09/11/14 Profile Saw Operator Relationship Specialty Start Date End Date John Hicks MD [address] [facility] [place] [address] PCP - General Family Medicine 09/11/14 Profile Saw Operator Relationship Specialty Start Date End Date John Hicks MD [address] [place] [address] PCP - General Family Medicine 09/11/14 Profile Saw Operator Relationship Specialty Start Date End Date John Hicks MD [address] [place] [address] PCP - General Family Medicine 09/11/14 Profile Saw Operator Relationship Specialty Start Date End Date John Hicks MD [address] [place] [address] PCP - General Family Medicine 09/11/14 Profile Saw Operator Relationship Specialty Start Date End Date John Hicks MD [address] [place] [address] PCP - General Family Medicine 09/11/14 Profile Saw Operator Relationship Specialty Start Date End Date John Hicks MD [address] [place] [address] PCP - General Family Medicine 09/11/14 Profile Saw Operator Relationship Specialty Start Date End Date John Hicks MD [address] [place] [address] PCP - General Family Medicine 09/11/14 Profile Saw Operator Relationship Specialty Start Date End Date John Hicks MD [address] [place] [address] PCP - General Family Medicine 09/11/14 Profile Saw Operator Relationship Specialty Start Date End Date John Hicks MD [address] [place] [address] PCP - General Family Medicine 09/11/14 Profile Saw Operator Relationship Specialty Start Date End Date John Hicks MD [address] [facility] [place] [address] PCP - General Family Medicine 09/11/14 Profile Saw Operator Relationship Specialty Start Date End Date John Hicks MD [address] [facility] [place] [address] PCP - General Family Medicine 09/11/14 Profile Saw Operator Relationship Specialty Start Date End Date John Hicks MD [address] [facility] [place] [address] PCP - General Family Medicine 09/11/14 Profile Saw Operator Relationship Specialty Start Date End Date John Hicks MD [address] [facility] [place] [address] PCP - General Family Medicine 09/11/14 Profile Saw Operator Relationship Specialty Start Date End Date John Hicks MD [address] [facility] [place] [address] PCP - General Family Medicine 09/11/14 Profile Saw Operator Relationship Specialty Start Date End Date John Hicks MD [address] [facility] [place] [address] PCP - General Family Medicine 09/11/14 Profile Saw Operator Relationship Specialty Start Date End Date John Hicks MD [address] [facility] [place] [address] PCP - General Family Medicine 09/11/14 Shanna Mukherjee APRN.MULTIPLE KNIFE EDGE TRIMMER OPERATOR [address] [facility] [place] [address] [employer] Pump Operator Family Medicine 02/27/24 Kaitlin Victor APRN.MULTIPLE KNIFE EDGE TRIMMER OPERATOR [address] [facility] [place] [address] [employer] Pump Operator Family Medicine 02/27/24 Profile Saw Operator Relationship Specialty Start Date End Date John Hicks MD [address] [facility] [place] [address] PCP - General Family Medicine 09/11/14 Shanna Mukherjee APRN.MULTIPLE KNIFE EDGE TRIMMER OPERATOR [address] [facility] [place] [address] [employer] Pump Operator Family Medicine 02/27/24 Kaitlin Victor APRN.MULTIPLE KNIFE EDGE TRIMMER OPERATOR [address] [facility] [place] [address] [employer] [facility] 02/27/24 Profile Saw Operator Relationship Specialty Start Date End Date John Hicks MD [address] [facility] [place] [address] PCP - General Family Medicine 09/11/14 Shanna Mukherjee APRN.MULTIPLE KNIFE EDGE TRIMMER OPERATOR [address] [facility] [place] [address] [employer] Pump Operator Family Medicine 02/27/24 Kaitlin Victor APRN.MULTIPLE KNIFE EDGE TRIMMER OPERATOR [address] [facility] [place] [address] [employer] Pump Operator Family Medicine 02/27/24 Profile Saw Operator Relationship Specialty Start Date End Date John Hicks MD [address] [place] [address] PCP - General Family Medicine 09/11/14 Shanna Mukherjee 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 [address] [facility] [place] [address] [employer] Pump Operator Family Medicine 02/27/24 Kaitlin Victor APRN.MULTIPLE KNIFE EDGE TRIMMER OPERATOR [address] [facility] [place] [address] [employer] Pump Operator Family Medicine 02/27/24 Profile Saw Operator Relationship Specialty Start Date End Date John Hicks MD [address] [place] [address] PCP - General Family Medicine 09/11/14 Shanna Mukherjee APRN.MULTIPLE KNIFE EDGE TRIMMER OPERATOR [address] [place] [address] [employer] Pump Operator Family Medicine 02/27/24 Kaitlin Victor APRN.MULTIPLE KNIFE EDGE TRIMMER OPERATOR [address] [place] [address] [employer] Pump Operator Family Medicine 02/27/24 Profile Saw Operator Relationship Specialty Start Date End Date John Hicks MD [address] [place] [address] PCP - General Family Medicine 09/11/14 Sahnna Mukherjee 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 [address] [facility] [place] [address] [employer] Pump Operator Family Medicine 02/27/24 Kaitlin Victor 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 [address] [place] [address] [employer] Pump Operator Family Medicine 02/27/24 Profile Saw Operator Relationship Specialty Start Date End Date John Hicks MD [address] [place] [address] PCP - General Family Medicine 09/11/14 Shanna Mukherjee 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 [address] [place] [address] [employer] Pump Operator Family Medicine 02/27/24 Kaitlin Victor 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 [address] [place] [address] [employer] Pump Operator Family Medicine 02/27/24 Profile Saw Operator Relationship Specialty Start Date End Date oJhn Hicks MD [address] [place] [address] PCP - General Family Medicine 09/11/14 Shanna Mukherjee 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 [address] [place] [address] [employer] Pump Operator Family Medicine 02/27/24 Kaitlin Victor 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 [address] [place] [address] [facility] [facility] 02/27/24 Profile Saw Operator Relationship Specialty Start Date End Date John Hicks MD [address] [place] [address] PCP - General Family Medicine 09/11/14 Shanna Mukherjee, 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 [address] [place] [address] [facility] Family Medicine 02/27/24 Kaitlin Victor 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 [address] [place] [address] [employer] Pump Operator Family Medicine 02/27/24 Profile Saw Operator Relationship Specialty Start Date End Date John Hicks MD [address] [facility] [place] [address] PCP - General Family Medicine 09/11/14 Shanna Mukherjee APRN.MULTIPLE KNIFE EDGE TRIMMER OPERATOR [address] [facility] [place] [address] [employer] Pump Operator Family Medicine 02/27/24 Kaitlin Victor 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 [address] [facility] [place] [address] [employer]products Pump Operator Family Medicine 02/27/24 Profile Saw Operator Relationship Specialty Start Date End Date John Hicks MD [address] [facility] [place] [address] PCP - General Family Medicine 09/11/14 Shanna Mukherjee 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 [address] [facility] [place] [address] [employer] Pump Operator Family Medicine 02/27/24 Kaitlin Victor 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 [address] [facility] [place] [address] Byproducts Pump Operator Family Medicine 02/27/24 Profile Saw Operator Relationship Specialty Start Date End Date John Hicks MD [address] [facility] [place] [address] PCP - General Family Medicine 09/11/14 Shanna Mukherjee APRN.MULTIPLE KNIFE EDGE TRIMMER OPERATOR [address] [facility] [place] [address] [employer] Pump Operator Family Medicine 02/27/24 Kaitlin Victor 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 [address] [facility] [place] [address] [employer] Pump Operator Family Medicine 02/27/24 INFORMATION SOURCE (unrecogn ized section and content) DATE CREATED AUTHOR 08/20/2023 [facility] DATE CREATED AUTHOR AUTHOR'S ALFONZO WEBER 12/14/2024 [facility] FOR RECORDS PERTAINING TO PATIENTS WHO ARE OR HAVE BEEN ENROLLED IN A CHEMICAL DEPENDENCY/SUBSTANCEABUSE PROGRAM, SOME INFORMATION MAY BE OMITTED. This clinical summary was aggregated from multiple sources. Caution should be exercised in using it in the provision of clinical care. This summary normalizes information from multiple sources, and as a consequence, information in this document may materially change the coding, format and clinical context of patient data. In addition, data may be omitted in some cases. CLINICAL DECISIONS SHOULD BE BASED ON THE PRIMARY CLINICAL RECORDS. [facility]. provides no warranty or guarantee of the accuracy or completeness of information in this document.
--- NOTE | 2025-02-16 11:28 | EDS_ITS ---
HPI History of Present Illness Chief Complaint: Lower Extremity Injury Narrative Narrative: Patient is a 85-year-old female presenting to the emergency department for left posterior hip pain for 3 days. 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 States that her son visited from [place] on and states that she worked herself very hard by cleaning the whole house. States that her left posterior hip then started hurting shortly after when she tried getting in the shower. She states it feels like a "grabbing claw". States it comes and goes. It is positional. She does not have difficulty ambulating. Denies any leg pain. Denies any numbness or weakness in her leg. Denies any falls or injuries to the hip or back. Denies any dysuria or hematuria. Denies any abdominal pain. Denies any chest pain or shortness of breath. States that she has been taking 1 Tylenol daily for the pain. She is also tried using a lidocaine patch. She states that she just wants to be "cautious" and get checked out. States that she is allergic to anti-inflammatories and this is why she has not been taking them. [facility] Medical History Osteoarthritis LBBB (left bundle branch block) Hiatal hernia Home Medications Medication Instructions Recorded Last Taken Type gabapentin 300 mg capsule 300 mg PO TID 08/12/23 Unkno wn History ketoconazole 2 % shampoo 1 applic topical .COMPLEX Unknown History prednisone 10 mg tablet See Taper PO 08/12/23 Unknow n History sertraline 25 mg tablet 25 mg PO DAILY 08/12/23 Unkn own History valacyclovir 1 gram tablet 1,000 mg PO TID 08/12/23 Un known History Allergy/AdvReac Type Severity Reaction Status Date / Time No Known Allergies Allergy Verified 02/16/25 10:34 Family History no significant family his Surgical History no surgical history Social History Smoking Status: Never smoker ROS ROS ED ROS Narrative see HPI EXAM Physical Exam Narrative Exam Narrative: Vital signs: Reviewed General: Alert and orientedx3. No acute distress. Well appearing, non toxic. HEENT: Head is normocephalic and atraumatic, sinuses nontender, pupils equal round and reactive. Nares are patent. Oropharynx and throat exams normal. Neck: Supple without lymphadenopathy nontender Cardiovascular: Regular rate and rhythm, no murmurs. No rubs or gallops. Normal S1 and S2 Respiratory: Clear to auscultation bilaterally. No wheezes, rales, rhonchi Abdominal: Soft and nontender. Normal bowel sounds. No guarding or rebound. Nonsurgical abdomen Extremities: No midline thoracic or lumbar spinal tenderness to palpation. No step-offs or deformities. There is lower lumbar left sided paraspinal tenderness to palpation. No rashes. No CVA tenderness. There is some mild left lateral hip tenderness to palpation. No obvious deformities. No tenderness to palpation of the anterior left hip, femur, knee, tib-fib, ankle or foot. DP and PT pulses intact. Normal active range of motion with flexion extension at the left hip and knee. Skin: No rash or redness. Neurological: Normal 5/5 strength in bilateral lower extremities. Normal sensation in bilateral lower extremities. The rest of the physical exam is unremarkable Const Vital Signs: 02/16/25 10:35 02/16/25 12:36 02/16/25 12:41 Temperature 96.2 F L 97 F L 97 F L Temperature Source Temporal Oral Pulse Rate 83 83 83 Respiratory Rate 18 18 18 Blood Pressure 160/86 H 141/82 H 141/82 H Blood Pressure Mean 110 101 101 Pulse Ox 96 97 97 Oxygen Delivery Method Room Air Room Air MDM MDM MDM Narrative Medical decision making narrative: Patient is a 85-year-old female presenting to the emergency department for atraumatic left hip and back pain. Patient was seen and examined. Vitals are stable. Patient resting bed comfortably no acute distress. Patient had no falls or trauma to the hip I do not think that there is a fracture or dislocation. The pain is mainly localized to the left lumbar paraspinal muscles. This is consistent with her doing a lot of housework and likely experiencing a muscle strain. She has no red flag back pain signs including no midline tenderness on exam, no fevers, no IV drug use, no immunocompromise status, normal sensation and strength in bilateral lower extremities, no urinary or bowel retention or incontinence. She is able to ambulate without difficulty. She describes it as a grabbing sensation that comes and goes which is consistent with muscle spasm. She was offered muscle relaxer but declines. States she does not like taking medications. She states she is allergic to anti-inflammatories. States she only takes Tylenol. X-ray of the left hip was obtained to rule out fracture. On my review no fracture or dislocation noted. Radiology read in agreement. Patient was instructed to continue using lidocaine patches on her lower back/hip and continue taking Tylenol. Again I did offer muscle relaxers and she declined. Patient discharged from the Emergency Department. I do not feel that the patient's evaluation reveals any acute reason for admission at this time. I instructed them to either follow-up with their primary care physician or promptly return to the Emergency Department for reevaluation should symptoms worsen or new symptoms develop. I explained what symptoms would indicate the need to return to the emergency department. Shared decision making was used. The patient voiced understanding of the treatment plan and is agreeable with it. Clinical impression Muscle strain History & Record Review Discussion w/independent historian: Patient Radiography X-Ray: Left Hip, Read by ED Physician, Normal and No Fracture Diagnostic Testing: Clinical Impression(s) from Imaging Studies Hip/Pelvis X-Ray 02/16/25 11:03 IMPRESSION: No acute fracture is identified. If there is high clinical concern for the left hip fracture, further evaluation may be obtained with CT. Reading Location: [facility] Discharge Plan Triage Chief Complaint: Lower Extremity Injury ED Provider: Naheed Todd Dx/Rx/DC Orders Clinical Impression: Low back strain Instructions: Self-Care for Strains and Sprains, ED Back Sprain/Strain Prescriptions: No Action prednisone 10 mg tablet See Taper PO Taper: Prednisone Taper 60 mg WITH BREAKFAST for 3 Days 50 mg WITH BREAKFAST for 3 Days 40 mg WITH BREAKFAST for 3 Days 30 mg WITH BREAKFAST for 3 Days 20 mg WITH BREAKFAST for 3 Days 10 mg WITH BREAKFAST for 3 Days ketoconazole 2 % shampoo 1 applic topical .COMPLEX Rx Instructions: 1 applic topically 2-3 times a week; gabapentin 300 mg capsule 300 mg PO TID valacyclovir 1 gram tablet 1,000 mg PO TID sertraline 25 mg tablet 25 mg PO DAILY Primary Care Provider: John Godinez Referrals: John Godinez MD [Primary Care Provider, Medical] - As soon as possible Activity Restrictions/Additional Instructions: Continue taking Tylenol as you have been. You can continue using the Lidoderm patches as well on your lower back leaving on for 12 hours at a time and make sure to remove it after this. Your evaluation in the Emergency Department did not reveal any acute reason for admission. However, I want to emphasize that you may be early in the course of a disease process or illness even if it is not present. For this reason you should follow-up within 24 hours for reevaluation with either your primary care physician or if necessary back here in the Emergency Department. You should return to the Emergency Department immediately if your symptoms worsen or new symptoms develop. Print Language: Sami Disposition Disposition: Home, Self Care Discharge Date/Time: 02/16/25 12:42
[2025-02-16 12:36] VITALS: BP 141/82; PULSE 83; RESP 18; TEMP 36.1; O2SAT 97
[2025-02-16 12:41] VITALS: BP 141/82; PULSE 83; RESP 18; TEMP 36.1; O2SAT 97
== END 2025-02-16 12:42 | disposition home or self-care (01) ==
PROVIDERS: Emergency Provider Student in an Organized Health Care Education/Training Program; PCP Family Medicine; Visit Provider Student in an Organized Health Care Education/Training Program
DX: S39.012A Strain of muscle, fascia and tendon of lower back, initial encounter (principal); X58.XXXA Exposure to other specified factors, initial encounter; Y93.E5 Activity, floor mopping and cleaning
CPT/HCPCS: 73502; 99282